=== PATIENT | male | born 1960 | race Two or more races ===

== ENCOUNTER 2017-08-27 21:36 | Emergency (ER) | payer OTHER, MEDICAID ==
[~2017-08-27] VITALS: Ht 177.8 cm; Wt 68.0 kg
[~2017-08-27 21:36] MED LIST: ASPIR-LOW81 MG PO; BACTRIM-DS1 EA PO; CATAPRES0.2 MG PO; CEFTRIAXONE2 G2 IV; CELLCEPT250 MG ORAL; CELLCEPT250 MG PO; CIPROFLOXACIN500 M2 ORAL; COLACE100 MG ORAL; COLACE100 MG PO; DAILY VITAMIN1 EAC4 PO; DITROPAN10 MG PO; FLOMAX0.4 MG PO; KAYEXALATE SUSP15 GM PO; KEPPRA500 MG PO; LABETALOL HCL300 MG PO; LANTUS SOL100 UNIT/1 SUBQ; LEVEMIR FL100 UNIT/1 SUBQ; LIPITOR20 MG ORAL; MAGNESIUM400 M1 PO; NORCO 5-325 TA1 EACH ORAL; NORMODYNE200 MG ORAL; NORVASC10 MG PO; NOVOLOG100 UNIT/3 SUBQ; NOVOLOG100 UNITS1 SUBQ; NYSTATIN100000 UN1 PO; PHENERGAN25 M1 ORAL; PREDNISONE2.5 MG PO; PREDNISONE5 M3 PO; PREVACID30 MG PO; PROGRAF1 MG PO; TERAZOSIN HCL1 MG PO; VALCYTE450 MG PO; VITAMIN D350000 UNIT PO
[2017-08-27 21:43] VITALS: BP 109/62
[2017-08-27] MEDS ORDERED: OXYBUTYNIN CHLOR5 M1 ORAL (21:50)
[2017-08-27] MEDS ORDERED: TRAMADOL HCL100 M2 ORAL (21:50)
[2017-08-27] MEDS ORDERED: TERAZOSIN HCL1 MG ORAL (21:50)
--- NOTE | 2017-08-27 22:08 | Emergency Room Report ---
History of Present Illness General Chief Complaint: Multiple Trauma/Fall Source: Patient Present Illness HPI Patient 56-year-old male who presented after a fall on top of a fan . 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 He had prior history of renal disease. He is currently on transplant medications. The patient having increased right-sided pain. Pain was described as lower rib area the pain is worse with movement as well as deep breath. Allergies: Coded Allergies: NO KNOWN ALLERGIES (Unverified Allergy, Unknown, 10/24/15) Patient History Past Medical History: see triage record Reviewed Nursing Documentation: PMH: Agreed, PSxH: Agreed Nursing Documentation-PMH Hx Hypertension: Yes Hx Pacemaker: No Hx Asthma: No Hx COPD: No Hx Diabetes: Yes Hx Cancer: No Hx Gastrointestinal Problems: No Hx Neurological Problems: Yes - Neuro surgery (veins clipped) Hx Cerebrovascular Accident: No Hx Seizures: Yes Hx Peripheral Neuropathy: Yes Hx Neurologic Surgery: Yes - brain surgery 10 years ago Review of Systems All Other Systems: negative except mentioned in HPI Physical Exam Vital Signs Date Time Temp Pulse Resp B/P (MAP) Pulse Ox O2 Delivery O2 Flow Rate FiO2 08/27/17 21:43 97.5 71 14 109/62 100 Room Air Sp02 EP Interpretation: reviewed, normal General Appearance: normal inspection, well appearing, no apparent distress, alert, GCS 15 Head: atraumatic ENT: normal ENT inspection, hearing grossly normal, normal voice Neck: normal inspection, full range of motion, supple, no bony tend Respiratory: normal inspection, lungs clear, normal breath sounds, no respiratory distress, no retraction, no wheezing Cardiovascular #1: regular rate, rhythm, no edema, other - chest wall tenderness Gastrointestinal: normal inspection, normal bowel sounds, non tender, soft, no guarding, no hernia Genitourinary: no CVA tenderness Musculoskeletal: normal inspection, back normal, normal range of motion Neurologic: normal inspection, alert, responsive, speech normal Psychiatric: normal inspection, judgement/insight normal, mood/affect normal Skin: normal inspection, normal color, no rash Medical Decision Making Diagnostic Impression: Primary Impression: Rib fracture ER Course Patient presented for fall. Differential diagnosis included was not limited to neck fracture, CVA, close head injury, syncopal episode, basilar ischemia, rib fracture among others. Because of complexity of patient's case laboratory testing and imaging studies were ordered.The x-ray imaging of the chest 4 views interpreted by me showed a right-sided rib fracture. The patient was given IM morphine for pain. He is advised to continue taking his tramadol for pain. He is advised followup with his primary care physician for reevaluation. He is advised to return if he began having worsening shortness of breath dizziness or other concerns Chest X-Ray Diagnostic Results Chest X-Ray Diagnostic Results : Chest X-Ray Ordered: Yes # of Views/Limited/Complete: Complete - 4 Indication: Chest Pain EP Interpretation: Yes Interpretation: no consolidation, no acute cardiopulmonary disease, other - rib fracture, small effusion Impression: Other - rib fracture Electronically Signed by: Electronically signed by Dr. Don Giordano M.D. Last Vital Signs Date Time Temp Pulse Resp B/P (MAP) Pulse Ox O2 Delivery O2 Flow Rate FiO2 08/27/17 21:43 97.5 71 14 109/62 100 Room Air Status: improved Disposition: HOME, SELF-CARE Condition: Stable Don Giordano Aug 27, 2017 22:08
[2017-08-27 23:13] VITALS: BP 160/80
[2017-08-27] MEDS ORDERED: Morphine Sulfate 2mg/ml Inj IM ONE (23:15)
--- NOTE | 2017-08-28 11:15 | Diagnostic Imaging Report ---
Indication: PAIN, status post fall Technique: One view of the chest, multiple views of the right ribs Comparison: 09/24/15, 10/24/2015 Findings: Chest radiograph demonstrates blunting of the right costophrenic sulcus. No pneumothorax . There is questionably a 1.5 cm nodule in the left midlung seen on chest radiograph. The remainder of the lungs and pleural space are clear. There is a fracture of the anterolateral right seventh rib. This is displaced by at least one bone width. Normal heart size Impression: Positive for right seventh rib fracture. Small right pleural effusion, likely related to the above No pneumothorax Questionable 1.5 cm nodule in the left midlung. Consider chest CT for further evaluation. This was discussed by phone with Dr. Jaimes at the time of interpretation
== END 2017-08-27 23:24 | disposition home or self-care (01) ==
LOC: EMR 22:02
DX: S22.31XA Fracture of one rib, right side, initial encounter for closed fracture (principal); W01.0XXA Fall on same level from slipping, tripping and stumbling without subsequent striking against object, initial encounter; Y92.009 Unspecified place in unspecified non-institutional (private) residence as the place of occurrence of the external cause; I10 Essential (primary) hypertension; E11.9 Type 2 diabetes mellitus without complications; R91.1 Solitary pulmonary nodule
CPT/HCPCS: 71101; 96372; 99284; J2270

== ENCOUNTER 2017-10-02 13:01 | Emergency (ER) | payer OTHER, MEDICAID ==
[~2017-10-02] VITALS: Ht 177.8 cm; Wt 65.8 kg
[~2017-10-02 13:01] MED LIST changes: +OXYBUTYNIN CHLOR5 M1 ORAL; +TERAZOSIN HCL1 MG ORAL; +TRAMADOL HCL100 M2 ORAL
[2017-10-02 13:38] VITALS: BP 180/98
[2017-10-02] MEDS ORDERED: Norco 5mg/325mg tab ORAL ONE (13:45)
--- NOTE | 2017-10-02 15:36 | Diagnostic Imaging Report ---
Clinical Indication: Right rib pain since yesterday Technique: Spiral acquisitions obtained through the chest. No IV contrast utilized, reason not stated. Multiplanar reconstructions generated. Total dose length product 673 mGycm. CTDIvol(s) 15 mGy. Dose reduction achieved using automated exposure control Comparison: Radiographs dated 08/27/2017 Findings:There is a lucency surrounded by sclerosis of the right anterolateral fifth rib. There is a minimally displaced fracture of the anterolateral right sixth rib with some surrounding callus formation. There is a fracture of the anterolateral right seventh rib, which is displaced by one bone width. There is a nondisplaced fracture with some callus formation of the lateral right eighth rib. There is are mostly healed fractures of the posterior left eighth and ninth ribs, with considerable callus, minimal residual fracture line. There is a completely healed fracture deformity of the left posterior 10th rib and of the posteromedial 12th ribs. There is an old healed fracture deformity of the left L1 transverse process There is a moderate-sized right pleural effusion. This demonstrates fluid attenuation, so it is not grossly bloody. No pneumothorax is evident. There are compressive atelectatic changes of the right lower lobe. Lung windows demonstrate a 3 mm calcified nodule in the posterior lateral left upper lobe, image 18 series 5. Subpleural 3 mm nodule is seen in the anterior left upper lobe, image 26 series 5. No infiltrates. No left-sided pleural fluid demonstrated. The heart size is normal. There are dense mitral annular calcifications. There are considerable coronary arterial calcifications. There is a small anterior wall pericardial effusion. No mediastinal or hilar mass or adenopathy. The included portions of the thyroid are unremarkable. The trachea is unremarkable. The esophagus is somewhat gas-filled. There is suggestion of mild esophageal wall thickening distally. There is diffuse mild edema of the subcutaneous fat. No axillary or chest wall mass or adenopathy. The included upper abdominal anatomy demonstrates calcifications within the liver which are punctate. There are considerable atherosclerotic vascular calcifications. The kidneys appear atrophic. Impression: Fractures of the right fifth through eighth ribs, as described. The seventh rib fracture is displaced, was reported on recent 08/26/2017 radiographs. The remaining fractures are nondisplaced, and occult on recent radiographs in retrospect Multiple old, mostly healed, left rib fractures. Note that radiographs of 08/15/2015 described acute 10th and 11th rib fractures. The 11th rib fracture is currently occult on CT, apparently completely healed No pneumothorax Moderate size right-sided pleural effusion. Fluid attenuation of this indicates this is probably not a hemothorax loops Dependent and compressive atelectatic changes at the right lung base 2 noncalcified left upper lobe nodules. If there is significant risk for lung cancer, then followup imaging in 6-12 months is recommended. If no risk factors, no further followup is necessary Old healed left L1 transverse process fracture Small anterior wall pericardial effusion Distal esophageal mild wall thickening, could indicate esophagitis . Correlate with clinical findings Evidence of mild anasarca, with diffuse mild edema of the subcutaneous fat Atrophic kidneys, also described on prior renal ultrasound of [address] scanner at [facility] is accredited by the [employer] and the scans are performed using protocols designed to limit radiation exposure to as low as reasonably achievable to attain images of sufficient resolution adequate for diagnostic evaluation.
[2017-10-02] MEDS ORDERED: NORCO 5-325 TA1 EAC1 ORAL (16:18)
[2017-10-02 16:48] VITALS: BP 170/86
--- NOTE | 2017-10-02 21:56 | Emergency Room Report ---
History of Present Illness General Chief Complaint: General Complaint Source: Patient Present Illness HPI The patient is a 56-year-old male presenting for continued rib pain. He was seen in this emergency department approximately 1 month prior after he fell and fractured his right ribs. X-ray was done at that time and showed 1 fracture on the right side. He has been using tramadol which has not been helping. Pain continues and is an 8/10 dull ache. Worse with deep breathing and touch.He denies other symptoms including nausea, vomiting, fever, chills, shortness of breath, hemoptysis Allergies: Coded Allergies: NO KNOWN ALLERGIES (Unverified Allergy, Unknown, 10/24/15) Patient History Past Medical History: see triage record Pertinent Family History: none Social History: Reports: smoking Reviewed Nursing Documentation: PMH: Agreed, PSxH: Agreed Nursing Documentation-PMH Hx Hypertension: Yes Hx Pacemaker: No Hx Asthma: No Hx COPD: No Hx Diabetes: Yes Hx Cancer: No Hx Gastrointestinal Problems: No Hx Neurological Problems: Yes - Neuro surgery (veins clipped) Hx Cerebrovascular Accident: No Hx Seizures: Yes Hx Peripheral Neuropathy: Yes Hx Neurologic Surgery: Yes - brain surgery 10 years ago Review of Systems All Other Systems: negative except mentioned in HPI Physical Exam Vital Signs Date Time Temp Pulse Resp B/P (MAP) Pulse Ox O2 Delivery O2 Flow Rate FiO2 10/02/17 13:28 98.2 78 16 180/98 99 Room Air Sp02 EP Interpretation: reviewed, normal General Appearance: no apparent distress, alert, GCS 15, non-toxic Head: normocephalic, atraumatic Eyes: bilateral eye other - blind ENT: hearing grossly normal, normal pharynx, no angioedema, normal voice Respiratory: lungs clear, normal breath sounds, no respiratory distress, no retraction, no accessory muscle use, speaking full sentences, other - no flail chest. TTP over the R lateral distal ribs Medical Decision Making PA Attestation Dr. Case is my supervising physician. Patient management was discussed with my supervising physician Diagnostic Impression: Primary Impression: Lung nodule, multiple Additional Impressions: Multiple rib fractures Qualified Codes: S22.41XA - Multiple fractures of ribs, right side, initial encounter for closed fracture Pleural effusion on right ER Course The patient is a 56-year-old male presenting for continued rib pain. Ddx considered include but not limited to Pneumothorax, sprain/strain, fracture , contusion Physical exam: Vitals within normal limits. No apparent distress Lungs are clear to auscultation bilaterally. No flail chest. There is tenderness to palpation over right distal lateral ribs. CT scan of the chest shows multiple findings including multiple right rib fractures and, left lung nodules, and right-sided pleural effusion. The patient was informed of all of these results as well as his son and told that he will need to have further care and evaluation. They declined admission at this time. I informed the patient that this is an urgent matter. He is given discs with the images and will follow up with his primary doctor and waste hand as soon as possible. He is given pain medication. ER precautions given CT/MRI/US Diagnostic Results CT/MRI/US Diagnostic Results : Imaging Test Ordered: CT chest Impression Fractures of the right fifth through eighth ribs, as described. The seventh rib fracture is displaced, was reported on recent 08/26/2017 radiographs. The remaining fractures are nondisplaced, and occult on recent radiographs in retrospect No pneumothorax Moderate size right-sided pleural effusion. Fluid attenuation of this indicates this is probably not a hemothorax loops Dependent and compressive atelectatic changes at the right lung base 2 noncalcified left upper lobe nodules. If there is significant risk for lung cancer, then followup imaging in 6-12 months is recommended. If no risk factors , no further followup is necessary Last Vital Signs Date Time Temp Pulse Resp B/P (MAP) Pulse Ox O2 Delivery O2 Flow Rate FiO2 10/02/17 16:48 77 14 170/86 99 Room Air 10/02/17 15:20 98.2 Status: improved Disposition: HOME, SELF-CARE Condition: Improved Scripts Hydrocodone Bit/Acetaminophen 5-325* (NORCO 5-325 TABLET*) 1 Each Tablet 1 TAB ORAL Q6HR Y for For Pain, #12 TAB Prov: DOROTHEA PORTER 10/02/17 Patient Instructions: Pulmonary Nodule, Rib Fracture Additional Instructions: I discussed my findings with the patient. All questions and concerns have been answered. Treatment and medication compliance have been addressed. The patient was told he needs to followup with his primary doctor soon as possible and needs to see a waste hand. He agrees with this plan. He was also informed of the lung nodules which has to be further evaluated DOROTHEA PORTER Oct 02, 2017 21:56
== END 2017-10-02 16:48 | disposition home or self-care (01) ==
LOC: EMR 14:19
DX: S22.41XA Multiple fractures of ribs, right side, initial encounter for closed fracture (principal); W19.XXXA Unspecified fall, initial encounter; Y92.89 Other specified places as the place of occurrence of the external cause; I10 Essential (primary) hypertension; E11.9 Type 2 diabetes mellitus without complications; R91.8 Other nonspecific abnormal finding of lung field; G62.9 Polyneuropathy, unspecified; J90 Pleural effusion, not elsewhere classified
CPT/HCPCS: 71250; 99283

== ENCOUNTER 2017-10-31 19:43 | Emergency (ER) | payer OTHER, MEDICAID ==
[~2017-10-31] VITALS: Ht 177.8 cm; Wt 66.2 kg
[~2017-10-31 19:43] MED LIST changes: +NORCO 5-325 TA1 EAC1 ORAL
[2017-10-31] MEDS ORDERED: Acetaminophen 500mg (ES) tab ORAL ONE (20:30)
[2017-10-31 21:35] VITALS: BP 135/62
--- NOTE | 2017-10-31 21:45 | Emergency Room Report ---
History of Present Illness General Chief Complaint: Multiple Trauma/Fall Source: Patient Present Illness HPI 56-year-old male, history of legal blindness, presents with fall and left hip pain. The son states that patient tripped, fell onto left side. Got up on his own. Patient has had intermittent left hip pain for the last 2 days. Has still been able to ambulate with his walker. No head trauma no LOC. Allergies: Coded Allergies: NO KNOWN ALLERGIES (Unverified Allergy, Unknown, 10/24/15) Patient History Past Medical History: see triage record Past Surgical History: none Pertinent Family History: none Reviewed Nursing Documentation: PMH: Agreed, PSxH: Agreed Nursing Documentation-PMH Hx Hypertension: Yes Hx Pacemaker: No Hx Asthma: No Hx COPD: No Hx Diabetes: Yes Hx Cancer: No Hx Gastrointestinal Problems: No Hx Neurological Problems: Yes - Neuro surgery (veins clipped) Hx Cerebrovascular Accident: No Hx Seizures: Yes Hx Peripheral Neuropathy: Yes Hx Neurologic Surgery: Yes - brain surgery 10 years ago Review of Systems All Other Systems: negative except mentioned in HPI Physical Exam Vital Signs Date Time Temp Pulse Resp B/P (MAP) Pulse Ox O2 Delivery O2 Flow Rate FiO2 10/31/17 20:03 97.7 70 18 98/59 98 Sp02 EP Interpretation: reviewed, normal General Appearance: alert, GCS 15, mild distress Head: normocephalic, atraumatic Eyes: bilateral eye other - blind b/l eyes ENT: normal ENT inspection, normal pharynx, normal voice, moist mucus membranes Neck: normal inspection, full range of motion, supple Respiratory: normal inspection, lungs clear, normal breath sounds, no respiratory distress, no retraction, no wheezing, speaking full sentences, chest symmetrical Cardiovascular #1: normal inspection, regular rate, rhythm, no edema, normal capillary refill Cardiovascular #2: 2+ radial (R), 2+ radial (L) Gastrointestinal: normal inspection, non tender, soft, non-distended, no guarding Genitourinary: no CVA tenderness Musculoskeletal: other - L buttocks TTP no ecchymosis, no leg shortening or rotation Neurologic: normal inspection, alert, oriented x3, responsive, motor strength/ tone normal, sensory intact, normal gait, speech normal Psychiatric: normal inspection, judgement/insight normal, memory normal Skin: normal inspection, normal color, no rash, warm/dry, well hydrated, normal turgor Medical Decision Making Diagnostic Impression: Primary Impression: Hip pain, left Additional Impression: Fall ER Course 56-year-old male, fall, left hip pain DDX: Contusion vs. fracture Plan: Pain control with Tylenol and XR ER course: Patient reports improvement of pain X-ray does not reveal a fracture Disposition: Patient is to be discharged home Strict precautions discussed with patient on when to return to the emergency room including increased pain, increased pain/swelling of extremity, fever or chills, which could indicate severe illness. Patient is to follow up with their primary care doctor within 5 days. Please note that this Emergency Department Report was dictated using [employer] and language tutor technology software, occasionally this can lead to erroneous entry secondary to interpretation by the dictation equipment. Xray ordered: Pelvis 1 view Indication: Pain EP Interpretation: Yes Interpretation: No dislocation, no soft tissue swelling, no fractures Impression: No acute disease Electronically signed by Jayleen Galarza MD Xray: Left hip 3 view Indication: Pain EP Interpretation: Yes Interpretation: No dislocation, no soft tissue swelling, no fractures Impression: No acute disease Electronically signed by Jayleen Galarza MD Last Vital Signs Date Time Temp Pulse Resp B/P (MAP) Pulse Ox O2 Delivery O2 Flow Rate FiO2 10/31/17 20:03 97.7 70 18 98/59 98 Disposition: HOME, SELF-CARE Condition: Stable Patient Instructions: Hip Pain Jayleen Galarza M.D. Oct 31, 2017 21:45
--- NOTE | 2017-11-01 09:18 | Diagnostic Imaging Report ---
Indication: Pain Technique: One view of the pelvis, 2 views of the left hip Comparison: none Findings: The bones are osteoporotic. No definite acute fractures. No dislocations. Joint spaces are preserved. There are extensive vascular calcifications. Surgical clips are seen in the left side of the pelvis. Impression: No acute bony trauma. Findings as noted
== END 2017-10-31 21:35 | disposition home or self-care (01) ==
LOC: EMR 20:20
DX: M25.552 Pain in left hip (principal); W19.XXXA Unspecified fall, initial encounter; Y92.9 Unspecified place or not applicable; E11.9 Type 2 diabetes mellitus without complications; I10 Essential (primary) hypertension; G62.9 Polyneuropathy, unspecified
CPT/HCPCS: 72170; 73502; 99284

== ENCOUNTER 2017-11-04 13:19 | Inpatient (IN) | payer OTHER, MEDICAID ==
[~2017-11-04] VITALS: Ht 177.8 cm; Wt 68.0 kg
[2017-11-04] MEDS ORDERED: oxyCODONE HCL/Acetaminophen 5/325mg ORAL ONE (14:00)
--- NOTE | 2017-11-04 16:44 | Emergency Room Report ---
History of Present Illness General Chief Complaint: Multiple Trauma/Fall Source: Patient, Family Member (Rocio Hahn) Present Illness HPI 56 YO Male presents to E/D c/o 08/14 in severity left hip pain s/p mechanical fall today. pt. was evaluated 1 week ago for fall then as well. reports "kidney problems and DM." Patient presents with his sister who is also concerned that he is unable to care for himself at his home he is blind for the most part her and has a disability requiring him to wear an orthotic on the right foot for a discrepancy. The sister reports that patient has history of renal transplant, and he is often at home by himself the majority of the day. The patient himself is a poor historian, he is in moderate distress due to pain, he also is tachypneic Making it difficult for him to speak full sentences. Pt. reports chills. (Rocio Hahn) Allergies: Coded Allergies: NO KNOWN ALLERGIES (Unverified Allergy, Unknown, 10/24/15) Patient History Past Medical History: see triage record, DM Past Surgical History: none Pertinent Family History: none Reviewed Nursing Documentation: PMH: Agreed, PSxH: Agreed (Rocio Hahn) Nursing Documentation-PMH Past Medical History: No History, Except For Hx Hypertension: Yes Hx Pacemaker: No Hx Asthma: No Hx COPD: No Hx Diabetes: Yes Hx Cancer: No Hx Gastrointestinal Problems: No Hx Neurological Problems: Yes - Neuro surgery (veins clipped) Hx Cerebrovascular Accident: No Hx Seizures: Yes Hx Peripheral Neuropathy: Yes Hx Neurologic Surgery: Yes - brain surgery 10 years ago (Rocio Hahn) Review of Systems All Other Systems: negative except mentioned in HPI (Rocio Hahn) Physical Exam Vital Signs Date Time Temp Pulse Resp B/P (MAP) Pulse Ox O2 Delivery O2 Flow Rate FiO2 11/04/17 13:34 99.1 80 18 139/58 99 Room Air Sp02 EP Interpretation: reviewed, normal General Appearance: alert, GCS 15, moderate distress, cachetic, lethargic, thin , Chronically Ill Head: normocephalic, atraumatic Eyes: bilateral eye normal inspection, bilateral eye PERRL ENT: hearing grossly normal, normal voice Neck: full range of motion Respiratory: chest non-tender, lungs clear, normal breath sounds, no rhonchi, no retraction, no wheezing, other - tachypneic Cardiovascular #1: regular rate, rhythm, no edema Gastrointestinal: normal bowel sounds, non tender, soft Rectal: deferred Genitourinary: normal inspection Musculoskeletal: back normal, normal range of motion, tender - lateral TTP to the left hip, swelling noted, mild hematoma, no significant increased temperature to palpation, no abrasions or open wounds. Neurologic: alert, oriented x3, responsive, sensory intact, speech normal, grossly normal Skin: no rash, warm/dry, other - contusion to lateral left hip, ST swelling , tenderness. (Rocio Hahn) Medical Decision Making PA Attestation Dr. August is my supervising Physician whom patient management has been discussed with. (Rocio Hahn) Diagnostic Impression: Primary Impression: UTI (urinary tract infection) Qualified Codes: N30.01 - Acute cystitis with hematuria Additional Impressions: Metabolic acidosis Renal failure Qualified Codes: N19 - Unspecified kidney failure Hyperglycemia Fall Qualified Codes: W19.XXXA - Unspecified fall, initial encounter Failure to thrive Qualified Codes: R62.7 - Adult failure to thrive ER Course 56 YO Male presents to E/D c/o 08/14 in severity left hip pain s/p mechanical fall today. pt. was evaluated 1 week ago for fall then as well. reports "kidney problems and DM." Patient presents with his sister who is also concerned that he is unable to care for himself at his home he is blind for the most part her and has a disability requiring him to wear an orthotic on the right foot for a discrepancy. The sister reports that patient has history of renal transplant, and he is often at home by himself the majority of the day. The patient himself is a poor historian, he is in moderate distress due to pain, he also is tachypneic Making it difficult for him to speak full sentences. Pt. reports chills. Ddx considered but are not limited to fracture, dislocation, contusion, infection, hyperglycemia, failure to thrive Vital signs: pt. is febrile 100.7, tachypneic at RR: 24 , normal HR. normal O2 sat. H&PE are most consistent with moderate tenderness to the lateral left hip in addition to tachypnea. And fever. ORDERS: -CBC: Mild leukocytosis and anemia -CMP: To light abnormality, hypoglycemia, dehydration and renal failure -ABG: PH of 7 point C. with bicarbonate of 8, elevated PO2 with a low PCO2 indicating metabolic acidosis with respiratory compensation. Calculated Bicarb deficit: 452.6 - Corrected anion gap calculated to be 23 - CXR: increased Perihilar lung markings, no acute pulmonary pathology at this time -CT Hip No-Contrast: No acute fractures or dislocation, there is left hip/ gluteal soft tissue fluid and air which may be post traumatic or infectious/ inflammatory. We thickened bladder which may be chronic versus cystitisPer official radiology report- Please see report for specific details. ED INTERVENTIONS: --Unasyn IV -Vancomycin IV - Tylenol PO - IV fluids 1000cc NS bolus x 2 -Sodium Bicarb x 2 -I feel this is a highly complex case requiring extensive working including EKG/ Rhythm strip, Xray/CT/US, Blood/urine lab work, repeat exams while in ED, and administration of strong opiates/narcotics for pain control, admission to hospital or close patient follow up. DISPOSITION: at this time pt. will be admitted to who is covering for Dr. Gaona for her glycemia, renal failure,metabolic acidosis with respiratory compensation, UTI. just to name a few. Dr. Gaston agreed to admit the pt. and to continue pt. care management. Labs Test 11/04/17 16:10 11/04/17 17:00 11/04/17 19:28 White Blood Count 11.4 K/UL (4.8-10.8) Red Blood Count 3.19 M/UL (4.70-6.10) Hemoglobin 8.2 G/DL (14.2-18.0) Hematocrit 27.2 % (42.0-52.0) Mean Corpuscular Volume 85 FL (80-99) Mean Corpuscular Hemoglobin 25.8 PG (27.0-31.0) Mean Corpuscular Hemoglobin Concent 30.3 G/DL (32.0-36.0) Red Cell Distribution Width 15.6 % (11.6-14.8) Platelet Count 189 K/UL (150-450) Mean Platelet Volume 7.6 FL (6.5-10.1) Neutrophils (%) (Auto) 96.9 % (45.0-75.0) Lymphocytes (%) (Auto) 1.1 % (20.0-45.0) Monocytes (%) (Auto) 1.8 % (1.0-10.0) Eosinophils (%) (Auto) 0.0 % (0.0-3.0) Basophils (%) (Auto) 0.2 % (0.0-2.0) Sodium Level 126 MMOL/L (136-145) Potassium Level 3.8 MMOL/L (3.5-5.1) Chloride Level 99 MMOL/L (98-107) Carbon Dioxide Level 8 MMOL/L (21-32) Anion Gap 19 mmol/L (5-15) Blood Urea Nitrogen 74 mg/dL (7-18) Creatinine 4.6 MG/DL (0.55-1.30) Estimat Glomerular Filtration Rate 13.2 mL/min (>60) Glucose Level 256 MG/DL (74-106) Lactic Acid Level 1.60 mmol/L (0.66-2.22) Calcium Level 6.8 MG/DL (8.5-10.1) Total Bilirubin 0.8 MG/DL (0.2-1.0) Aspartate Amino Transf (AST/SGOT) 12 U/L (15-37) Alanine Aminotransferase (ALT/SGPT) 7 U/L (12-78) Alkaline Phosphatase 115 U/L (46-116) Total Creatine Kinase 77 U/L (26-308) Troponin I 0.031 ng/mL (0.000-0.056) Total Protein 6.9 G/DL (6.4-8.2) Albumin 2.8 G/DL (3.4-5.0) Globulin 4.1 g/dL Albumin/Globulin Ratio 0.7 (1.0-2.7) Urine Color Pale yellow Urine Appearance Clear Urine pH 5 (4.5-8.0) Urine Specific [place] 1.010 (1.005-1.035) Urine Protein 3+ (NEGATIVE) Urine Glucose (UA) 2+ (NEGATIVE) Urine Ketones 1+ (NEGATIVE) Urine Occult Blood 4+ (NEGATIVE) Urine Nitrite Negative (NEGATIVE) Urine Bilirubin Negative (NEGATIVE) Urine Urobilinogen Normal MG/DL (0.0-1.0) Urine Leukocyte Esterase 1+ (NEGATIVE) Urine RBC 2-4 /HPF (0 - 0) Urine WBC 10-15 /HPF (0 - 0) Urine Squamous Epithelial Cells None /LPF (NONE/OCC) Urine Bacteria Many /HPF (NONE) Arterial Blood pH 7.270 (7.350-7.450) Arterial Blood Partial Pressure CO2 15.5 mmHg (35.0-45.0) Arterial Blood Partial Pressure O2 104.6 mmHg (75.0-100.0) Arterial Blood HCO3 7.0 mmol/L (22.0-26.0) Arterial Blood Oxygen Saturation 97.0 % (92.0-98.0) Arterial Blood Base Excess -18.1 Cory Test Positive Labs Test 11/04/17 16:10 11/04/17 17:00 White Blood Count 11.4 K/UL (4.8-10.8) Red Blood Count 3.19 M/UL (4.70-6.10) Hemoglobin 8.2 G/DL (14.2-18.0) Hematocrit 27.2 % (42.0-52.0) Mean Corpuscular Volume 85 FL (80-99) Mean Corpuscular Hemoglobin 25.8 PG (27.0-31.0) Mean Corpuscular Hemoglobin Concent 30.3 G/DL (32.0-36.0) Red Cell Distribution Width 15.6 % (11.6-14.8) Platelet Count 189 K/UL (150-450) Mean Platelet Volume 7.6 FL (6.5-10.1) Neutrophils (%) (Auto) 96.9 % (45.0-75.0) Lymphocytes (%) (Auto) 1.1 % (20.0-45.0) Monocytes (%) (Auto) 1.8 % (1.0-10.0) Eosinophils (%) (Auto) 0.0 % (0.0-3.0) Basophils (%) (Auto) 0.2 % (0.0-2.0) Sodium Level 126 MMOL/L (136-145) Potassium Level 3.8 MMOL/L (3.5-5.1) Chloride Level 99 MMOL/L (98-107) Carbon Dioxide Level 8 MMOL/L (21-32) Anion Gap 19 mmol/L (5-15) Blood Urea Nitrogen 74 mg/dL (7-18) Creatinine 4.6 MG/DL (0.55-1.30) Estimat Glomerular Filtration Rate 13.2 mL/min (>60) Glucose Level 256 MG/DL (74-106) Lactic Acid Level 1.60 mmol/L (0.66-2.22) Calcium Level 6.8 MG/DL (8.5-10.1) Total Bilirubin 0.8 MG/DL (0.2-1.0) Aspartate Amino Transf (AST/SGOT) 12 U/L (15-37) Alanine Aminotransferase (ALT/SGPT) 7 U/L (12-78) Alkaline Phosphatase 115 U/L (46-116) Total Creatine Kinase 77 U/L (26-308) Troponin I 0.031 ng/mL (0.000-0.056) Total Protein 6.9 G/DL (6.4-8.2) Albumin 2.8 G/DL (3.4-5.0) Globulin 4.1 g/dL Albumin/Globulin Ratio 0.7 (1.0-2.7) Urine Color Pale yellow Urine Appearance Clear Urine pH 5 (4.5-8.0) Urine Specific [place] 1.010 (1.005-1.035) Urine Protein 3+ (NEGATIVE) Urine Glucose (UA) 2+ (NEGATIVE) Urine Ketones 1+ (NEGATIVE) Urine Occult Blood 4+ (NEGATIVE) Urine Nitrite Negative (NEGATIVE) Urine Bilirubin Negative (NEGATIVE) Urine Urobilinogen Normal MG/DL (0.0-1.0) Urine Leukocyte Esterase 1+ (NEGATIVE) Urine RBC 2-4 /HPF (0 - 0) Urine WBC 10-15 /HPF (0 - 0) Urine Squamous Epithelial Cells None /LPF (NONE/OCC) Urine Bacteria Many /HPF (NONE) (Rocio Hahn P.A.) ER Course pt with gram - rods in blood culture informed Dr Gaston patient already on abx (Jayleen Galarza M.D.) EKG Diagnostic Results EP Interpretation: Dr. August Rate: normal Rhythm: NSR ST Segments: no acute changes - q waves noted could be early depolarization or old infarct, no acute ST abnormalities or ichemic indicators. Other Impression prolonged QT interval 418 ASA given to the pt in ED: No PA Scribe Text This EKG interpretation have been prescribed by YOSEF Hahn (Rocio Hahn) Chest X-Ray Diagnostic Results Chest X-Ray Diagnostic Results : Chest X-Ray Ordered: Yes # of Views/Limited/Complete: 1 View Indication: Shortness of Breath EP Interpretation: Yes YOSEF Xray: Interpretation reviewed, by supervising MD, and agrees with findings. Interpretation: no consolidation, no effusion, no pneumothorax Impression: No acute disease - some perihilar markings Electronically Signed by: Rocio Hahn PA-C (Rocio Hahn) Last Vital Signs Date Time Temp Pulse Resp B/P (MAP) Pulse Ox O2 Delivery O2 Flow Rate FiO2 11/04/17 13:34 99.1 80 18 139/58 99 Room Air (Rocio Hahn) Disposition: ADMITTED INPATIENT Condition: Serious Referrals: [facility],REFERRING (PCP) Rocio Hahn Nov 04, 2017 16:44 Jayleen Galarza M.D. Nov 05, 2017 12:12
[2017-11-04 16:50] VITALS: BP 156/80
[2017-11-04] MEDS ORDERED: Vancomycin 1 GM in NS 275 ML IV ONE (17:00)
[2017-11-04] MEDS ORDERED: Unasyn 3gm Inj ONE (17:16)
[2017-11-04] MEDS: Ampicillin/Sulbactam Sod 3 GM in NS 110 ML IV SCH (17:19)
[2017-11-04 17:33] LABS: APPEARANCE,URINE CLEAR; BILIRUBIN, URINE NEGATIVE (NEGATIVE); COLOR,URINE PALE YELLOW; GLUCOSE, URINE (UA) 2+ (NEGATIVE); KETONES,URINE 1+ (NEGATIVE); LEUKOCYTE ESTERASE ,URINE 1+ (NEGATIVE); NITRITE,URINE NEGATIVE (NEGATIVE); PH,URINE 5 (4.5-8.0); PROTEIN,URINE 3+ (NEGATIVE); UROBILINOGEN,URINE NORMAL MG/DL (0.0-1.0)
[2017-11-04] MEDS ORDERED: ALLOPURINOL100 M1 ORAL (17:39)
[2017-11-04] MEDS ORDERED: NORMODYNE300 MG ORAL (17:42)
[2017-11-04] MEDS ORDERED: TACROLIMUS1 MG PO (17:42)
[2017-11-04] MEDS ORDERED: FUROSEMIDE20 M1 ORAL (17:42)
[2017-11-04 17:44] LABS: HEMATOCRIT 27.2 % (42.0-52.0); HEMOGLOBIN 8.2 G/DL (14.2-18.0); MEAN CORPUSCULAR VOLUME 85 FL (80-99); PLATELET COUNT 189 K/UL (150-450); RED BLOOD COUNT 3.19 M/UL (4.70-6.10); RED CELL DISTRIBUTION WIDTH 15.6 % (11.6-14.8); WHITE BLOOD COUNT 11.4 K/UL (4.8-10.8)
[2017-11-04] MEDS ORDERED: ATORVASTATIN CA20 MG ORAL (17:44)
[2017-11-04] MEDS ORDERED: DOCUSATE SODIU100 MG ORAL (17:44)
[2017-11-04 17:49] LABS: BASOPHILS % (AUTO) 0.2 % (0.0-2.0); LYMPHOCYTES % (AUTO) 1.1 % (20.0-45.0); MONOCYTES % (AUTO) 1.8 % (1.0-10.0); NEUTROPHILS % (AUTO) 96.9 % (45.0-75.0)
[2017-11-04 18:11] LABS: ANION GAP 19 mmol/L (5-15); BLOOD UREA NITROGEN 74 mg/dL (7-18); CALCIUM 6.8 MG/DL (8.5-10.1); CHLORIDE 99 MMOL/L (98-107); CREATININE 4.6 MG/DL (0.55-1.30); POTASSIUM 3.8 MMOL/L (3.5-5.1); SODIUM 126 MMOL/L (136-145)
[2017-11-04] MEDS ORDERED: Vancomycin 1gm inj IVPB ONE (18:13)
[2017-11-04] MEDS ORDERED: NS 275 ML ONE (18:16)
[2017-11-04 18:17] LABS: ALANINE AMINOTRANSFERASE 7 U/L (12-78); ALBUMIN 2.8 G/DL (3.4-5.0); ALBUMIN/GLOBULIN RATIO 0.7 (1.0-2.7); ALKALINE PHOSPHATASE 115 U/L (46-116); ASPARTATE AMINO TRANSFERASE 12 U/L (15-37); BILIRUBIN,TOTAL 0.8 MG/DL (0.2-1.0); CREATINE KINASE 77 U/L (26-308)
[2017-11-04 18:19] LABS: CARBON DIOXIDE 8 MMOL/L (21-32)
[2017-11-04] MEDS ORDERED: Sodium Chloride 500ML 500 ML IV ONE (18:45)
[2017-11-04] MEDS ORDERED: Acetaminophen 650mg/20.3ml NG ONE (20:45)
[2017-11-04 21:46] VITALS: BP 162/53
[2017-11-04 22:10] LABS: ALANINE AMINOTRANSFERASE 15 U/L (12-78); ALBUMIN 2.8 G/DL (3.4-5.0); ALBUMIN/GLOBULIN RATIO 0.7 (1.0-2.7); ALKALINE PHOSPHATASE 125 U/L (46-116); ANION GAP 23 mmol/L (5-15); ASPARTATE AMINO TRANSFERASE 13 U/L (15-37); BILIRUBIN,TOTAL 0.9 MG/DL (0.2-1.0); BLOOD UREA NITROGEN 69 mg/dL (7-18); CALCIUM 6.8 MG/DL (8.5-10.1); CHLORIDE 101 MMOL/L (98-107); CREATININE 4.4 MG/DL (0.55-1.30); POTASSIUM 3.6 MMOL/L (3.5-5.1); SODIUM 130 MMOL/L (136-145)
[2017-11-04 22:13] LABS: CARBON DIOXIDE 7 MMOL/L (21-32)
[2017-11-04] MEDS ORDERED: Sodium Bicarbonate 50ml Carp IV ONE (22:15)
[2017-11-04 23:30] VITALS: BP 154/56
[2017-11-05] VITALS (11 sets, daily range): BP systolic 140–167; BP diastolic 56–68
[2017-11-05] MEDS: Ampicillin/Sulbactam Sod 3 GM in NS 110 ML IV SCH (01:00)
[2017-11-05 05:33] LABS: ANION GAP 19 mmol/L (5-15); BLOOD UREA NITROGEN 65 mg/dL (7-18); CALCIUM 6.3 MG/DL (8.5-10.1); CARBON DIOXIDE 10 MMOL/L (21-32); CHLORIDE 106 MMOL/L (98-107); CREATININE 4.3 MG/DL (0.55-1.30); POTASSIUM 3.4 MMOL/L (3.5-5.1); SODIUM 135 MMOL/L (136-145)
[2017-11-05 05:37] LABS: ALANINE AMINOTRANSFERASE 13 U/L (12-78); ALBUMIN 2.3 G/DL (3.4-5.0); ALBUMIN/GLOBULIN RATIO 0.6 (1.0-2.7); ALKALINE PHOSPHATASE 92 U/L (46-116); ASPARTATE AMINO TRANSFERASE 16 U/L (15-37); BILIRUBIN,TOTAL 0.8 MG/DL (0.2-1.0)
[2017-11-05] MEDS ORDERED: Unasyn 3gm in NS 110ml IVPB SCH (09:00)
[2017-11-05] MEDS ORDERED: Unasyn 3gm Inj IVPB SCH (09:00)
--- NOTE | 2017-11-05 09:53 | Diagnostic Imaging Report ---
Indication: Chest pain Technique: One view of the chest Comparison: 10/24/2015 Findings: Lungs and pleural spaces are clear. Heart size is upper limits normal. No significant interim change Impression: No acute process
[2017-11-05] MEDS ORDERED: Vancomycin 1 GM in NS 275 ML IVPB ONE (10:00)
[2017-11-05] MEDS ORDERED: Unasyn 3gm Inj ONE (10:00)
[2017-11-05] MEDS: Mycophenolate 250mg cap ORAL SCH ×2 (10:08→21:23)
[2017-11-05] MEDS: Docusate 100mg cap ORAL SCH ×2 (10:09→18:34)
[2017-11-05] MEDS: Allopurinol 100mg Tab ORAL SCH ×2 (10:09→18:34)
[2017-11-05] MEDS: Heparin 5000 units/ml inj SUBQ SCH ×2 (10:20→21:25)
[2017-11-05] MEDS: Oxybutynin 5mg tab ORAL SCH ×2 (11:04→21:23)
--- NOTE | 2017-11-05 11:20 | Diagnostic Imaging Report ---
Indication: Left hip pain, status post fall Technique: Spiral acquisitions obtained through the left hip and pelvis Multiplanar reconstructions were generated. Total dose length product 587.36 mGycm. CTDIvol(s) 9.82,9.6 mGy. Radiation dose was minimized using automated exposure control Comparison: Reference made to plain radiographs 10/31/2017; also abdomen and pelvis CT dated 07/08/2011 Findings: No acute fractures. No dislocations. The joint spaces are preserved. There is gas within the soft tissues deep to the gluteal musculature posteriorly on the left, and deep to the superficial fascia more laterally. There is some edema in this area as well, particularly laterally. No definite organized focal fluid collection is evident. There is some stranding of the subcutaneous fat in this area. Interim left iliac fossa renal transplant, since prior 2010 exam. There is extensive vascular calcification. There is equivocal mild thickening of the bladder wall Impression: No acute bony trauma Gas within the soft tissues of the left hip and buttock region. This may indicate penetrating trauma, but is worrisome for infection with gas-forming organism. Recommend correlation with clinical findings. Equivocal gallbladder wall thickening, if real could indicate mild cystitis changes. Correlate with clinical findings Left iliac fossa transplant kidney This agrees with the preliminary interpretation provided overnight by [facility] teleradiology service. The CT scanner at [facility] is accredited by the [employer] and the scans are performed using protocols designed to limit radiation exposure to as low as reasonably achievable to attain images of sufficient resolution adequate for diagnostic evaluation.
[2017-11-05] MEDS ORDERED: Vancomycin 1gm inj IVPB ONE (11:39)
[2017-11-05] MEDS ORDERED: Vancomycin 1 GM in D5W 275 ML IVPB ONE (11:45)
--- NOTE | 2017-11-05 14:53 | History & Physical ---
History and Physical History & Physicial Dictated for Int Med-Dr Gaona no. [id number] BISI CONDE Nov 05, 2017 14:53
[2017-11-05] MEDS ORDERED: cefTRIAXone 1gm/D5W 55ml IVPB SCH ×2 (16:00)
--- NOTE | 2017-11-05 16:30 | History and Physical Report ---
DATE OF ADMISSION: 11/04/2017 CHIEF COMPLAINT: The patient is a 56-year-old male, who presents with a chief complaint of left hip pain. HISTORY OF PRESENT ILLNESS: The patient states he fell three days previously. The patient states he fell to his knees, however, his left hip became to hurt. The patient was initially evaluated at [facility] emergency room, however, he was discharged home. The patient returned to [facility] emergency room on 11/04/2017. The patient was found to have urinary tract infection. The patient is admitted for left hip pain to rule out fracture and urinary tract infection. PAST MEDICAL HISTORY: Significant for: 1. Type 2 diabetes. 2. End-stage renal disease, status post renal transplant. 3. Hypertension. 4. Hypercholesterolemia. 5. Seizure disorder. 6. Diabetic peripheral vascular disease. PAST SURGICAL HISTORY: Significant for: 1. Renal transplantation in 2011. 2. 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 3. Amputation of the left great toe. CURRENT MEDICATIONS: 1. Allopurinol 100 mg p.o. daily. 2. Amlodipine 10 mg p.o. daily. 3. Aspirin 81 mg one tablet p.o. daily. 4. Atorvastatin 20 mg p.o. at bedtime. 5. Colace 100 mg p.o. twice daily. 6. Lasix 20 mg p.o. daily. 7. NovoLog sliding scale. 8. Lantus 10 units subcutaneously daily before breakfast. 9. Labetalol 30 mg one tablet p.o. twice daily. 10. Prevacid 30 mg p.o. daily. 11. Multivitamin p.o. daily. 12. CellCept 500 mg p.o. twice daily. 13. Oxybutynin 5 mg p.o. twice daily. 14. Tacrolimus 1 mg p.o. twice daily. 15. Tramadol 100 mg p.o. q.6 hours p.r.n. ALLERGIES: No known drug allergies. SOCIAL HISTORY: The patient is . The patient lives with his adult grown daughter and son. The patient denies tobacco or alcohol use. REVIEW OF SYSTEMS: CONSTITUTIONAL: The patient denies weight loss or weight gain. The patient denies fevers or chills. HEENT: The patient denies ear or throat pain. The patient denies headache. CARDIOVASCULAR: The patient denies palpitations or chest pain. CHEST: The patient denies wheeze or shortness of breath. ABDOMEN: The patient denies nausea, vomiting, diarrhea, or constipation. GENITOURINARY: The patient denies dysuria or increased frequency of urination. NEUROMUSCULAR: The patient complains of left hip pain as above. The patient denies seizures or generalized weakness. PHYSICAL EXAMINATION: VITAL SIGNS: Temperature 97.2, respirations 24, pulse 79, and blood pressure 167/67. GENERAL: The patient is a well-developed and well-nourished thin-appearing male, in no apparent distress. HEENT: Eyes, pupils equal and responsive to light and accommodation. Extraocular movements are intact. NECK: Supple without lymphadenopathy. CHEST: Lungs are clear to auscultation bilaterally without wheezes or rales. CARDIOVASCULAR: Regular rhythm and rate. S1 and S2 normal without murmurs, rubs, or gallops. ABDOMEN: Soft, nontender, and nondistended. Positive bowel sounds. No evidence of hepatosplenomegaly. Currently, no rebound or guarding noted. EXTREMITIES: Negative for clubbing, cyanosis, or edema. RECTAL/GENITAL: Refused. NEUROLOGIC: Cranial nerves II through XII are grossly intact without focal deficits. Motor strength is 5/5 bilaterally. Deep tendon reflexes are 2+ plantar. LABORATORY STUDIES: WBC 11.4, hemoglobin 8.2, hematocrit 27.2, and platelets 189,000. Sodium 126, potassium 3.8, chloride 99, CO2 8, BUN 74, creatinine 4.6, and glucose 256. Urinalysis showed 4+ occult blood and 1+ leukocyte esterase with 10 to [address] scan of the left hip revealed gas in the soft tissue of the left hip and buttock consistent with trauma versus gas-forming bacteria. ASSESSMENT: This is a 56-year-old male. 1. Left hip pain. 2. Cellulitis of the left hip. 3. Urinary tract infection. 4. Diabetes type 2. 5. End-stage renal disease. 6. Renal transplant. 7. Hypertension. 8. Hypercholesterolemia. 9. Seizure disorder. 10. Peripheral vascular disease. TREATMENT: 1. Left hip pain. This may be secondary to cellulitis versus trauma. The patient has been started empirically on intravenous Rocephin and Levaquin. We will follow recommendations of Infectious Disease. 2. Urinary tract infection. A urine culture is pending. The patient has been started empirically on Rocephin and Levaquin. 3. Diabetes type 2. Continue Lantus and regular insulin sliding scale as above. 4. End-stage renal disease, status post renal transplant. 5. Hypertension. 6. Hypercholesteremia. The patient will be continued on Norvasc as above. 7. Hypercholesteremia. Continue atorvastatin as above. 8. Seizure disorder. Continue Keppra as above. Willie Gaston M.D. DR: RUBI JOB#: [id number] CC:
[2017-11-05] MEDS: NovoLOG Insulin Flexpen SUBQ SCH ×2 (17:04→21:26)
[2017-11-05] MEDS: Piperacillin/Tazobactam 2.25 GM in NS 110 ML IV SCH (21:23)
[2017-11-05] MEDS: Atorvastatin 20mg tab ORAL SCH (21:23)
[2017-11-06 04:01] VITALS: BP 153/70
[2017-11-06 04:53] LABS: HEMATOCRIT 25.9 % (42.0-52.0); HEMOGLOBIN 8.1 G/DL (14.2-18.0); MEAN CORPUSCULAR VOLUME 84 FL (80-99); PLATELET COUNT 177 K/UL (150-450); RED BLOOD COUNT 3.09 M/UL (4.70-6.10); RED CELL DISTRIBUTION WIDTH 15.7 % (11.6-14.8); WHITE BLOOD COUNT 11.5 K/UL (4.8-10.8)
[2017-11-06 05:37] LABS: ANION GAP 20 mmol/L (5-15); BLOOD UREA NITROGEN 69 mg/dL (7-18); CALCIUM 6.6 MG/DL (8.5-10.1); CHLORIDE 102 MMOL/L (98-107); POTASSIUM 3.1 MMOL/L (3.5-5.1); SODIUM 131 MMOL/L (136-145)
[2017-11-06 05:44] LABS: CARBON DIOXIDE 10 MMOL/L (21-32)
[2017-11-06] MEDS: Piperacillin/Tazobactam 2.25 GM in NS 110 ML IV SCH ×3 (05:56→23:30)
[2017-11-06] MEDS: NovoLOG Insulin Flexpen SUBQ SCH ×4 (06:25→20:41)
[2017-11-06 08:00] VITALS: BP 140/67
[2017-11-06] MEDS ORDERED: Sodium Bicarbonate 50ml Carp IV ONE (08:00)
--- NOTE | 2017-11-06 08:02 | General Progress Note ---
Progress Note Progress Note [id number] full note dictated ASTER NEFF Nov 06, 2017 08:02
[2017-11-06] MEDS: Mycophenolate 250mg cap ORAL SCH ×2 (08:27→20:39)
[2017-11-06] MEDS: Allopurinol 100mg Tab ORAL SCH ×2 (09:00→19:04)
[2017-11-06] MEDS: Docusate 100mg cap ORAL SCH ×2 (10:12→19:03)
[2017-11-06] MEDS: Oxybutynin 5mg tab ORAL SCH ×2 (10:13→20:39)
[2017-11-06] MEDS: Heparin 5000 units/ml inj SUBQ SCH ×2 (10:17→20:40)
--- NOTE | 2017-11-06 11:53 | Consultation ---
History of Present Illness General Date patient seen: Nov 06, 2017 Time patient seen: 11:52 Chief Complaint: Multiple Trauma/Fall Present Illness HPI 56 y/o M with hx of DM2, HTN, seizure disorder, brain surgery (~10 yrs ago), HLD , PVD s/p amputation L great toe, ESRD s/p Renal transplant 2011, L eye prosthesis presents to ED on 11/04 with 10/10 L hip pain s/p mechanical fall on day of admission. ~1 week [employer] patient also evaluated for fall. Patient this time fell on his knee but hurt his L hip. Fall was 3 days ago, seen in [place] [facility] but sent home, comes back c/o of severe pain. Allergies: Coded Allergies: NO KNOWN ALLERGIES (Unverified Allergy, Unknown, 10/24/15) Medication History Scheduled Allopurinol* (Allopurinol*), 100 MG ORAL DAILY, (Reported) Amlodipine Besylate (Norvasc), 10 MG PO DAILY, (Reported) Aspirin* (Aspir-Low*), 81 MG PO DAILY, (Reported) Atorvastatin Calcium* (Atorvastatin Calcium*), 20 MG ORAL BEDTIME, (Reported) Docusate Sodium* (Docusate Sodium*), 100 MG ORAL TWICE A DAY, (Reported) Furosemide* (Lasix*), 20 MG ORAL DAILY, (Reported) Insulin Aspart* (Novolog*), 5 UNITS SUBQ AC, (Reported) Insulin Glargine (Lantus), 10 UNITS SUBQ ACBREAKFAST, (Reported) Labetalol HCl (Labetalol HCl), 300 MG ORAL BID, (Reported) Labetalol Hcl* (Normodyne*), 600 MG PO TID, (Reported) Lansoprazole* (Prevacid*), 30 MG PO DAILY, (Reported) Multivitamin (Daily Vitamin), 1 EACH PO DAILY, (Reported) Mycophenolate Mofetil (Cellcept), 500 MG PO BID, (Reported) Oxybutynin Chloride (Oxybutynin Chloride), 5 MG ORAL Q12HR, (Reported) Tacrolimus (Tacrolimus), 1 MG PO TWICE A DAY, (Reported) Tramadol Hcl (Tramadol Hcl), 50 MG ORAL DAILY, (Reported) Discontinued Medications Cholecalciferol (Vitamin D3) (Vitamin D3), 50,000 UNIT PO QWEEK, (Reported) Discontinued Reason: Pt stopped taking med Clonidine Hcl* (Catapres*), 0.2 MG PO TID, (Reported) Discontinued Reason: Pt stopped taking med Hydrocodone Bit/Acetaminophen 5-325* ([place] 5-325 Tablet*), 1 TAB ORAL Q6HR PRN for For Pain Discontinued Reason: Pt stopped taking med Levetiracetam (Keppra), 250 MG PO Q12H, (Reported) Discontinued Reason: Pt stopped taking med Magnesium Oxide (Magnesium), 400 MG PO BID, (Reported) Discontinued Reason: Pt stopped taking med Mycophenolate Mofetil (Cellcept), 1,000 MG ORAL EVERY 12 HOURS, (Reported) Discontinued Reason: Medication dose changed Oxybutynin Chloride (Oxybutynin Chloride), 5 MG PO BID, (Reported) Discontinued Reason: Medication dose changed Prednisone (Prednisone), 10 MG PO, (Reported) Discontinued Reason: Pt stopped taking med Tacrolimus (Prograf), 5 MG PO Q12H, (Reported) Discontinued Reason: Medication dose changed Terazosin Hcl* (Hytrin*), 1 MG ORAL BEDTIME, (Reported) Discontinued Reason: Pt stopped taking med Patient History Healthcare decision maker Resuscitation status Full Code Advanced Directive on File Patient History Narrative PMhx: as above Shx: reviewed Fhx: non contributory Review of Systems ROS Narrative As per HPI, otherwise negative Physical Exam Physical Exam Narrative GENERAL: The patient is a well-developed and well-nourished thin-appearing male, in no apparent distress. HEENT: Eyes, pupils equal and responsive to light and accommodation. Extraocular movements are intact. NECK: Supple without lymphadenopathy. CHEST: Lungs are clear to auscultation bilaterally without wheezes or rales. CARDIOVASCULAR: Regular rhythm and rate. S1 and S2 normal without murmurs, rubs, or gallops. ABDOMEN: Soft, nontender, and nondistended. Positive bowel sounds. No evidence of hepatosplenomegaly. Currently, no rebound or guarding noted. EXTREMITIES: Negative for clubbing, cyanosis, or edema. L Hip,anterior thigh ( unable to evalaute buttocks as patietn getting HD)- severly TTP without concomitnatn inflammatory signs (erythema, warmth),skin break downs NEUROLOGIC: Cranial nerves II through XII are grossly intact without focal deficits. Motor strength is 5/5 bilaterally. Deep tendon reflexes are 2+ plantar. Last 24 Hour Vital Signs Date Time Temp Pulse Resp B/P (MAP) Pulse Ox O2 Delivery O2 Flow Rate FiO2 11/06/17 09:38 98.6 11/06/17 09:00 78 140/67 11/06/17 09:00 78 140/67 11/06/17 08:00 96.5 78 18 140/67 100 Room Air 11/06/17 04:01 98.6 85 20 153/70 99 Room Air 11/06/17 04:00 86 11/06/17 00:00 82 11/05/17 23:54 96.5 80 20 152/66 99 Room Air 11/05/17 20:00 79 11/05/17 19:48 96.5 78 20 140/67 99 Room Air 11/05/17 18:35 77 149/67 11/05/17 16:00 79 11/05/17 16:00 98.0 77 20 149/67 99 Room Air 11/05/17 15:30 97.3 78 20 154/68 100 Room Air 11/05/17 14:00 97.2 79 24 167/67 100 Room Air 11/05/17 13:40 79 24 167/67 100 Room Air 11/05/17 13:39 80 167/67 11/05/17 12:00 78 Intake and Output 11/05/17 11/06/17 19:00 07:00 Intake Total 2065 ml Output Total 1700 ml 1000 ml Balance 365 ml -1000 ml Intake Oral 680 ml IV Total 1385 ml Output Urine Total 1700 ml 1000 ml # Voids 4 # Bowel Movements 1 Laboratory Tests Test 11/06/17 04:00 11/06/17 07:51 11/06/17 09:20 White Blood Count 11.5 K/UL (4.8-10.8) H Red Blood Count 3.09 M/UL (4.70-6.10) L Hemoglobin 8.1 G/DL (14.2-18.0) L Hematocrit 25.9 % (42.0-52.0) L Mean Corpuscular Volume 84 FL (80-99) Mean Corpuscular Hemoglobin 26.1 PG (27.0-31.0) L Mean Corpuscular Hemoglobin Concent 31.1 G/DL (32.0-36.0) L Red Cell Distribution Width 15.7 % (11.6-14.8) H Platelet Count 177 K/UL (150-450) Mean Platelet Volume 7.1 FL (6.5-10.1) Neutrophils (%) (Auto) % (45.0-75.0) Lymphocytes (%) (Auto) % (20.0-45.0) Monocytes (%) (Auto) % (1.0-10.0) Eosinophils (%) (Auto) % (0.0-3.0) Basophils (%) (Auto) % (0.0-2.0) Differential Total Cells Counted 100 Neutrophils % (Manual) 93 % (45-75) H Lymphocytes % (Manual) 4 % (20-45) L Monocytes % (Manual) 2 % (1-10) Eosinophils % (Manual) 0 % (0-3) Basophils % (Manual) 0 % (0-2) Band Neutrophils 1 % (0-8) Platelet Estimate Adequate Platelet Morphology Normal Hypochromasia 1+ Anisocytosis 1+ Sodium Level 131 MMOL/L (136-145) L Potassium Level 3.1 MMOL/L (3.5-5.1) L Chloride Level 102 MMOL/L (98-107) Carbon Dioxide Level 10 MMOL/L (21-32) L Anion Gap 20 mmol/L (5-15) H Blood Urea Nitrogen 69 mg/dL (7-18) H Creatinine 4.0 MG/DL (0.55-1.30) H Estimat Glomerular Filtration Rate 15.6 mL/min (>60) Glucose Level 287 MG/DL (74-106) H Calcium Level 6.6 MG/DL (8.5-10.1) L Phosphorus Level 3.6 MG/DL (2.5-4.9) Random Vancomycin Level 17.3 ug/mL Arterial Blood pH 7.302 (7.350-7.450) Arterial Blood Partial Pressure CO2 20.1 mmHg (35.0-45.0) *L Arterial Blood Partial Pressure O2 80.9 mmHg (75.0-100.0) Arterial Blood HCO3 9.7 mmol/L (22.0-26.0) L Arterial Blood Oxygen Saturation 95.2 % (92.0-98.0) Arterial Blood Base Excess -15.0 Cory Test Positive Calcium (Send out) Pending Parathyroid Hormone (Intact) Pending Hepatitis A IgM Antibody Pending Hepatitis B Surface Antigen Pending Hepatitis B Core IgM Antibody Pending Hepatitis C Antibody Pending HIV (1&2) Antibody Rapid Negative (NEGATIVE) Height (Feet): 5 Height (Inches): 10.00 Weight (Pounds): 150 Medications Current Medications Medications (Trade) Dose Ordered Sig/Vincent Route PRN Reason Start Time Stop Time Status Last Admin Dose Admin Allopurinol (Zyloprim) 100 mg BID ORAL 11/05/17 09:00 12/05/17 08:59 11/05/17 18:34 Amlodipine Besylate (Norvasc) 10 mg DAILY ORAL 11/05/17 09:00 12/05/17 08:59 11/05/17 10:10 Atorvastatin Calcium (Lipitor) 20 mg BEDTIME ORAL 11/05/17 21:00 12/05/17 20:59 11/05/17 21:23 Dextrose (Dextrose 50%) STAT PRN IV Hypoglycemia 11/05/17 15:00 12/05/17 14:59 Docusate Sodium (Colace) 100 mg BID ORAL 11/05/17 09:00 12/05/17 08:59 11/06/17 10:12 Furosemide (Lasix) 20 mg DAILY ORAL 11/05/17 09:00 12/05/17 08:59 11/05/17 10:10 Heparin Sodium (Porcine) (Heparin 5000 units/ml) 5,000 units Q12HR SUBQ 11/05/17 09:00 12/05/17 08:59 11/06/17 10:17 Hydromorphone HCl (Dilaudid) 1 mg Q4HR PRN IVP Severe Pain (Pain Scale 7-10) 11/05/17 15:15 11/12/17 15:14 11/06/17 09:08 Insulin Aspart (NovoLOG) BEFORE MEALS AND HS SUBQ 11/05/17 16:30 12/05/17 16:29 11/06/17 11:45 Labetalol HCl (Normodyne) 100 mg THREE TIMES A DAY ORAL 11/05/17 09:00 12/05/17 08:59 11/05/17 18:35 Lansoprazole (Prevacid) 30 mg DAILY ORAL 11/05/17 09:00 12/05/17 08:59 11/06/17 10:14 Mycophenolate Mofetil (Cellcept) 500 mg Q12HR ORAL 11/05/17 09:00 12/05/17 08:59 11/05/17 21:23 Oxybutynin Chloride (Ditropan) 5 mg Q12HR ORAL 11/05/17 09:00 12/05/17 08:59 11/06/17 10:13 Piperacillin Sod/ Tazobactam Sod 2.25 gm/Sodium Chloride 110 ml @ 220 mls/hr Q8HR IV 11/05/17 20:00 11/12/17 19:59 11/06/17 05:56 Tacrolimus (Prograf) 1 mg BID ORAL 11/05/17 09:00 12/05/17 08:59 11/06/17 10:15 Vancomycin HCl (Vanco rx to dose) 1 ea DAILY PRN MISC Per rx protocol 11/05/17 08:15 12/05/17 08:14 Assessment/Plan Assessment/Plan Abx: IV Unasyn 11/04-11/05 IV Vanco Ceftriaxone 11/05 Zosyn 11/05- Assessment: High grade gram neg bacteremia- ?2ry to UTI vs buttocks skin soft tissue infection base on CT findings Severe L hip/thigh/ pain - pain out of proportion with physical findings and with gas on CT are very suspicious for myonecrosis (clostridial gangrene) - DDx necrotizing fascitis. No fractures. -CT L hip: No acute fractures. No dislocations. The joint spaces are preserved. Gas within the soft tissues of the left hip and buttock region. This may indicate penetrating trauma, but is worrisome for infection with gas- forming organism. There is equivocal mild thickening of the bladder wall K.pna UTI -u/a wbc 10-15, nit neg, leuk +1; UCx >100k K Pna ( R amp anb Nitro, otherwise sensitive Low grade fever/mild leukocytosis- 2ry to above DM2, HTN, seizure disorder, brain surgery (~10 yrs ago), HLD, PVD s/p amputation L great toe, ESRD s/p Renal transplant 2011, L eye prosthesis Plan: -STAT surgical consult for possible necrotizing/gas forming infection -Continue Zosyn #2 and add IV vanco and Clindamycin -f/u cx -Monitor CBC/BMP, temperatures Thank you for this consultation. Will continue to follow along with you. Discussed with DALTON. Rupinder Perez M.D. Nov 06, 2017 11:53
[2017-11-06 12:00] VITALS: BP 141/71
[2017-11-06 13:13] LABS: CREATINE KINASE 45 U/L (26-308)
[2017-11-06] MEDS ORDERED: NS IVPB PRN ×2 (14:45→15:00)
[2017-11-06] MEDS ORDERED: CHLORPROMAZINE IVPB PRN ×2 (14:45→15:00)
--- NOTE | 2017-11-06 14:57 | Consultation ---
History of Present Illness General Date patient seen: Nov 06, 2017 Chief Complaint: Multiple Trauma/Fall Referring physician: Dr. Gaona Reason for Consultation: sepsis, inpatient management Present Illness HPI 56 year old male with extensive PMHx including ESRF on HD, [place] [facility] [place] s/p mechanical fall today. Pt is unable to care for himself at his home he is blind for the most part . The sister reports that patient has history of renal transplant, and he is often at home by himself the majority of the day. Pt. reports chills. He is being evaluated for ID. His CT of hip showed probable gas formation. His labs showed metabolic acidosis. He is admitted for potential sepsis. Currently pt is c/o hiccups for the last few hours. Allergies: Coded Allergies: NO KNOWN ALLERGIES (Unverified Allergy, Unknown, 10/24/15) Medication History Scheduled Allopurinol* (Allopurinol*), 100 MG ORAL DAILY, (Reported) Amlodipine Besylate (Norvasc), 10 MG PO DAILY, (Reported) Aspirin* (Aspir-Low*), 81 MG PO DAILY, (Reported) Atorvastatin Calcium* (Atorvastatin Calcium*), 20 MG ORAL BEDTIME, (Reported) Docusate Sodium* (Docusate Sodium*), 100 MG ORAL TWICE A DAY, (Reported) Furosemide* (Lasix*), 20 MG ORAL DAILY, (Reported) Insulin Aspart* (Novolog*), 5 UNITS SUBQ AC, (Reported) Insulin Glargine (Lantus), 10 UNITS SUBQ ACBREAKFAST, (Reported) Labetalol HCl (Labetalol HCl), 300 MG ORAL BID, (Reported) Labetalol Hcl* (Normodyne*), 600 MG PO TID, (Reported) Lansoprazole* (Prevacid*), 30 MG PO DAILY, (Reported) Multivitamin (Daily Vitamin), 1 EACH PO DAILY, (Reported) Mycophenolate Mofetil (Cellcept), 500 MG PO BID, (Reported) Oxybutynin Chloride (Oxybutynin Chloride), 5 MG ORAL Q12HR, (Reported) Tacrolimus (Tacrolimus), 1 MG PO TWICE A DAY, (Reported) Tramadol Hcl (Tramadol Hcl), 50 MG ORAL DAILY, (Reported) Discontinued Medications Cholecalciferol (Vitamin D3) (Vitamin D3), 50,000 UNIT PO QWEEK, (Reported) Discontinued Reason: Pt stopped taking med Clonidine Hcl* (Catapres*), 0.2 MG PO TID, (Reported) Discontinued Reason: Pt stopped taking med Hydrocodone Bit/Acetaminophen 5-325* ([place] 5-325 Tablet*), 1 TAB ORAL Q6HR PRN for For Pain Discontinued Reason: Pt stopped taking med Levetiracetam (Keppra), 250 MG PO Q12H, (Reported) Discontinued Reason: Pt stopped taking med Magnesium Oxide (Magnesium), 400 MG PO BID, (Reported) Discontinued Reason: Pt stopped taking med Mycophenolate Mofetil (Cellcept), 1,000 MG ORAL EVERY 12 HOURS, (Reported) Discontinued Reason: Medication dose changed Oxybutynin Chloride (Oxybutynin Chloride), 5 MG PO BID, (Reported) Discontinued Reason: Medication dose changed Prednisone (Prednisone), 10 MG PO, (Reported) Discontinued Reason: Pt stopped taking med Tacrolimus (Prograf), 5 MG PO Q12H, (Reported) Discontinued Reason: Medication dose changed Terazosin Hcl* (Hytrin*), 1 MG ORAL BEDTIME, (Reported) Discontinued Reason: Pt stopped taking med Patient History Healthcare decision maker Resuscitation status Full Code Advanced Directive on File Past Medical/Surgical History Past Medical/Surgical History: (1) Renal failure (2) Blindness (3) Diabetic nephropathy (4) DM (diabetes mellitus screen) Review of Systems Constitutional: Reports: malaise Eye: Reports: no symptoms ENT: Reports: no symptoms Respiratory: Reports: no symptoms Physical Exam General Appearance: cachetic Lines, tubes and drains: peripheral HEENT: normocephalic, atraumatic, PERRL Neck: non-tender, normal alignment Respiratory/Chest: chest wall non-tender, lungs clear Abdomen: normal bowel sounds, non tender Genitourinary/Rectal: normal genital exam Extremities: normal range of motion Skin Exam: normal pigmentation Last 24 Hour Vital Signs Date Time Temp Pulse Resp B/P (MAP) Pulse Ox O2 Delivery O2 Flow Rate FiO2 11/06/17 13:00 87 141/71 11/06/17 12:00 97.7 87 20 141/71 98 Room Air 11/06/17 09:38 98.6 11/06/17 09:00 78 140/67 11/06/17 09:00 78 140/67 11/06/17 08:00 96.5 78 18 140/67 100 Room Air 11/06/17 04:01 98.6 85 20 153/70 99 Room Air 11/06/17 04:00 86 11/06/17 00:00 82 11/05/17 23:54 96.5 80 20 152/66 99 Room Air 11/05/17 20:00 79 11/05/17 19:48 96.5 78 20 140/67 99 Room Air 11/05/17 18:35 77 149/67 11/05/17 16:00 79 11/05/17 16:00 98.0 77 20 149/67 99 Room Air 11/05/17 15:30 97.3 78 20 154/68 100 Room Air Intake and Output 11/05/17 11/06/17 19:00 07:00 Intake Total 2065 ml Output Total 1700 ml 1000 ml Balance 365 ml -1000 ml Intake Oral 680 ml IV Total 1385 ml Output Urine Total 1700 ml 1000 ml # Voids 4 # Bowel Movements 1 Laboratory Tests Test 11/06/17 04:00 11/06/17 07:51 11/06/17 09:20 White Blood Count 11.5 K/UL (4.8-10.8) H Red Blood Count 3.09 M/UL (4.70-6.10) L Hemoglobin 8.1 G/DL (14.2-18.0) L Hematocrit 25.9 % (42.0-52.0) L Mean Corpuscular Volume 84 FL (80-99) Mean Corpuscular Hemoglobin 26.1 PG (27.0-31.0) L Mean Corpuscular Hemoglobin Concent 31.1 G/DL (32.0-36.0) L Red Cell Distribution Width 15.7 % (11.6-14.8) H Platelet Count 177 K/UL (150-450) Mean Platelet Volume 7.1 FL (6.5-10.1) Neutrophils (%) (Auto) % (45.0-75.0) Lymphocytes (%) (Auto) % (20.0-45.0) Monocytes (%) (Auto) % (1.0-10.0) Eosinophils (%) (Auto) % (0.0-3.0) Basophils (%) (Auto) % (0.0-2.0) Differential Total Cells Counted 100 Neutrophils % (Manual) 93 % (45-75) H Lymphocytes % (Manual) 4 % (20-45) L Monocytes % (Manual) 2 % (1-10) Eosinophils % (Manual) 0 % (0-3) Basophils % (Manual) 0 % (0-2) Band Neutrophils 1 % (0-8) Platelet Estimate Adequate Platelet Morphology Normal Hypochromasia 1+ Anisocytosis 1+ Erythrocyte Sedimentation Rate 52 MM/HR (0-20) H Sodium Level 131 MMOL/L (136-145) L Potassium Level 3.1 MMOL/L (3.5-5.1) L Chloride Level 102 MMOL/L (98-107) Carbon Dioxide Level 10 MMOL/L (21-32) L Anion Gap 20 mmol/L (5-15) H Blood Urea Nitrogen 69 mg/dL (7-18) H Creatinine 4.0 MG/DL (0.55-1.30) H Estimat Glomerular Filtration Rate 15.6 mL/min (>60) Glucose Level 287 MG/DL (74-106) H Calcium Level 6.6 MG/DL (8.5-10.1) L Phosphorus Level 3.6 MG/DL (2.5-4.9) Total Creatine Kinase 45 U/L (26-308) C-Reactive Protein, Quantitative 40.4 mg/dL (0.00-0.90) H Random Vancomycin Level 17.3 ug/mL Arterial Blood pH 7.302 (7.350-7.450) Arterial Blood Partial Pressure CO2 20.1 mmHg (35.0-45.0) *L Arterial Blood Partial Pressure O2 80.9 mmHg (75.0-100.0) Arterial Blood HCO3 9.7 mmol/L (22.0-26.0) L Arterial Blood Oxygen Saturation 95.2 % (92.0-98.0) Arterial Blood Base Excess -15.0 Cory Test Positive Calcium (Send out) Pending Parathyroid Hormone (Intact) Pending Hepatitis A IgM Antibody Pending Hepatitis B Surface Antigen Pending Hepatitis B Core IgM Antibody Pending Hepatitis C Antibody Pending HIV (1&2) Antibody Rapid Negative (NEGATIVE) Height (Feet): 5 Height (Inches): 10.00 Weight (Pounds): 150 Medications Current Medications Medications (Trade) Dose Ordered Sig/Vincent Route PRN Reason Start Time Stop Time Status Last Admin Dose Admin Allopurinol (Zyloprim) 100 mg BID ORAL 11/05/17 09:00 12/05/17 08:59 11/05/17 18:34 Amlodipine Besylate (Norvasc) 10 mg DAILY ORAL 11/05/17 09:00 12/05/17 08:59 11/05/17 10:10 Atorvastatin Calcium (Lipitor) 20 mg BEDTIME ORAL 11/05/17 21:00 12/05/17 20:59 11/05/17 21:23 Clindamycin HCl/ Dextrose 50 ml @ 100 mls/hr Q8HR IV 11/06/17 14:00 11/13/17 23:59 Dextrose (Dextrose 50%) STAT PRN IV Hypoglycemia 11/05/17 15:00 12/05/17 14:59 Docusate Sodium (Colace) 100 mg BID ORAL 11/05/17 09:00 12/05/17 08:59 11/06/17 10:12 Furosemide (Lasix) 20 mg DAILY ORAL 11/05/17 09:00 12/05/17 08:59 11/05/17 10:10 Heparin Sodium (Porcine) (Heparin 5000 units/ml) 5,000 units Q12HR SUBQ 11/05/17 09:00 12/05/17 08:59 11/06/17 10:17 Hydromorphone HCl (Dilaudid) 1 mg Q4HR PRN IVP Severe Pain (Pain Scale 7-10) 11/05/17 15:15 11/12/17 15:14 11/06/17 09:08 Insulin Aspart (NovoLOG) BEFORE MEALS AND HS SUBQ 11/05/17 16:30 12/05/17 16:29 11/06/17 11:45 Labetalol HCl (Normodyne) 100 mg THREE TIMES A DAY ORAL 11/05/17 09:00 12/05/17 08:59 11/05/17 18:35 Lansoprazole (Prevacid) 30 mg DAILY ORAL 11/05/17 09:00 12/05/17 08:59 11/06/17 10:14 Mycophenolate Mofetil (Cellcept) 500 mg Q12HR ORAL 11/05/17 09:00 12/05/17 08:59 11/05/17 21:23 Oxybutynin Chloride (Ditropan) 5 mg Q12HR ORAL 11/05/17 09:00 12/05/17 08:59 11/06/17 10:13 Piperacillin Sod/ Tazobactam Sod 2.25 gm/Sodium Chloride 110 ml @ 220 mls/hr Q8HR IV 11/05/17 20:00 11/12/17 19:59 11/06/17 05:56 Tacrolimus (Prograf) 1 mg BID ORAL 11/05/17 09:00 12/05/17 08:59 11/06/17 10:15 Vancomycin HCl (Vanco rx to dose) 1 ea DAILY PRN MISC Per rx protocol 11/06/17 12:30 12/06/17 12:29 Vancomycin HCl 1 gm/Dextrose 275 ml @ 183.708 mls/hr ONCE ONCE IVPB 11/06/17 18:00 11/06/17 19:29 Assessment/Plan Problem List: (1) Sepsis ICD Codes: A41.9 - Sepsis, unspecified organism SNOMED: 62030062 (2) Metabolic acidosis ICD Codes: E87.2 - Metabolic acidosis SNOMED: 11924421 (3) Hiccups ICD Codes: R06.6 - Hiccough SNOMED: 37539457 (4) Diabetes mellitus ICD Codes: E11.9 - Diabetes mellitus SNOMED: 82096821 (5) Hip pain, left ICD Codes: M25.552 - Pain in left hip SNOMED: 82600789 (6) Failure to thrive SNOMED: 46869427 Qualifiers: Qualified Codes: R62.7 - Adult failure to thrive (7) ESRF (end stage renal failure) ICD Codes: N18.6 - End stage renal disease SNOMED: 64990288 Assessment/Plan surgery consult beasley culture thorazine abx by ID HD by renal symptomatic treatment sliding scale will need placement JOCELYN LAMA Nov 06, 2017 14:57
[2017-11-06] MEDS: Clindamycin 900mg 50 ML IV SCH ×2 (14:59→22:22)
[2017-11-06 16:00] VITALS: BP 140/64
--- NOTE | 2017-11-06 16:06 | Consultation ---
History of Present Illness General Date patient seen: Nov 06, 2017 Chief Complaint: Multiple Trauma/Fall Referring physician: Dr. Gaona Reason for Consultation: sepsis, inpatient management Present Illness HPI 56 y/o M with hx of DM2, HTN, seizure disorder, brain surgery (~10 yrs ago), HLD , PVD s/p amputation L great toe, ESRD s/p Renal transplant 2011, L eye prosthesis presents to ED on 11/04 with 10/10 L hip pain s/p mechanical fall on day of admission. ~1 week [employer] patient also evaluated for fall. Patient this time fell on his knee but hurt his L hip. Fall was 3 days ago, seen in [facility] but sent home, comes back c/o of severe pain. CT scan performed and identified gas in deep tissues of left hip region. no trauma noted, no fx. no abscess. when evaluated at bedside patient states that he has 9/10 pain in left hip for past 3 days. no n/v/f/c. currently receiving dialysis. Allergies: Coded Allergies: NO KNOWN ALLERGIES (Unverified Allergy, Unknown, 10/24/15) Medication History Scheduled Allopurinol* (Allopurinol*), 100 MG ORAL DAILY, (Reported) Amlodipine Besylate (Norvasc), 10 MG PO DAILY, (Reported) Aspirin* (Aspir-Low*), 81 MG PO DAILY, (Reported) Atorvastatin Calcium* (Atorvastatin Calcium*), 20 MG ORAL BEDTIME, (Reported) Docusate Sodium* (Docusate Sodium*), 100 MG ORAL TWICE A DAY, (Reported) Furosemide* (Lasix*), 20 MG ORAL DAILY, (Reported) Insulin Aspart* (Novolog*), 5 UNITS SUBQ AC, (Reported) Insulin Glargine (Lantus), 10 UNITS SUBQ ACBREAKFAST, (Reported) Labetalol HCl (Labetalol HCl), 300 MG ORAL BID, (Reported) Labetalol Hcl* (Normodyne*), 600 MG PO TID, (Reported) Lansoprazole* (Prevacid*), 30 MG PO DAILY, (Reported) Multivitamin (Daily Vitamin), 1 EACH PO DAILY, (Reported) Mycophenolate Mofetil (Cellcept), 500 MG PO BID, (Reported) Oxybutynin Chloride (Oxybutynin Chloride), 5 MG ORAL Q12HR, (Reported) Tacrolimus (Tacrolimus), 1 MG PO TWICE A DAY, (Reported) Tramadol Hcl (Tramadol Hcl), 50 MG ORAL DAILY, (Reported) Discontinued Medications Cholecalciferol (Vitamin D3) (Vitamin D3), 50,000 UNIT PO QWEEK, (Reported) Discontinued Reason: Pt stopped taking med Clonidine Hcl* (Catapres*), 0.2 MG PO TID, (Reported) Discontinued Reason: Pt stopped taking med Hydrocodone Bit/Acetaminophen 5-325* (Ellabell 5-325 Tablet*), 1 TAB ORAL Q6HR PRN for For Pain Discontinued Reason: Pt stopped taking med Levetiracetam (Keppra), 250 MG PO Q12H, (Reported) Discontinued Reason: Pt stopped taking med Magnesium Oxide (Magnesium), 400 MG PO BID, (Reported) Discontinued Reason: Pt stopped taking med Mycophenolate Mofetil (Cellcept), 1,000 MG ORAL EVERY 12 HOURS, (Reported) Discontinued Reason: Medication dose changed Oxybutynin Chloride (Oxybutynin Chloride), 5 MG PO BID, (Reported) Discontinued Reason: Medication dose changed Prednisone (Prednisone), 10 MG PO, (Reported) Discontinued Reason: Pt stopped taking med Tacrolimus (Prograf), 5 MG PO Q12H, (Reported) Discontinued Reason: Medication dose changed Terazosin Hcl* (Hytrin*), 1 MG ORAL BEDTIME, (Reported) Discontinued Reason: Pt stopped taking med Patient History History Provided By: Patient, Medical Record Healthcare decision maker Resuscitation status Full Code Advanced Directive on File Past Medical/Surgical History Past Medical/Surgical History: (1) Hypoglycemia associated with type 2 diabetes mellitus (2) DKA (diabetic ketoacidoses) (3) SOB (shortness of breath) (4) Respiratory distress (5) Hypokalemia (6) Hypertension (7) BPH (benign prostatic hyperplasia) (8) Diarrhea (9) Head trauma (10) Gastroenteritis (11) Anemia (12) Proteinuria (13) Chronic renal failure (14) Hypoglycemia associated with type 2 diabetes mellitus (15) Altered level of consciousness (16) Renal insufficiency (17) Hypoglycemic insulin reaction in type 1 diabetes mellitus (18) Multiple injuries due to trauma (19) Rib fracture (20) Pleural effusion on right (21) Multiple rib fractures (22) Lung nodule, multiple (23) Failure to thrive (24) Hyperglycemia (25) UTI (urinary tract infection) (26) Metabolic acidosis (27) Fall (28) Blindness (29) Renal failure (30) Diabetic nephropathy (31) DM (diabetes mellitus screen) (32) Diabetes mellitus (33) Hiccups (34) ESRF (end stage renal failure) (35) Hip pain, left (36) Sepsis Review of Systems All Other Systems: negative except mentioned in HPI Physical Exam General Appearance: alert, mild distress Lines, tubes and drains: dialysis access, other HEENT: normocephalic, atraumatic, PERRL Neck: supple, normal inspection Respiratory/Chest: normal breath sounds, no respiratory distress, no accessory muscle use Cardiovascular/Chest: normal rate, regularly irregular Abdomen: normal bowel sounds, non tender, soft, no organomegaly, no mass Extremities: other - tender on left lateral thigh/hip. no erythema, no edema. warm. no trauma Skin Exam: warm/dry Neurologic: alert, oriented x 3, responsive Last 24 Hour Vital Signs Date Time Temp Pulse Resp B/P (MAP) Pulse Ox O2 Delivery O2 Flow Rate FiO2 11/06/17 15:11 Room Air 11/06/17 13:00 87 141/71 11/06/17 12:00 97.7 87 20 141/71 98 Room Air 11/06/17 11:00 Room Air 11/06/17 09:38 98.6 11/06/17 09:00 78 140/67 11/06/17 09:00 78 140/67 11/06/17 08:00 96.5 78 18 140/67 100 Room Air 11/06/17 04:01 98.6 85 20 153/70 99 Room Air 11/06/17 04:00 86 11/06/17 00:00 82 11/05/17 23:54 96.5 80 20 152/66 99 Room Air 11/05/17 20:00 79 11/05/17 19:48 96.5 78 20 140/67 99 Room Air 11/05/17 18:35 77 149/67 11/05/17 16:00 79 11/05/17 16:00 98.0 77 20 149/67 99 Room Air Intake and Output 11/05/17 11/06/17 19:00 07:00 Intake Total 2065 ml Output Total 1700 ml 1000 ml Balance 365 ml -1000 ml Intake Oral 680 ml IV Total 1385 ml Output Urine Total 1700 ml 1000 ml # Voids 4 # Bowel Movements 1 Laboratory Tests Test 11/06/17 04:00 11/06/17 07:51 11/06/17 09:20 White Blood Count 11.5 K/UL (4.8-10.8) H Red Blood Count 3.09 M/UL (4.70-6.10) L Hemoglobin 8.1 G/DL (14.2-18.0) L Hematocrit 25.9 % (42.0-52.0) L Mean Corpuscular Volume 84 FL (80-99) Mean Corpuscular Hemoglobin 26.1 PG (27.0-31.0) L Mean Corpuscular Hemoglobin Concent 31.1 G/DL (32.0-36.0) L Red Cell Distribution Width 15.7 % (11.6-14.8) H Platelet Count 177 K/UL (150-450) Mean Platelet Volume 7.1 FL (6.5-10.1) Neutrophils (%) (Auto) % (45.0-75.0) Lymphocytes (%) (Auto) % (20.0-45.0) Monocytes (%) (Auto) % (1.0-10.0) Eosinophils (%) (Auto) % (0.0-3.0) Basophils (%) (Auto) % (0.0-2.0) Differential Total Cells Counted 100 Neutrophils % (Manual) 93 % (45-75) H Lymphocytes % (Manual) 4 % (20-45) L Monocytes % (Manual) 2 % (1-10) Eosinophils % (Manual) 0 % (0-3) Basophils % (Manual) 0 % (0-2) Band Neutrophils 1 % (0-8) Platelet Estimate Adequate Platelet Morphology Normal Hypochromasia 1+ Anisocytosis 1+ Erythrocyte Sedimentation Rate 52 MM/HR (0-20) H Sodium Level 131 MMOL/L (136-145) L Potassium Level 3.1 MMOL/L (3.5-5.1) L Chloride Level 102 MMOL/L (98-107) Carbon Dioxide Level 10 MMOL/L (21-32) L Anion Gap 20 mmol/L (5-15) H Blood Urea Nitrogen 69 mg/dL (7-18) H Creatinine 4.0 MG/DL (0.55-1.30) H Estimat Glomerular Filtration Rate 15.6 mL/min (>60) Glucose Level 287 MG/DL (74-106) H Calcium Level 6.6 MG/DL (8.5-10.1) L Phosphorus Level 3.6 MG/DL (2.5-4.9) Total Creatine Kinase 45 U/L (26-308) C-Reactive Protein, Quantitative 40.4 mg/dL (0.00-0.90) H Random Vancomycin Level 17.3 ug/mL Arterial Blood pH 7.302 (7.350-7.450) Arterial Blood Partial Pressure CO2 20.1 mmHg (35.0-45.0) *L Arterial Blood Partial Pressure O2 80.9 mmHg (75.0-100.0) Arterial Blood HCO3 9.7 mmol/L (22.0-26.0) L Arterial Blood Oxygen Saturation 95.2 % (92.0-98.0) Arterial Blood Base Excess -15.0 Cory Test Positive Calcium (Send out) Pending Parathyroid Hormone (Intact) Pending Hepatitis A IgM Antibody Pending Hepatitis B Surface Antigen Pending Hepatitis B Core IgM Antibody Pending Hepatitis C Antibody Pending HIV (1&2) Antibody Rapid Negative (NEGATIVE) Height (Feet): 5 Height (Inches): 10.00 Weight (Pounds): 150 Medications Current Medications Medications (Trade) Dose Ordered Sig/Vincent Route PRN Reason Start Time Stop Time Status Last Admin Dose Admin Allopurinol (Zyloprim) 100 mg BID ORAL 11/05/17 09:00 12/05/17 08:59 11/05/17 18:34 Amlodipine Besylate (Norvasc) 10 mg DAILY ORAL 11/05/17 09:00 12/05/17 08:59 11/05/17 10:10 Atorvastatin Calcium (Lipitor) 20 mg BEDTIME ORAL 11/05/17 21:00 12/05/17 20:59 11/05/17 21:23 Chlorpromazine 25 mg/Sodium Chloride 111 ml @ 222 mls/hr Q8H PRN IVPB HICCUPS 11/06/17 15:00 12/06/17 14:44 Clindamycin HCl/ Dextrose 50 ml @ 100 mls/hr Q8HR IV 11/06/17 14:00 11/13/17 23:59 11/06/17 14:59 Dextrose (Dextrose 50%) STAT PRN IV Hypoglycemia 11/05/17 15:00 12/05/17 14:59 Docusate Sodium (Colace) 100 mg BID ORAL 11/05/17 09:00 12/05/17 08:59 11/06/17 10:12 Furosemide (Lasix) 20 mg DAILY ORAL 11/05/17 09:00 12/05/17 08:59 11/05/17 10:10 Heparin Sodium (Porcine) (Heparin 5000 units/ml) 5,000 units Q12HR SUBQ 11/05/17 09:00 12/05/17 08:59 11/06/17 10:17 Hydromorphone HCl (Dilaudid) 1 mg Q4HR PRN IVP Severe Pain (Pain Scale 7-10) 11/05/17 15:15 11/12/17 15:14 11/06/17 09:08 Insulin Aspart (NovoLOG) BEFORE MEALS AND HS SUBQ 11/05/17 16:30 12/05/17 16:29 11/06/17 11:45 Labetalol HCl (Normodyne) 100 mg THREE TIMES A DAY ORAL 11/05/17 09:00 12/05/17 08:59 11/05/17 18:35 Lansoprazole (Prevacid) 30 mg DAILY ORAL 11/05/17 09:00 12/05/17 08:59 11/06/17 10:14 Lidocaine/ Epinephrine (Xylocaine 1%/ Epi MPF 30ml) 30 ml ONCE ONCE INJ 11/06/17 16:00 11/06/17 16:01 UNV Mycophenolate Mofetil (Cellcept) 500 mg Q12HR ORAL 11/05/17 09:00 12/05/17 08:59 11/05/17 21:23 Oxybutynin Chloride (Ditropan) 5 mg Q12HR ORAL 11/05/17 09:00 12/05/17 08:59 11/06/17 10:13 Piperacillin Sod/ Tazobactam Sod 2.25 gm/Sodium Chloride 110 ml @ 220 mls/hr Q8HR IV 11/05/17 20:00 11/12/17 19:59 11/06/17 15:00 Tacrolimus (Prograf) 1 mg BID ORAL 11/05/17 09:00 12/05/17 08:59 11/06/17 10:15 Vancomycin HCl (Vanco rx to dose) 1 ea DAILY PRN MISC Per rx protocol 11/06/17 12:30 12/06/17 12:29 Vancomycin HCl 1 gm/Dextrose 275 ml @ 183.708 mls/hr ONCE ONCE IVPB 11/06/17 18:00 11/06/17 19:29 Assessment/Plan Problem List: (1) Sepsis Assessment & Plan: 56M who presents with left hip pain and found to be septic. afebrile, HD stable, leukocytosis, CRP/ESR elevated, CT with gas in left hip. no trauma noted in area. concerning for gas forming bacterial infection. pain out of proportion to exam in left hip. on exam very tender. -recommend bedside incision with evaluation of underlying tissues/fascia. if infection noted will need to go to OR for further exploration. if not infectious will need to continue work up for other etiology? -consent obtained see procedure note. thank you for this consultation. will follow with recs. ICD Codes: A41.9 - Sepsis, unspecified organism SNOMED: [id number] Status: stable Willie Davies Nov 06, 2017 16:06
[2017-11-06] MEDS ORDERED: Lidocaine 1% 10mg/ml/Epi 0.005mg/ml 30ml vial INJ ONE (16:30)
--- NOTE | 2017-11-06 16:33 | Internal Med Progress Note ---
Subjective Date of Service: Nov 06, 2017 Physician Name Bisi Conde Attending Physician Kristian Gaona MD Current Medications Medications (Trade) Dose Ordered Sig/Vincent Route PRN Reason Start Time Stop Time Status Last Admin Dose Admin Allopurinol (Zyloprim) 100 mg BID ORAL 11/05/17 09:00 12/05/17 08:59 11/05/17 18:34 Amlodipine Besylate (Norvasc) 10 mg DAILY ORAL 11/05/17 09:00 12/05/17 08:59 11/05/17 10:10 Atorvastatin Calcium (Lipitor) 20 mg BEDTIME ORAL 11/05/17 21:00 12/05/17 20:59 11/05/17 21:23 Chlorpromazine 25 mg/Sodium Chloride 111 ml @ 222 mls/hr Q8H PRN IVPB HICCUPS 11/06/17 15:00 12/06/17 14:44 Clindamycin HCl/ Dextrose 50 ml @ 100 mls/hr Q8HR IV 11/06/17 14:00 11/13/17 23:59 11/06/17 14:59 Dextrose (Dextrose 50%) STAT PRN IV Hypoglycemia 11/05/17 15:00 12/05/17 14:59 Docusate Sodium (Colace) 100 mg BID ORAL 11/05/17 09:00 12/05/17 08:59 11/06/17 10:12 Furosemide (Lasix) 20 mg DAILY ORAL 11/05/17 09:00 12/05/17 08:59 11/05/17 10:10 Heparin Sodium (Porcine) (Heparin 5000 units/ml) 5,000 units Q12HR SUBQ 11/05/17 09:00 12/05/17 08:59 11/06/17 10:17 Hydromorphone HCl (Dilaudid) 1 mg Q4HR PRN IVP Severe Pain (Pain Scale 7-10) 11/05/17 15:15 11/12/17 15:14 11/06/17 09:08 Insulin Aspart (NovoLOG) BEFORE MEALS AND HS SUBQ 11/05/17 16:30 12/05/17 16:29 11/06/17 11:45 Labetalol HCl (Normodyne) 100 mg THREE TIMES A DAY ORAL 11/05/17 09:00 12/05/17 08:59 11/05/17 18:35 Lansoprazole (Prevacid) 30 mg DAILY ORAL 11/05/17 09:00 12/05/17 08:59 11/06/17 10:14 Lidocaine/ Epinephrine (Xylocaine 1%/ Epi MPF 30ml) 30 ml ONCE ONCE INJ 11/06/17 16:30 11/06/17 16:31 Mycophenolate Mofetil (Cellcept) 500 mg Q12HR ORAL 11/05/17 09:00 12/05/17 08:59 11/05/17 21:23 Oxybutynin Chloride (Ditropan) 5 mg Q12HR ORAL 11/05/17 09:00 12/05/17 08:59 11/06/17 10:13 Piperacillin Sod/ Tazobactam Sod 2.25 gm/Sodium Chloride 110 ml @ 220 mls/hr Q8HR IV 11/05/17 20:00 11/12/17 19:59 11/06/17 15:00 Tacrolimus (Prograf) 1 mg BID ORAL 11/05/17 09:00 12/05/17 08:59 11/06/17 10:15 Vancomycin HCl (Vanco rx to dose) 1 ea DAILY PRN MISC Per rx protocol 11/06/17 12:30 12/06/17 12:29 Vancomycin HCl 1 gm/Dextrose 275 ml @ 183.708 mls/hr ONCE ONCE IVPB 11/06/17 18:00 11/06/17 19:29 Allergies: Coded Allergies: NO KNOWN ALLERGIES (Unverified Allergy, Unknown, 10/24/15) ROS Limited/Unobtainable: No Constitutional: Reports: no symptoms HEENT: Reports: no symptoms Cardiovascular: Reports: no symptoms Respiratory: Reports: no symptoms Gastrointestinal/Abdominal: Reports: no symptoms Genitourinary: Reports: no symptoms Neurologic/Psychiatric: Reports: other - left hip pain Subjective 56 YO M admitted with left hip pain. Now cellulitis left hip and sepsis. Also UTI. Cover for Int Med-Dr Gaona. S/P bedside Incision and drainage today Objective Last Vital Signs Date Time Temp Pulse Resp B/P (MAP) Pulse Ox O2 Delivery O2 Flow Rate FiO2 11/06/17 15:11 Room Air 11/06/17 13:00 87 141/71 11/06/17 12:00 97.7 20 98 General Appearance: alert, mild distress, thin EENT: PERRL/EOMI, normal ENT inspection, TMs normal Neck: non-tender, normal alignment, supple, normal inspection Cardiovascular: normal peripheral pulses, normal rate, regular rhythm, no gallop/murmur, no JVD Respiratory/Chest: chest wall non-tender, lungs clear, normal breath sounds, no respiratory distress, no accessory muscle use Abdomen: normal bowel sounds, non tender, soft, no organomegaly, no mass Extremities: normal range of motion 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, no motor/sensory deficits Skin: normal pigmentation, warm/dry Laboratory Tests Test 11/06/17 04:00 11/06/17 07:51 11/06/17 09:20 White Blood Count 11.5 K/UL (4.8-10.8) H Red Blood Count 3.09 M/UL (4.70-6.10) L Hemoglobin 8.1 G/DL (14.2-18.0) L Hematocrit 25.9 % (42.0-52.0) L Mean Corpuscular Volume 84 FL (80-99) Mean Corpuscular Hemoglobin 26.1 PG (27.0-31.0) L Mean Corpuscular Hemoglobin Concent 31.1 G/DL (32.0-36.0) L Red Cell Distribution Width 15.7 % (11.6-14.8) H Platelet Count 177 K/UL (150-450) Mean Platelet Volume 7.1 FL (6.5-10.1) Neutrophils (%) (Auto) % (45.0-75.0) Lymphocytes (%) (Auto) % (20.0-45.0) Monocytes (%) (Auto) % (1.0-10.0) Eosinophils (%) (Auto) % (0.0-3.0) Basophils (%) (Auto) % (0.0-2.0) Differential Total Cells Counted 100 Neutrophils % (Manual) 93 % (45-75) H Lymphocytes % (Manual) 4 % (20-45) L Monocytes % (Manual) 2 % (1-10) Eosinophils % (Manual) 0 % (0-3) Basophils % (Manual) 0 % (0-2) Band Neutrophils 1 % (0-8) Platelet Estimate Adequate Platelet Morphology Normal Hypochromasia 1+ Anisocytosis 1+ Erythrocyte Sedimentation Rate 52 MM/HR (0-20) H Sodium Level 131 MMOL/L (136-145) L Potassium Level 3.1 MMOL/L (3.5-5.1) L Chloride Level 102 MMOL/L (98-107) Carbon Dioxide Level 10 MMOL/L (21-32) L Anion Gap 20 mmol/L (5-15) H Blood Urea Nitrogen 69 mg/dL (7-18) H Creatinine 4.0 MG/DL (0.55-1.30) H Estimat Glomerular Filtration Rate 15.6 mL/min (>60) Glucose Level 287 MG/DL (74-106) H Calcium Level 6.6 MG/DL (8.5-10.1) L Phosphorus Level 3.6 MG/DL (2.5-4.9) Total Creatine Kinase 45 U/L (26-308) C-Reactive Protein, Quantitative 40.4 mg/dL (0.00-0.90) H Random Vancomycin Level 17.3 ug/mL Arterial Blood pH 7.302 (7.350-7.450) Arterial Blood Partial Pressure CO2 20.1 mmHg (35.0-45.0) *L Arterial Blood Partial Pressure O2 80.9 mmHg (75.0-100.0) Arterial Blood HCO3 9.7 mmol/L (22.0-26.0) L Arterial Blood Oxygen Saturation 95.2 % (92.0-98.0) Arterial Blood Base Excess -15.0 Cory Test Positive Calcium (Send out) Pending Parathyroid Hormone (Intact) Pending Hepatitis A IgM Antibody Pending Hepatitis B Surface Antigen Pending Hepatitis B Core IgM Antibody Pending Hepatitis C Antibody Pending HIV (1&2) Antibody Rapid Negative (NEGATIVE) Microbiology Date/Time Source Procedure Growth Status 11/04/17 16:25 Blood Blood Culture - Preliminary Gram Negative Bacillus 1 Resulted 11/04/17 16:10 Blood Blood Culture - Preliminary Gram Negative Bacillus 1 Resulted 11/04/17 17:00 Urine,Clean Catch Urine Culture - Preliminary Klebsiella Pneumoniae Resulted Intake and Output 11/05/17 11/06/17 19:00 07:00 Intake Total 2065 ml Output Total 1700 ml 1000 ml Balance 365 ml -1000 ml Intake Oral 680 ml IV Total 1385 ml Output Urine Total 1700 ml 1000 ml # Voids 4 # Bowel Movements 1 Assessment/Plan Problem List: (1) Diabetes mellitus, type II (2) ESRD (end stage renal disease) on dialysis Assessment & Plan: S/P hemodialysis today 11/06/17. See nephrology note. (3) Renal transplant, status post (4) HTN (hypertension) Assessment & Plan: Continue labetolol and norvasc. (5) Hypercholesteremia (6) Seizure disorder (7) Peripheral vascular disease (8) Cellulitis of hip, left Assessment & Plan: S/P II&D. see surgery note. Cont zosyn, vanco and clinda per ID (9) Hip pain, left Assessment & Plan: Ortho consult pending (10) UTI (urinary tract infection) Assessment & Plan: Klebsiella pneumo. Cont zosyn (11) Sepsis Assessment & Plan: Await blood culture results. Status: not improved BISI CONDE Nov 06, 2017 16:33
--- NOTE | 2017-11-06 17:28 | Operative Note - PDOC ---
Operative Note Operative Note Date of Operation/Procedure: Nov 06, 2017 Pre-op Diagnosis: subcutaneous gas in left hip left hip pain Procedure: local exploration of left hip Operative Findings: consistent w/pre-op dx studies Surgeon: luma Anesthesia: local Specimen: none Complications: none Condition: stable Estimated Blood Loss: minimal Drains: none Implant(s) used?: No Indications for Procedure 56M with multiple medical comorbidities s/p fall 1 week ago here with complaints of left hip pain. Septic with multiple probable etiology. CT scan demonstrated gas in the subcutaneous tissue of left hip. on exam significant tenderness in area but no signs of trauma or injury. concerns for underlying gas forming bacterial infection. leukocytosis, elevated esr/crp. local exploration indicated and recommended to ensure no infectious process. consent obtained. Description of Procedure patient made comfortable at the bedside. CT reviewed and anatomical landmarks identified. area of maximal tenderness correlated. no edema, erythema or induration noted. no trauma noted in area. area cleaned, prepped and draped in standard surgical fashion. 1%lidocaine with epi infiltrated in proposed skin incision site. fresh #11 scalpel used to make 3-4cm skin incision. incision carried down past dermis, subcutaneous fat, and fascia. fascia observed and noted to be normal. fascia incised and underlying muscle and tissues normal in appearance. no drainage. no signs of infectious process. wound cleaned and packing and dressings applied for delayed closure given depth of wound. will continue with packing and dressings until well healed. Willie Davies Nov 06, 2017 17:28
[2017-11-06] MEDS ORDERED: Vancomycin 1 GM in D5W 275 ML IVPB ONE (18:00)
--- NOTE | 2017-11-06 18:58 | Diagnostic Imaging Report ---
Indication: Elbow pain Technique: CT of the abdomen and pelvis utilizing automated exposure control without intravenous contrast. Oral contrast was administered. CT dose: Total DLP 545.65 mGycm; CTDI vol 10.82 mGy Comparison: CT osseous pelvis 11/05/2017; CT chest 12/01/2016 Findings: Reason at that evaluation of the abdominal and pelvic viscera is limited without the use of intravenous contrast. Within these limitations the following observations are made: Images through the lower chest reveal small bilateral pleural effusions with adjacent atelectasis/consolidation in the bilateral lower lobes. Heart is mildly enlarged. There is a small amount of pericardial fluid. Coronary arterial calcifications are noted. Punctate calcifications noted within the liver possibly sequela of prior granulomatous exposure. The liver is mildly enlarged, measuring approximately 21 cm in craniocaudal length. Gallbladder is unremarkable. Noncontrast evaluation of the spleen, adrenal glands and pancreas is grossly unremarkable. Atrophy of the bilateral three affiliated kidneys is again noted. Well-circumscribed low-attenuation lesions in the midpole of the three affiliated right kidney are stable in appearance compared to 10/02/2017. Patient again noted to be status post left lower quadrant renal transplant. There is underdistention versus thickening of the bladder wall. Correlation with urinalysis is recommended to exclude cystitis. Air within the bladder may be related to recent catheterization. A small left inguinal hernia contains nonobstructed loops of small bowel. There is no free intraperitoneal fluid or air. Appendix is not definitively visualized. A mild amount of stool is noted throughout the colon. The abdominal aorta is normal in caliber. There is severe atherosclerotic calcifications. Multilevel degenerative changes are seen in the thoracolumbar spine. There is persistent but decreased gas within the subcutaneous soft tissues of the left gluteal musculature. There is asymmetry and slight expansion of the gluteal muscles on the left (series 3 image 116) No well-defined/drainable fluid collection is identified. There is anasarca. Impression: * Small left inguinal hernia containing nonobstructive loops of small bowel. * Persistent gas within the soft tissues of the left hip and buttock region although the amount of gas decreased compared to exam of 11/04/2017. There is slight asymmetry and engorgement of the musculature in this region possibly related to edema and/or phlegmonous change. No definite well-defined/drainable fluid collection is identified however evaluation is limited without intravenous contrast. Again, these findings may be secondary to penetrating trauma versus infection with gas-forming organism. Correlation with clinical history and physical exam findings recommended. Consider ultrasound to assess for defined/drainable fluid collection. * Bladder wall thickening may be related to underdistention. Correlate with urinalysis to exclude cystitis. Air within the bladder may be related to prior catheterization. * Bilateral renal atrophy with left lower quadrant renal transplant. * Bilateral pleural effusions with adjacent bibasilar atelectasis/consolidation in the lower lobes. * Coronary artery disease. * Small pericardial effusion. * Extensive atherosclerotic disease. The CT scanner at [facility] is accredited by the [employer] and the scans are performed using protocols designed to limit radiation exposure to as low as reasonably achievable to attain images of sufficient resolution adequate for diagnostic evaluation.
[2017-11-06 19:49] LABS: ALANINE AMINOTRANSFERASE 16 U/L (12-78); ALBUMIN 2.2 G/DL (3.4-5.0); ALBUMIN/GLOBULIN RATIO 0.7 (1.0-2.7); ALKALINE PHOSPHATASE 87 U/L (46-116); ANION GAP 16 mmol/L (5-15); ASPARTATE AMINO TRANSFERASE 21 U/L (15-37); BILIRUBIN,TOTAL 1.5 MG/DL (0.2-1.0); BLOOD UREA NITROGEN 34 mg/dL (7-18); CALCIUM 6.5 MG/DL (8.5-10.1); CARBON DIOXIDE 23 MMOL/L (21-32); CHLORIDE 98 MMOL/L (98-107); CREATININE 2.4 MG/DL (0.55-1.30); SODIUM 137 MMOL/L (136-145)
[2017-11-06 20:00] VITALS: BP 132/62
[2017-11-06 20:34] LABS: POTASSIUM 2.4 MMOL/L (3.5-5.1)
[2017-11-06 20:35] LABS: BILIRUBIN,DIRECT 0.6 MG/DL (0.0-0.3)
[2017-11-06] MEDS: Atorvastatin 20mg tab ORAL SCH (20:39)
[2017-11-06] MEDS ORDERED: Tubing IV Secondary IV ONE (22:24)
[2017-11-06] MEDS ORDERED: NS 500ML ONE (22:24)
--- NOTE | 2017-11-06 23:45 | Consultation ---
DATE OF CONSULTATION: 11/06/2017 NEPHROLOGY CONSULTATION CONSULTING PHYSICIAN: Marcella Ramon M.D. REFERRING PHYSICIAN: Willie Gaston M.D. REASON FOR CONSULTATION: Severe acidosis, hypokalemia, and hyponatremia. HISTORY OF PRESENT ILLNESS: The patient is an unfortunate 56-year-old male with past medical history significant for history of end-stage renal disease. The patient received renal transplant in 2010 at the [facility] and since then he has been following up with [facility]. His last GFR based on the information he provided for me was . The patient had a history of left hip pain which for that the patient was sent to emergency room and was sent home. The patient came back to emergency room complaining of severe back pain and possible urinary tract infection. Upon arrival in the ER, the patient found to have bicarbonate of 7. His creatinine was 4. The patient consequently was admitted in the hospital. I was called for management of renal disease and electrolyte imbalance. PAST MEDICAL HISTORY: Are includin. History of end-stage renal disease. 2. History of cadaveric renal transplant in 2010. 3. History of anemia of chronic kidney disease. 4. . 5. Hypertension. 6. Dyslipidemia. 7. History of seizure disorder. 8. History of peripheral vascular disease. PAST SURGICAL HISTORY: 1. History of left eye surgery. 2. History of cadaveric renal transplant in 2010. 3. History of toe amputation. HOME MEDICATIONS: Are includin. Allopurinol 100 mg p.o. daily. 2. Amlodipine 10 mg p.o. daily. 3. Aspirin 80 mg daily. 4. Atorvastatin 20 mg p.o. daily. 5. Lasix 20 mg p.o. daily. 6. Prevacid 30 mg p.o. daily. 7. CellCept 500 mg p.o. daily. 8. Oxybutynin 5 mg p.o. daily. 9. Flomax mg p.o. daily. 10. Tramadol 100 mg p.o. daily. 11. Insulin NovoLog. 12. Insulin Lantus. ALLERGIES: No known drug allergies. SOCIAL HISTORY: He is and lives with son. The patient denies any history of tobacco, alcohol or drug use. FAMILY HISTORY: Noncontributory. REVIEW OF SYSTEMS: GENERAL: He denies any fever, chills, or night sweats. HEAD AND NECK: Denies any dysphagia, odynophagia, blurry vision, headache, or neck stiffness. PULMONARY: No shortness of breath. No cough or sputum. CARDIOVASCULAR: Denies any chest pain or palpitation. GASTROINTESTINAL: Complained of being hungry. No diarrhea. No hematemesis or hematochezia. GENITOURINARY: Complained of dysuria and frequency. No hematuria. PHYSICAL EXAMINATION: VITAL SIGNS: The patient has temperature of 98, blood pressure of 140/67, pulse rate of 78, and respiratory rate of 18. HEAD AND NECK: No JVP. No LAD. No thyromegaly. Extraocular movement intact. Pupils are reactive to light and accommodation. LUNGS: Decreased breathing sound on the both sides. CARDIAC: Regular rate and rhythm. S1 and S2. No murmur. No rub. ABDOMEN: Soft, nontender, and nondistended. EXTREMITIES: Trace edema. No clubbing. No cyanosis. LABORATORY AND DIAGNOSTIC DATA: The patient has a lactic acid of 6.8. Chemistry reveals sodium 131, potassium 3.1, chloride 102 , bicarbonate 10, BUN of 69, creatinine of 4, glucose of 258, calcium of 6.6. AST of 16, ALT of 13, alkaline phosphatase 92. Total protein of 5.9 and albumin of 2.3. CBC with WBC count of 11,000 hemoglobin of 8.1, hematocrit of 25, and platelet count of 170. UA revealed specific gravity of 1.010, protein 3+, glucose 2+, blood 4+, leukocyte esterase 1+, RBCs 2 to 4, and WBCs 10 to 5. Chest x-ray revealed no acute process, which was done on 11/04/2017. CT of the hip, no acute bony trauma, gas within the soft tissues of the left hip and buttock area, this may indicate penetrating trauma, worrisome for infection and gas-forming organism. ASSESSMENT: 1. Anion gap, acidosis. 2. Hypovolemic hyponatremia. 3. Hypokalemia. 4. Acute on chronic renal failure. PLAN: Plan for the patient to arrange for stat dialysis. I would recommend to obtain stat Infectious Disease consultation and stat surgical consultation. Repeat the CT scan. Give two ampules bicarb. I would replace the potassium via the dialysis. I would recommend the patient to be transferred to ICU. At the end, I would like to thank, Dr. Gasotn for allowing me to participate care of this patient. Marcella Ramon M.D. DR: CANDIDO JOB#: [id number] CC:
[2017-11-07] VITALS: BP 156/76
[2017-11-07 04:00] VITALS: BP 155/68
[2017-11-07] MEDS: Piperacillin/Tazobactam 2.25 GM in NS 110 ML IV SCH ×3 (05:00→23:11)
[2017-11-07] MEDS: Clindamycin 900mg 50 ML IV SCH ×3 (05:33→23:10)
[2017-11-07] MEDS: NovoLOG Insulin Flexpen SUBQ SCH ×4 (05:44→22:44)
[2017-11-07 06:18] LABS: HEMATOCRIT 24.1 % (42.0-52.0); HEMOGLOBIN 7.6 G/DL (14.2-18.0); MEAN CORPUSCULAR VOLUME 82 FL (80-99); PLATELET COUNT 165 K/UL (150-450); RED BLOOD COUNT 2.94 M/UL (4.70-6.10); RED CELL DISTRIBUTION WIDTH 15.1 % (11.6-14.8); WHITE BLOOD COUNT 10.4 K/UL (4.8-10.8)
[2017-11-07 06:38] LABS: ALANINE AMINOTRANSFERASE 11 U/L (12-78); ALBUMIN/GLOBULIN RATIO 0.6 (1.0-2.7); ALKALINE PHOSPHATASE 83 U/L (46-116); ANION GAP 13 mmol/L (5-15); ASPARTATE AMINO TRANSFERASE 17 U/L (15-37); BILIRUBIN,TOTAL 1.3 MG/DL (0.2-1.0); BLOOD UREA NITROGEN 39 mg/dL (7-18); CALCIUM 6.4 MG/DL (8.5-10.1); CARBON DIOXIDE 23 MMOL/L (21-32); CHLORIDE 95 MMOL/L (98-107); CREATININE 2.9 MG/DL (0.55-1.30); SODIUM 131 MMOL/L (136-145)
--- NOTE | 2017-11-07 07:39 | Nephrology Progress Note ---
Assessment/Plan Assessment 1. Anion gap, and none gap acidosis. 2. Hypovolemic hyponatremia. 3. Hypokalemia. 4. Acute on chronic renal failure. 5.ckd stage 5 6.anemia of ckd 7.hypocalcemia 9.JUSTEN Plan check chem 7 replace electrolyte start epogen transfuse 2 unit check iron panel check vit d Subjective Constitutional: Reports: no symptoms HEENT: Reports: no symptoms Neurologic/Psychiatric: Reports: no symptoms Subjective had dialysis yesterday feeling much better had incision on his left gluteal area Objective Objective Last 24 Hour Vital Signs Date Time Temp Pulse Resp B/P (MAP) Pulse Ox O2 Delivery O2 Flow Rate FiO2 11/07/17 04:00 98.6 85 19 155/68 97 Room Air 11/07/17 04:00 86 11/07/17 00:00 98.4 86 20 156/76 100 Room Air 11/07/17 00:00 84 11/06/17 20:00 101 11/06/17 20:00 98.4 81 21 132/62 99 Nasal Cannula 11/06/17 19:03 93 140/64 11/06/17 18:08 97.7 11/06/17 16:00 98.1 93 20 140/64 100 Room Air 11/06/17 16:00 89 11/06/17 15:11 Room Air 11/06/17 13:00 87 141/71 11/06/17 12:00 75 11/06/17 12:00 97.7 87 20 141/71 98 Room Air 11/06/17 11:00 Room Air 11/06/17 09:00 78 140/67 11/06/17 09:00 78 140/67 11/06/17 08:00 82 11/06/17 08:00 96.5 78 18 140/67 100 Room Air Intake and Output 11/06/17 11/07/17 19:00 07:00 Intake Total 820 ml 687.416 ml Output Total 1600 ml Balance -780 ml 687.416 ml Intake Oral 820 ml IV Total 687.416 ml Output Urine Total 500 ml Hemodialysis UF 1100 ml # Voids 4 # Bowel Movements 1 1 Laboratory Tests 11/06/17 07:51: Arterial Blood pH 7.302L, Arterial Blood Partial Pressure CO2 20.1*L, Arterial Blood Partial Pressure O2 80.9, Arterial Blood HCO3 9.7L, Arterial Blood Oxygen Saturation 95.2, Arterial Blood Base Excess -15.0, Cory Test Positive 11/06/17 09:20: Calcium (Send out) [Pending], Parathyroid Hormone (Intact) [Pending], Hepatitis A IgM Antibody [Pending], Hepatitis B Surface Antigen [Pending], Hepatitis B Core IgM Antibody [Pending], Hepatitis C Antibody [Pending], HIV (1&2) Antibody Rapid Negative 11/06/17 18:55: Sodium Level 137, Potassium Level 2.4*L, Chloride Level 98, Carbon Dioxide Level 23, Anion Gap 16H, Blood Urea Nitrogen 34H, Creatinine 2.4H, Estimat Glomerular Filtration Rate 28.0, Glucose Level 200H, Calcium Level 6.5L, Total Bilirubin 1.5H, Direct Bilirubin 0.6H, Aspartate Amino Transf (AST/SGOT) 21, Alanine Aminotransferase (ALT/SGPT) 16, Alkaline Phosphatase 87, Total Protein 5.4L, Albumin 2.2L, Globulin 3.2, Albumin/Globulin Ratio 0.7L 11/07/17 04:40: Sodium Level [Pending], Potassium Level [Pending], Chloride Level [Pending], Carbon Dioxide Level [Pending], Blood Urea Nitrogen [Pending], Creatinine [ Pending], Estimat Glomerular Filtration Rate [Pending], Glucose Level [Pending] , Calcium Level [Pending], Total Bilirubin [Pending], Aspartate Amino Transf ( AST/SGOT) [Pending], Alanine Aminotransferase (ALT/SGPT) [Pending], Alkaline Phosphatase [Pending], Total Protein [Pending], Albumin [Pending], Globulin [ Pending], White Blood Count 10.4, Red Blood Count 2.94L, Hemoglobin 7.6L, Hematocrit 24.1L, Mean Corpuscular Volume 82, Mean Corpuscular Hemoglobin 25.8L , Mean Corpuscular Hemoglobin Concent 31.4L, Red Cell Distribution Width 15.1H, Platelet Count 165, Mean Platelet Volume 7.7, Neutrophils (%) (Auto) , Lymphocytes (%) (Auto) , Monocytes (%) (Auto) , Eosinophils (%) (Auto) , Basophils (%) (Auto) Height (Feet): 5 Height (Inches): 10.00 Weight (Pounds): 150 Objective HEAD AND NECK: No JVP. No LAD. No thyromegaly. Extraocular movement intact. Pupils are reactive to light and accommodation. LUNGS: Decreased breathing sound on the both sides. CARDIAC: Regular rate and rhythm. S1 and S2. No murmur. No rub. ABDOMEN: Soft, nontender, and nondistended. EXTREMITIES: Trace edema. No clubbing. No cyanosis. ASTER NEFF Nov 07, 2017 07:39
[2017-11-07 08:00] VITALS: BP 162/69
[2017-11-07 08:05] LABS: POTASSIUM 2.7 MMOL/L (3.5-5.1)
[2017-11-07 08:07] LABS: BILIRUBIN,DIRECT 0.4 MG/DL (0.0-0.3)
[2017-11-07 08:17] LABS: % IRON SATURATION 28 % (15-50); IRON 30 ug/dL (50-175); TOTAL IRON BINDING CAPACITY 107 ug/dL (250-450)
[2017-11-07] MEDS: Heparin 5000 units/ml inj SUBQ SCH ×2 (09:00→23:15)
[2017-11-07] MEDS ORDERED: Megace 400mg/10ml Susp ORAL SCH (09:00)
[2017-11-07] MEDS: Oxybutynin 5mg tab ORAL SCH ×2 (09:20→23:12)
[2017-11-07] MEDS: Allopurinol 100mg Tab ORAL SCH ×2 (09:21→17:34)
[2017-11-07] MEDS: Docusate 100mg cap ORAL SCH ×2 (09:21→17:33)
[2017-11-07] MEDS: Mycophenolate 250mg cap ORAL SCH ×2 (09:23→23:11)
--- NOTE | 2017-11-07 10:18 | Infectious Diseases Prog Note ---
Assessment/Plan Assessment/Plan Abx: IV Unasyn 11/04-11/05 IV Vanco 11/04-11/05; 11/06- Ceftriaxone 11/05 Zosyn 11/05- Clinda 11/06- Assessment: High grade E.coli bacteremia- ?2ry to UTI vs buttocks skin soft tissue infection base on CT findings -ucx grwoing a 2nd GNB-? e,coli Severe L hip/thigh/ pain - pain out of proportion with physical findings and with gas on CT are very suspicious for myonecrosis (clostridial gangrene) - DDx necrotizing fascitis. No fractures. --unclear- as bedside surgical exploration showed normal healthy tissues and no gas; will closely monitor for worsening -CT L hip: No acute fractures. No dislocations. The joint spaces are preserved. Gas within the soft tissues of the left hip and buttock region. This may indicate penetrating trauma, but is worrisome for infection with gas- forming organism. There is equivocal mild thickening of the bladder wall -11/06 ESR 50, CRP 40 -CT abd/p wo 11/06: Small left inguinal hernia containing nonobstructive loops of small bowel. Persistent gas within the soft tissues of the left hip and buttock region although the amount of gas decreased compared to exam of 11/04/2017. There is slight asymmetry and engorgement of the musculature in this region possibly related to edema and/or phlegmonous change. No definite well-defined/drainable fluid collection is identified however evaluation is limited without intravenous contrast. Again, these findings may be secondary to penetrating trauma versus infection with gas- forming organism. Correlation with clinical history and physical exam findings recommended. Consider ultrasound to assess for defined/drainable fluid collection. Bladder wall thickening may be related to underdistention. Correlate with urinalysis to exclude cystitis. Air within the bladder may be related to prior catheterization. K.pna and 2nd GNR UTI -u/a wbc 10-15, nit neg, leuk +1; UCx >100k K Pna ( R amp anb Nitro, otherwise sensitive); >100K GNB #2 (ID and sensi pending) Low grade fever/mild leukocytosis- 2ry to above- improving DM2, HTN, seizure disorder, brain surgery (~10 yrs ago), HLD, PVD s/p amputation L great toe, ESRD s/p Renal transplant 2011- not on HD, but now requiring HD L eye prosthesis Plan: -Continue Zosyn #3 and IV vanco and Clindamycin #2 for possible gas-forming infection on L buttocks -Close monitoring for decompensation; if so may need OR exploration -Will need repeat CT hip in the next days -f/u cx -Monitor CBC/BMP, temperatures Thank you for this consultation. Will continue to follow along with you. Discussed with RN and Dr Davies, Subjective Allergies: Coded Allergies: NO KNOWN ALLERGIES (Unverified Allergy, Unknown, 10/24/15) Subjective afebrile in >48hrs leukocytosis resolved BCx ID e.coli, Ucx growing a 2nd GNR repeast Bcx NTD bedside exploration of L thigh by surgery showed healthy tissues, no gas. Objective Vital Signs Last 24 Hour Vital Signs Date Time Temp Pulse Resp B/P (MAP) Pulse Ox O2 Delivery O2 Flow Rate FiO2 11/07/17 09:20 86 155/68 11/07/17 09:19 86 155/68 11/07/17 04:00 98.6 85 19 155/68 97 Room Air 11/07/17 04:00 86 11/07/17 00:00 98.4 86 20 156/76 100 Room Air 11/07/17 00:00 84 11/06/17 20:00 101 11/06/17 20:00 98.4 81 21 132/62 99 Nasal Cannula 11/06/17 19:03 93 140/64 11/06/17 18:08 97.7 11/06/17 16:00 98.1 93 20 140/64 100 Room Air 11/06/17 16:00 89 11/06/17 15:11 Room Air 11/06/17 13:00 87 141/71 11/06/17 12:00 75 11/06/17 12:00 97.7 87 20 141/71 98 Room Air 11/06/17 11:00 Room Air Height (Feet): 5 Height (Inches): 10.00 Weight (Pounds): 150 Objective GENERAL: The patient is a well-developed and well-nourished thin-appearing male, in no apparent distress. HEENT: Eyes, pupils equal and responsive to light and accommodation. Extraocular movements are intact. NECK: Supple without lymphadenopathy. CHEST: Lungs are clear to auscultation bilaterally without wheezes or rales. CARDIOVASCULAR: Regular rhythm and rate. S1 and S2 normal without murmurs, rubs, or gallops. ABDOMEN: Soft, nontender, and nondistended. Positive bowel sounds. No evidence of hepatosplenomegaly. Currently, no rebound or guarding noted. EXTREMITIES: Negative for clubbing, cyanosis, or edema. L Hip,anterior thigh ( unable to evalaute buttocks as patietn getting HD)- severly TTP without concomitnatn inflammatory signs (erythema, warmth),skin break downs Microbiology Date/Time Source Procedure Growth Status 11/05/17 19:50 Blood Blood Culture - Preliminary NO GROWTH AFTER 24 HOURS Resulted 11/05/17 19:45 Blood Blood Culture - Preliminary NO GROWTH AFTER 24 HOURS Resulted 11/04/17 16:25 Blood Blood Culture - Final Escherichia Coli Complete 11/04/17 16:10 Blood Blood Culture - Final Escherichia Coli Complete 11/04/17 17:00 Urine,Clean Catch Urine Culture - Preliminary Klebsiella Pneumoniae Gram Negative Bacillus 2 Resulted Laboratory Tests Test 11/06/17 18:55 11/07/17 04:40 Sodium Level 137 MMOL/L (136-145) 131 MMOL/L (136-145) L Potassium Level 2.4 MMOL/L (3.5-5.1) *L 2.7 MMOL/L (3.5-5.1) *L Chloride Level 98 MMOL/L (98-107) 95 MMOL/L (98-107) L Carbon Dioxide Level 23 MMOL/L (21-32) 23 MMOL/L (21-32) Anion Gap 16 mmol/L (5-15) H 13 mmol/L (5-15) Blood Urea Nitrogen 34 mg/dL (7-18) H 39 mg/dL (7-18) H Creatinine 2.4 MG/DL (0.55-1.30) H 2.9 MG/DL (0.55-1.30) H Estimat Glomerular Filtration Rate 28.0 mL/min (>60) 22.5 mL/min (>60) Glucose Level 200 MG/DL (74-106) H 327 MG/DL (74-106) #H Calcium Level 6.5 MG/DL (8.5-10.1) L 6.4 MG/DL (8.5-10.1) L Total Bilirubin 1.5 MG/DL (0.2-1.0) H 1.3 MG/DL (0.2-1.0) H Direct Bilirubin 0.6 MG/DL (0.0-0.3) H 0.4 MG/DL (0.0-0.3) H Aspartate Amino Transf (AST/SGOT) 21 U/L (15-37) 17 U/L (15-37) Alanine Aminotransferase (ALT/SGPT) 16 U/L (12-78) 11 U/L (12-78) L Alkaline Phosphatase 87 U/L (46-116) 83 U/L (46-116) Total Protein 5.4 G/DL (6.4-8.2) L 5.6 G/DL (6.4-8.2) L Albumin 2.2 G/DL (3.4-5.0) L 2.0 G/DL (3.4-5.0) L Globulin 3.2 g/dL 3.6 g/dL Albumin/Globulin Ratio 0.7 (1.0-2.7) L 0.6 (1.0-2.7) L White Blood Count 10.4 K/UL (4.8-10.8) Red Blood Count 2.94 M/UL (4.70-6.10) L Hemoglobin 7.6 G/DL (14.2-18.0) L Hematocrit 24.1 % (42.0-52.0) L Mean Corpuscular Volume 82 FL (80-99) Mean Corpuscular Hemoglobin 25.8 PG (27.0-31.0) L Mean Corpuscular Hemoglobin Concent 31.4 G/DL (32.0-36.0) L Red Cell Distribution Width 15.1 % (11.6-14.8) H Platelet Count 165 K/UL (150-450) Mean Platelet Volume 7.7 FL (6.5-10.1) Neutrophils (%) (Auto) % (45.0-75.0) Lymphocytes (%) (Auto) % (20.0-45.0) Monocytes (%) (Auto) % (1.0-10.0) Eosinophils (%) (Auto) % (0.0-3.0) Basophils (%) (Auto) % (0.0-2.0) Iron Level 30 ug/dL (50-175) L Total Iron Binding Capacity 107 ug/dL (250-450) L Percent Iron Saturation 28 % (15-50) Unsaturated Iron Binding 77 ug/dL (112-346) L Vitamin D 25-Hydroxy Pending 25-Hydroxy Vitamin D2 Pending 25-Hydroxy Vitamin D3 Pending Current Medications Medications (Trade) Dose Ordered Sig/Vincent Route PRN Reason Start Time Stop Time Status Last Admin Dose Admin Allopurinol (Zyloprim) 100 mg BID ORAL 11/05/17 09:00 12/05/17 08:59 11/07/17 09:21 Amlodipine Besylate (Norvasc) 10 mg DAILY ORAL 11/05/17 09:00 12/05/17 08:59 11/07/17 09:20 Atorvastatin Calcium (Lipitor) 20 mg BEDTIME ORAL 11/05/17 21:00 12/05/17 20:59 11/06/17 20:39 Chlorpromazine 25 mg/Sodium Chloride 111 ml @ 222 mls/hr Q8H PRN IVPB HICCUPS 11/06/17 15:00 12/06/17 14:44 Clindamycin HCl/ Dextrose 50 ml @ 100 mls/hr Q8HR IV 11/06/17 14:00 11/13/17 23:59 11/07/17 05:33 Dextrose (Dextrose 50%) STAT PRN IV Hypoglycemia 11/05/17 15:00 12/05/17 14:59 Docusate Sodium (Colace) 100 mg BID ORAL 11/05/17 09:00 12/05/17 08:59 11/07/17 09:21 Epoetin Binu (Procrit (for ESRD on dialysis)) 10,000 units MON-WED-FRI SUBQ 11/07/17 21:00 12/07/17 20:59 Furosemide (Lasix) 20 mg DAILY ORAL 11/05/17 09:00 12/05/17 08:59 11/07/17 09:22 Heparin Sodium (Porcine) (Heparin 5000 units/ml) 5,000 units Q12HR SUBQ 11/05/17 09:00 12/05/17 08:59 11/06/17 20:40 Hydromorphone HCl (Dilaudid) 1 mg Q4HR PRN IVP Severe Pain (Pain Scale 7-10) 11/05/17 15:15 11/12/17 15:14 11/06/17 17:38 Insulin Aspart (NovoLOG) BEFORE MEALS AND HS SUBQ 11/05/17 16:30 12/05/17 16:29 11/07/17 05:44 Labetalol HCl (Normodyne) 100 mg THREE TIMES A DAY ORAL 11/05/17 09:00 12/05/17 08:59 11/07/17 09:19 Lansoprazole (Prevacid) 30 mg DAILY ORAL 11/05/17 09:00 12/05/17 08:59 11/07/17 09:19 Megestrol Acetate (Megace) 800 mg DAILY ORAL 11/07/17 09:00 12/07/17 08:59 11/07/17 09:18 Mycophenolate Mofetil (Cellcept) 500 mg Q12HR ORAL 11/05/17 09:00 12/05/17 08:59 11/07/17 09:23 Oxybutynin Chloride (Ditropan) 5 mg Q12HR ORAL 11/05/17 09:00 12/05/17 08:59 11/07/17 09:20 Piperacillin Sod/ Tazobactam Sod 2.25 gm/Sodium Chloride 110 ml @ 220 mls/hr Q8HR IV 11/05/17 20:00 11/12/17 19:59 11/07/17 05:00 Potassium Chloride 100 ml @ 100 mls/hr Q1H IVPB 11/07/17 09:00 11/07/17 10:59 11/07/17 09:15 Potassium Chloride (K-Dur) 40 meq Q4HR ORAL 11/07/17 09:00 11/07/17 13:01 11/07/17 09:21 Tacrolimus (Prograf) 1 mg BID ORAL 11/05/17 09:00 12/05/17 08:59 11/07/17 09:19 Vancomycin HCl (Vanco rx to dose) 1 ea DAILY PRN MISC Per rx protocol 11/06/17 12:30 12/06/17 12:29 Rupinder Perez M.D. Nov 07, 2017 10:18
[2017-11-07 10:26] LABS: PHOSPHORUS 2.7 MG/DL (2.5-4.9)
--- NOTE | 2017-11-07 11:09 | Internal Med Progress Note ---
Subjective Date of Service: Nov 07, 2017 Physician Name Bisi Conde Attending Physician Kristian Gaona MD Current Medications Medications (Trade) Dose Ordered Sig/Vincent Route PRN Reason Start Time Stop Time Status Last Admin Dose Admin Allopurinol (Zyloprim) 100 mg BID ORAL 11/05/17 09:00 12/05/17 08:59 11/07/17 09:21 Amlodipine Besylate (Norvasc) 10 mg DAILY ORAL 11/05/17 09:00 12/05/17 08:59 11/07/17 09:20 Atorvastatin Calcium (Lipitor) 20 mg BEDTIME ORAL 11/05/17 21:00 12/05/17 20:59 11/06/17 20:39 Chlorpromazine 25 mg/Sodium Chloride 111 ml @ 222 mls/hr Q8H PRN IVPB HICCUPS 11/06/17 15:00 12/06/17 14:44 Clindamycin HCl/ Dextrose 50 ml @ 100 mls/hr Q8HR IV 11/06/17 14:00 11/13/17 23:59 11/07/17 05:33 Dextrose (Dextrose 50%) STAT PRN IV Hypoglycemia 11/05/17 15:00 12/05/17 14:59 Docusate Sodium (Colace) 100 mg BID ORAL 11/05/17 09:00 12/05/17 08:59 11/07/17 09:21 Epoetin Binu (Procrit (for ESRD on dialysis)) 10,000 units MON-WED-FRI SUBQ 11/07/17 21:00 12/07/17 20:59 Furosemide (Lasix) 20 mg DAILY ORAL 11/05/17 09:00 12/05/17 08:59 11/07/17 09:22 Heparin Sodium (Porcine) (Heparin 5000 units/ml) 5,000 units Q12HR SUBQ 11/05/17 09:00 12/05/17 08:59 11/06/17 20:40 Hydromorphone HCl (Dilaudid) 1 mg Q4HR PRN IVP Severe Pain (Pain Scale 7-10) 11/05/17 15:15 11/12/17 15:14 11/06/17 17:38 Insulin Aspart (NovoLOG) BEFORE MEALS AND HS SUBQ 11/05/17 16:30 12/05/17 16:29 11/07/17 05:44 Labetalol HCl (Normodyne) 100 mg THREE TIMES A DAY ORAL 11/05/17 09:00 12/05/17 08:59 11/07/17 09:19 Lansoprazole (Prevacid) 30 mg DAILY ORAL 11/05/17 09:00 12/05/17 08:59 11/07/17 09:19 Megestrol Acetate (Megace) 800 mg DAILY ORAL 11/07/17 09:00 12/07/17 08:59 11/07/17 09:18 Mycophenolate Mofetil (Cellcept) 500 mg Q12HR ORAL 11/05/17 09:00 12/05/17 08:59 11/07/17 09:23 Oxybutynin Chloride (Ditropan) 5 mg Q12HR ORAL 11/05/17 09:00 12/05/17 08:59 11/07/17 09:20 Piperacillin Sod/ Tazobactam Sod 2.25 gm/Sodium Chloride 110 ml @ 220 mls/hr Q8HR IV 11/05/17 20:00 11/12/17 19:59 11/07/17 05:00 Potassium Chloride (K-Dur) 40 meq Q4HR ORAL 11/07/17 09:00 11/07/17 13:01 11/07/17 09:21 Tacrolimus (Prograf) 1 mg BID ORAL 11/05/17 09:00 12/05/17 08:59 11/07/17 09:19 Vancomycin HCl (Vanco rx to dose) 1 ea DAILY PRN MISC Per rx protocol 11/06/17 12:30 12/06/17 12:29 Allergies: Coded Allergies: NO KNOWN ALLERGIES (Unverified Allergy, Unknown, 10/24/15) ROS Limited/Unobtainable: No Constitutional: Reports: no symptoms HEENT: Reports: no symptoms Cardiovascular: Reports: no symptoms Respiratory: Reports: no symptoms Gastrointestinal/Abdominal: Reports: no symptoms Genitourinary: Reports: no symptoms Neurologic/Psychiatric: Reports: no symptoms Subjective 56 YO M admitted with left hip pain. Now cellulitis left hip and sepsis. Also UTI. Cover for Int Rishabh-Dr Gaona. S/P bedside Incision and drainage 11/06/17 Objective Last Vital Signs Date Time Temp Pulse Resp B/P (MAP) Pulse Ox O2 Delivery O2 Flow Rate FiO2 11/07/17 09:20 86 155/68 11/07/17 04:00 98.6 19 97 Room Air Laboratory Tests Test 11/06/17 18:55 11/07/17 04:40 11/07/17 10:04 Sodium Level 137 MMOL/L (136-145) 131 MMOL/L (136-145) L Potassium Level 2.4 MMOL/L (3.5-5.1) *L 2.7 MMOL/L (3.5-5.1) *L Chloride Level 98 MMOL/L (98-107) 95 MMOL/L (98-107) L Carbon Dioxide Level 23 MMOL/L (21-32) 23 MMOL/L (21-32) Anion Gap 16 mmol/L (5-15) H 13 mmol/L (5-15) Blood Urea Nitrogen 34 mg/dL (7-18) H 39 mg/dL (7-18) H Creatinine 2.4 MG/DL (0.55-1.30) H 2.9 MG/DL (0.55-1.30) H Estimat Glomerular Filtration Rate 28.0 mL/min (>60) 22.5 mL/min (>60) Glucose Level 200 MG/DL (74-106) H 327 MG/DL (74-106) #H Calcium Level 6.5 MG/DL (8.5-10.1) L 6.4 MG/DL (8.5-10.1) L Total Bilirubin 1.5 MG/DL (0.2-1.0) H 1.3 MG/DL (0.2-1.0) H Direct Bilirubin 0.6 MG/DL (0.0-0.3) H 0.4 MG/DL (0.0-0.3) H Aspartate Amino Transf (AST/SGOT) 21 U/L (15-37) 17 U/L (15-37) Alanine Aminotransferase (ALT/SGPT) 16 U/L (12-78) 11 U/L (12-78) L Alkaline Phosphatase 87 U/L (46-116) 83 U/L (46-116) Total Protein 5.4 G/DL (6.4-8.2) L 5.6 G/DL (6.4-8.2) L Albumin 2.2 G/DL (3.4-5.0) L 2.0 G/DL (3.4-5.0) L Globulin 3.2 g/dL 3.6 g/dL Albumin/Globulin Ratio 0.7 (1.0-2.7) L 0.6 (1.0-2.7) L White Blood Count 10.4 K/UL (4.8-10.8) Red Blood Count 2.94 M/UL (4.70-6.10) L Hemoglobin 7.6 G/DL (14.2-18.0) L Hematocrit 24.1 % (42.0-52.0) L Mean Corpuscular Volume 82 FL (80-99) Mean Corpuscular Hemoglobin 25.8 PG (27.0-31.0) L Mean Corpuscular Hemoglobin Concent 31.4 G/DL (32.0-36.0) L Red Cell Distribution Width 15.1 % (11.6-14.8) H Platelet Count 165 K/UL (150-450) Mean Platelet Volume 7.7 FL (6.5-10.1) Neutrophils (%) (Auto) % (45.0-75.0) Lymphocytes (%) (Auto) % (20.0-45.0) Monocytes (%) (Auto) % (1.0-10.0) Eosinophils (%) (Auto) % (0.0-3.0) Basophils (%) (Auto) % (0.0-2.0) Iron Level 30 ug/dL (50-175) L Total Iron Binding Capacity 107 ug/dL (250-450) L Percent Iron Saturation 28 % (15-50) Unsaturated Iron Binding 77 ug/dL (112-346) L Vitamin D 25-Hydroxy Pending 25-Hydroxy Vitamin D2 Pending 25-Hydroxy Vitamin D3 Pending Phosphorus Level 2.7 MG/DL (2.5-4.9) Magnesium Level 1.3 MG/DL (1.8-2.4) L Microbiology Date/Time Source Procedure Growth Status 11/05/17 19:50 Blood Blood Culture - Preliminary NO GROWTH AFTER 24 HOURS Resulted 11/05/17 19:45 Blood Blood Culture - Preliminary NO GROWTH AFTER 24 HOURS Resulted 11/04/17 16:25 Blood Blood Culture - Final Escherichia Coli Complete 11/04/17 16:10 Blood Blood Culture - Final Escherichia Coli Complete 11/04/17 17:00 Urine,Clean Catch Urine Culture - Preliminary Klebsiella Pneumoniae Gram Negative Bacillus 2 Resulted Intake and Output 11/06/17 11/07/17 19:00 07:00 Intake Total 820 ml 687.416 ml Output Total 1600 ml Balance -780 ml 687.416 ml Intake Oral 820 ml IV Total 687.416 ml Output Urine Total 500 ml Hemodialysis UF 1100 ml # Voids 4 # Bowel Movements 1 1 Objective General Appearance: alert, mild distress, thin EENT: PERRL/EOMI, normal ENT inspection, TMs normal Neck: non-tender, normal alignment, supple, normal inspection Cardiovascular: normal peripheral pulses, normal rate, regular rhythm, no gallop/murmur, no JVD Respiratory/Chest: chest wall non-tender, lungs clear, normal breath sounds, no respiratory distress, no accessory muscle use Abdomen: normal bowel sounds, non tender, soft, no organomegaly, no mass Extremities: normal range of motion Neurologic: explosive man II-XII grossly normal, no motor/sensory deficits Skin: normal pigmentation, warm/dry Assessment/Plan Problem List: (1) Diabetes mellitus, type II (2) ESRD (end stage renal disease) on dialysis Assessment & Plan: S/P hemodialysis 11/06/17. See nephrology note. (3) Renal transplant, status post (4) HTN (hypertension) Assessment & Plan: Continue labetolol and norvasc. (5) Hypercholesteremia (6) Seizure disorder (7) Peripheral vascular disease (8) Cellulitis of hip, left Assessment & Plan: S/P Incision and Drainage 11/06/17. see surgery note. Cont zosyn, vanco and clinda per ID (9) Hip pain, left Assessment & Plan: Ortho consult pending (10) UTI (urinary tract infection) Assessment & Plan: Klebsiella pneumo. Cont zosyn (11) Sepsis Assessment & Plan: E.Coli. Continue zosyn per ID. Await sensitivities. Status: not improved BSII CONDE Nov 07, 2017 11:09
[2017-11-07 12:00] VITALS: BP 124/58
--- NOTE | 2017-11-07 15:47 | General Surgery Progress Note ---
General Surgery-Progress Note Subjective Procedure Performed local exploration of left hip Symptoms: improved Additional Comments doing much better. states left hip pain almost resolved. no longer tender on palpation. can lay on left side without discomfort. no n/v/f/c. Objective Last 24 Hour Vital Signs Date Time Temp Pulse Resp B/P (MAP) Pulse Ox O2 Delivery O2 Flow Rate FiO2 11/07/17 15:00 97.8 11/07/17 13:44 79 124/58 11/07/17 12:00 84 11/07/17 12:00 97.8 79 19 124/58 92 Room Air 11/07/17 09:20 86 155/68 11/07/17 09:19 86 155/68 11/07/17 08:00 86 11/07/17 08:00 97.5 86 20 162/69 98 Room Air 11/07/17 04:00 98.6 85 19 155/68 97 Room Air 11/07/17 04:00 86 11/07/17 00:00 98.4 86 20 156/76 100 Room Air 11/07/17 00:00 84 11/06/17 20:00 101 11/06/17 20:00 98.4 81 21 132/62 99 Nasal Cannula 11/06/17 19:03 93 140/64 11/06/17 16:00 98.1 93 20 140/64 100 Room Air 11/06/17 16:00 89 I&O Intake and Output 11/06/17 11/07/17 19:00 07:00 Intake Total 820 ml 687.416 ml Output Total 1600 ml Balance -780 ml 687.416 ml Intake Oral 820 ml IV Total 687.416 ml Output Urine Total 500 ml Hemodialysis UF 1100 ml # Voids 4 # Bowel Movements 1 1 Dressing: saturated Wound: clean Drains: none Cardiovascular: RSR Respiratory: clear Abdomen: non-tender Extremities: no tenderness Laboratory Tests Test 11/06/17 18:55 11/07/17 04:40 11/07/17 10:04 Sodium Level 137 MMOL/L (136-145) 131 MMOL/L (136-145) L Potassium Level 2.4 MMOL/L (3.5-5.1) *L 2.7 MMOL/L (3.5-5.1) *L Chloride Level 98 MMOL/L (98-107) 95 MMOL/L (98-107) L Carbon Dioxide Level 23 MMOL/L (21-32) 23 MMOL/L (21-32) Anion Gap 16 mmol/L (5-15) H 13 mmol/L (5-15) Blood Urea Nitrogen 34 mg/dL (7-18) H 39 mg/dL (7-18) H Creatinine 2.4 MG/DL (0.55-1.30) H 2.9 MG/DL (0.55-1.30) H Estimat Glomerular Filtration Rate 28.0 mL/min (>60) 22.5 mL/min (>60) Glucose Level 200 MG/DL (74-106) H 327 MG/DL (74-106) #H Calcium Level 6.5 MG/DL (8.5-10.1) L 6.4 MG/DL (8.5-10.1) L Total Bilirubin 1.5 MG/DL (0.2-1.0) H 1.3 MG/DL (0.2-1.0) H Direct Bilirubin 0.6 MG/DL (0.0-0.3) H 0.4 MG/DL (0.0-0.3) H Aspartate Amino Transf (AST/SGOT) 21 U/L (15-37) 17 U/L (15-37) Alanine Aminotransferase (ALT/SGPT) 16 U/L (12-78) 11 U/L (12-78) L Alkaline Phosphatase 87 U/L (46-116) 83 U/L (46-116) Total Protein 5.4 G/DL (6.4-8.2) L 5.6 G/DL (6.4-8.2) L Albumin 2.2 G/DL (3.4-5.0) L 2.0 G/DL (3.4-5.0) L Globulin 3.2 g/dL 3.6 g/dL Albumin/Globulin Ratio 0.7 (1.0-2.7) L 0.6 (1.0-2.7) L White Blood Count 10.4 K/UL (4.8-10.8) Red Blood Count 2.94 M/UL (4.70-6.10) L Hemoglobin 7.6 G/DL (14.2-18.0) L Hematocrit 24.1 % (42.0-52.0) L Mean Corpuscular Volume 82 FL (80-99) Mean Corpuscular Hemoglobin 25.8 PG (27.0-31.0) L Mean Corpuscular Hemoglobin Concent 31.4 G/DL (32.0-36.0) L Red Cell Distribution Width 15.1 % (11.6-14.8) H Platelet Count 165 K/UL (150-450) Mean Platelet Volume 7.7 FL (6.5-10.1) Neutrophils (%) (Auto) % (45.0-75.0) Lymphocytes (%) (Auto) % (20.0-45.0) Monocytes (%) (Auto) % (1.0-10.0) Eosinophils (%) (Auto) % (0.0-3.0) Basophils (%) (Auto) % (0.0-2.0) Iron Level 30 ug/dL (50-175) L Total Iron Binding Capacity 107 ug/dL (250-450) L Percent Iron Saturation 28 % (15-50) Unsaturated Iron Binding 77 ug/dL (112-346) L Vitamin D 25-Hydroxy Pending 25-Hydroxy Vitamin D2 Pending 25-Hydroxy Vitamin D3 Pending Phosphorus Level 2.7 MG/DL (2.5-4.9) Magnesium Level 1.3 MG/DL (1.8-2.4) L Plan Problems: (1) Sepsis Assessment & Plan: 56M who presents with left hip pain and found to be septic. afebrile, HD stable, presented with leukocytosis, CRP/ESR elevated, CT with gas in left hip. no trauma noted in area. concerning for gas forming bacterial infection. pain out of proportion to exam in left hip. on exam very tender initially. POD #1 s/p bedside exploration of left hip. subq tissues, fascia, and muscle all intact and viable. no infectious process noted. today pain almost resolved. states he feels much better. leukocytosis resolved. -continue with local wound care. -continue Abx as per ID -if decompensates would consider further exploration of left hip in OR but for now stable. thank you for this consultation. will follow with recs. Willie Davies Nov 07, 2017 15:47
[2017-11-07 16:00] VITALS: BP 125/75
--- NOTE | 2017-11-07 16:16 | Pulmonology Progress Note ---
Assessment/Plan Problems: (1) Sepsis (2) Metabolic acidosis (3) Hiccups (4) Diabetes mellitus (5) Hip pain, left (6) Failure to thrive (7) ESRF (end stage renal failure) Assessment/Plan improving was seen by surgeon who explored the hip area seen on Ct with gas bubble. receiving PRBC check h/h check electrolytes hiccup is controlled. Subjective ROS Limited/Unobtainable: No Constitutional: Reports: no symptoms HEENT: Repors: no symptoms Respiratory: Reports: no symptoms Allergies: Coded Allergies: NO KNOWN ALLERGIES (Unverified Allergy, Unknown, 10/24/15) Objective Last 24 Hour Vital Signs Date Time Temp Pulse Resp B/P (MAP) Pulse Ox O2 Delivery O2 Flow Rate FiO2 11/07/17 16:00 97.9 78 17 125/75 97 Room Air 11/07/17 15:00 97.8 11/07/17 13:44 79 124/58 11/07/17 12:00 84 11/07/17 12:00 97.8 79 19 124/58 92 Room Air 11/07/17 09:20 86 155/68 11/07/17 09:19 86 155/68 11/07/17 08:00 86 11/07/17 08:00 97.5 86 20 162/69 98 Room Air 11/07/17 04:00 98.6 85 19 155/68 97 Room Air 11/07/17 04:00 86 11/07/17 00:00 98.4 86 20 156/76 100 Room Air 11/07/17 00:00 84 11/06/17 20:00 101 11/06/17 20:00 98.4 81 21 132/62 99 Nasal Cannula 11/06/17 19:03 93 140/64 Intake and Output 11/06/17 11/07/17 19:00 07:00 Intake Total 820 ml 687.416 ml Output Total 1600 ml Balance -780 ml 687.416 ml Intake Oral 820 ml IV Total 687.416 ml Output Urine Total 500 ml Hemodialysis UF 1100 ml # Voids 4 # Bowel Movements 1 1 General Appearance: WD/WN HEENT: normocephalic, atraumatic Respiratory/Chest: chest wall non-tender, lungs clear Cardiovascular: normal peripheral pulses, normal rate Genitourinary: normal external genitalia Extremities: no cyanosis Skin: no rash, no ulcers 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, no motor/sensory deficits Microbiology Date/Time Source Procedure Growth Status 11/05/17 19:50 Blood Blood Culture - Preliminary NO GROWTH AFTER 24 HOURS Resulted 11/05/17 19:45 Blood Blood Culture - Preliminary NO GROWTH AFTER 24 HOURS Resulted 11/04/17 16:25 Blood Blood Culture - Final Escherichia Coli Complete 11/04/17 17:00 Urine,Clean Catch Urine Culture - Preliminary Klebsiella Pneumoniae Gram Negative Bacillus 2 Resulted Laboratory Tests 11/06/17 18:55: Sodium Level 137, Potassium Level 2.4*L, Chloride Level 98, Carbon Dioxide Level 23, Anion Gap 16H, Blood Urea Nitrogen 34H, Creatinine 2.4H, Estimat Glomerular Filtration Rate 28.0, Glucose Level 200H, Calcium Level 6.5L, Total Bilirubin 1.5H, Direct Bilirubin 0.6H, Aspartate Amino Transf (AST/SGOT) 21, Alanine Aminotransferase (ALT/SGPT) 16, Alkaline Phosphatase 87, Total Protein 5.4L, Albumin 2.2L, Globulin 3.2, Albumin/Globulin Ratio 0.7L 11/07/17 04:40: Sodium Level 131L, Potassium Level 2.7*L, Chloride Level 95L, Carbon Dioxide Level 23, Anion Gap 13, Blood Urea Nitrogen 39H, Creatinine 2.9H, Estimat Glomerular Filtration Rate 22.5, Glucose Level 327#H, Calcium Level 6.4L, Total Bilirubin 1.3H, Direct Bilirubin 0.4H, Aspartate Amino Transf (AST/SGOT) 17, Alanine Aminotransferase (ALT/SGPT) 11L, Alkaline Phosphatase 83, Total Protein 5.6L, Albumin 2.0L, Globulin 3.6, Albumin/Globulin Ratio 0.6L, White Blood Count 10.4, Red Blood Count 2.94L, Hemoglobin 7.6L, Hematocrit 24.1L, Mean Corpuscular Volume 82, Mean Corpuscular Hemoglobin 25.8L, Mean Corpuscular Hemoglobin Concent 31.4L, Red Cell Distribution Width 15.1H, Platelet Count 165 , Mean Platelet Volume 7.7, Neutrophils (%) (Auto) , Lymphocytes (%) (Auto) , Monocytes (%) (Auto) , Eosinophils (%) (Auto) , Basophils (%) (Auto) , Iron Level 30L, Total Iron Binding Capacity 107L, Percent Iron Saturation 28, Unsaturated Iron Binding 77L, Vitamin D 25-Hydroxy [Pending], 25-Hydroxy Vitamin D2 [Pending], 25-Hydroxy Vitamin D3 [Pending] 11/07/17 10:04: Phosphorus Level 2.7, Magnesium Level 1.3L Current Medications Medications (Trade) Dose Ordered Sig/Vincent Route PRN Reason Start Time Stop Time Status Last Admin Dose Admin Allopurinol (Zyloprim) 100 mg BID ORAL 11/05/17 09:00 12/05/17 08:59 11/07/17 09:21 Amlodipine Besylate (Norvasc) 10 mg DAILY ORAL 11/05/17 09:00 12/05/17 08:59 11/07/17 09:20 Atorvastatin Calcium (Lipitor) 20 mg BEDTIME ORAL 11/05/17 21:00 12/05/17 20:59 11/06/17 20:39 Chlorpromazine 25 mg/Sodium Chloride 111 ml @ 222 mls/hr Q8H PRN IVPB HICCUPS 11/06/17 15:00 12/06/17 14:44 Clindamycin HCl/ Dextrose 50 ml @ 100 mls/hr Q8HR IV 11/06/17 14:00 11/13/17 23:59 11/07/17 13:44 Dextrose (Dextrose 50%) STAT PRN IV Hypoglycemia 11/05/17 15:00 12/05/17 14:59 Docusate Sodium (Colace) 100 mg BID ORAL 11/05/17 09:00 12/05/17 08:59 11/07/17 09:21 Epoetin Binu (Procrit (for ESRD on dialysis)) 10,000 units SUN-SUN-SUN SUBQ 11/07/17 21:00 12/07/17 20:59 Furosemide (Lasix) 20 mg DAILY ORAL 11/05/17 09:00 12/05/17 08:59 11/07/17 09:22 Heparin Sodium (Porcine) (Heparin 5000 units/ml) 5,000 units Q12HR SUBQ 11/05/17 09:00 12/05/17 08:59 11/06/17 20:40 Hydromorphone HCl (Dilaudid) 1 mg Q4HR PRN IVP Severe Pain (Pain Scale 7-10) 11/05/17 15:15 11/12/17 15:14 11/07/17 14:30 Insulin Aspart (NovoLOG) BEFORE MEALS AND HS SUBQ 11/05/17 16:30 12/05/17 16:29 11/07/17 11:47 Labetalol HCl (Normodyne) 100 mg THREE TIMES A DAY ORAL 11/05/17 09:00 12/05/17 08:59 11/07/17 13:44 Lansoprazole (Prevacid) 30 mg DAILY ORAL 11/05/17 09:00 12/05/17 08:59 11/07/17 09:19 Megestrol Acetate (Megace) 800 mg DAILY ORAL 11/07/17 09:00 12/07/17 08:59 11/07/17 09:18 Mycophenolate Mofetil (Cellcept) 500 mg Q12HR ORAL 11/05/17 09:00 12/05/17 08:59 11/07/17 09:23 Oxybutynin Chloride (Ditropan) 5 mg Q12HR ORAL 11/05/17 09:00 12/05/17 08:59 11/07/17 09:20 Piperacillin Sod/ Tazobactam Sod 2.25 gm/Sodium Chloride 110 ml @ 220 mls/hr Q8HR IV 11/05/17 20:00 11/12/17 19:59 11/07/17 13:44 Tacrolimus (Prograf) 1 mg BID ORAL 11/05/17 09:00 12/05/17 08:59 11/07/17 09:19 Vancomycin HCl (Vanco rx to dose) 1 ea DAILY PRN MISC Per rx protocol 11/06/17 12:30 12/06/17 12:29 JOCELYN LAMA Nov 07, 2017 16:16
--- NOTE | 2017-11-07 19:22 | Cardiology Report ---
APPROVED REPORT EKG Measurement Heart [id number] Normal sinus rhythm with sinus arrhythmia Left axis deviation Incomplete right bundle branch block Voltage criteria for left ventricular hypertrophy Cannot rule out Septal infarct, age undetermined Prolonged QT Abnormal ECG
[2017-11-07 20:00] VITALS: BP 144/72
[2017-11-07] MEDS ORDERED: Epogen (for ESRD on dialysis) SUBQ SCH (21:00)
[2017-11-07] MEDS ORDERED: NS IVPB PRN (22:00)
[2017-11-07] MEDS ORDERED: CHLORPROMAZINE IVPB PRN (22:00)
[2017-11-07] MEDS: Atorvastatin 20mg tab ORAL SCH (23:12)
[2017-11-08] VITALS (7 sets, daily range): BP systolic 134–158; BP diastolic 72–80
[2017-11-08] MEDS: NovoLOG Insulin Flexpen SUBQ SCH ×4 (06:47→21:20)
[2017-11-08] MEDS: Piperacillin/Tazobactam 2.25 GM in NS 110 ML IV SCH ×3 (06:54→23:11)
[2017-11-08] MEDS: Clindamycin 900mg 50 ML IV SCH ×3 (08:03→21:23)
[2017-11-08] MEDS: Docusate 100mg cap ORAL SCH ×2 (09:00→18:00)
[2017-11-08] MEDS ORDERED: Heparin 5000 units/ml inj SUBQ SCH (09:00)
[2017-11-08] MEDS: Allopurinol 100mg Tab ORAL SCH ×2 (09:28→18:04)
[2017-11-08] MEDS: Oxybutynin 5mg tab ORAL SCH ×2 (09:29→21:21)
[2017-11-08] MEDS: Heparin 5000 units/ml inj SUBQ SCH ×2 (09:33→21:00)
[2017-11-08 09:38] LABS: HEMATOCRIT 30.1 % (42.0-52.0); HEMOGLOBIN 9.3 G/DL (14.2-18.0); MEAN CORPUSCULAR VOLUME 86 FL (80-99); PLATELET COUNT 141 K/UL (150-450); RED CELL DISTRIBUTION WIDTH 14.2 % (11.6-14.8); WHITE BLOOD COUNT 11.5 K/UL (4.8-10.8)
[2017-11-08] MEDS: Mycophenolate 250mg cap ORAL SCH ×2 (09:49→21:22)
[2017-11-08 09:51] LABS: ALANINE AMINOTRANSFERASE 11 U/L (12-78); ALBUMIN 2.1 G/DL (3.4-5.0); ALBUMIN/GLOBULIN RATIO 0.6 (1.0-2.7); ALKALINE PHOSPHATASE 82 U/L (46-116); ANION GAP 13 mmol/L (5-15); ASPARTATE AMINO TRANSFERASE 15 U/L (15-37); BILIRUBIN,TOTAL 1.3 MG/DL (0.2-1.0); BLOOD UREA NITROGEN 43 mg/dL (7-18); CALCIUM 6.2 MG/DL (8.5-10.1); CARBON DIOXIDE 19 MMOL/L (21-32); CHLORIDE 94 MMOL/L (98-107); CREATININE 3.4 MG/DL (0.55-1.30); POTASSIUM 3.3 MMOL/L (3.5-5.1); SODIUM 126 MMOL/L (136-145)
[2017-11-08 09:52] LABS: BILIRUBIN,DIRECT 0.4 MG/DL (0.0-0.3)
[2017-11-08 11:19] LABS: CREATINE KINASE 42 U/L (26-140)
--- NOTE | 2017-11-08 11:31 | Nephrology Progress Note ---
Assessment/Plan Assessment 1. Anion gap, and none gap acidosis. 2. Hypovolemic hyponatremia. 3. Hypokalemia. 4. Acute on chronic renal failure. 5.ckd stage 5 6.anemia of ckd 7.hypocalcemia 9.JUSTEN Plan mix all ivpb with ns.9 replace electrolyte start epogen check mg check vit d Subjective Constitutional: Reports: no symptoms HEENT: Reports: no symptoms Genitourinary: Reports: no symptoms Neurologic/Psychiatric: Reports: no symptoms Subjective c/o left hip pain feeling much better had incision on his left gluteal area Objective Objective Last 24 Hour Vital Signs Date Time Temp Pulse Resp B/P (MAP) Pulse Ox O2 Delivery O2 Flow Rate FiO2 11/08/17 09:29 85 158/80 11/08/17 09:27 85 158/80 11/08/17 08:42 99.0 85 18 158/80 96 Room Air 11/08/17 03:45 97.9 83 18 155/79 99 Room Air 11/08/17 03:34 100.3 85 18 150/76 99 Room Air 11/08/17 00:40 97.9 82 18 149/75 100 11/07/17 20:00 98.6 81 20 144/72 100 11/07/17 17:33 79 125/75 11/07/17 16:00 97.9 78 17 125/75 97 Room Air 11/07/17 16:00 79 11/07/17 15:00 97.8 11/07/17 13:44 79 124/58 11/07/17 12:00 84 11/07/17 12:00 97.8 79 19 124/58 92 Room Air Intake and Output 11/07/17 11/08/17 19:00 07:00 Intake Total 944 ml 200 ml Output Total 200 ml 220 ml Balance 744 ml -20 ml Intake Oral 944 ml 200 ml Output Urine Total 200 ml 220 ml # Voids 4 2 Laboratory Tests 11/08/17 08:55: White Blood Count 11.5H, Red Blood Count 3.50L, Hemoglobin 9.3L, Hematocrit 30.1L, Mean Corpuscular Volume 86, Mean Corpuscular Hemoglobin 26.7L, Mean Corpuscular Hemoglobin Concent 31.0L, Red Cell Distribution Width 14.2, Platelet Count 141L, Mean Platelet Volume 6.7, Neutrophils (%) (Auto) , Lymphocytes (%) (Auto) , Monocytes (%) (Auto) , Eosinophils (%) (Auto) , Basophils (%) (Auto) , Differential Total Cells Counted 100, Neutrophils % ( Manual) 89H, Lymphocytes % (Manual) 6L, Monocytes % (Manual) 5, Eosinophils % ( Manual) 0, Basophils % (Manual) 0, Band Neutrophils 0, Platelet Estimate Adequate, Platelet Morphology Normal, Hypochromasia 1+, Anisocytosis 1+, Sodium Level 126L, Potassium Level 3.3L, Chloride Level 94L, Carbon Dioxide Level 19L, Anion Gap 13, Blood Urea Nitrogen 43H, Creatinine 3.4H, Estimat Glomerular Filtration Rate 18.8, Glucose Level 324H, Calcium Level 6.2L, Total Bilirubin 1.3H, Direct Bilirubin 0.4H, Aspartate Amino Transf (AST/SGOT) 15, Alanine Aminotransferase (ALT/SGPT) 11L, Alkaline Phosphatase 82, Total Creatine Kinase 42, C-Reactive Protein, Quantitative 55.6H, Total Protein 5.9L, Albumin 2.1L, Globulin 3.8, Albumin/Globulin Ratio 0.6L, Random Vancomycin Level 15.8 Height (Feet): 5 Height (Inches): 10.00 Weight (Pounds): 150 Objective HEAD AND NECK: No JVP. No LAD. No thyromegaly. Extraocular movement intact. Pupils are reactive to light and accommodation. LUNGS: Decreased breathing sound on the both sides. CARDIAC: Regular rate and rhythm. S1 and S2. No murmur. No rub. ABDOMEN: Soft, nontender, and nondistended. EXTREMITIES: Trace edema. No clubbing. No cyanosis. ASTER NEFF Nov 08, 2017 11:31
[2017-11-08] MEDS: Megace 400mg/10ml Susp ORAL SCH (12:21)
--- NOTE | 2017-11-08 13:46 | General Surgery Progress Note ---
General Surgery-Progress Note Subjective Procedure Performed local exploration of left hip Symptoms: improved Additional Comments pain improved. no complaints. no n/v. low grade fever. states left him much improved. Objective Last 24 Hour Vital Signs Date Time Temp Pulse Resp B/P (MAP) Pulse Ox O2 Delivery O2 Flow Rate FiO2 11/08/17 12:00 98.0 91 18 149/73 100 Room Air 11/08/17 09:29 85 158/80 11/08/17 09:27 85 158/80 11/08/17 08:42 99.0 85 18 158/80 96 Room Air 11/08/17 03:45 97.9 83 18 155/79 99 Room Air 11/08/17 03:34 100.3 85 18 150/76 99 Room Air 11/08/17 00:40 97.9 82 18 149/75 100 11/07/17 20:00 98.6 81 20 144/72 100 11/07/17 17:33 79 125/75 11/07/17 16:00 97.9 78 17 125/75 97 Room Air 11/07/17 16:00 79 11/07/17 15:00 97.8 I&O Intake and Output 11/07/17 11/08/17 19:00 07:00 Intake Total 944 ml 200 ml Output Total 200 ml 220 ml Balance 744 ml -20 ml Intake Oral 944 ml 200 ml Output Urine Total 200 ml 220 ml # Voids 4 2 Dressing: saturated Wound: clean Drains: none Cardiovascular: RSR Respiratory: clear Abdomen: soft, flat, non-tender, present bowel sounds Extremities: no tenderness Laboratory Tests Test 11/08/17 08:55 White Blood Count 11.5 K/UL (4.8-10.8) H Red Blood Count 3.50 M/UL (4.70-6.10) L Hemoglobin 9.3 G/DL (14.2-18.0) L Hematocrit 30.1 % (42.0-52.0) L Mean Corpuscular Volume 86 FL (80-99) Mean Corpuscular Hemoglobin 26.7 PG (27.0-31.0) L Mean Corpuscular Hemoglobin Concent 31.0 G/DL (32.0-36.0) L Red Cell Distribution Width 14.2 % (11.6-14.8) Platelet Count 141 K/UL (150-450) L Mean Platelet Volume 6.7 FL (6.5-10.1) Neutrophils (%) (Auto) % (45.0-75.0) Lymphocytes (%) (Auto) % (20.0-45.0) Monocytes (%) (Auto) % (1.0-10.0) Eosinophils (%) (Auto) % (0.0-3.0) Basophils (%) (Auto) % (0.0-2.0) Differential Total Cells Counted 100 Neutrophils % (Manual) 89 % (45-75) H Lymphocytes % (Manual) 6 % (20-45) L Monocytes % (Manual) 5 % (1-10) Eosinophils % (Manual) 0 % (0-3) Basophils % (Manual) 0 % (0-2) Band Neutrophils 0 % (0-8) Platelet Estimate Adequate Platelet Morphology Normal Hypochromasia 1+ Anisocytosis 1+ Sodium Level 126 MMOL/L (136-145) L Potassium Level 3.3 MMOL/L (3.5-5.1) L Chloride Level 94 MMOL/L (98-107) L Carbon Dioxide Level 19 MMOL/L (21-32) L Anion Gap 13 mmol/L (5-15) Blood Urea Nitrogen 43 mg/dL (7-18) H Creatinine 3.4 MG/DL (0.55-1.30) H Estimat Glomerular Filtration Rate 18.8 mL/min (>60) Glucose Level 324 MG/DL (74-106) H Calcium Level 6.2 MG/DL (8.5-10.1) L Magnesium Level 1.2 MG/DL (1.8-2.4) L Total Bilirubin 1.3 MG/DL (0.2-1.0) H Direct Bilirubin 0.4 MG/DL (0.0-0.3) H Aspartate Amino Transf (AST/SGOT) 15 U/L (15-37) Alanine Aminotransferase (ALT/SGPT) 11 U/L (12-78) L Alkaline Phosphatase 82 U/L (46-116) Total Creatine Kinase 42 U/L (26-140) C-Reactive Protein, Quantitative 55.6 mg/dL (0.00-0.90) H Total Protein 5.9 G/DL (6.4-8.2) L Albumin 2.1 G/DL (3.4-5.0) L Globulin 3.8 g/dL Albumin/Globulin Ratio 0.6 (1.0-2.7) L Random Vancomycin Level 15.8 ug/mL Plan Problems: (1) Sepsis Assessment & Plan: 56M who presents with left hip pain and found to be septic. HD stable, presented with leukocytosis, CRP/ESR elevated, CT with gas in left hip. no trauma noted in area. concerning for gas forming bacterial infection. pain out of proportion to exam in left hip. on exam very tender initially. POD #1 s/p bedside exploration of left hip. subq tissues, fascia, and muscle all intact and viable. no infectious process noted. POD #2 - wound clean. no signs of infection. minimal tenderness on palpation. serous drainage. today low grade fever and leukocytosis 11k but stable. -continue with local wound care. -continue Abx as per ID -if decompensates would consider further exploration of left hip in OR but for now stable. may consider repeat CT scan of left hip first if needed. thank you for this consultation. will follow with recs. Willie Davies Nov 08, 2017 13:46
[2017-11-08] MEDS ORDERED: Vancomycin 1 GM in NS 275 ML IVPB ONE (16:00)
--- NOTE | 2017-11-08 18:11 | Internal Med Progress Note ---
Subjective Date of Service: Nov 08, 2017 Physician Name Bisi Conde Attending Physician Kristian Gaona MD Current Medications Medications (Trade) Dose Ordered Sig/Vincent Route PRN Reason Start Time Stop Time Status Last Admin Dose Admin Allopurinol (Zyloprim) 100 mg BID ORAL 11/08/17 09:00 12/05/17 08:59 11/08/17 18:04 Amlodipine Besylate (Norvasc) 10 mg DAILY ORAL 11/08/17 09:00 12/05/17 08:59 11/08/17 09:27 Atorvastatin Calcium (Lipitor) 20 mg BEDTIME ORAL 11/07/17 22:00 12/07/17 21:59 11/07/17 23:12 Chlorpromazine 25 mg/Sodium Chloride 111 ml @ 222 mls/hr Q8H PRN IVPB HICCUPS 11/07/17 22:00 12/06/17 21:59 Clindamycin HCl/ Dextrose 50 ml @ 100 mls/hr Q8HR IV 11/07/17 22:00 11/13/17 23:59 11/08/17 13:49 Dextrose (Dextrose 50%) STAT PRN IV Hypoglycemia 11/07/17 22:00 12/07/17 21:59 Docusate Sodium (Colace) 100 mg BID ORAL 11/08/17 09:00 12/05/17 08:59 Epoetin Binu (Procrit (for ESRD on dialysis)) 10,000 units MON-WED-FRI SUBQ 11/09/17 21:00 12/07/17 20:59 Furosemide (Lasix) 20 mg DAILY ORAL 11/08/17 09:00 12/05/17 08:59 11/08/17 09:26 Heparin Sodium (Porcine) (Heparin 5000 units/ml) 5,000 units Q12HR SUBQ 11/07/17 22:00 12/07/17 21:59 11/08/17 09:33 Hydromorphone HCl (Dilaudid) 1 mg Q4H PRN IVP Severe Pain (Pain Scale 7-10) 11/07/17 22:00 11/14/17 21:59 Insulin Aspart (NovoLOG) BEFORE MEALS AND HS SUBQ 11/07/17 22:00 12/07/17 21:59 11/08/17 17:38 Labetalol HCl (Normodyne) 100 mg THREE TIMES A DAY ORAL 11/08/17 09:00 12/05/17 08:59 11/08/17 18:04 Megestrol Acetate (Megace) 800 mg DAILY ORAL 11/08/17 09:00 12/07/17 08:59 11/08/17 12:21 Mycophenolate Mofetil (Cellcept) 500 mg Q12HR ORAL 11/07/17 22:00 12/07/17 21:59 11/08/17 09:49 Oxybutynin Chloride (Ditropan) 5 mg Q12HR ORAL 11/07/17 22:00 12/07/17 21:59 11/08/17 09:29 Pantoprazole (Protonix) 40 mg DAILY ORAL 11/08/17 09:00 12/08/17 08:59 11/08/17 09:26 Piperacillin Sod/ Tazobactam Sod 2.25 gm/Sodium Chloride 110 ml @ 220 mls/hr Q8HR IV 11/07/17 22:00 11/14/17 21:59 11/08/17 13:50 Tacrolimus (Prograf) 1 mg BID ORAL 11/08/17 09:00 12/05/17 08:59 11/08/17 18:03 Vancomycin HCl (Vanco rx to dose) 1 ea DAILY PRN MISC Per rx protocol 11/08/17 09:00 12/06/17 12:29 Allergies: Coded Allergies: NO KNOWN ALLERGIES (Unverified Allergy, Unknown, 10/24/15) ROS Limited/Unobtainable: No Constitutional: Reports: no symptoms HEENT: Reports: no symptoms Cardiovascular: Reports: no symptoms Respiratory: Reports: no symptoms Gastrointestinal/Abdominal: Reports: diarrhea Genitourinary: Reports: no symptoms Neurologic/Psychiatric: Reports: no symptoms Subjective 56 YO M admitted with left hip pain. Now cellulitis left hip and sepsis. Also UTI. Cover for Int Med-Dr Gaona. S/P bedside Incision and drainage 11/06/17 Objective Last Vital Signs Date Time Temp Pulse Resp B/P (MAP) Pulse Ox O2 Delivery O2 Flow Rate FiO2 11/08/17 18:04 84 134/72 11/08/17 16:00 99.6 19 100 Room Air Laboratory Tests Test 11/08/17 08:55 White Blood Count 11.5 K/UL (4.8-10.8) H Red Blood Count 3.50 M/UL (4.70-6.10) L Hemoglobin 9.3 G/DL (14.2-18.0) L Hematocrit 30.1 % (42.0-52.0) L Mean Corpuscular Volume 86 FL (80-99) Mean Corpuscular Hemoglobin 26.7 PG (27.0-31.0) L Mean Corpuscular Hemoglobin Concent 31.0 G/DL (32.0-36.0) L Red Cell Distribution Width 14.2 % (11.6-14.8) Platelet Count 141 K/UL (150-450) L Mean Platelet Volume 6.7 FL (6.5-10.1) Neutrophils (%) (Auto) % (45.0-75.0) Lymphocytes (%) (Auto) % (20.0-45.0) Monocytes (%) (Auto) % (1.0-10.0) Eosinophils (%) (Auto) % (0.0-3.0) Basophils (%) (Auto) % (0.0-2.0) Differential Total Cells Counted 100 Neutrophils % (Manual) 89 % (45-75) H Lymphocytes % (Manual) 6 % (20-45) L Monocytes % (Manual) 5 % (1-10) Eosinophils % (Manual) 0 % (0-3) Basophils % (Manual) 0 % (0-2) Band Neutrophils 0 % (0-8) Platelet Estimate Adequate Platelet Morphology Normal Hypochromasia 1+ Anisocytosis 1+ Sodium Level 126 MMOL/L (136-145) L Potassium Level 3.3 MMOL/L (3.5-5.1) L Chloride Level 94 MMOL/L (98-107) L Carbon Dioxide Level 19 MMOL/L (21-32) L Anion Gap 13 mmol/L (5-15) Blood Urea Nitrogen 43 mg/dL (7-18) H Creatinine 3.4 MG/DL (0.55-1.30) H Estimat Glomerular Filtration Rate 18.8 mL/min (>60) Glucose Level 324 MG/DL (74-106) H Calcium Level 6.2 MG/DL (8.5-10.1) L Magnesium Level 1.2 MG/DL (1.8-2.4) L Total Bilirubin 1.3 MG/DL (0.2-1.0) H Direct Bilirubin 0.4 MG/DL (0.0-0.3) H Aspartate Amino Transf (AST/SGOT) 15 U/L (15-37) Alanine Aminotransferase (ALT/SGPT) 11 U/L (12-78) L Alkaline Phosphatase 82 U/L (46-116) Total Creatine Kinase 42 U/L (26-140) C-Reactive Protein, Quantitative 55.6 mg/dL (0.00-0.90) H Total Protein 5.9 G/DL (6.4-8.2) L Albumin 2.1 G/DL (3.4-5.0) L Globulin 3.8 g/dL Albumin/Globulin Ratio 0.6 (1.0-2.7) L Random Vancomycin Level 15.8 ug/mL Microbiology Date/Time Source Procedure Growth Status 11/05/17 19:50 Blood Blood Culture - Preliminary NO GROWTH AFTER 48 HOURS Resulted 11/05/17 19:45 Blood Blood Culture - Preliminary NO GROWTH AFTER 48 HOURS Resulted 11/08/17 11:00 Stool Clostridium difficile Toxin Assay - Final Complete Intake and Output 11/07/17 11/08/17 19:00 07:00 Intake Total 944 ml 200 ml Output Total 200 ml 220 ml Balance 744 ml -20 ml Intake Oral 944 ml 200 ml Output Urine Total 200 ml 220 ml # Voids 4 2 Objective General Appearance: alert, mild distress, thin EENT: PERRL/EOMI, normal ENT inspection, TMs normal Neck: non-tender, normal alignment, supple, normal inspection Cardiovascular: normal peripheral pulses, normal rate, regular rhythm, no gallop/murmur, no JVD Respiratory/Chest: chest wall non-tender, lungs clear, normal breath sounds, no respiratory distress, no accessory muscle use Abdomen: normal bowel sounds, non tender, soft, no organomegaly, no mass Extremities: normal range of motion Neurologic: head of strategy II-XII grossly normal, no motor/sensory deficits Skin: normal pigmentation, warm/dry Assessment/Plan Problem List: (1) Diabetes mellitus, type II (2) ESRD (end stage renal disease) on dialysis Assessment & Plan: S/P hemodialysis 11/06/17. See nephrology note. (3) Renal transplant, status post (4) HTN (hypertension) Assessment & Plan: Continue labetolol and norvasc. (5) Hypercholesteremia (6) Seizure disorder (7) Peripheral vascular disease (8) Cellulitis of hip, left Assessment & Plan: S/P Incision and Drainage 11/06/17. see surgery note. Cont zosyn, vanco and clinda per ID (9) Hip pain, left Assessment & Plan: Ortho consult pending (10) UTI (urinary tract infection) Assessment & Plan: Klebsiella pneumo. Cont zosyn (11) Sepsis Assessment & Plan: E.Coli. Continue zosyn per ID. Await sensitivities. (12) Diarrhea Assessment & Plan: Await c.diff and culture results. Imodium prn Status: not improved BISI CONDE Nov 08, 2017 18:11
--- NOTE | 2017-11-08 18:15 | Infectious Diseases Prog Note ---
Assessment/Plan Assessment/Plan Abx: IV Unasyn 11/04-11/05 IV Vanco 11/04-11/05; 11/06- Ceftriaxone 11/05 Zosyn 11/05- Clinda 11/06- Assessment: High grade E.coli bacteremia- Likely 2ry UTI vs buttocks skin soft tissue infection base on CT findings -repeat Bcx 11/05 NTD x4 Severe L hip/thigh/ pain - pain out of proportion with physical findings and with gas on CT are very suspicious for myonecrosis (clostridial gangrene) - DDx necrotizing fascitis. No fractures. ; clinically improving (decrease pain and TTP)- but low grade fever, mild leukocytosis and rising CRp 11/08- will continue to monitor closely --unclear- as bedside surgical exploration showed normal healthy tissues and no gas; will closely monitor for worsening -CT L hip: No acute fractures. No dislocations. The joint spaces are preserved. Gas within the soft tissues of the left hip and buttock region. This may indicate penetrating trauma, but is worrisome for infection with gas- forming organism. There is equivocal mild thickening of the bladder wall -11/06 ESR 50, CRP 40> 11/08 CRP 55.6; normal CK -CT abd/p wo 11/06: Small left inguinal hernia containing nonobstructive loops of small bowel. Persistent gas within the soft tissues of the left hip and buttock region although the amount of gas decreased compared to exam of 11/04/2017. There is slight asymmetry and engorgement of the musculature in this region possibly related to edema and/or phlegmonous change. No definite well-defined/drainable fluid collection is identified however evaluation is limited without intravenous contrast. Again, these findings may be secondary to penetrating trauma versus infection with gas- forming organism. Correlation with clinical history and physical exam findings recommended. Consider ultrasound to assess for defined/drainable fluid collection. Bladder wall thickening may be related to underdistention. Correlate with urinalysis to exclude cystitis. Air within the bladder may be related to prior catheterization. K.pna and E.coli UTI -u/a wbc 10-15, nit neg, leuk +1; UCx >100k K Pna ( R amp anb Nitro, otherwise sensitive); >100K E.coli #2 (beasley S) Low grade fever/mild leukocytosis- 2ry to above- recurrent DM2, HTN, seizure disorder, brain surgery (~10 yrs ago), HLD, PVD s/p amputation L great toe, ESRD s/p Renal transplant 2011- not on HD, but now requiring HD L eye prosthesis Plan: -Continue Zosyn #4, and IV vanco and Clindamycin #3 for possible gas-forming infection on L buttocks -Close monitoring for decompensation; if so may need OR exploration -Will need repeat CT hip in the next days -f/u cx -Monitor CBC/BMP, temperatures Thank you for this consultation. Will continue to follow along with you. Discussed with RN Subjective Allergies: Coded Allergies: NO KNOWN ALLERGIES (Unverified Allergy, Unknown, 10/24/15) Subjective low grade fever Tm 100.3 mild increase in leukocytosis to 11.5 CRP rising however patietn clinically improving, decrease pain and TTP Objective Vital Signs Last 24 Hour Vital Signs Date Time Temp Pulse Resp B/P (MAP) Pulse Ox O2 Delivery O2 Flow Rate FiO2 11/08/17 18:04 84 134/72 11/08/17 16:00 99.6 84 19 134/72 100 Room Air 11/08/17 13:47 91 149/73 11/08/17 12:00 98.0 91 18 149/73 100 Room Air 11/08/17 09:29 85 158/80 11/08/17 09:27 85 158/80 11/08/17 08:42 99.0 85 18 158/80 96 Room Air 11/08/17 03:45 97.9 83 18 155/79 99 Room Air 11/08/17 03:34 100.3 85 18 150/76 99 Room Air 11/08/17 00:40 97.9 82 18 149/75 100 11/07/17 20:00 98.6 81 20 144/72 100 Height (Feet): 5 Height (Inches): 10.00 Weight (Pounds): 150 Objective GENERAL: The patient is a well-developed and well-nourished thin-appearing male, in no apparent distress. HEENT: Eyes, pupils equal and responsive to light and accommodation. Extraocular movements are intact. NECK: Supple without lymphadenopathy. CHEST: Lungs are clear to auscultation bilaterally without wheezes or rales. CARDIOVASCULAR: Regular rhythm and rate. S1 and S2 normal without murmurs, rubs, or gallops. ABDOMEN: Soft, nontender, and nondistended. Positive bowel sounds. No evidence of hepatosplenomegaly. Currently, no rebound or guarding noted. EXTREMITIES: Negative for clubbing, cyanosis, or edema. L Hip,anterior thigh ( unable to evalaute buttocks as patietn getting HD)- severly TTP without concomitnatn inflammatory signs (erythema, warmth),skin break downs Microbiology Date/Time Source Procedure Growth Status 11/05/17 19:50 Blood Blood Culture - Preliminary NO GROWTH AFTER 48 HOURS Resulted 11/05/17 19:45 Blood Blood Culture - Preliminary NO GROWTH AFTER 48 HOURS Resulted 11/08/17 11:00 Stool Clostridium difficile Toxin Assay - Final Complete Laboratory Tests Test 11/08/17 08:55 White Blood Count 11.5 K/UL (4.8-10.8) H Red Blood Count 3.50 M/UL (4.70-6.10) L Hemoglobin 9.3 G/DL (14.2-18.0) L Hematocrit 30.1 % (42.0-52.0) L Mean Corpuscular Volume 86 FL (80-99) Mean Corpuscular Hemoglobin 26.7 PG (27.0-31.0) L Mean Corpuscular Hemoglobin Concent 31.0 G/DL (32.0-36.0) L Red Cell Distribution Width 14.2 % (11.6-14.8) Platelet Count 141 K/UL (150-450) L Mean Platelet Volume 6.7 FL (6.5-10.1) Neutrophils (%) (Auto) % (45.0-75.0) Lymphocytes (%) (Auto) % (20.0-45.0) Monocytes (%) (Auto) % (1.0-10.0) Eosinophils (%) (Auto) % (0.0-3.0) Basophils (%) (Auto) % (0.0-2.0) Differential Total Cells Counted 100 Neutrophils % (Manual) 89 % (45-75) H Lymphocytes % (Manual) 6 % (20-45) L Monocytes % (Manual) 5 % (1-10) Eosinophils % (Manual) 0 % (0-3) Basophils % (Manual) 0 % (0-2) Band Neutrophils 0 % (0-8) Platelet Estimate Adequate Platelet Morphology Normal Hypochromasia 1+ Anisocytosis 1+ Sodium Level 126 MMOL/L (136-145) L Potassium Level 3.3 MMOL/L (3.5-5.1) L Chloride Level 94 MMOL/L (98-107) L Carbon Dioxide Level 19 MMOL/L (21-32) L Anion Gap 13 mmol/L (5-15) Blood Urea Nitrogen 43 mg/dL (7-18) H Creatinine 3.4 MG/DL (0.55-1.30) H Estimat Glomerular Filtration Rate 18.8 mL/min (>60) Glucose Level 324 MG/DL (74-106) H Calcium Level 6.2 MG/DL (8.5-10.1) L Magnesium Level 1.2 MG/DL (1.8-2.4) L Total Bilirubin 1.3 MG/DL (0.2-1.0) H Direct Bilirubin 0.4 MG/DL (0.0-0.3) H Aspartate Amino Transf (AST/SGOT) 15 U/L (15-37) Alanine Aminotransferase (ALT/SGPT) 11 U/L (12-78) L Alkaline Phosphatase 82 U/L (46-116) Total Creatine Kinase 42 U/L (26-140) C-Reactive Protein, Quantitative 55.6 mg/dL (0.00-0.90) H Total Protein 5.9 G/DL (6.4-8.2) L Albumin 2.1 G/DL (3.4-5.0) L Globulin 3.8 g/dL Albumin/Globulin Ratio 0.6 (1.0-2.7) L Random Vancomycin Level 15.8 ug/mL Current Medications Medications (Trade) Dose Ordered Sig/Vincent Route PRN Reason Start Time Stop Time Status Last Admin Dose Admin Allopurinol (Zyloprim) 100 mg BID ORAL 11/08/17 09:00 12/05/17 08:59 11/08/17 18:04 Amlodipine Besylate (Norvasc) 10 mg DAILY ORAL 11/08/17 09:00 12/05/17 08:59 11/08/17 09:27 Atorvastatin Calcium (Lipitor) 20 mg BEDTIME ORAL 11/07/17 22:00 12/07/17 21:59 11/07/17 23:12 Chlorpromazine 25 mg/Sodium Chloride 111 ml @ 222 mls/hr Q8H PRN IVPB HICCUPS 11/07/17 22:00 12/06/17 21:59 Clindamycin HCl/ Dextrose 50 ml @ 100 mls/hr Q8HR IV 11/07/17 22:00 11/13/17 23:59 11/08/17 13:49 Dextrose (Dextrose 50%) STAT PRN IV Hypoglycemia 11/07/17 22:00 12/07/17 21:59 Docusate Sodium (Colace) 100 mg BID ORAL 11/08/17 09:00 12/05/17 08:59 Epoetin Binu (Procrit (for ESRD on dialysis)) 10,000 units SUN-SUN-SUN SUBQ 11/09/17 21:00 12/07/17 20:59 Furosemide (Lasix) 20 mg DAILY ORAL 11/08/17 09:00 12/05/17 08:59 11/08/17 09:26 Heparin Sodium (Porcine) (Heparin 5000 units/ml) 5,000 units Q12HR SUBQ 11/07/17 22:00 12/07/17 21:59 11/08/17 09:33 Hydromorphone HCl (Dilaudid) 1 mg Q4H PRN IVP Severe Pain (Pain Scale 7-10) 11/07/17 22:00 11/14/17 21:59 Insulin Aspart (NovoLOG) BEFORE MEALS AND HS SUBQ 11/07/17 22:00 12/07/17 21:59 11/08/17 17:38 Labetalol HCl (Normodyne) 100 mg THREE TIMES A DAY ORAL 11/08/17 09:00 12/05/17 08:59 11/08/17 18:04 Loperamide HCl (Imodium) 2 mg Q4H PRN ORAL Diarrhea 11/08/17 18:15 12/08/17 18:14 UNV Megestrol Acetate (Megace) 800 mg DAILY ORAL 11/08/17 09:00 12/07/17 08:59 11/08/17 12:21 Mycophenolate Mofetil (Cellcept) 500 mg Q12HR ORAL 11/07/17 22:00 12/07/17 21:59 11/08/17 09:49 Oxybutynin Chloride (Ditropan) 5 mg Q12HR ORAL 11/07/17 22:00 12/07/17 21:59 11/08/17 09:29 Pantoprazole (Protonix) 40 mg DAILY ORAL 11/08/17 09:00 12/08/17 08:59 11/08/17 09:26 Piperacillin Sod/ Tazobactam Sod 2.25 gm/Sodium Chloride 110 ml @ 220 mls/hr Q8HR IV 11/07/17 22:00 11/14/17 21:59 11/08/17 13:50 Tacrolimus (Prograf) 1 mg BID ORAL 11/08/17 09:00 12/05/17 08:59 11/08/17 18:03 Vancomycin HCl (Vanco rx to dose) 1 ea DAILY PRN MISC Per rx protocol 11/08/17 09:00 12/06/17 12:29 Rupinder Perez M.D. Nov 08, 2017 18:14
--- NOTE | 2017-11-08 18:50 | Pulmonology Progress Note ---
Assessment/Plan Problems: (1) Sepsis (2) Metabolic acidosis (3) Hiccups (4) Diabetes mellitus (5) Hip pain, left (6) Failure to thrive (7) ESRF (end stage renal failure) Assessment/Plan improving was seen by surgeon who explored the hip area seen on Ct with gas bubble. check h/h check electrolytes hiccup is controlled. on HD check electrolytes check wbc Subjective ROS Limited/Unobtainable: No Constitutional: Reports: no symptoms HEENT: Repors: no symptoms Allergies: Coded Allergies: NO KNOWN ALLERGIES (Unverified Allergy, Unknown, 10/24/15) Objective Last 24 Hour Vital Signs Date Time Temp Pulse Resp B/P (MAP) Pulse Ox O2 Delivery O2 Flow Rate FiO2 11/08/17 18:04 84 134/72 11/08/17 16:00 99.6 84 19 134/72 100 Room Air 11/08/17 13:47 91 149/73 11/08/17 12:00 98.0 91 18 149/73 100 Room Air 11/08/17 09:29 85 158/80 11/08/17 09:27 85 158/80 11/08/17 08:42 99.0 85 18 158/80 96 Room Air 11/08/17 03:45 97.9 83 18 155/79 99 Room Air 11/08/17 03:34 100.3 85 18 150/76 99 Room Air 11/08/17 00:40 97.9 82 18 149/75 100 11/07/17 20:00 98.6 81 20 144/72 100 Intake and Output 11/07/17 11/08/17 19:00 07:00 Intake Total 944 ml 200 ml Output Total 200 ml 220 ml Balance 744 ml -20 ml Intake Oral 944 ml 200 ml Output Urine Total 200 ml 220 ml # Voids 4 2 General Appearance: WD/WN HEENT: normocephalic, atraumatic Respiratory/Chest: chest wall non-tender, lungs clear Cardiovascular: normal peripheral pulses, normal rate Abdomen: no scars Extremities: no clubbing Neurologic/Psychiatric: abnormal gait Microbiology Date/Time Source Procedure Growth Status 11/05/17 19:50 Blood Blood Culture - Preliminary NO GROWTH AFTER 48 HOURS Resulted 11/05/17 19:45 Blood Blood Culture - Preliminary NO GROWTH AFTER 48 HOURS Resulted 11/08/17 11:00 Stool Clostridium difficile Toxin Assay - Final Complete Laboratory Tests 11/08/17 08:55: White Blood Count 11.5H, Red Blood Count 3.50L, Hemoglobin 9.3L, Hematocrit 30.1L, Mean Corpuscular Volume 86, Mean Corpuscular Hemoglobin 26.7L, Mean Corpuscular Hemoglobin Concent 31.0L, Red Cell Distribution Width 14.2, Platelet Count 141L, Mean Platelet Volume 6.7, Neutrophils (%) (Auto) , Lymphocytes (%) (Auto) , Monocytes (%) (Auto) , Eosinophils (%) (Auto) , Basophils (%) (Auto) , Differential Total Cells Counted 100, Neutrophils % ( Manual) 89H, Lymphocytes % (Manual) 6L, Monocytes % (Manual) 5, Eosinophils % ( Manual) 0, Basophils % (Manual) 0, Band Neutrophils 0, Platelet Estimate Adequate, Platelet Morphology Normal, Hypochromasia 1+, Anisocytosis 1+, Sodium Level 126L, Potassium Level 3.3L, Chloride Level 94L, Carbon Dioxide Level 19L, Anion Gap 13, Blood Urea Nitrogen 43H, Creatinine 3.4H, Estimat Glomerular Filtration Rate 18.8, Glucose Level 324H, Calcium Level 6.2L, Magnesium Level 1.2L, Total Bilirubin 1.3H, Direct Bilirubin 0.4H, Aspartate Amino Transf (AST/ SGOT) 15, Alanine Aminotransferase (ALT/SGPT) 11L, Alkaline Phosphatase 82, Total Creatine Kinase 42, C-Reactive Protein, Quantitative 55.6H, Total Protein 5.9L, Albumin 2.1L, Globulin 3.8, Albumin/Globulin Ratio 0.6L, Random Vancomycin Level 15.8 Current Medications Medications (Trade) Dose Ordered Sig/Vincent Route PRN Reason Start Time Stop Time Status Last Admin Dose Admin Allopurinol (Zyloprim) 100 mg BID ORAL 11/08/17 09:00 12/05/17 08:59 11/08/17 18:04 Amlodipine Besylate (Norvasc) 10 mg DAILY ORAL 11/08/17 09:00 12/05/17 08:59 11/08/17 09:27 Atorvastatin Calcium (Lipitor) 20 mg BEDTIME ORAL 11/07/17 22:00 12/07/17 21:59 11/07/17 23:12 Chlorpromazine 25 mg/Sodium Chloride 111 ml @ 222 mls/hr Q8H PRN IVPB HICCUPS 11/07/17 22:00 12/06/17 21:59 Clindamycin HCl/ Dextrose 50 ml @ 100 mls/hr Q8HR IV 11/07/17 22:00 11/13/17 23:59 11/08/17 13:49 Dextrose (Dextrose 50%) STAT PRN IV Hypoglycemia 11/07/17 22:00 12/07/17 21:59 Docusate Sodium (Colace) 100 mg BID ORAL 11/08/17 09:00 12/05/17 08:59 Epoetin Binu (Procrit (for ESRD on dialysis)) 10,000 units SUN-SUN-SUN SUBQ 11/09/17 21:00 12/07/17 20:59 Furosemide (Lasix) 20 mg DAILY ORAL 11/08/17 09:00 12/05/17 08:59 11/08/17 09:26 Heparin Sodium (Porcine) (Heparin 5000 units/ml) 5,000 units Q12HR SUBQ 11/07/17 22:00 12/07/17 21:59 11/08/17 09:33 Hydromorphone HCl (Dilaudid) 1 mg Q4H PRN IVP Severe Pain (Pain Scale 7-10) 11/07/17 22:00 11/14/17 21:59 Insulin Aspart (NovoLOG) BEFORE MEALS AND HS SUBQ 11/07/17 22:00 12/07/17 21:59 11/08/17 17:38 Labetalol HCl (Normodyne) 100 mg THREE TIMES A DAY ORAL 11/08/17 09:00 12/05/17 08:59 11/08/17 18:04 Loperamide HCl (Imodium) 2 mg Q4H PRN ORAL Diarrhea 11/08/17 18:30 12/08/17 18:29 Megestrol Acetate (Megace) 800 mg DAILY ORAL 11/08/17 09:00 12/07/17 08:59 11/08/17 12:21 Mycophenolate Mofetil (Cellcept) 500 mg Q12HR ORAL 11/07/17 22:00 12/07/17 21:59 11/08/17 09:49 Oxybutynin Chloride (Ditropan) 5 mg Q12HR ORAL 11/07/17 22:00 12/07/17 21:59 11/08/17 09:29 Pantoprazole (Protonix) 40 mg DAILY ORAL 11/08/17 09:00 12/08/17 08:59 11/08/17 09:26 Piperacillin Sod/ Tazobactam Sod 2.25 gm/Sodium Chloride 110 ml @ 220 mls/hr Q8HR IV 11/07/17 22:00 11/14/17 21:59 11/08/17 13:50 Tacrolimus (Prograf) 1 mg BID ORAL 11/08/17 09:00 12/05/17 08:59 11/08/17 18:03 Vancomycin HCl (Vanco rx to dose) 1 ea DAILY PRN MISC Per rx protocol 11/08/17 09:00 12/06/17 12:29 JOCELYN LAMA Nov 08, 2017 18:50
[2017-11-08] MEDS: Atorvastatin 20mg tab ORAL SCH (21:17)
[2017-11-09 04:00] VITALS: BP 181/75
[2017-11-09] MEDS: Clindamycin 900mg 50 ML IV SCH ×3 (06:19→23:33)
[2017-11-09] MEDS: Piperacillin/Tazobactam 2.25 GM in NS 110 ML IV SCH ×2 (06:29→14:48)
[2017-11-09] MEDS: NovoLOG Insulin Flexpen SUBQ SCH ×4 (06:33→21:43)
[2017-11-09 07:24] LABS: HEMOGLOBIN 9.5 G/DL (14.2-18.0); MEAN CORPUSCULAR VOLUME 85 FL (80-99); PLATELET COUNT 172 K/UL (150-450); RED BLOOD COUNT 3.43 M/UL (4.70-6.10); RED CELL DISTRIBUTION WIDTH 14.4 % (11.6-14.8); WHITE BLOOD COUNT 10.3 K/UL (4.8-10.8)
[2017-11-09 08:00] VITALS: BP 142/76
--- NOTE | 2017-11-09 08:03 | Pulmonology Progress Note ---
Assessment/Plan Assessment/Plan ASSESSMENT Sepsis with high grade E coli bacteremia UTI with E coli and Klebsiella Cellulitis L hip SQ gas L hip intractable L hip pain s/p I&D left hip ARF on CKD st 5 s/p renal transplant Metabolic acidosis Hypo Na ( hypovolemic) HTN DM seizure disorder anemia of chronic kidney disease bilateral atelectases blindness PLAN OF CARE MS floor abx ID follows, repeated blood cx negative, initial blood cx + E coli, urine cx +E coli, Klebsiella, stool C dif negative CT L hip with + gas in soft tissues, pain out if proportion to cellulitis s/p local exploration with I&D surgery closely follows dramatically improved after surgery Pain management probably will need to repeat CT hip to ensure resolution of gas wound care Nephro follows, monitor lytes, replace as needed, avoid nephrotoxic e/lytes management as per nephro monitor renal parameters, continue diuresis on CellCept and Prograf , ? levels check per nephro discretion anemia workup c/w anemia of chronic disease EPO added, monitor counts,transfuse to keep Hgb above 7.5 BS management with SS of insulin, HgA1c -6.8 at goal BP management with BB and CCB, optimize as needed DVT GI prophylaxis seizure precautions bowel regimen pain management IS at the bedside, encourage to use PT eval and Rx case discussed and evaluated by supervising physician Subjective Allergies: Coded Allergies: NO KNOWN ALLERGIES (Unverified Allergy, Unknown, 10/24/15) Subjective leukocytosis resolved, afebrile HH at baseline Na -126 no signs of respiratory distress on RA, pulse ox stable Objective Last 24 Hour Vital Signs Date Time Temp Pulse Resp B/P (MAP) Pulse Ox O2 Delivery O2 Flow Rate FiO2 11/09/17 04:00 99.1 84 18 181/75 100 Room Air 11/08/17 20:00 98.8 84 18 158/76 100 Room Air 11/08/17 18:04 84 134/72 11/08/17 16:00 99.6 84 19 134/72 100 Room Air 11/08/17 13:47 91 149/73 11/08/17 12:00 98.0 91 18 149/73 100 Room Air 11/08/17 09:29 85 158/80 11/08/17 09:27 85 158/80 11/08/17 08:42 99.0 85 18 158/80 96 Room Air Intake and Output 11/08/17 11/09/17 19:00 07:00 Intake Total 480 ml 690 ml Output Total 900 ml Balance -420 ml 690 ml Intake Oral 480 ml 480 ml IV Total 210 ml Output Urine Total 900 ml # Voids 4 # Bowel Movements 4 2 General Appearance: no acute distress, cachetic HEENT: normocephalic, atraumatic, mucous membranes moist, supple, no JVD, other - blind, L eye prosthesis Respiratory/Chest: lungs clear, no respiratory distress, no accessory muscle use Cardiovascular: normal peripheral pulses, normal rate, no JVD Abdomen: soft, non tender Extremities: no edema Skin: other - left hip dressing C/D/I Neurologic/Psychiatric: abnormal gait, alert, oriented x 3, responsive Musculoskeletal: atrophy - BLE Microbiology Date/Time Source Procedure Growth Status 11/08/17 11:00 Stool Clostridium difficile Toxin Assay - Final Complete Laboratory Tests 11/08/17 08:55: White Blood Count 11.5H, Red Blood Count 3.50L, Hemoglobin 9.3L, Hematocrit 30.1L, Mean Corpuscular Volume 86, Mean Corpuscular Hemoglobin 26.7L, Mean Corpuscular Hemoglobin Concent 31.0L, Red Cell Distribution Width 14.2, Platelet Count 141L, Mean Platelet Volume 6.7, Neutrophils (%) (Auto) , Lymphocytes (%) (Auto) , Monocytes (%) (Auto) , Eosinophils (%) (Auto) , Basophils (%) (Auto) , Differential Total Cells Counted 100, Neutrophils % ( Manual) 89H, Lymphocytes % (Manual) 6L, Monocytes % (Manual) 5, Eosinophils % ( Manual) 0, Basophils % (Manual) 0, Band Neutrophils 0, Platelet Estimate Adequate, Platelet Morphology Normal, Hypochromasia 1+, Anisocytosis 1+, Sodium Level 126L, Potassium Level 3.3L, Chloride Level 94L, Carbon Dioxide Level 19L, Anion Gap 13, Blood Urea Nitrogen 43H, Creatinine 3.4H, Estimat Glomerular Filtration Rate 18.8, Glucose Level 324H, Calcium Level 6.2L, Magnesium Level 1.2L, Total Bilirubin 1.3H, Direct Bilirubin 0.4H, Aspartate Amino Transf (AST/ SGOT) 15, Alanine Aminotransferase (ALT/SGPT) 11L, Alkaline Phosphatase 82, Total Creatine Kinase 42, C-Reactive Protein, Quantitative 55.6H, Total Protein 5.9L, Albumin 2.1L, Globulin 3.8, Albumin/Globulin Ratio 0.6L, Random Vancomycin Level 15.8 11/09/17 00:45: Urine Random Sodium 46 11/09/17 05:25: White Blood Count 10.3, Red Blood Count 3.43L, Hemoglobin 9.5L, Hematocrit 29.0L , Mean Corpuscular Volume 85, Mean Corpuscular Hemoglobin 27.7, Mean Corpuscular Hemoglobin Concent 32.7, Red Cell Distribution Width 14.4, Platelet Count 172, Mean Platelet Volume 8.5, Neutrophils (%) (Auto) , Lymphocytes (%) ( Auto) , Monocytes (%) (Auto) , Eosinophils (%) (Auto) , Basophils (%) (Auto) , Neutrophils % (Manual) [Pending], Lymphocytes % (Manual) [Pending], Platelet Estimate [Pending], Platelet Morphology [Pending], Sodium Level [Pending], Potassium Level [Pending], Chloride Level [Pending], Carbon Dioxide Level [ Pending], Blood Urea Nitrogen [Pending], Creatinine [Pending], Estimat Glomerular Filtration Rate [Pending], Glucose Level [Pending], Calcium Level [ Pending], Magnesium Level [Pending], Total Bilirubin [Pending], Aspartate Amino Transf (AST/SGOT) [Pending], Alanine Aminotransferase (ALT/SGPT) [Pending], Alkaline Phosphatase [Pending], Total Protein [Pending], Albumin [Pending], Globulin [Pending] Current Medications Medications (Trade) Dose Ordered Sig/Vincent Route PRN Reason Start Time Stop Time Status Last Admin Dose Admin Allopurinol (Zyloprim) 100 mg BID ORAL 11/08/17 09:00 12/05/17 08:59 11/08/17 18:04 Amlodipine Besylate (Norvasc) 10 mg DAILY ORAL 11/08/17 09:00 12/05/17 08:59 11/08/17 09:27 Atorvastatin Calcium (Lipitor) 20 mg BEDTIME ORAL 11/07/17 22:00 12/07/17 21:59 11/08/17 21:17 Chlorpromazine 25 mg/Sodium Chloride 111 ml @ 222 mls/hr Q8H PRN IVPB HICCUPS 11/07/17 22:00 12/06/17 21:59 Clindamycin HCl/ Dextrose 50 ml @ 100 mls/hr Q8HR IV 11/07/17 22:00 11/13/17 23:59 11/09/17 06:19 Clonidine HCl (Catapres) 0.1 mg EVERY 6 HOURS PRN ORAL SBP > 160 mm Hg 11/09/17 07:45 12/09/17 07:44 Dextrose (Dextrose 50%) STAT PRN IV Hypoglycemia 11/07/17 22:00 12/07/17 21:59 Docusate Sodium (Colace) 100 mg BID ORAL 11/08/17 09:00 12/05/17 08:59 Epoetin Binu (Procrit (for ESRD on dialysis)) 10,000 units SUN-SUN-SUN SUBQ 11/09/17 21:00 12/07/17 20:59 Furosemide (Lasix) 20 mg DAILY ORAL 11/08/17 09:00 12/05/17 08:59 11/08/17 09:26 Heparin Sodium (Porcine) (Heparin 5000 units/ml) 5,000 units Q12HR SUBQ 11/07/17 22:00 12/07/17 21:59 11/08/17 09:33 Hydromorphone HCl (Dilaudid) 1 mg Q4H PRN IVP Severe Pain (Pain Scale 7-10) 11/07/17 22:00 11/14/17 21:59 Insulin Aspart (NovoLOG) BEFORE MEALS AND HS SUBQ 11/07/17 22:00 12/07/17 21:59 11/09/17 06:33 Labetalol HCl (Normodyne) 100 mg THREE TIMES A DAY ORAL 11/08/17 09:00 12/05/17 08:59 11/08/17 18:04 Loperamide HCl (Imodium) 2 mg Q4H PRN ORAL Diarrhea 11/08/17 18:30 12/08/17 18:29 Megestrol Acetate (Megace) 800 mg DAILY ORAL 11/08/17 09:00 12/07/17 08:59 11/08/17 12:21 Mycophenolate Mofetil (Cellcept) 500 mg Q12HR ORAL 11/07/17 22:00 12/07/17 21:59 11/08/17 21:22 Oxybutynin Chloride (Ditropan) 5 mg Q12HR ORAL 11/07/17 22:00 12/07/17 21:59 11/08/17 21:21 Pantoprazole (Protonix) 40 mg DAILY ORAL 11/08/17 09:00 12/08/17 08:59 11/08/17 09:26 Piperacillin Sod/ Tazobactam Sod 2.25 gm/Sodium Chloride 110 ml @ 220 mls/hr Q8HR IV 11/07/17 22:00 11/14/17 21:59 11/09/17 06:29 Tacrolimus (Prograf) 1 mg BID ORAL 11/08/17 09:00 12/05/17 08:59 11/08/17 18:03 Vancomycin HCl (Vanco rx to dose) 1 ea DAILY PRN MISC Per rx protocol 11/08/17 09:00 12/06/17 12:29 Destin (Niharika)Elisabet NP Nov 09, 2017 08:03
[2017-11-09 08:07] LABS: ALANINE AMINOTRANSFERASE 17 U/L (12-78); ALBUMIN/GLOBULIN RATIO 0.5 (1.0-2.7); ALKALINE PHOSPHATASE 81 U/L (46-116); ANION GAP 14 mmol/L (5-15); ASPARTATE AMINO TRANSFERASE 21 U/L (15-37); BLOOD UREA NITROGEN 44 mg/dL (7-18); CALCIUM 6.3 MG/DL (8.5-10.1); CARBON DIOXIDE 18 MMOL/L (21-32); CHLORIDE 95 MMOL/L (98-107); CREATININE 3.5 MG/DL (0.55-1.30); POTASSIUM 4.3 MMOL/L (3.5-5.1); SODIUM 126 MMOL/L (136-145)
[2017-11-09] MEDS: Docusate 100mg cap ORAL SCH ×2 (09:00→18:00)
[2017-11-09] MEDS: Oxybutynin 5mg tab ORAL SCH ×2 (09:45→21:21)
[2017-11-09] MEDS: Mycophenolate 250mg cap ORAL SCH ×2 (09:46→21:38)
[2017-11-09] MEDS: Heparin 5000 units/ml inj SUBQ SCH ×2 (09:49→21:43)
[2017-11-09] MEDS: Loperamide 2mg cap ORAL PRN (09:50)
[2017-11-09] MEDS: Allopurinol 100mg Tab ORAL SCH ×2 (09:56→21:09)
[2017-11-09] MEDS: Megace 400mg/10ml Susp ORAL SCH (10:35)
--- NOTE | 2017-11-09 11:53 | Infectious Diseases Prog Note ---
Assessment/Plan Assessment/Plan Abx: IV Unasyn 11/04-11/05 IV Vanco 11/04-11/05; 11/06- Ceftriaxone 11/05 Zosyn 11/05- Clinda 11/06- Assessment: High grade E.coli bacteremia- Likely 2ry UTI vs buttocks skin soft tissue infection base on CT findings -repeat Bcx 11/05 NTD x4 Severe L hip/thigh/ pain - pain out of proportion with physical findings and with gas on CT are very suspicious for myonecrosis (clostridial gangrene) - DDx necrotizing fascitis. No fractures. ; clinically improving (decrease pain and TTP)- but low grade fever, mild leukocytosis and rising CRp 11/08- will continue to monitor closely --unclear- as bedside surgical exploration showed normal healthy tissues and no gas; will closely monitor for worsening -CT L hip: No acute fractures. No dislocations. The joint spaces are preserved. Gas within the soft tissues of the left hip and buttock region. This may indicate penetrating trauma, but is worrisome for infection with gas- forming organism. There is equivocal mild thickening of the bladder wall -11/06 ESR 50, CRP 40> 11/08 CRP 55.6; normal CK -CT abd/p wo 11/06: Small left inguinal hernia containing nonobstructive loops of small bowel. Persistent gas within the soft tissues of the left hip and buttock region although the amount of gas decreased compared to exam of 11/04/2017. There is slight asymmetry and engorgement of the musculature in this region possibly related to edema and/or phlegmonous change. No definite well-defined/drainable fluid collection is identified however evaluation is limited without intravenous contrast. Again, these findings may be secondary to penetrating trauma versus infection with gas- forming organism. Correlation with clinical history and physical exam findings recommended. Consider ultrasound to assess for defined/drainable fluid collection. Bladder wall thickening may be related to underdistention. Correlate with urinalysis to exclude cystitis. Air within the bladder may be related to prior catheterization. K.pna and E.coli UTI -u/a wbc 10-15, nit neg, leuk +1; UCx >100k K Pna ( R amp anb Nitro, otherwise sensitive); >100K E.coli #2 (beasley S) Low grade fever/mild leukocytosis- 2ry to above- recurrent- improving DM2, HTN, seizure disorder, brain surgery (~10 yrs ago), HLD, PVD s/p amputation L great toe, ESRD s/p Renal transplant 2011- not on HD, but now requiring HD- worsening Cr L eye prosthesis Plan: -Switch IV Vanco #4 to Daptomycin 4mg/kg q48hrs given renal insufficiency and renal transplant -baseline CPK -Continue Zosyn #5, and Clindamycin #4 for possible gas-forming infection on L buttocks; will treat for a minimum of 14 days; final abx regimen and duration pending on clinical improvement and Repeat CT. -Close monitoring for decompensation; if so may need OR exploration -Will need repeat CT hip in the next days; ordered for 11/12 -f/u cx -Monitor CBC/BMP, temperatures; Trend CRP [id number] Thank you for this consultation. Will continue to follow along with you. Discussed with RN Subjective Allergies: Coded Allergies: NO KNOWN ALLERGIES (Unverified Allergy, Unknown, 10/24/15) Subjective afebrile in 24hrs leukocytosis resolved pain improving Cr worsening vanco through at goal Objective Vital Signs Last 24 Hour Vital Signs Date Time Temp Pulse Resp B/P (MAP) Pulse Ox O2 Delivery O2 Flow Rate FiO2 11/09/17 09:47 85 142/76 11/09/17 09:46 85 142/76 11/09/17 08:00 98.8 85 18 142/76 96 Room Air 11/09/17 04:00 99.1 84 18 181/75 100 Room Air 11/08/17 20:00 98.8 84 18 158/76 100 Room Air 11/08/17 18:04 84 134/72 11/08/17 16:00 99.6 84 19 134/72 100 Room Air 11/08/17 13:47 91 149/73 11/08/17 12:00 98.0 91 18 149/73 100 Room Air Height (Feet): 5 Height (Inches): 10.00 Weight (Pounds): 150 Objective GENERAL: The patient is a well-developed and well-nourished thin-appearing male, in no apparent distress. HEENT: Eyes, pupils equal and responsive to light and accommodation. Extraocular movements are intact. NECK: Supple without lymphadenopathy. CHEST: Lungs are clear to auscultation bilaterally without wheezes or rales. CARDIOVASCULAR: Regular rhythm and rate. S1 and S2 normal without murmurs, rubs, or gallops. ABDOMEN: Soft, nontender, and nondistended. Positive bowel sounds. No evidence of hepatosplenomegaly. Currently, no rebound or guarding noted. EXTREMITIES: Negative for clubbing, cyanosis, or edema. L Hip,anterior thigh ( unable to evalaute buttocks as patietn getting HD)- severly TTP without concomitnatn inflammatory signs (erythema, warmth),skin break downs Microbiology Date/Time Source Procedure Growth Status 11/08/17 11:00 Stool Clostridium difficile Toxin Assay - Final Complete Laboratory Tests Test 11/09/17 00:45 11/09/17 05:25 Urine Random Sodium 46 MEQ/L (20-110) White Blood Count 10.3 K/UL (4.8-10.8) Red Blood Count 3.43 M/UL (4.70-6.10) L Hemoglobin 9.5 G/DL (14.2-18.0) L Hematocrit 29.0 % (42.0-52.0) L Mean Corpuscular Volume 85 FL (80-99) Mean Corpuscular Hemoglobin 27.7 PG (27.0-31.0) Mean Corpuscular Hemoglobin Concent 32.7 G/DL (32.0-36.0) Red Cell Distribution Width 14.4 % (11.6-14.8) Platelet Count 172 K/UL (150-450) Mean Platelet Volume 8.5 FL (6.5-10.1) Neutrophils (%) (Auto) % (45.0-75.0) Lymphocytes (%) (Auto) % (20.0-45.0) Monocytes (%) (Auto) % (1.0-10.0) Eosinophils (%) (Auto) % (0.0-3.0) Basophils (%) (Auto) % (0.0-2.0) Differential Total Cells Counted 100 Neutrophils % (Manual) 78 % (45-75) H Lymphocytes % (Manual) 12 % (20-45) L Monocytes % (Manual) 10 % (1-10) Eosinophils % (Manual) 0 % (0-3) Basophils % (Manual) 0 % (0-2) Band Neutrophils 0 % (0-8) Platelet Estimate Adequate Platelet Morphology Normal Hypochromasia 1+ Sodium Level 126 MMOL/L (136-145) L Potassium Level 4.3 MMOL/L (3.5-5.1) Chloride Level 95 MMOL/L (98-107) L Carbon Dioxide Level 18 MMOL/L (21-32) L Anion Gap 14 mmol/L (5-15) Blood Urea Nitrogen 44 mg/dL (7-18) H Creatinine 3.5 MG/DL (0.55-1.30) H Estimat Glomerular Filtration Rate 18.1 mL/min (>60) Glucose Level 333 MG/DL (74-106) H Calcium Level 6.3 MG/DL (8.5-10.1) L Magnesium Level 1.1 MG/DL (1.8-2.4) L Total Bilirubin 1.0 MG/DL (0.2-1.0) Aspartate Amino Transf (AST/SGOT) 21 U/L (15-37) Alanine Aminotransferase (ALT/SGPT) 17 U/L (12-78) Alkaline Phosphatase 81 U/L (46-116) Total Protein 5.9 G/DL (6.4-8.2) L Albumin 2.0 G/DL (3.4-5.0) L Globulin 3.9 g/dL Albumin/Globulin Ratio 0.5 (1.0-2.7) L Current Medications Medications (Trade) Dose Ordered Sig/Vincent Route PRN Reason Start Time Stop Time Status Last Admin Dose Admin Allopurinol (Zyloprim) 100 mg BID ORAL 11/08/17 09:00 12/05/17 08:59 11/09/17 09:56 Amlodipine Besylate (Norvasc) 10 mg DAILY ORAL 11/08/17 09:00 12/05/17 08:59 11/09/17 09:46 Atorvastatin Calcium (Lipitor) 20 mg BEDTIME ORAL 11/07/17 22:00 12/07/17 21:59 11/08/17 21:17 Chlorpromazine 25 mg/Sodium Chloride 111 ml @ 222 mls/hr Q8H PRN IVPB HICCUPS 11/07/17 22:00 12/06/17 21:59 Clindamycin HCl/ Dextrose 50 ml @ 100 mls/hr Q8HR IV 11/07/17 22:00 11/13/17 23:59 11/09/17 06:19 Clonidine HCl (Catapres) 0.1 mg EVERY 6 HOURS PRN ORAL SBP > 160 mm Hg 11/09/17 07:45 12/09/17 07:44 Dextrose (Dextrose 50%) STAT PRN IV Hypoglycemia 11/07/17 22:00 12/07/17 21:59 Docusate Sodium (Colace) 100 mg BID ORAL 11/08/17 09:00 12/05/17 08:59 Epoetin Binu (Procrit (for ESRD on dialysis)) 10,000 units SUN-SUN-SUN SUBQ 11/09/17 21:00 12/07/17 20:59 Furosemide (Lasix) 20 mg DAILY ORAL 11/08/17 09:00 12/05/17 08:59 11/09/17 09:45 Heparin Sodium (Porcine) (Heparin 5000 units/ml) 5,000 units Q12HR SUBQ 11/07/17 22:00 12/07/17 21:59 11/09/17 09:49 Hydromorphone HCl (Dilaudid) 1 mg Q4H PRN IVP Severe Pain (Pain Scale 7-10) 11/07/17 22:00 11/14/17 21:59 Insulin Aspart (NovoLOG) BEFORE MEALS AND HS SUBQ 11/07/17 22:00 12/07/17 21:59 11/09/17 06:33 Labetalol HCl (Normodyne) 100 mg THREE TIMES A DAY ORAL 11/08/17 09:00 12/05/17 08:59 11/09/17 09:47 Loperamide HCl (Imodium) 2 mg Q4H PRN ORAL Diarrhea 11/08/17 18:30 12/08/17 18:29 11/09/17 09:50 Megestrol Acetate (Megace) 800 mg DAILY ORAL 11/08/17 09:00 12/07/17 08:59 11/09/17 10:35 Mycophenolate Mofetil (Cellcept) 500 mg Q12HR ORAL 11/07/17 22:00 12/07/17 21:59 11/09/17 09:46 Oxybutynin Chloride (Ditropan) 5 mg Q12HR ORAL 11/07/17 22:00 12/07/17 21:59 11/09/17 09:45 Pantoprazole (Protonix) 40 mg DAILY ORAL 11/08/17 09:00 12/08/17 08:59 11/09/17 09:45 Piperacillin Sod/ Tazobactam Sod 2.25 gm/Sodium Chloride 110 ml @ 220 mls/hr Q8HR IV 11/07/17 22:00 11/14/17 21:59 11/09/17 06:29 Tacrolimus (Prograf) 1 mg BID ORAL 11/08/17 09:00 12/05/17 08:59 11/09/17 09:45 Vancomycin HCl (Vanco rx to dose) 1 ea DAILY PRN MISC Per rx protocol 11/08/17 09:00 12/06/17 12:29 Rupinder Perez M.D. Nov 09, 2017 11:53
[2017-11-09 12:00] VITALS: BP 125/68
--- NOTE | 2017-11-09 13:16 | Nephrology Progress Note ---
Assessment/Plan Assessment 1. Anion gap, and none gap acidosis. 2. Hypovolemic hyponatremia. 3. Hypokalemia. 4. Acute on chronic renal failure. 5.ckd stage 5 6.anemia of ckd 7.hypocalcemia 9.JUSTEN Plan mix all ivpb with ns.9 replace electrolyte (mg) start bicitra d/c lasix check vit d Subjective Constitutional: Reports: no symptoms HEENT: Reports: no symptoms Genitourinary: Reports: no symptoms Neurologic/Psychiatric: Reports: no symptoms Subjective c/o left hip pain feeling much better had incision on his left gluteal area Objective Objective Last 24 Hour Vital Signs Date Time Temp Pulse Resp B/P (MAP) Pulse Ox O2 Delivery O2 Flow Rate FiO2 11/09/17 09:47 85 142/76 11/09/17 09:46 85 142/76 11/09/17 08:00 98.8 85 18 142/76 96 Room Air 11/09/17 04:00 99.1 84 18 181/75 100 Room Air 11/08/17 20:00 98.8 84 18 158/76 100 Room Air 11/08/17 18:04 84 134/72 11/08/17 16:00 99.6 84 19 134/72 100 Room Air 11/08/17 13:47 91 149/73 Intake and Output 11/08/17 11/09/17 19:00 07:00 Intake Total 480 ml 690 ml Output Total 900 ml Balance -420 ml 690 ml Intake Oral 480 ml 480 ml IV Total 210 ml Output Urine Total 900 ml # Voids 4 # Bowel Movements 4 2 Laboratory Tests 11/09/17 00:45: Urine Random Sodium 46 11/09/17 05:25: White Blood Count 10.3, Red Blood Count 3.43L, Hemoglobin 9.5L, Hematocrit 29.0L , Mean Corpuscular Volume 85, Mean Corpuscular Hemoglobin 27.7, Mean Corpuscular Hemoglobin Concent 32.7, Red Cell Distribution Width 14.4, Platelet Count 172, Mean Platelet Volume 8.5, Neutrophils (%) (Auto) , Lymphocytes (%) ( Auto) , Monocytes (%) (Auto) , Eosinophils (%) (Auto) , Basophils (%) (Auto) , Differential Total Cells Counted 100, Neutrophils % (Manual) 78H, Lymphocytes % (Manual) 12L, Monocytes % (Manual) 10, Eosinophils % (Manual) 0, Basophils % ( Manual) 0, Band Neutrophils 0, Platelet Estimate Adequate, Platelet Morphology Normal, Hypochromasia 1+, Sodium Level 126L, Potassium Level 4.3, Chloride Level 95L, Carbon Dioxide Level 18L, Anion Gap 14, Blood Urea Nitrogen 44H, Creatinine 3.5H, Estimat Glomerular Filtration Rate 18.1, Glucose Level 333H, Calcium Level 6.3L, Magnesium Level 1.1L, Total Bilirubin 1.0, Aspartate Amino Transf (AST/SGOT) 21, Alanine Aminotransferase (ALT/SGPT) 17, Alkaline Phosphatase 81, Total Protein 5.9L, Albumin 2.0L, Globulin 3.9, Albumin/ Globulin Ratio 0.5L Height (Feet): 5 Height (Inches): 10.00 Weight (Pounds): 150 Objective HEAD AND NECK: No JVP. No LAD. No thyromegaly. Extraocular movement intact. Pupils are reactive to light and accommodation. LUNGS: Decreased breathing sound on the both sides. CARDIAC: Regular rate and rhythm. S1 and S2. No murmur. No rub. ABDOMEN: Soft, nontender, and nondistended. EXTREMITIES: Trace edema. No clubbing. No cyanosis. ASTER NEFF Nov 09, 2017 13:16
--- NOTE | 2017-11-09 14:10 | General Surgery Progress Note ---
General Surgery-Progress Note Subjective Procedure Performed local exploration of left hip Symptoms: improved Additional Comments doing well. pain improved. no n/v/f/c. low grade fever still. hiccups. pain much improved. Objective Last 24 Hour Vital Signs Date Time Temp Pulse Resp B/P (MAP) Pulse Ox O2 Delivery O2 Flow Rate FiO2 11/09/17 09:47 85 142/76 11/09/17 09:46 85 142/76 11/09/17 08:00 98.8 85 18 142/76 96 Room Air 11/09/17 04:00 99.1 84 18 181/75 100 Room Air 11/08/17 20:00 98.8 84 18 158/76 100 Room Air 11/08/17 18:04 84 134/72 11/08/17 16:00 99.6 84 19 134/72 100 Room Air I&O Intake and Output 11/08/17 11/09/17 19:00 07:00 Intake Total 480 ml 690 ml Output Total 900 ml Balance -420 ml 690 ml Intake Oral 480 ml 480 ml IV Total 210 ml Output Urine Total 900 ml # Voids 4 # Bowel Movements 4 2 Dressing: saturated Wound: clean Drains: none Cardiovascular: RSR Respiratory: clear Abdomen: soft, non-tender, present bowel sounds Extremities: no tenderness Laboratory Tests Test 11/09/17 00:45 11/09/17 05:25 Urine Random Sodium 46 MEQ/L (20-110) White Blood Count 10.3 K/UL (4.8-10.8) Red Blood Count 3.43 M/UL (4.70-6.10) L Hemoglobin 9.5 G/DL (14.2-18.0) L Hematocrit 29.0 % (42.0-52.0) L Mean Corpuscular Volume 85 FL (80-99) Mean Corpuscular Hemoglobin 27.7 PG (27.0-31.0) Mean Corpuscular Hemoglobin Concent 32.7 G/DL (32.0-36.0) Red Cell Distribution Width 14.4 % (11.6-14.8) Platelet Count 172 K/UL (150-450) Mean Platelet Volume 8.5 FL (6.5-10.1) Neutrophils (%) (Auto) % (45.0-75.0) Lymphocytes (%) (Auto) % (20.0-45.0) Monocytes (%) (Auto) % (1.0-10.0) Eosinophils (%) (Auto) % (0.0-3.0) Basophils (%) (Auto) % (0.0-2.0) Differential Total Cells Counted 100 Neutrophils % (Manual) 78 % (45-75) H Lymphocytes % (Manual) 12 % (20-45) L Monocytes % (Manual) 10 % (1-10) Eosinophils % (Manual) 0 % (0-3) Basophils % (Manual) 0 % (0-2) Band Neutrophils 0 % (0-8) Platelet Estimate Adequate Platelet Morphology Normal Hypochromasia 1+ Sodium Level 126 MMOL/L (136-145) L Potassium Level 4.3 MMOL/L (3.5-5.1) Chloride Level 95 MMOL/L (98-107) L Carbon Dioxide Level 18 MMOL/L (21-32) L Anion Gap 14 mmol/L (5-15) Blood Urea Nitrogen 44 mg/dL (7-18) H Creatinine 3.5 MG/DL (0.55-1.30) H Estimat Glomerular Filtration Rate 18.1 mL/min (>60) Glucose Level 333 MG/DL (74-106) H Calcium Level 6.3 MG/DL (8.5-10.1) L Magnesium Level 1.1 MG/DL (1.8-2.4) L Total Bilirubin 1.0 MG/DL (0.2-1.0) Aspartate Amino Transf (AST/SGOT) 21 U/L (15-37) Alanine Aminotransferase (ALT/SGPT) 17 U/L (12-78) Alkaline Phosphatase 81 U/L (46-116) Total Protein 5.9 G/DL (6.4-8.2) L Albumin 2.0 G/DL (3.4-5.0) L Globulin 3.9 g/dL Albumin/Globulin Ratio 0.5 (1.0-2.7) L Plan Problems: (1) Sepsis Assessment & Plan: 56M who presents with left hip pain and found to be septic. HD stable, presented with leukocytosis, CRP/ESR elevated, CT with gas in left hip. no trauma noted in area. concerning for gas forming bacterial infection. pain out of proportion to exam in left hip. on exam very tender initially. POD #1 s/p bedside exploration of left hip. subq tissues, fascia, and muscle all intact and viable. no infectious process noted. POD #2 - wound clean. no signs of infection. minimal tenderness on palpation. serous drainage. POD #3 - wound clean without signs of infection. no tenderness. serous drainage. CRP/ESR elevated. leukocytosis resolved. low grade fevers. -continue with local wound care. -continue Abx as per ID -may consider repeat CT scan of left hip first if needed. -if decompensates would consider further exploration of left hip in OR but for now stable. thank you for this consultation. will follow with recs. Willie Davies Nov 09, 2017 14:10
[2017-11-09 16:00] VITALS: BP 136/79
--- NOTE | 2017-11-09 17:31 | Internal Med Progress Note ---
Subjective Date of Service: Nov 09, 2017 Physician Name Bisi Conde Attending Physician Kristian Gaona MD Current Medications Medications (Trade) Dose Ordered Sig/Vincent Route PRN Reason Start Time Stop Time Status Last Admin Dose Admin Allopurinol (Zyloprim) 100 mg BID ORAL 11/08/17 09:00 12/05/17 08:59 11/09/17 09:56 Amlodipine Besylate (Norvasc) 10 mg DAILY ORAL 11/08/17 09:00 12/05/17 08:59 11/09/17 09:46 Chlorpromazine 25 mg/Sodium Chloride 111 ml @ 222 mls/hr Q8H PRN IVPB HICCUPS 11/07/17 22:00 12/06/17 21:59 Clindamycin HCl/ Dextrose 50 ml @ 100 mls/hr Q8HR IV 11/07/17 22:00 11/13/17 23:59 11/09/17 14:48 Clonidine HCl (Catapres) 0.1 mg EVERY 6 HOURS PRN ORAL SBP > 160 mm Hg 11/09/17 07:45 12/09/17 07:44 Daptomycin 250 mg/ Sodium Chloride 55 ml @ 100 mls/hr EVERY OTHER DAY@1730 IV 11/09/17 17:30 11/16/17 17:29 Dextrose (Dextrose 50%) STAT PRN IV Hypoglycemia 11/07/17 22:00 12/07/17 21:59 Docusate Sodium (Colace) 100 mg BID ORAL 11/08/17 09:00 12/05/17 08:59 Epoetin Binu (Procrit (for ESRD on dialysis)) 10,000 units SUN-SUN-SUN SUBQ 11/09/17 21:00 12/07/17 20:59 Heparin Sodium (Porcine) (Heparin 5000 units/ml) 5,000 units Q12HR SUBQ 11/07/17 22:00 12/07/17 21:59 11/09/17 09:49 Hydromorphone HCl (Dilaudid) 1 mg Q4H PRN IVP Severe Pain (Pain Scale 7-10) 11/07/17 22:00 11/14/17 21:59 Insulin Aspart (NovoLOG) BEFORE MEALS AND HS SUBQ 11/07/17 22:00 12/07/17 21:59 11/09/17 12:03 Labetalol HCl (Normodyne) 100 mg THREE TIMES A DAY ORAL 11/08/17 09:00 12/05/17 08:59 11/09/17 14:15 Loperamide HCl (Imodium) 2 mg Q4H PRN ORAL Diarrhea 11/08/17 18:30 12/08/17 18:29 11/09/17 09:50 Megestrol Acetate (Megace) 800 mg DAILY ORAL 11/08/17 09:00 12/07/17 08:59 11/09/17 10:35 Mycophenolate Mofetil (Cellcept) 500 mg Q12HR ORAL 11/07/17 22:00 12/07/17 21:59 11/09/17 09:46 Oxybutynin Chloride (Ditropan) 5 mg Q12HR ORAL 11/07/17 22:00 12/07/17 21:59 11/09/17 09:45 Pantoprazole (Protonix) 40 mg DAILY ORAL 11/08/17 09:00 12/08/17 08:59 11/09/17 09:45 Piperacillin Sod/ Tazobactam Sod 2.25 gm/Sodium Chloride 55 ml @ 110 mls/hr Q8HR IV 11/09/17 22:00 11/14/17 21:59 Sodium Citrate (Bicitra) 30 ml BID ORAL 11/09/17 18:00 12/09/17 17:59 Tacrolimus (Prograf) 1 mg BID ORAL 11/08/17 09:00 12/05/17 08:59 11/09/17 09:45 Allergies: Coded Allergies: NO KNOWN ALLERGIES (Unverified Allergy, Unknown, 10/24/15) ROS Limited/Unobtainable: No Constitutional: Reports: no symptoms HEENT: Reports: no symptoms Cardiovascular: Reports: no symptoms Respiratory: Reports: no symptoms Gastrointestinal/Abdominal: Reports: no symptoms Genitourinary: Reports: no symptoms Neurologic/Psychiatric: Reports: no symptoms Subjective 56 YO M admitted with left hip pain. Now cellulitis left hip and sepsis. Also UTI. Cover for Int Rishabh-Dr Gaona. S/P bedside Incision and drainage 11/06/17. Finger stick glucose elevated. Objective Last Vital Signs Date Time Temp Pulse Resp B/P (MAP) Pulse Ox O2 Delivery O2 Flow Rate FiO2 1/5/18 14:15 85 125/68 11/09/17 12:00 98.4 20 100 Room Air Laboratory Tests Test 11/09/17 00:45 11/09/17 05:25 Urine Random Sodium 46 MEQ/L (20-110) White Blood Count 10.3 K/UL (4.8-10.8) Red Blood Count 3.43 M/UL (4.70-6.10) L Hemoglobin 9.5 G/DL (14.2-18.0) L Hematocrit 29.0 % (42.0-52.0) L Mean Corpuscular Volume 85 FL (80-99) Mean Corpuscular Hemoglobin 27.7 PG (27.0-31.0) Mean Corpuscular Hemoglobin Concent 32.7 G/DL (32.0-36.0) Red Cell Distribution Width 14.4 % (11.6-14.8) Platelet Count 172 K/UL (150-450) Mean Platelet Volume 8.5 FL (6.5-10.1) Neutrophils (%) (Auto) % (45.0-75.0) Lymphocytes (%) (Auto) % (20.0-45.0) Monocytes (%) (Auto) % (1.0-10.0) Eosinophils (%) (Auto) % (0.0-3.0) Basophils (%) (Auto) % (0.0-2.0) Differential Total Cells Counted 100 Neutrophils % (Manual) 78 % (45-75) H Lymphocytes % (Manual) 12 % (20-45) L Monocytes % (Manual) 10 % (1-10) Eosinophils % (Manual) 0 % (0-3) Basophils % (Manual) 0 % (0-2) Band Neutrophils 0 % (0-8) Platelet Estimate Adequate Platelet Morphology Normal Hypochromasia 1+ Sodium Level 126 MMOL/L (136-145) L Potassium Level 4.3 MMOL/L (3.5-5.1) Chloride Level 95 MMOL/L (98-107) L Carbon Dioxide Level 18 MMOL/L (21-32) L Anion Gap 14 mmol/L (5-15) Blood Urea Nitrogen 44 mg/dL (7-18) H Creatinine 3.5 MG/DL (0.55-1.30) H Estimat Glomerular Filtration Rate 18.1 mL/min (>60) Glucose Level 333 MG/DL (74-106) H Calcium Level 6.3 MG/DL (8.5-10.1) L Magnesium Level 1.1 MG/DL (1.8-2.4) L Total Bilirubin 1.0 MG/DL (0.2-1.0) Aspartate Amino Transf (AST/SGOT) 21 U/L (15-37) Alanine Aminotransferase (ALT/SGPT) 17 U/L (12-78) Alkaline Phosphatase 81 U/L (46-116) Total Protein 5.9 G/DL (6.4-8.2) L Albumin 2.0 G/DL (3.4-5.0) L Globulin 3.9 g/dL Albumin/Globulin Ratio 0.5 (1.0-2.7) L Microbiology Date/Time Source Procedure Growth Status 11/08/17 11:00 Stool Clostridium difficile Toxin Assay - Final Complete Intake and Output 11/08/17 11/09/17 19:00 07:00 Intake Total 480 ml 690 ml Output Total 900 ml Balance -420 ml 690 ml Intake Oral 480 ml 480 ml IV Total 210 ml Output Urine Total 900 ml # Voids 4 # Bowel Movements 4 2 Objective General Appearance: alert, mild distress, thin EENT: PERRL/EOMI, normal ENT inspection, TMs normal Neck: non-tender, normal alignment, supple, normal inspection Cardiovascular: normal peripheral pulses, normal rate, regular rhythm, no gallop/murmur, no JVD Respiratory/Chest: chest wall non-tender, lungs clear, normal breath sounds, no respiratory distress, no accessory muscle use Abdomen: normal bowel sounds, non tender, soft, no organomegaly, no mass Extremities: normal range of motion 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 Add levemir (2) ESRD (end stage renal disease) on dialysis Assessment & Plan: S/P hemodialysis 11/06/17. See nephrology note. (3) Renal transplant, status post (4) HTN (hypertension) Assessment & Plan: Continue labetolol and norvasc. (5) Hypercholesteremia (6) Seizure disorder (7) Peripheral vascular disease (8) Cellulitis of hip, left Assessment & Plan: S/P Incision and Drainage 11/06/17. see surgery note. Cont zosyn per ID (9) Hip pain, left Assessment & Plan: Ortho consult pending (10) UTI (urinary tract infection) Assessment & Plan: Klebsiella pneumo and E.coli. Cont zosyn per ID (11) Sepsis Assessment & Plan: E.Coli. Continue zosyn per ID. (12) Diarrhea Assessment & Plan: Await c.diff and culture results. Imodium prn Status: not improved BISI CONDE Nov 09, 2017 17:31
[2017-11-09 21:00] VITALS: BP 158/76
[2017-11-09] MEDS ORDERED: Levemir Flexpen SUBQ SCH (21:00)
[2017-11-09] MEDS: Sodium Citrate 30ml ORAL SCH (21:03)
[2017-11-09] MEDS: DAPTOmycin 250 MG in NS 55 ML IV SCH (21:21)
[2017-11-09] MEDS: Epogen (for ESRD on dialysis) SUBQ SCH (21:53)
[2017-11-09] MEDS: Piperacillin/Tazobactam 2.25 GM in NS 55 ML IV SCH (23:33)
[2017-11-10] VITALS (8 sets, daily range): BP systolic 120–176; BP diastolic 68–85
[2017-11-10] MEDS: Clindamycin 900mg 50 ML IV SCH ×3 (05:22→22:24)
[2017-11-10] MEDS: Piperacillin/Tazobactam 2.25 GM in NS 55 ML IV SCH ×3 (05:22→23:36)
[2017-11-10] MEDS: NovoLOG Insulin Flexpen SUBQ SCH ×4 (06:17→20:44)
[2017-11-10 07:38] LABS: BASOPHILS % (AUTO) 0.4 % (0.0-2.0); EOSINOPHILS % (AUTO) 0.4 % (0.0-3.0); HEMATOCRIT 29.5 % (42.0-52.0); HEMOGLOBIN 9.4 G/DL (14.2-18.0); LYMPHOCYTES % (AUTO) 5.3 % (20.0-45.0); MEAN CORPUSCULAR VOLUME 85 FL (80-99); MONOCYTES % (AUTO) 12.5 % (1.0-10.0); NEUTROPHILS % (AUTO) 81.5 % (45.0-75.0); PLATELET COUNT 188 K/UL (150-450); RED BLOOD COUNT 3.46 M/UL (4.70-6.10); RED CELL DISTRIBUTION WIDTH 14.1 % (11.6-14.8); WHITE BLOOD COUNT 8.1 K/UL (4.8-10.8)
[2017-11-10 07:55] LABS: ANION GAP 13 mmol/L (5-15); BLOOD UREA NITROGEN 33 mg/dL (7-18); CALCIUM 6.7 MG/DL (8.5-10.1); CARBON DIOXIDE 23 MMOL/L (21-32); CHLORIDE 92 MMOL/L (98-107); CREATININE 2.9 MG/DL (0.55-1.30); POTASSIUM 4.1 MMOL/L (3.5-5.1); SODIUM 127 MMOL/L (136-145)
[2017-11-10 08:10] LABS: CREATINE KINASE 19 U/L (26-308)
[2017-11-10] MEDS: Megace 400mg/10ml Susp ORAL SCH (08:58)
[2017-11-10] MEDS: Sodium Citrate 30ml ORAL SCH ×3 (08:58→23:41)
[2017-11-10] MEDS: Mycophenolate 250mg cap ORAL SCH ×2 (08:59→20:40)
[2017-11-10] MEDS: Docusate 100mg cap ORAL SCH ×3 (08:59→18:00)
[2017-11-10] MEDS: Oxybutynin 5mg tab ORAL SCH ×2 (08:59→20:40)
[2017-11-10] MEDS: Allopurinol 100mg Tab ORAL SCH ×2 (09:00→18:04)
[2017-11-10] MEDS: Heparin 5000 units/ml inj SUBQ SCH ×2 (09:02→20:45)
--- NOTE | 2017-11-10 12:19 | Pulmonology Progress Note ---
Assessment/Plan Assessment/Plan ASSESSMENT Sepsis with high grade E coli bacteremia UTI with E coli and Klebsiella Cellulitis L hip SQ gas L hip intractable L hip pain s/p I&D left hip ARF on CKD st 5 s/p renal transplant Metabolic acidosis Hypo Na ( hypovolemic) HTN DM seizure disorder anemia of chronic kidney disease bilateral atelectases blindness severe protein calorie malnutrition PLAN OF CARE MS floor abx ID follows, repeated blood cx prel. negative, initial blood cx + E coli, urine cx +E coli, Klebsiella, stool C dif negative CT L hip with + gas in soft tissues, pain out if proportion to cellulitis s/p local exploration with I&D surgery closely follows dramatically improved after surgery Pain management probably will need to repeat CT hip to ensure resolution of gas wound care Nephro follows, monitor lytes, replace as needed, avoid nephrotoxic e/lytes management as per nephro monitor renal parameters, continue diuresis on CellCept and Prograf , ? levels check per nephro discretion anemia workup c/w anemia of chronic disease EPO added, monitor counts,transfuse to keep Hgb above 7.5 BS management with SS of insulin, HgA1c -6.8 at goal BP management with BB and CCB, optimize as needed DVT GI prophylaxis seizure precautions bowel regimen pain management IS at the bedside, encourage to use PT eval and Rx dietary eval implemented to improve nutritional status case discussed and evaluated by supervising physician Subjective Allergies: Coded Allergies: NO KNOWN ALLERGIES (Unverified Allergy, Unknown, 10/24/15) Subjective leukocytosis resolved, afebrile HH at baseline no signs of respiratory distress on RA, pulse ox stable Objective Last 24 Hour Vital Signs Date Time Temp Pulse Resp B/P (MAP) Pulse Ox O2 Delivery O2 Flow Rate FiO2 11/10/17 09:00 90 172/80 11/10/17 08:59 90 172/80 11/10/17 08:00 99.6 90 17 171/82 98 Room Air 11/10/17 06:23 97.6 92 154/84 11/10/17 04:58 170/84 11/10/17 04:00 99.8 90 16 170/68 98 Room Air 11/10/17 02:30 98.3 92 150/85 11/10/17 00:00 99.3 92 18 176/83 100 Room Air 11/09/17 21:09 83 158/76 11/09/17 21:00 98.2 83 19 158/76 100 Room Air 11/09/17 20:48 Room Air 11/09/17 18:35 Room Air 11/09/17 16:00 98.2 91 19 136/79 100 Room Air 11/09/17 14:15 85 125/68 Intake and Output 11/09/17 11/10/17 19:00 07:00 Intake Total 500 ml 240 ml Output Total 650 ml Balance 500 ml -410 ml Intake Oral 500 ml 240 ml Output Urine Total 650 ml Hemodialysis UF 0 ml # Voids 6 2 # Bowel Movements 4 2 Objective General Appearance: no acute distress, cachetic HEENT: normocephalic, atraumatic, mucous membranes moist, supple, no JVD, - blind, L eye prosthesis Respiratory/Chest: lungs clear, no respiratory distress, no accessory muscle use Cardiovascular: normal peripheral pulses, normal rate, no JVD Abdomen: soft, non tender Extremities: no edema Skin: other - left hip dressing C/D/I Neurologic/Psychiatric: abnormal gait, alert, oriented, responsive Musculoskeletal: atrophy - BLE Microbiology Date/Time Source Procedure Growth Status 11/08/17 11:00 Stool Clostridium difficile Toxin Assay - Final Complete Laboratory Tests 11/10/17 05:05: White Blood Count 8.1, Red Blood Count 3.46L, Hemoglobin 9.4L, Hematocrit 29.5L , Mean Corpuscular Volume 85, Mean Corpuscular Hemoglobin 27.1, Mean Corpuscular Hemoglobin Concent 31.8L, Red Cell Distribution Width 14.1, Platelet Count 188, Mean Platelet Volume 8.2, Neutrophils (%) (Auto) 81.5H, Lymphocytes (%) (Auto) 5.3L, Monocytes (%) (Auto) 12.5H, Eosinophils (%) (Auto) 0.4, Basophils (%) (Auto) 0.4, Erythrocyte Sedimentation Rate 78H, Sodium Level 127L, Potassium Level 4.1, Chloride Level 92L, Carbon Dioxide Level 23, Anion Gap 13, Blood Urea Nitrogen 33H, Creatinine 2.9H, Estimat Glomerular Filtration Rate 22.5, Glucose Level 390H, Calcium Level 6.7L, Total Creatine Kinase 19L, C- Reactive Protein, Quantitative 21.3H Current Medications Medications (Trade) Dose Ordered Sig/Vincent Route PRN Reason Start Time Stop Time Status Last Admin Dose Admin Allopurinol (Zyloprim) 100 mg BID ORAL 11/08/17 09:00 12/05/17 08:59 11/10/17 09:00 Amlodipine Besylate (Norvasc) 10 mg DAILY ORAL 11/08/17 09:00 12/05/17 08:59 11/10/17 08:59 Baclofen (Lioresal) 20 mg Q8H PRN ORAL Muscle Spasm 11/09/17 18:00 12/09/17 17:59 Chlorpromazine 25 mg/Sodium Chloride 111 ml @ 222 mls/hr Q8H PRN IVPB HICCUPS 11/07/17 22:00 12/06/17 21:59 Clindamycin HCl/ Dextrose 50 ml @ 100 mls/hr Q8HR IV 11/07/17 22:00 11/13/17 23:59 11/10/17 05:22 Clonidine HCl (Catapres) 0.1 mg EVERY 6 HOURS PRN ORAL SBP > 160 mm Hg 11/09/17 07:45 12/09/17 07:44 11/10/17 04:58 Daptomycin 250 mg/ Sodium Chloride 55 ml @ 100 mls/hr EVERY OTHER DAY@1730 IV 11/09/17 17:30 11/16/17 17:29 11/09/17 21:21 Dextrose (Dextrose 50%) STAT PRN IV Hypoglycemia 11/07/17 22:00 12/07/17 21:59 Docusate Sodium (Colace) 100 mg BID ORAL 11/08/17 09:00 12/05/17 08:59 11/10/17 08:59 Epoetin Binu (Procrit (for ESRD on dialysis)) 10,000 units MON-WED-SUN SUBQ 11/09/17 21:00 12/07/17 20:59 11/09/17 21:53 Heparin Sodium (Porcine) (Heparin 5000 units/ml) 5,000 units Q12HR SUBQ 11/07/17 22:00 12/07/17 21:59 11/10/17 09:02 Hydromorphone HCl (Dilaudid) 1 mg Q4H PRN IVP Severe Pain (Pain Scale 7-10) 11/07/17 22:00 11/14/17 21:59 Insulin Aspart (NovoLOG) BEFORE MEALS AND HS SUBQ 11/07/17 22:00 12/07/17 21:59 11/10/17 11:38 Insulin Detemir (Levemir) 10 units BID SUBQ 11/10/17 18:00 12/10/17 17:59 UNV Labetalol HCl (Normodyne) 100 mg THREE TIMES A DAY ORAL 11/08/17 09:00 12/05/17 08:59 11/10/17 09:00 Loperamide HCl (Imodium) 2 mg Q4H PRN ORAL Diarrhea 11/08/17 18:30 12/08/17 18:29 11/09/17 09:50 Megestrol Acetate (Megace) 800 mg DAILY ORAL 11/08/17 09:00 12/07/17 08:59 11/10/17 08:58 Mycophenolate Mofetil (Cellcept) 500 mg Q12HR ORAL 11/07/17 22:00 12/07/17 21:59 11/10/17 08:59 Oxybutynin Chloride (Ditropan) 5 mg Q12HR ORAL 11/07/17 22:00 12/07/17 21:59 11/10/17 08:59 Pantoprazole (Protonix) 40 mg DAILY ORAL 11/08/17 09:00 12/08/17 08:59 11/10/17 09:00 Piperacillin Sod/ Tazobactam Sod 2.25 gm/Sodium Chloride 55 ml @ 110 mls/hr Q8HR IV 11/09/17 22:00 11/14/17 21:59 11/10/17 05:22 Sodium Citrate (Bicitra) 30 ml BID ORAL 11/09/17 18:00 12/09/17 17:59 11/10/17 08:58 Tacrolimus (Prograf) 1 mg BID ORAL 11/08/17 09:00 12/05/17 08:59 11/10/17 08:58 Elisabet Weir NP ([facility]) Nov 10, 2017 12:19
--- NOTE | 2017-11-10 12:29 | General Surgery Progress Note ---
General Surgery-Progress Note Subjective Procedure Performed local exploration of left hip Additional Comments persistent low grade fevers. pain improved. no n/v. comfortable. Objective Last 24 Hour Vital Signs Date Time Temp Pulse Resp B/P (MAP) Pulse Ox O2 Delivery O2 Flow Rate FiO2 11/10/17 09:00 90 172/80 11/10/17 08:59 90 172/80 11/10/17 08:00 99.6 90 17 171/82 98 Room Air 11/10/17 06:23 97.6 92 154/84 11/10/17 04:58 170/84 11/10/17 04:00 99.8 90 16 170/68 98 Room Air 11/10/17 02:30 98.3 92 150/85 11/10/17 00:00 99.3 92 18 176/83 100 Room Air 11/09/17 21:09 83 158/76 11/09/17 21:00 98.2 83 19 158/76 100 Room Air 11/09/17 20:48 Room Air 11/09/17 18:35 Room Air 11/09/17 16:00 98.2 91 19 136/79 100 Room Air 11/09/17 14:15 85 125/68 I&O Intake and Output 11/09/17 11/10/17 19:00 07:00 Intake Total 500 ml 240 ml Output Total 650 ml Balance 500 ml -410 ml Intake Oral 500 ml 240 ml Output Urine Total 650 ml Hemodialysis UF 0 ml # Voids 6 2 # Bowel Movements 4 2 Cardiovascular: RSR Respiratory: decreased breath sounds Abdomen: soft, flat, non-tender, present bowel sounds Extremities: no tenderness Laboratory Tests Test 11/10/17 05:05 White Blood Count 8.1 K/UL (4.8-10.8) Red Blood Count 3.46 M/UL (4.70-6.10) L Hemoglobin 9.4 G/DL (14.2-18.0) L Hematocrit 29.5 % (42.0-52.0) L Mean Corpuscular Volume 85 FL (80-99) Mean Corpuscular Hemoglobin 27.1 PG (27.0-31.0) Mean Corpuscular Hemoglobin Concent 31.8 G/DL (32.0-36.0) L Red Cell Distribution Width 14.1 % (11.6-14.8) Platelet Count 188 K/UL (150-450) Mean Platelet Volume 8.2 FL (6.5-10.1) Neutrophils (%) (Auto) 81.5 % (45.0-75.0) H Lymphocytes (%) (Auto) 5.3 % (20.0-45.0) L Monocytes (%) (Auto) 12.5 % (1.0-10.0) H Eosinophils (%) (Auto) 0.4 % (0.0-3.0) Basophils (%) (Auto) 0.4 % (0.0-2.0) Erythrocyte Sedimentation Rate 78 MM/HR (0-20) H Sodium Level 127 MMOL/L (136-145) L Potassium Level 4.1 MMOL/L (3.5-5.1) Chloride Level 92 MMOL/L (98-107) L Carbon Dioxide Level 23 MMOL/L (21-32) Anion Gap 13 mmol/L (5-15) Blood Urea Nitrogen 33 mg/dL (7-18) H Creatinine 2.9 MG/DL (0.55-1.30) H Estimat Glomerular Filtration Rate 22.5 mL/min (>60) Glucose Level 390 MG/DL (74-106) H Calcium Level 6.7 MG/DL (8.5-10.1) L Total Creatine Kinase 19 U/L (26-308) L C-Reactive Protein, Quantitative 21.3 mg/dL (0.00-0.90) H Plan Problems: (1) Sepsis Assessment & Plan: 56M who presents with left hip pain and found to be septic. HD stable, presented with leukocytosis, CRP/ESR elevated, CT with gas in left hip. no trauma noted in area. concerning for gas forming bacterial infection. pain out of proportion to exam in left hip. on exam very tender initially. POD #1 s/p bedside exploration of left hip. subq tissues, fascia, and muscle all intact and viable. no infectious process noted. POD #2 - wound clean. no signs of infection. minimal tenderness on palpation. serous drainage. POD #3 - wound clean without signs of infection. no tenderness. serous drainage. CRP/ESR elevated. leukocytosis resolved. low grade fevers. POD #4 - wound clean, no signs of infection. non tender, minimal serous drainage. CRP down, ESR up. no leukocytosis. -continue with local wound care. -continue Abx as per ID -Repeat CT scan of left hip to ensure resolved. -CXR, UA, Blood Cx -if decompensates would consider further exploration of left hip in OR but for now stable. thank you for this consultation. will follow with xiao. Willie Davies Nov 10, 2017 12:29
--- NOTE | 2017-11-10 13:16 | Infectious Diseases Prog Note ---
Assessment/Plan Assessment/Plan Assessment: High grade E.coli bacteremia- Likely 2ry UTI vs buttocks skin soft tissue infection base on CT findings -repeat Bcx 11/05 NTD x4 Severe L hip/thigh/ pain - pain out of proportion with physical findings and with gas on CT are very suspicious for myonecrosis (clostridial gangrene) - DDx necrotizing fascitis. No fractures. ; clinically improving (decrease pain and TTP)- but low grade fever, mild leukocytosis and rising CRp 11/08- will continue to monitor closely --unclear- as bedside surgical exploration showed normal healthy tissues and no gas; will closely monitor for worsening -CT L hip: No acute fractures. No dislocations. The joint spaces are preserved. Gas within the soft tissues of the left hip and buttock region. This may indicate penetrating trauma, but is worrisome for infection with gas- forming organism. There is equivocal mild thickening of the bladder wall -1/2 ESR 50, CRP 40> 11/08 CRP 55.6; normal CK -CT abd/p wo 11/06: Small left inguinal hernia containing nonobstructive loops of small bowel. Persistent gas within the soft tissues of the left hip and buttock region although the amount of gas decreased compared to exam of 11/04/2017. There is slight asymmetry and engorgement of the musculature in this region possibly related to edema and/or phlegmonous change. No definite well-defined/drainable fluid collection is identified however evaluation is limited without intravenous contrast. Again, these findings may be secondary to penetrating trauma versus infection with gas- forming organism. Correlation with clinical history and physical exam findings recommended. Consider ultrasound to assess for defined/drainable fluid collection. Bladder wall thickening may be related to underdistention. Correlate with urinalysis to exclude cystitis. Air within the bladder may be related to prior catheterization. K.pna and E.coli UTI -u/a wbc 10-15, nit neg, leuk +1; UCx >100k K Pna ( R amp anb Nitro, otherwise sensitive); >100K E.coli #2 (beasley S) Low grade fever/m- improving mild leukocytosis- SP DM2, HTN, seizure disorder, brain surgery (~10 yrs ago), HLD, PVD s/p amputation L great toe, ESRD s/p Renal transplant 2011- not on HD, but now requiring HD- improving Cr L eye prosthesis Plan: - cont Daptomycin d# 1 4mg/kg q48hrs given renal insufficiency and renal transplant -Continue Zosyn # 6, and Clindamycin # 5 for possible gas-forming infection on L buttocks; will treat for a minimum of 14 days; final abx regimen and duration pending on clinical improvement and Repeat CT. 11/09 SP IV Vanco #4 -Close monitoring for decompensation; if so may need OR exploration -Will need repeat CT hip in the next days; ordered for 11/12 -f/u cx -Monitor CBC/BMP, temperatures; Trend CRP [id number] -baseline CPK Subjective Constitutional: Denies: no symptoms, fever, chills, fatigue, anorexia, drenching sweats, other Allergies: Coded Allergies: NO KNOWN ALLERGIES (Unverified Allergy, Unknown, 10/24/15) Objective Vital Signs Last 24 Hour Vital Signs Date Time Temp Pulse Resp B/P (MAP) Pulse Ox O2 Delivery O2 Flow Rate FiO2 11/10/17 12:56 86 127/71 11/10/17 12:00 98.0 86 18 127/71 99 Room Air 11/10/17 09:00 90 172/80 11/10/17 08:59 90 172/80 11/10/17 08:00 99.6 90 17 171/82 98 Room Air 11/10/17 06:23 97.6 92 154/84 11/10/17 04:58 170/84 11/10/17 04:00 99.8 90 16 170/68 98 Room Air 11/10/17 02:30 98.3 92 150/85 11/10/17 00:00 99.3 92 18 176/83 100 Room Air 11/09/17 21:09 83 158/76 11/09/17 21:00 98.2 83 19 158/76 100 Room Air 11/09/17 20:48 Room Air 11/09/17 18:35 Room Air 11/09/17 16:00 98.2 91 19 136/79 100 Room Air 11/09/17 14:15 85 125/68 Height (Feet): 5 Height (Inches): 10.00 Weight (Pounds): 150 HEENT: mucous membranes moist Respiratory/Chest: no respiratory distress Cardiovascular: no gallop/murmur Abdomen: no organomegaly Microbiology Date/Time Source Procedure Growth Status 11/08/17 11:00 Stool Clostridium difficile Toxin Assay - Final Complete Laboratory Tests Test 11/10/17 05:05 White Blood Count 8.1 K/UL (4.8-10.8) Red Blood Count 3.46 M/UL (4.70-6.10) L Hemoglobin 9.4 G/DL (14.2-18.0) L Hematocrit 29.5 % (42.0-52.0) L Mean Corpuscular Volume 85 FL (80-99) Mean Corpuscular Hemoglobin 27.1 PG (27.0-31.0) Mean Corpuscular Hemoglobin Concent 31.8 G/DL (32.0-36.0) L Red Cell Distribution Width 14.1 % (11.6-14.8) Platelet Count 188 K/UL (150-450) Mean Platelet Volume 8.2 FL (6.5-10.1) Neutrophils (%) (Auto) 81.5 % (45.0-75.0) H Lymphocytes (%) (Auto) 5.3 % (20.0-45.0) L Monocytes (%) (Auto) 12.5 % (1.0-10.0) H Eosinophils (%) (Auto) 0.4 % (0.0-3.0) Basophils (%) (Auto) 0.4 % (0.0-2.0) Erythrocyte Sedimentation Rate 78 MM/HR (0-20) H Sodium Level 127 MMOL/L (136-145) L Potassium Level 4.1 MMOL/L (3.5-5.1) Chloride Level 92 MMOL/L (98-107) L Carbon Dioxide Level 23 MMOL/L (21-32) Anion Gap 13 mmol/L (5-15) Blood Urea Nitrogen 33 mg/dL (7-18) H Creatinine 2.9 MG/DL (0.55-1.30) H Estimat Glomerular Filtration Rate 22.5 mL/min (>60) Glucose Level 390 MG/DL (74-106) H Calcium Level 6.7 MG/DL (8.5-10.1) L Total Creatine Kinase 19 U/L (26-308) L C-Reactive Protein, Quantitative 21.3 mg/dL (0.00-0.90) H Current Medications Medications (Trade) Dose Ordered Sig/Vincent Route PRN Reason Start Time Stop Time Status Last Admin Dose Admin Allopurinol (Zyloprim) 100 mg BID ORAL 11/08/17 09:00 12/05/17 08:59 11/10/17 09:00 Amlodipine Besylate (Norvasc) 10 mg DAILY ORAL 11/08/17 09:00 12/05/17 08:59 11/10/17 08:59 Baclofen (Lioresal) 20 mg Q8H PRN ORAL Muscle Spasm 11/09/17 18:00 12/09/17 17:59 Chlorpromazine 25 mg/Sodium Chloride 111 ml @ 222 mls/hr Q8H PRN IVPB HICCUPS 11/07/17 22:00 12/06/17 21:59 Clindamycin HCl/ Dextrose 50 ml @ 100 mls/hr Q8HR IV 11/07/17 22:00 11/13/17 23:59 11/10/17 12:57 Clonidine HCl (Catapres) 0.1 mg EVERY 6 HOURS PRN ORAL SBP > 160 mm Hg 11/09/17 07:45 12/09/17 07:44 11/10/17 04:58 Daptomycin 250 mg/ Sodium Chloride 55 ml @ 100 mls/hr EVERY OTHER DAY@1730 IV 11/09/17 17:30 11/16/17 17:29 11/09/17 21:21 Dextrose (Dextrose 50%) STAT PRN IV Hypoglycemia 11/07/17 22:00 12/07/17 21:59 Docusate Sodium (Colace) 100 mg BID ORAL 11/08/17 09:00 12/05/17 08:59 11/10/17 08:59 Epoetin Binu (Procrit (for ESRD on dialysis)) 10,000 units MON-WED-FRI SUBQ 11/09/17 21:00 12/07/17 20:59 11/09/17 21:53 Heparin Sodium (Porcine) (Heparin 5000 units/ml) 5,000 units Q12HR SUBQ 11/07/17 22:00 12/07/17 21:59 11/10/17 09:02 Hydromorphone HCl (Dilaudid) 1 mg Q4H PRN IVP Severe Pain (Pain Scale 7-10) 11/07/17 22:00 11/14/17 21:59 Insulin Aspart (NovoLOG) BEFORE MEALS AND HS SUBQ 11/07/17 22:00 12/07/17 21:59 11/10/17 11:38 Insulin Detemir (Levemir) 10 units BID SUBQ 11/10/17 18:00 12/10/17 17:59 Labetalol HCl (Normodyne) 100 mg THREE TIMES A DAY ORAL 11/08/17 09:00 12/05/17 08:59 11/10/17 12:56 Loperamide HCl (Imodium) 2 mg Q4H PRN ORAL Diarrhea 11/08/17 18:30 12/08/17 18:29 11/09/17 09:50 Megestrol Acetate (Megace) 800 mg DAILY ORAL 11/08/17 09:00 12/07/17 08:59 11/10/17 08:58 Mycophenolate Mofetil (Cellcept) 500 mg Q12HR ORAL 11/07/17 22:00 12/07/17 21:59 11/10/17 08:59 Oxybutynin Chloride (Ditropan) 5 mg Q12HR ORAL 11/07/17 22:00 12/07/17 21:59 11/10/17 08:59 Pantoprazole (Protonix) 40 mg DAILY ORAL 11/08/17 09:00 12/08/17 08:59 11/10/17 09:00 Piperacillin Sod/ Tazobactam Sod 2.25 gm/Sodium Chloride 55 ml @ 110 mls/hr Q8HR IV 11/09/17 22:00 11/14/17 21:59 11/10/17 05:22 Sodium Citrate (Bicitra) 30 ml BID ORAL 11/09/17 18:00 12/09/17 17:59 11/10/17 08:58 Tacrolimus (Prograf) 1 mg BID ORAL 11/08/17 09:00 12/05/17 08:59 11/10/17 08:58 NAVIN MARC M.D. Nov 10, 2017 13:16
--- NOTE | 2017-11-10 14:09 | Internal Med Progress Note ---
Subjective Date of Service: Nov 10, 2017 Physician Name Bisi Conde Attending Physician Kristian Gaona MD Current Medications Medications (Trade) Dose Ordered Sig/Vincent Route PRN Reason Start Time Stop Time Status Last Admin Dose Admin Allopurinol (Zyloprim) 100 mg BID ORAL 11/08/17 09:00 12/05/17 08:59 11/10/17 09:00 Amlodipine Besylate (Norvasc) 10 mg DAILY ORAL 11/08/17 09:00 12/05/17 08:59 11/10/17 08:59 Baclofen (Lioresal) 20 mg Q8H PRN ORAL Muscle Spasm 11/09/17 18:00 12/09/17 17:59 Chlorpromazine 25 mg/Sodium Chloride 111 ml @ 222 mls/hr Q8H PRN IVPB HICCUPS 11/07/17 22:00 12/06/17 21:59 Clindamycin HCl/ Dextrose 50 ml @ 100 mls/hr Q8HR IV 11/07/17 22:00 11/13/17 23:59 11/10/17 12:57 Clonidine HCl (Catapres) 0.1 mg EVERY 6 HOURS PRN ORAL SBP > 160 mm Hg 11/09/17 07:45 12/09/17 07:44 11/10/17 04:58 Daptomycin 250 mg/ Sodium Chloride 55 ml @ 100 mls/hr EVERY OTHER DAY@1730 IV 11/09/17 17:30 11/16/17 17:29 11/09/17 21:21 Dextrose (Dextrose 50%) STAT PRN IV Hypoglycemia 11/07/17 22:00 12/07/17 21:59 Docusate Sodium (Colace) 100 mg BID ORAL 11/08/17 09:00 12/05/17 08:59 11/10/17 08:59 Epoetin Binu (Procrit (for ESRD on dialysis)) 10,000 units MON-WED-SUN SUBQ 11/09/17 21:00 12/07/17 20:59 11/09/17 21:53 Heparin Sodium (Porcine) (Heparin 5000 units/ml) 5,000 units Q12HR SUBQ 11/07/17 22:00 12/07/17 21:59 11/10/17 09:02 Hydromorphone HCl (Dilaudid) 1 mg Q4H PRN IVP Severe Pain (Pain Scale 7-10) 11/07/17 22:00 11/14/17 21:59 Insulin Aspart (NovoLOG) BEFORE MEALS AND HS SUBQ 11/07/17 22:00 12/07/17 21:59 11/10/17 11:38 Insulin Detemir (Levemir) 10 units BID SUBQ 11/10/17 18:00 12/10/17 17:59 Labetalol HCl (Normodyne) 100 mg THREE TIMES A DAY ORAL 11/08/17 09:00 12/05/17 08:59 11/10/17 12:56 Loperamide HCl (Imodium) 2 mg Q4H PRN ORAL Diarrhea 11/08/17 18:30 12/08/17 18:29 11/09/17 09:50 Megestrol Acetate (Megace) 800 mg DAILY ORAL 11/08/17 09:00 12/07/17 08:59 11/10/17 08:58 Mycophenolate Mofetil (Cellcept) 500 mg Q12HR ORAL 11/07/17 22:00 12/07/17 21:59 11/10/17 08:59 Oxybutynin Chloride (Ditropan) 5 mg Q12HR ORAL 11/07/17 22:00 12/07/17 21:59 11/10/17 08:59 Pantoprazole (Protonix) 40 mg DAILY ORAL 11/08/17 09:00 12/08/17 08:59 11/10/17 09:00 Piperacillin Sod/ Tazobactam Sod 2.25 gm/Sodium Chloride 55 ml @ 110 mls/hr Q8HR IV 11/09/17 22:00 11/14/17 21:59 11/10/17 05:22 Sodium Citrate (Bicitra) 30 ml BID ORAL 11/09/17 18:00 12/09/17 17:59 11/10/17 08:58 Tacrolimus (Prograf) 1 mg BID ORAL 11/08/17 09:00 12/05/17 08:59 11/10/17 08:58 Allergies: Coded Allergies: NO KNOWN ALLERGIES (Unverified Allergy, Unknown, 10/24/15) ROS Limited/Unobtainable: No Constitutional: Reports: no symptoms HEENT: Reports: no symptoms Cardiovascular: Reports: no symptoms Respiratory: Reports: no symptoms Gastrointestinal/Abdominal: Reports: no symptoms Genitourinary: Reports: no symptoms Subjective 56 YO M admitted with left hip pain. Now cellulitis left hip and sepsis. Also UTI. Cover for Int Rishabh-Dr Gaona. S/P bedside Incision and drainage 11/06/17. Finger stick glucose continues to be elevated. Await repeat CT left hip Objective Last Vital Signs Date Time Temp Pulse Resp B/P (MAP) Pulse Ox O2 Delivery O2 Flow Rate FiO2 11/10/17 12:56 86 127/71 11/10/17 12:00 98.0 18 99 Room Air Laboratory Tests Test 11/10/17 05:05 11/10/17 12:31 White Blood Count 8.1 K/UL (4.8-10.8) Red Blood Count 3.46 M/UL (4.70-6.10) L Hemoglobin 9.4 G/DL (14.2-18.0) L Hematocrit 29.5 % (42.0-52.0) L Mean Corpuscular Volume 85 FL (80-99) Mean Corpuscular Hemoglobin 27.1 PG (27.0-31.0) Mean Corpuscular Hemoglobin Concent 31.8 G/DL (32.0-36.0) L Red Cell Distribution Width 14.1 % (11.6-14.8) Platelet Count 188 K/UL (150-450) Mean Platelet Volume 8.2 FL (6.5-10.1) Neutrophils (%) (Auto) 81.5 % (45.0-75.0) H Lymphocytes (%) (Auto) 5.3 % (20.0-45.0) L Monocytes (%) (Auto) 12.5 % (1.0-10.0) H Eosinophils (%) (Auto) 0.4 % (0.0-3.0) Basophils (%) (Auto) 0.4 % (0.0-2.0) Erythrocyte Sedimentation Rate 78 MM/HR (0-20) H Sodium Level 127 MMOL/L (136-145) L Potassium Level 4.1 MMOL/L (3.5-5.1) Chloride Level 92 MMOL/L (98-107) L Carbon Dioxide Level 23 MMOL/L (21-32) Anion Gap 13 mmol/L (5-15) Blood Urea Nitrogen 33 mg/dL (7-18) H Creatinine 2.9 MG/DL (0.55-1.30) H Estimat Glomerular Filtration Rate 22.5 mL/min (>60) Glucose Level 390 MG/DL (74-106) H Calcium Level 6.7 MG/DL (8.5-10.1) L Total Creatine Kinase 19 U/L (26-308) L C-Reactive Protein, Quantitative 21.3 mg/dL (0.00-0.90) H Lactic Acid Level Pending Microbiology Date/Time Source Procedure Growth Status 11/08/17 11:00 Stool Clostridium difficile Toxin Assay - Final Complete Intake and Output 11/09/17 11/10/17 19:00 07:00 Intake Total 500 ml 240 ml Output Total 650 ml Balance 500 ml -410 ml Intake Oral 500 ml 240 ml Output Urine Total 650 ml Hemodialysis UF 0 ml # Voids 6 2 # Bowel Movements 4 2 Objective General Appearance: alert, mild distress, thin EENT: PERRL/EOMI, normal ENT inspection, TMs normal Neck: non-tender, normal alignment, supple, normal inspection Cardiovascular: normal peripheral pulses, normal rate, regular rhythm, no gallop/murmur, no JVD Respiratory/Chest: chest wall non-tender, lungs clear, normal breath sounds, no respiratory distress, no accessory muscle use Abdomen: normal bowel sounds, non tender, soft, no organomegaly, no mass Extremities: normal range of motion Neurologic: surg rn II-XII grossly normal, no motor/sensory deficits Skin: normal pigmentation, warm/dry Assessment/Plan Problem List: (1) Diabetes mellitus, type II Assessment & Plan: Uncontrolled. Increase levemir to BID (2) ESRD (end stage renal disease) on dialysis Assessment & Plan: S/P hemodialysis 11/06/17. See nephrology note. (3) Renal transplant, status post (4) HTN (hypertension) Assessment & Plan: Continue labetolol and norvasc. (5) Hypercholesteremia (6) Seizure disorder (7) Peripheral vascular disease (8) Cellulitis of hip, left Assessment & Plan: S/P Incision and Drainage 11/06/17. see surgery note. Cont zosyn per ID (9) Hip pain, left Assessment & Plan: S/P I & D. Await repeat CT Hip. See surgery note. (10) UTI (urinary tract infection) Assessment & Plan: Klebsiella pneumo and E.coli. Cont zosyn per ID (11) Sepsis Assessment & Plan: E.Coli. Continue zosyn per ID. (12) Diarrhea Assessment & Plan: Await c.diff and culture results. Imodium prn Status: progressing IBSI CONDE Nov 10, 2017 14:09
--- NOTE | 2017-11-10 14:19 | Nephrology Progress Note ---
Assessment/Plan Assessment 1. Anion gap, and none gap acidosis. 2. Hypovolemic hyponatremia. 3. Hypokalemia. 4. Acute on chronic renal failure. 5.ckd stage 5 6.anemia of ckd 7.hypocalcemia 9.JUSTEN Plan mix all ivpb with ns.9 replace electrolyte (mg) start bicitra d/c lasix check vit d Subjective Constitutional: Reports: no symptoms HEENT: Reports: no symptoms Genitourinary: Reports: no symptoms Neurologic/Psychiatric: Reports: no symptoms Subjective c/o left hip pain feeling much better had dialysis last night Objective Objective Last 24 Hour Vital Signs Date Time Temp Pulse Resp B/P (MAP) Pulse Ox O2 Delivery O2 Flow Rate FiO2 11/10/17 12:56 86 127/71 11/10/17 12:00 98.0 86 18 127/71 99 Room Air 11/10/17 09:00 90 172/80 11/10/17 08:59 90 172/80 11/10/17 08:00 99.6 90 17 171/82 98 Room Air 11/10/17 06:23 97.6 92 154/84 11/10/17 04:58 170/84 11/10/17 04:00 99.8 90 16 170/68 98 Room Air 11/10/17 02:30 98.3 92 150/85 11/10/17 00:00 99.3 92 18 176/83 100 Room Air 11/09/17 21:09 83 158/76 11/09/17 21:00 98.2 83 19 158/76 100 Room Air 11/09/17 20:48 Room Air 11/09/17 18:35 Room Air 11/09/17 16:00 98.2 91 19 136/79 100 Room Air Intake and Output 11/09/17 11/10/17 19:00 07:00 Intake Total 500 ml 240 ml Output Total 650 ml Balance 500 ml -410 ml Intake Oral 500 ml 240 ml Output Urine Total 650 ml Hemodialysis UF 0 ml # Voids 6 2 # Bowel Movements 4 2 Laboratory Tests 11/10/17 05:05: White Blood Count 8.1, Red Blood Count 3.46L, Hemoglobin 9.4L, Hematocrit 29.5L , Mean Corpuscular Volume 85, Mean Corpuscular Hemoglobin 27.1, Mean Corpuscular Hemoglobin Concent 31.8L, Red Cell Distribution Width 14.1, Platelet Count 188, Mean Platelet Volume 8.2, Neutrophils (%) (Auto) 81.5H, Lymphocytes (%) (Auto) 5.3L, Monocytes (%) (Auto) 12.5H, Eosinophils (%) (Auto) 0.4, Basophils (%) (Auto) 0.4, Erythrocyte Sedimentation Rate 78H, Sodium Level 127L, Potassium Level 4.1, Chloride Level 92L, Carbon Dioxide Level 23, Anion Gap 13, Blood Urea Nitrogen 33H, Creatinine 2.9H, Estimat Glomerular Filtration Rate 22.5, Glucose Level 390H, Calcium Level 6.7L, Total Creatine Kinase 19L, C- Reactive Protein, Quantitative 21.3H 11/10/17 12:31: Lactic Acid Level [Pending] Height (Feet): 5 Height (Inches): 10.00 Weight (Pounds): 150 Objective HEAD AND NECK: No JVP. No LAD. No thyromegaly. Extraocular movement intact. Pupils are reactive to light and accommodation. LUNGS: Decreased breathing sound on the both sides. CARDIAC: Regular rate and rhythm. S1 and S2. No murmur. No rub. ABDOMEN: Soft, nontender, and nondistended. EXTREMITIES: Trace edema. No clubbing. No cyanosis. ASTER NEFF Nov 10, 2017 14:19
[2017-11-10] MEDS: Loperamide 2mg cap ORAL PRN (18:04)
[2017-11-10] MEDS: Levemir Flexpen SUBQ SCH (18:07)
[2017-11-10] MEDS ORDERED: Tubing IV Secondary IV ONE ×2 (22:31→22:48)
[2017-11-10] MEDS ORDERED: Tubing IV Blood Pump IV ONE (22:48)
[2017-11-10] MEDS ORDERED: NS 275ml ONE (22:48)
[2017-11-11] VITALS: BP 125/68
[2017-11-11 04:52] VITALS: BP 130/71
[2017-11-11] MEDS: Clindamycin 900mg 50 ML IV SCH ×3 (05:19→21:36)
[2017-11-11] MEDS: Sodium Citrate 30ml ORAL SCH ×4 (06:23→23:48)
[2017-11-11] MEDS: Piperacillin/Tazobactam 2.25 GM in NS 55 ML IV SCH ×3 (06:23→23:48)
[2017-11-11] MEDS: NovoLOG Insulin Flexpen SUBQ SCH ×4 (06:24→21:47)
[2017-11-11 07:20] LABS: BASOPHILS % (AUTO) 0.7 % (0.0-2.0); HEMATOCRIT 28.7 % (42.0-52.0); HEMOGLOBIN 9.1 G/DL (14.2-18.0); LYMPHOCYTES % (AUTO) 9.6 % (20.0-45.0); MEAN CORPUSCULAR VOLUME 84 FL (80-99); MONOCYTES % (AUTO) 15.8 % (1.0-10.0); NEUTROPHILS % (AUTO) 72.8 % (45.0-75.0); PLATELET COUNT 222 K/UL (150-450); RED BLOOD COUNT 3.41 M/UL (4.70-6.10); RED CELL DISTRIBUTION WIDTH 14.2 % (11.6-14.8); WHITE BLOOD COUNT 5.7 K/UL (4.8-10.8)
[2017-11-11] MEDS: Docusate 100mg cap ORAL SCH ×2 (07:26→17:10)
[2017-11-11 07:34] LABS: ALANINE AMINOTRANSFERASE 7 U/L (12-78); ALBUMIN 1.8 G/DL (3.4-5.0); ALBUMIN/GLOBULIN RATIO 0.5 (1.0-2.7); ALKALINE PHOSPHATASE 66 U/L (46-116); ANION GAP 11 mmol/L (5-15); ASPARTATE AMINO TRANSFERASE 15 U/L (15-37); BILIRUBIN,TOTAL 0.7 MG/DL (0.2-1.0); BLOOD UREA NITROGEN 34 mg/dL (7-18); CALCIUM 6.8 MG/DL (8.5-10.1); CARBON DIOXIDE 23 MMOL/L (21-32); CHLORIDE 97 MMOL/L (98-107); CREATININE 3.2 MG/DL (0.55-1.30); POTASSIUM 3.5 MMOL/L (3.5-5.1); SODIUM 130 MMOL/L (136-145)
[2017-11-11] MEDS: Mycophenolate 250mg cap ORAL SCH ×2 (07:55→21:37)
[2017-11-11] MEDS: Megace 400mg/10ml Susp ORAL SCH (07:55)
[2017-11-11] MEDS: Allopurinol 100mg Tab ORAL SCH ×2 (07:55→17:10)
[2017-11-11] MEDS: Oxybutynin 5mg tab ORAL SCH ×2 (07:55→21:37)
[2017-11-11] MEDS: Heparin 5000 units/ml inj SUBQ SCH ×2 (07:56→21:48)
[2017-11-11] MEDS: Levemir Flexpen SUBQ SCH ×2 (07:57→17:11)
[2017-11-11 08:00] VITALS: BP 128/69
[2017-11-11 08:28] LABS: APPEARANCE,URINE CLEAR; BILIRUBIN, URINE NEGATIVE (NEGATIVE); COLOR,URINE PALE YELLOW; GLUCOSE, URINE (UA) 2+ (NEGATIVE); KETONES,URINE NEGATIVE (NEGATIVE); LEUKOCYTE ESTERASE ,URINE NEGATIVE (NEGATIVE); NITRITE,URINE NEGATIVE (NEGATIVE); PH,URINE 7 (4.5-8.0); PROTEIN,URINE 2+ (NEGATIVE); UROBILINOGEN,URINE NORMAL MG/DL (0.0-1.0)
[2017-11-11] MEDS: Loperamide 2mg cap ORAL PRN (09:07)
[2017-11-11 12:00] VITALS: BP 148/76
--- NOTE | 2017-11-11 12:57 | General Surgery Progress Note ---
General Surgery-Progress Note Subjective Procedure Performed local exploration of left hip Symptoms: improved Additional Comments doing well. pain improved. no n/v/f/c. tolerating diet. comfortable. Objective Last 24 Hour Vital Signs Date Time Temp Pulse Resp B/P (MAP) Pulse Ox O2 Delivery O2 Flow Rate FiO2 11/11/17 12:31 99.2 11/11/17 12:01 86 148/76 11/11/17 12:00 98.2 86 17 148/76 100 Room Air 11/11/17 08:00 99.2 84 17 128/69 98 Room Air 11/11/17 07:55 84 128/69 11/11/17 07:54 84 128/69 11/11/17 04:52 98.6 72 20 130/71 100 11/11/17 00:00 98.4 81 19 125/68 100 Room Air 11/10/17 20:50 98.8 83 20 139/70 100 11/10/17 20:40 Room Air 11/10/17 18:05 72 120/70 11/10/17 16:00 99.0 72 19 120/70 99 Room Air 11/10/17 12:56 86 127/71 I&O Intake and Output 11/10/17 11/11/17 19:00 07:00 Intake Total 1065 ml 606 ml Output Total 1580 ml 1750 ml Balance -515 ml -1144 ml Intake Oral 960 ml 340 ml IV Total 105 ml 266 ml Output Urine Total 1580 ml 1750 ml # Bowel Movements 2 2 Dressing: saturated Wound: clean Cardiovascular: RSR Respiratory: clear Abdomen: soft, non-tender, present bowel sounds Extremities: no tenderness Laboratory Tests Test 11/10/17 18:50 11/11/17 01:30 11/11/17 05:10 Lactic Acid Level 2.70 mmol/L (0.66-2.22) H Urine Color Pale yellow Urine Appearance Clear Urine pH 7 (4.5-8.0) Urine Specific [place] 1.005 (1.005-1.035) Urine Protein 2+ (NEGATIVE) H Urine Glucose (UA) 2+ (NEGATIVE) H Urine Ketones Negative (NEGATIVE) Urine Occult Blood 1+ (NEGATIVE) H Urine Nitrite Negative (NEGATIVE) Urine Bilirubin Negative (NEGATIVE) Urine Urobilinogen Normal MG/DL (0.0-1.0) Urine Leukocyte Esterase Negative (NEGATIVE) Urine RBC 2-4 /HPF (0 - 0) H Urine WBC 0 /HPF (0 - 0) Urine Squamous Epithelial Cells Occasional /LPF Urine Bacteria Occasional /HPF (NONE) Urine Creatinine 10.2 MG/DL (30.0-125.0) L White Blood Count 5.7 K/UL (4.8-10.8) Red Blood Count 3.41 M/UL (4.70-6.10) L Hemoglobin 9.1 G/DL (14.2-18.0) L Hematocrit 28.7 % (42.0-52.0) L Mean Corpuscular Volume 84 FL (80-99) Mean Corpuscular Hemoglobin 26.6 PG (27.0-31.0) L Mean Corpuscular Hemoglobin Concent 31.6 G/DL (32.0-36.0) L Red Cell Distribution Width 14.2 % (11.6-14.8) Platelet Count 222 K/UL (150-450) Mean Platelet Volume 7.8 FL (6.5-10.1) Neutrophils (%) (Auto) 72.8 % (45.0-75.0) Lymphocytes (%) (Auto) 9.6 % (20.0-45.0) L Monocytes (%) (Auto) 15.8 % (1.0-10.0) H Eosinophils (%) (Auto) 1.0 % (0.0-3.0) Basophils (%) (Auto) 0.7 % (0.0-2.0) Sodium Level 130 MMOL/L (136-145) L Potassium Level 3.5 MMOL/L (3.5-5.1) Chloride Level 97 MMOL/L (98-107) L Carbon Dioxide Level 23 MMOL/L (21-32) Anion Gap 11 mmol/L (5-15) Blood Urea Nitrogen 34 mg/dL (7-18) H Creatinine 3.2 MG/DL (0.55-1.30) H Estimat Glomerular Filtration Rate 20.1 mL/min (>60) Glucose Level 133 MG/DL (74-106) #H Calcium Level 6.8 MG/DL (8.5-10.1) L Total Bilirubin 0.7 MG/DL (0.2-1.0) Aspartate Amino Transf (AST/SGOT) 15 U/L (15-37) Alanine Aminotransferase (ALT/SGPT) 7 U/L (12-78) L Alkaline Phosphatase 66 U/L (46-116) Total Protein 5.4 G/DL (6.4-8.2) L Albumin 1.8 G/DL (3.4-5.0) L Globulin 3.6 g/dL Albumin/Globulin Ratio 0.5 (1.0-2.7) L Plan Problems: (1) Sepsis Assessment & Plan: 56M who presents with left hip pain and found to be septic. HD stable, presented with leukocytosis, CRP/ESR elevated, CT with gas in left hip. no trauma noted in area. concerning for gas forming bacterial infection. pain out of proportion to exam in left hip. on exam very tender initially. POD #1 s/p bedside exploration of left hip. subq tissues, fascia, and muscle all intact and viable. no infectious process noted. POD #2 - wound clean. no signs of infection. minimal tenderness on palpation. serous drainage. POD #3 - wound clean without signs of infection. no tenderness. serous drainage. CRP/ESR elevated. leukocytosis resolved. low grade fevers. POD #4 - wound clean, no signs of infection. non tender, minimal serous drainage. CRP down, ESR up. no leukocytosis. POD #5 - wound clean and stable. Afebrile, labs improved. CT reviewed and improved. CXR okay, pending cultures -continue with local wound care. -continue Abx as per ID -if decompensates would consider further exploration of left hip in OR but for now stable. thank you for this consultation. will follow with recs. Willie Davies Nov 11, 2017 12:57
--- NOTE | 2017-11-11 13:54 | Internal Med Progress Note ---
Subjective Date of Service: Nov 11, 2017 Physician Name Bisi Conde Attending Physician Kristian Gaona MD Current Medications Medications (Trade) Dose Ordered Sig/Vincent Route PRN Reason Start Time Stop Time Status Last Admin Dose Admin Allopurinol (Zyloprim) 100 mg BID ORAL 11/08/17 09:00 12/05/17 08:59 11/11/17 07:55 Amlodipine Besylate (Norvasc) 10 mg DAILY ORAL 11/08/17 09:00 12/05/17 08:59 11/11/17 07:54 Baclofen (Lioresal) 20 mg Q8H PRN ORAL Muscle Spasm 11/09/17 18:00 12/09/17 17:59 Calcium Carbonate (Os-Jeancarlos) 1,250 mg THREE TIMES A DAY ORAL 11/10/17 18:00 12/10/17 17:59 11/11/17 12:00 Chlorpromazine 25 mg/Sodium Chloride 111 ml @ 222 mls/hr Q8H PRN IVPB HICCUPS 11/07/17 22:00 12/06/17 21:59 11/10/17 21:02 Clindamycin HCl/ Dextrose 50 ml @ 100 mls/hr Q8HR IV 11/07/17 22:00 11/13/17 23:59 11/11/17 05:19 Clonidine HCl (Catapres) 0.1 mg EVERY 6 HOURS PRN ORAL SBP > 160 mm Hg 11/09/17 07:45 12/09/17 07:44 11/10/17 04:58 Daptomycin 250 mg/ Sodium Chloride 55 ml @ 100 mls/hr EVERY OTHER DAY@1730 IV 11/09/17 17:30 11/16/17 17:29 11/09/17 21:21 Dextrose (Dextrose 50%) STAT PRN IV Hypoglycemia 11/07/17 22:00 12/07/17 21:59 Docusate Sodium (Colace) 100 mg BID ORAL 11/08/17 09:00 12/05/17 08:59 Epoetin Binu (Procrit (for ESRD on dialysis)) 10,000 units MON-WED-FRI SUBQ 11/09/17 21:00 12/07/17 20:59 11/09/17 21:53 Heparin Sodium (Porcine) (Heparin 5000 units/ml) 5,000 units Q12HR SUBQ 11/07/17 22:00 12/07/17 21:59 11/11/17 07:56 Hydromorphone HCl (Dilaudid) 1 mg Q4H PRN IVP Severe Pain (Pain Scale 7-10) 11/07/17 22:00 11/14/17 21:59 11/11/17 12:01 Insulin Aspart (NovoLOG) BEFORE MEALS AND HS SUBQ 11/07/17 22:00 12/07/17 21:59 11/11/17 12:03 Insulin Detemir (Levemir) 10 units BID SUBQ 11/10/17 18:00 12/10/17 17:59 11/11/17 07:57 Labetalol HCl (Normodyne) 100 mg THREE TIMES A DAY ORAL 11/08/17 09:00 12/05/17 08:59 11/11/17 12:01 Loperamide HCl (Imodium) 2 mg Q4H PRN ORAL Diarrhea 11/08/17 18:30 12/08/17 18:29 11/11/17 09:07 Megestrol Acetate (Megace) 800 mg DAILY ORAL 11/08/17 09:00 12/07/17 08:59 11/11/17 07:55 Mycophenolate Mofetil (Cellcept) 500 mg Q12HR ORAL 11/07/17 22:00 12/07/17 21:59 11/11/17 07:55 Oxybutynin Chloride (Ditropan) 5 mg Q12HR ORAL 11/07/17 22:00 12/07/17 21:59 11/11/17 07:55 Pantoprazole (Protonix) 40 mg DAILY ORAL 11/08/17 09:00 12/08/17 08:59 11/11/17 07:55 Piperacillin Sod/ Tazobactam Sod 2.25 gm/Sodium Chloride 55 ml @ 110 mls/hr Q8HR IV 11/09/17 22:00 11/14/17 21:59 11/11/17 06:23 Sodium Citrate (Bicitra) 30 ml EVERY 6 HOURS ORAL 11/10/17 18:00 12/10/17 17:59 11/11/17 12:00 Tacrolimus (Prograf) 1 mg BID ORAL 11/08/17 09:00 12/05/17 08:59 11/11/17 07:54 Allergies: Coded Allergies: NO KNOWN ALLERGIES (Unverified Allergy, Unknown, 10/24/15) ROS Limited/Unobtainable: No Constitutional: Reports: no symptoms HEENT: Reports: no symptoms Cardiovascular: Reports: no symptoms Respiratory: Reports: no symptoms Gastrointestinal/Abdominal: Reports: no symptoms Genitourinary: Reports: no symptoms Neurologic/Psychiatric: Reports: no symptoms Subjective 56 YO M admitted with left hip pain. Now cellulitis left hip and sepsis. Also UTI. Cover for Int Rishabh-Dr Gaona. S/P bedside Incision and drainage 11/06/17. Finger stick glucose continues to be elevated. Await repeat CT left hip Objective Last Vital Signs Date Time Temp Pulse Resp B/P (MAP) Pulse Ox O2 Delivery O2 Flow Rate FiO2 11/11/17 12:31 99.2 11/11/17 12:01 86 148/76 11/11/17 12:00 17 100 Room Air Laboratory Tests Test 11/10/17 18:50 11/11/17 01:30 11/11/17 05:10 Lactic Acid Level 2.70 mmol/L (0.66-2.22) H Urine Color Pale yellow Urine Appearance Clear Urine pH 7 (4.5-8.0) Urine Specific [place] 1.005 (1.005-1.035) Urine Protein 2+ (NEGATIVE) H Urine Glucose (UA) 2+ (NEGATIVE) H Urine Ketones Negative (NEGATIVE) Urine Occult Blood 1+ (NEGATIVE) H Urine Nitrite Negative (NEGATIVE) Urine Bilirubin Negative (NEGATIVE) Urine Urobilinogen Normal MG/DL (0.0-1.0) Urine Leukocyte Esterase Negative (NEGATIVE) Urine RBC 2-4 /HPF (0 - 0) H Urine WBC 0 /HPF (0 - 0) Urine Squamous Epithelial Cells Occasional /LPF Urine Bacteria Occasional /HPF (NONE) Urine Creatinine 10.2 MG/DL (30.0-125.0) L White Blood Count 5.7 K/UL (4.8-10.8) Red Blood Count 3.41 M/UL (4.70-6.10) L Hemoglobin 9.1 G/DL (14.2-18.0) L Hematocrit 28.7 % (42.0-52.0) L Mean Corpuscular Volume 84 FL (80-99) Mean Corpuscular Hemoglobin 26.6 PG (27.0-31.0) L Mean Corpuscular Hemoglobin Concent 31.6 G/DL (32.0-36.0) L Red Cell Distribution Width 14.2 % (11.6-14.8) Platelet Count 222 K/UL (150-450) Mean Platelet Volume 7.8 FL (6.5-10.1) Neutrophils (%) (Auto) 72.8 % (45.0-75.0) Lymphocytes (%) (Auto) 9.6 % (20.0-45.0) L Monocytes (%) (Auto) 15.8 % (1.0-10.0) H Eosinophils (%) (Auto) 1.0 % (0.0-3.0) Basophils (%) (Auto) 0.7 % (0.0-2.0) Sodium Level 130 MMOL/L (136-145) L Potassium Level 3.5 MMOL/L (3.5-5.1) Chloride Level 97 MMOL/L (98-107) L Carbon Dioxide Level 23 MMOL/L (21-32) Anion Gap 11 mmol/L (5-15) Blood Urea Nitrogen 34 mg/dL (7-18) H Creatinine 3.2 MG/DL (0.55-1.30) H Estimat Glomerular Filtration Rate 20.1 mL/min (>60) Glucose Level 133 MG/DL (74-106) #H Calcium Level 6.8 MG/DL (8.5-10.1) L Total Bilirubin 0.7 MG/DL (0.2-1.0) Aspartate Amino Transf (AST/SGOT) 15 U/L (15-37) Alanine Aminotransferase (ALT/SGPT) 7 U/L (12-78) L Alkaline Phosphatase 66 U/L (46-116) Total Protein 5.4 G/DL (6.4-8.2) L Albumin 1.8 G/DL (3.4-5.0) L Globulin 3.6 g/dL Albumin/Globulin Ratio 0.5 (1.0-2.7) L Microbiology Date/Time Source Procedure Growth Status 11/08/17 21:15 Stool Stool Culture - Preliminary Resulted Intake and Output 11/10/17 11/11/17 19:00 07:00 Intake Total 1065 ml 606 ml Output Total 1580 ml 1750 ml Balance -515 ml -1144 ml Intake Oral 960 ml 340 ml IV Total 105 ml 266 ml Output Urine Total 1580 ml 1750 ml # Bowel Movements 2 2 Objective General Appearance: alert, mild distress, thin EENT: PERRL/EOMI, normal ENT inspection, TMs normal Neck: non-tender, normal alignment, supple, normal inspection Cardiovascular: normal peripheral pulses, normal rate, regular rhythm, no gallop/murmur, no JVD Respiratory/Chest: chest wall non-tender, lungs clear, normal breath sounds, no respiratory distress, no accessory muscle use Abdomen: normal bowel sounds, non tender, soft, no organomegaly, no mass Extremities: normal range of motion 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 Increase levemir to BID (2) ESRD (end stage renal disease) on dialysis Assessment & Plan: S/P hemodialysis 11/10/17. See nephrology note. (3) Renal transplant, status post (4) HTN (hypertension) Assessment & Plan: Continue labetolol and norvasc. (5) Hypercholesteremia (6) Seizure disorder (7) Peripheral vascular disease (8) Cellulitis of hip, left Assessment & Plan: S/P Incision and Drainage 11/06/17. see surgery note. Cont zosyn per ID (9) Hip pain, left Assessment & Plan: S/P I & D. Await repeat CT Hip. See surgery note. (10) UTI (urinary tract infection) Assessment & Plan: Klebsiella pneumo and E.coli. Cont zosyn per ID (11) Sepsis Assessment & Plan: E.Coli. Continue zosyn per ID. (12) Diarrhea Assessment & Plan: Await c.diff and culture results. Imodium prn Status: progressing Assessment/Plan Discharge planning: Patient requests transfer to [facility] BISI CONDE Nov 11, 2017 13:54
[2017-11-11] MEDS ORDERED: Norco 5mg/325mg tab ORAL PRN (14:15)
--- NOTE | 2017-11-11 15:05 | Pulmonology Progress Note ---
Assessment/Plan Assessment/Plan ASSESSMENT Sepsis with high grade E coli bacteremia UTI with E coli and Klebsiella Cellulitis L hip SQ gas L hip intractable L hip pain s/p I&D left hip ARF on CKD st 5 s/p renal transplant Metabolic acidosis Hypo Na ( hypovolemic) HTN DM seizure disorder anemia of chronic kidney disease bilateral atelectases blindness severe protein calorie malnutrition PLAN OF CARE MS floor abx ID follows, repeated blood cx prel. negative, initial blood cx + E coli, urine cx +E coli, Klebsiella, stool C dif negative, stool cx negative CT L hip with + gas in soft tissues, pain out if proportion to cellulitis s/p local exploration with I&D surgery closely follows dramatically improved after surgery Pain management probably will need to repeat CT hip to ensure resolution of gas wound care Nephro follows, monitor lytes, replace as needed, avoid nephrotoxic e/lytes management as per nephro monitor renal parameters, continue diuresis on CellCept and Prograf , ? levels check per nephro discretion anemia workup c/w anemia of chronic disease EPO added, monitor counts,transfuse to keep Hgb above 7.5 BS management with SS of insulin, HgA1c -6.8 at goal BP management with BB and CCB, optimize as needed DVT GI prophylaxis seizure precautions bowel regimen pain management IS at the bedside, encourage to use PT eval and Rx dietary eval implemented to improve nutritional status case discussed and evaluated by supervising physician Subjective Allergies: Coded Allergies: NO KNOWN ALLERGIES (Unverified Allergy, Unknown, 10/24/15) Subjective leukocytosis resolved, afebrile HH at baseline no signs of respiratory distress on RA, pulse ox stable Objective Last 24 Hour Vital Signs Date Time Temp Pulse Resp B/P (MAP) Pulse Ox O2 Delivery O2 Flow Rate FiO2 11/11/17 12:31 99.2 11/11/17 12:01 86 148/76 11/11/17 12:00 98.2 86 17 148/76 100 Room Air 11/11/17 08:00 99.2 84 17 128/69 98 Room Air 11/11/17 07:55 84 128/69 11/11/17 07:54 84 128/69 11/11/17 04:52 98.6 72 20 130/71 100 11/11/17 00:00 98.4 81 19 125/68 100 Room Air 11/10/17 20:50 98.8 83 20 139/70 100 11/10/17 20:40 Room Air 11/10/17 18:05 72 120/70 11/10/17 16:00 99.0 72 19 120/70 99 Room Air Intake and Output 11/10/17 11/11/17 19:00 07:00 Intake Total 1065 ml 606 ml Output Total 1580 ml 1750 ml Balance -515 ml -1144 ml Intake Oral 960 ml 340 ml IV Total 105 ml 266 ml Output Urine Total 1580 ml 1750 ml # Bowel Movements 2 2 Objective General Appearance: no acute distress, cachetic HEENT: normocephalic, atraumatic, mucous membranes moist, supple, no JVD, - blind, L eye prosthesis Respiratory/Chest: lungs clear, no respiratory distress, no accessory muscle use Cardiovascular: normal peripheral pulses, normal rate, no JVD Abdomen: soft, non tender Extremities: no edema Skin: other - left hip dressing C/D/I Neurologic/Psychiatric: abnormal gait, alert, oriented, responsive Musculoskeletal: atrophy - BLE Microbiology Date/Time Source Procedure Growth Status 11/08/17 21:15 Stool Stool Culture - Preliminary Resulted Laboratory Tests 11/10/17 18:50: Lactic Acid Level 2.70H 11/11/17 01:30: Urine Color Pale yellow, Urine Appearance Clear, Urine pH 7, Urine Specific [place] 1.005, Urine Protein 2+H, Urine Glucose (UA) 2+H, Urine Ketones Negative , Urine Occult Blood 1+H, Urine Nitrite Negative, Urine Bilirubin Negative, Urine Urobilinogen Normal, Urine Leukocyte Esterase Negative, Urine RBC 2-4H, Urine WBC 0, Urine Squamous Epithelial Cells Occasional, Urine Bacteria Occasional, Urine Creatinine 10.2L 11/11/17 05:10: White Blood Count 5.7, Red Blood Count 3.41L, Hemoglobin 9.1L, Hematocrit 28.7L , Mean Corpuscular Volume 84, Mean Corpuscular Hemoglobin 26.6L, Mean Corpuscular Hemoglobin Concent 31.6L, Red Cell Distribution Width 14.2, Platelet Count 222, Mean Platelet Volume 7.8, Neutrophils (%) (Auto) 72.8, Lymphocytes (%) (Auto) 9.6L, Monocytes (%) (Auto) 15.8H, Eosinophils (%) (Auto) 1.0, Basophils (%) (Auto) 0.7, Sodium Level 130L, Potassium Level 3.5, Chloride Level 97L, Carbon Dioxide Level 23, Anion Gap 11, Blood Urea Nitrogen 34H, Creatinine 3.2H, Estimat Glomerular Filtration Rate 20.1, Glucose Level 133#H, Calcium Level 6.8L, Total Bilirubin 0.7, Aspartate Amino Transf (AST/SGOT) 15, Alanine Aminotransferase (ALT/SGPT) 7L, Alkaline Phosphatase 66, Total Protein 5.4L, Albumin 1.8L, Globulin 3.6, Albumin/Globulin Ratio 0.5L Current Medications Medications (Trade) Dose Ordered Sig/Vincent Route PRN Reason Start Time Stop Time Status Last Admin Dose Admin Acetaminophen/ Hydrocodone Bitart (Arnold 10/325) 1 ea Q4H PRN ORAL Severe Pain (Pain Scale 7-10) 11/11/17 14:30 11/18/17 14:29 Acetaminophen/ Hydrocodone Bitart (Arnold 5/325) 1 tab Q6H PRN ORAL Moderate Pain (Pain Scale 4-6) 11/11/17 14:15 11/18/17 23:59 Allopurinol (Zyloprim) 100 mg BID ORAL 11/08/17 09:00 12/05/17 08:59 11/11/17 07:55 Amlodipine Besylate (Norvasc) 10 mg DAILY ORAL 11/08/17 09:00 12/05/17 08:59 11/11/17 07:54 Baclofen (Lioresal) 20 mg Q8H PRN ORAL Muscle Spasm 11/09/17 18:00 12/09/17 17:59 Calcium Carbonate (Os-Jeancarlos) 1,250 mg THREE TIMES A DAY ORAL 11/10/17 18:00 12/10/17 17:59 11/11/17 12:00 Chlorpromazine 25 mg/Sodium Chloride 111 ml @ 222 mls/hr Q8H PRN IVPB HICCUPS 11/07/17 22:00 12/06/17 21:59 11/10/17 21:02 Clindamycin HCl/ Dextrose 50 ml @ 100 mls/hr Q8HR IV 11/07/17 22:00 11/13/17 23:59 11/11/17 13:46 Clonidine HCl (Catapres) 0.1 mg EVERY 6 HOURS PRN ORAL SBP > 160 mm Hg 11/09/17 07:45 12/09/17 07:44 11/10/17 04:58 Daptomycin 250 mg/ Sodium Chloride 55 ml @ 100 mls/hr EVERY OTHER DAY@1730 IV 11/09/17 17:30 11/16/17 17:29 11/09/17 21:21 Dextrose (Dextrose 50%) STAT PRN IV Hypoglycemia 11/07/17 22:00 12/07/17 21:59 Docusate Sodium (Colace) 100 mg BID ORAL 11/08/17 09:00 12/05/17 08:59 Epoetin Binu (Procrit (for ESRD on dialysis)) 10,000 units SUN-SUN-SUN SUBQ 11/09/17 21:00 12/07/17 20:59 11/09/17 21:53 Heparin Sodium (Porcine) (Heparin 5000 units/ml) 5,000 units Q12HR SUBQ 11/07/17 22:00 12/07/17 21:59 11/11/17 07:56 Hydromorphone HCl (Dilaudid) 1 mg Q4H PRN IVP SEVERE BREAKTHROUGH PAIN 11/11/17 14:30 11/14/17 21:59 Insulin Aspart (NovoLOG) BEFORE MEALS AND HS SUBQ 11/07/17 22:00 12/07/17 21:59 11/11/17 12:03 Insulin Detemir (Levemir) 10 units BID SUBQ 11/10/17 18:00 12/10/17 17:59 11/11/17 07:57 Labetalol HCl (Normodyne) 100 mg THREE TIMES A DAY ORAL 11/08/17 09:00 12/05/17 08:59 11/11/17 12:01 Loperamide HCl (Imodium) 2 mg Q4H PRN ORAL Diarrhea 11/08/17 18:30 12/08/17 18:29 11/11/17 09:07 Megestrol Acetate (Megace) 800 mg DAILY ORAL 11/08/17 09:00 12/07/17 08:59 11/11/17 07:55 Mycophenolate Mofetil (Cellcept) 500 mg Q12HR ORAL 11/07/17 22:00 12/07/17 21:59 11/11/17 07:55 Oxybutynin Chloride (Ditropan) 5 mg Q12HR ORAL 11/07/17 22:00 12/07/17 21:59 11/11/17 07:55 Pantoprazole (Protonix) 40 mg DAILY ORAL 11/08/17 09:00 12/08/17 08:59 11/11/17 07:55 Piperacillin Sod/ Tazobactam Sod 2.25 gm/Sodium Chloride 55 ml @ 110 mls/hr Q8HR IV 11/09/17 22:00 11/14/17 21:59 11/11/17 14:00 Sodium Citrate (Bicitra) 30 ml EVERY 6 HOURS ORAL 11/10/17 18:00 12/10/17 17:59 11/11/17 12:00 Tacrolimus (Prograf) 1 mg BID ORAL 11/08/17 09:00 12/05/17 08:59 11/11/17 07:54 [place] ([facility])Elisabet NP Nov 11, 2017 15:05
[2017-11-11 16:00] VITALS: BP 131/76
[2017-11-11] MEDS: DAPTOmycin 250 MG in NS 55 ML IV SCH (17:09)
[2017-11-11 20:00] VITALS: BP 138/68
[2017-11-12] VITALS: BP 136/66
[2017-11-12 04:00] VITALS: BP 132/74
[2017-11-12] MEDS: Clindamycin 900mg 50 ML IV SCH ×3 (05:40→22:38)
[2017-11-12] MEDS: Sodium Citrate 30ml ORAL SCH ×4 (05:40→23:42)
[2017-11-12] MEDS: Piperacillin/Tazobactam 2.25 GM in NS 55 ML IV SCH ×3 (06:49→23:13)
[2017-11-12] MEDS: NovoLOG Insulin Flexpen SUBQ SCH ×4 (06:51→21:45)
[2017-11-12 07:39] LABS: BASOPHILS % (AUTO) 0.9 % (0.0-2.0); EOSINOPHILS % (AUTO) 0.7 % (0.0-3.0); HEMATOCRIT 27.9 % (42.0-52.0); HEMOGLOBIN 8.9 G/DL (14.2-18.0); LYMPHOCYTES % (AUTO) 12.7 % (20.0-45.0); MEAN CORPUSCULAR VOLUME 86 FL (80-99); MONOCYTES % (AUTO) 14.1 % (1.0-10.0); NEUTROPHILS % (AUTO) 71.6 % (45.0-75.0); PLATELET COUNT 234 K/UL (150-450); RED BLOOD COUNT 3.24 M/UL (4.70-6.10); RED CELL DISTRIBUTION WIDTH 14.3 % (11.6-14.8); WHITE BLOOD COUNT 6.3 K/UL (4.8-10.8)
[2017-11-12 07:46] LABS: ANION GAP 13 mmol/L (5-15); BLOOD UREA NITROGEN 31 mg/dL (7-18); CALCIUM 6.5 MG/DL (8.5-10.1); CARBON DIOXIDE 21 MMOL/L (21-32); CHLORIDE 97 MMOL/L (98-107); CREATININE 3.5 MG/DL (0.55-1.30); POTASSIUM 3.7 MMOL/L (3.5-5.1); SODIUM 131 MMOL/L (136-145)
[2017-11-12 08:00] VITALS: BP 163/79
--- NOTE | 2017-11-12 08:35 | Nephrology Progress Note ---
Assessment/Plan Assessment 1. Anion gap, and none gap acidosis. 2. Hypovolemic hyponatremia. 3. Hypokalemia. 4. Acute on chronic renal failure. 5.ckd stage 5 6.anemia of ckd 7.hypocalcemia 9.JUSTEN Plan mix all ivpb with ns.9 replace electrolyte (mg) start bicitra d/c lasix check vit d Subjective Constitutional: Reports: no symptoms HEENT: Reports: no symptoms Genitourinary: Reports: no symptoms Neurologic/Psychiatric: Reports: no symptoms Subjective c/o left hip pain Objective Objective Last 24 Hour Vital Signs Date Time Temp Pulse Resp B/P (MAP) Pulse Ox O2 Delivery O2 Flow Rate FiO2 11/12/17 04:00 98.0 82 19 132/74 98 Room Air 11/12/17 00:00 98.4 79 18 136/66 99 Room Air 11/11/17 20:00 97.8 90 19 138/68 97 Room Air 11/11/17 17:10 86 148/76 11/11/17 16:00 98.5 74 20 131/76 95 Room Air 11/11/17 12:31 99.2 11/11/17 12:01 86 148/76 11/11/17 12:00 98.2 86 17 148/76 100 Room Air Intake and Output 11/11/17 11/12/17 19:00 07:00 Intake Total 720 ml 1155 ml Output Total 1400 ml 1900 ml Balance -680 ml -745 ml Intake Oral 720 ml 1000 ml IV Total 155 ml Output Urine Total 1400 ml 1900 ml # Bowel Movements 8 1 Laboratory Tests 11/12/17 05:20: White Blood Count 6.3, Red Blood Count 3.24L, Hemoglobin 8.9L, Hematocrit 27.9L , Mean Corpuscular Volume 86, Mean Corpuscular Hemoglobin 27.4, Mean Corpuscular Hemoglobin Concent 31.8L, Red Cell Distribution Width 14.3, Platelet Count 234, Mean Platelet Volume 7.2, Neutrophils (%) (Auto) 71.6, Lymphocytes (%) (Auto) 12.7L, Monocytes (%) (Auto) 14.1H, Eosinophils (%) (Auto ) 0.7, Basophils (%) (Auto) 0.9, Sodium Level 131L, Potassium Level 3.7, Chloride Level 97L, Carbon Dioxide Level 21, Anion Gap 13, Blood Urea Nitrogen 31H, Creatinine 3.5H, Estimat Glomerular Filtration Rate 18.1, Glucose Level 165H, Calcium Level 6.5L Height (Feet): 5 Height (Inches): 10.00 Weight (Pounds): 150 Objective HEAD AND NECK: No JVP. No LAD. No thyromegaly. Extraocular movement intact. Pupils are reactive to light and accommodation. LUNGS: Decreased breathing sound on the both sides. CARDIAC: Regular rate and rhythm. S1 and S2. No murmur. No rub. ABDOMEN: Soft, nontender, and nondistended. EXTREMITIES: Trace edema. No clubbing. No cyanosis. ASTER NEFF Nov 12, 2017 08:34
[2017-11-12] MEDS: Levemir Flexpen SUBQ SCH ×3 (09:00→18:31)
--- NOTE | 2017-11-12 10:40 | Infectious Diseases Prog Note ---
Assessment/Plan Assessment/Plan High grade E.coli bacteremia- Likely 2ry UTI vs buttocks skin soft tissue infection base on CT findings -repeat Bcx 11/05 NTD x4, 11/10 Bcx NTD Severe L hip/thigh/ pain - pain out of proportion with physical findings and with gas on CT are very suspicious for myonecrosis (clostridial gangrene) - DDx necrotizing fascitis. No fractures. ; clinically improving (decrease pain and TTP); improving -now afebrile, Leukocytosis resolved, CRP improving --unclear- as bedside surgical exploration showed normal healthy tissues and no gas; will closely monitor for worsening -CT L Hip 11/11 p -CT L hip: No acute fractures. No dislocations. The joint spaces are preserved. Gas within the soft tissues of the left hip and buttock region. This may indicate penetrating trauma, but is worrisome for infection with gas- forming organism. There is equivocal mild thickening of the bladder wall -11/06 ESR 50, CRP 40> 11/08 CRP 55.6; normal CK -CT abd/p wo 11/06: Small left inguinal hernia containing nonobstructive loops of small bowel. Persistent gas within the soft tissues of the left hip and buttock region although the amount of gas decreased compared to exam of 11/04/2017. There is slight asymmetry and engorgement of the musculature in this region possibly related to edema and/or phlegmonous change. No definite well-defined/drainable fluid collection is identified however evaluation is limited without intravenous contrast. Again, these findings may be secondary to penetrating trauma versus infection with gas- forming organism. Correlation with clinical history and physical exam findings recommended. Consider ultrasound to assess for defined/drainable fluid collection. Bladder wall thickening may be related to underdistention. Correlate with urinalysis to exclude cystitis. Air within the bladder may be related to prior catheterization. K.pna and E.coli UTI -u/a wbc 10-15, nit neg, leuk +1; UCx >100k K Pna ( R amp anb Nitro, otherwise sensitive); >100K E.coli #2 (beasley S) Low grade fever- resolved mild leukocytosis- SP DM2, HTN, seizure disorder, brain surgery (~10 yrs ago), HLD, PVD s/p amputation L great toe, ESRD s/p Renal transplant 2011- not on HD, but now requiring HD- improving Cr L eye prosthesis Plan: - cont Daptomycin d# 4 (abx d #7 4mg/kg q48hrs) given renal insufficiency and renal transplant and Zosyn # 8, and Clindamycin # 7 for possible gas-forming infection on L buttocks; will treat for a minimum of 14 days; final abx regimen and duration pending on clinical improvement and Repeat CT. 11/09 SP IV Vanco #4 -Close monitoring for decompensation; if so may need OR exploration- so far improving -f/u repeat CT hip -f/u cx -Monitor CBC/BMP, temperatures; Trend CRP [id number] Subjective Allergies: Coded Allergies: NO KNOWN ALLERGIES (Unverified Allergy, Unknown, 10/24/15) Subjective afebrile no leukocytosis CRP improving pain improving awaitint Repeat CT report Objective Vital Signs Last 24 Hour Vital Signs Date Time Temp Pulse Resp B/P (MAP) Pulse Ox O2 Delivery O2 Flow Rate FiO2 11/12/17 08:00 98.0 93 19 163/79 95 11/12/17 04:00 98.0 82 19 132/74 98 Room Air 11/12/17 00:00 98.4 79 18 136/66 99 Room Air 11/11/17 20:00 97.8 90 19 138/68 97 Room Air 11/11/17 17:10 86 148/76 11/11/17 16:00 98.5 74 20 131/76 95 Room Air 11/11/17 12:31 99.2 11/11/17 12:01 86 148/76 11/11/17 12:00 98.2 86 17 148/76 100 Room Air Height (Feet): 5 Height (Inches): 10.00 Weight (Pounds): 150 Objective GENERAL: The patient is a well-developed and well-nourished thin-appearing male, in no apparent distress. HEENT: Eyes, pupils equal and responsive to light and accommodation. Extraocular movements are intact. NECK: Supple without lymphadenopathy. CHEST: Lungs are clear to auscultation bilaterally without wheezes or rales. CARDIOVASCULAR: Regular rhythm and rate. S1 and S2 normal without murmurs, rubs, or gallops. ABDOMEN: Soft, nontender, and nondistended. Positive bowel sounds. No evidence of hepatosplenomegaly. Currently, no rebound or guarding noted. EXTREMITIES: Negative for clubbing, cyanosis, or edema. L Hip,anterior thigh ( unable to evalaute buttocks as patietn getting HD)- severly TTP without concomitnatn inflammatory signs (erythema, warmth),skin break downs Microbiology Date/Time Source Procedure Growth Status 11/10/17 12:45 Blood Blood Culture - Preliminary NO GROWTH AFTER 24 HOURS Resulted 11/10/17 12:31 Blood Blood Culture - Preliminary NO GROWTH AFTER 24 HOURS Resulted Laboratory Tests Test 11/12/17 05:20 White Blood Count 6.3 K/UL (4.8-10.8) Red Blood Count 3.24 M/UL (4.70-6.10) L Hemoglobin 8.9 G/DL (14.2-18.0) L Hematocrit 27.9 % (42.0-52.0) L Mean Corpuscular Volume 86 FL (80-99) Mean Corpuscular Hemoglobin 27.4 PG (27.0-31.0) Mean Corpuscular Hemoglobin Concent 31.8 G/DL (32.0-36.0) L Red Cell Distribution Width 14.3 % (11.6-14.8) Platelet Count 234 K/UL (150-450) Mean Platelet Volume 7.2 FL (6.5-10.1) Neutrophils (%) (Auto) 71.6 % (45.0-75.0) Lymphocytes (%) (Auto) 12.7 % (20.0-45.0) L Monocytes (%) (Auto) 14.1 % (1.0-10.0) H Eosinophils (%) (Auto) 0.7 % (0.0-3.0) Basophils (%) (Auto) 0.9 % (0.0-2.0) Sodium Level 131 MMOL/L (136-145) L Potassium Level 3.7 MMOL/L (3.5-5.1) Chloride Level 97 MMOL/L (98-107) L Carbon Dioxide Level 21 MMOL/L (21-32) Anion Gap 13 mmol/L (5-15) Blood Urea Nitrogen 31 mg/dL (7-18) H Creatinine 3.5 MG/DL (0.55-1.30) H Estimat Glomerular Filtration Rate 18.1 mL/min (>60) Glucose Level 165 MG/DL (74-106) H Calcium Level 6.5 MG/DL (8.5-10.1) L Current Medications Medications (Trade) Dose Ordered Sig/Vincent Route PRN Reason Start Time Stop Time Status Last Admin Dose Admin Acetaminophen/ Hydrocodone Bitart ([place] 10/325) 1 ea Q4H PRN ORAL Severe Pain (Pain Scale 7-10) 11/11/17 14:30 11/18/17 14:29 Acetaminophen/ Hydrocodone Bitart ([place] 5/325) 1 tab Q6H PRN ORAL Moderate Pain (Pain Scale 4-6) 11/11/17 14:15 11/18/17 23:59 11/11/17 19:16 Allopurinol (Zyloprim) 100 mg BID ORAL 11/08/17 09:00 12/05/17 08:59 11/11/17 17:10 Amlodipine Besylate (Norvasc) 10 mg DAILY ORAL 11/08/17 09:00 12/05/17 08:59 11/11/17 07:54 Baclofen (Lioresal) 20 mg Q8H PRN ORAL Muscle Spasm 11/09/17 18:00 12/09/17 17:59 Calcium Carbonate (Os-Jeancarlos) 1,250 mg THREE TIMES A DAY ORAL 11/10/17 18:00 12/10/17 17:59 11/11/17 17:10 Chlorpromazine 25 mg/Sodium Chloride 111 ml @ 222 mls/hr Q8H PRN IVPB HICCUPS 11/07/17 22:00 12/06/17 21:59 11/10/17 21:02 Clindamycin HCl/ Dextrose 50 ml @ 100 mls/hr Q8HR IV 11/07/17 22:00 11/20/17 21:59 11/12/17 05:40 Clonidine HCl (Catapres) 0.1 mg EVERY 6 HOURS PRN ORAL SBP > 160 mm Hg 11/09/17 07:45 12/09/17 07:44 11/10/17 04:58 Daptomycin 250 mg/ Sodium Chloride 55 ml @ 100 mls/hr EVERY OTHER DAY@1730 IV 11/09/17 17:30 11/16/17 17:29 11/11/17 17:09 Dextrose (Dextrose 50%) STAT PRN IV Hypoglycemia 11/07/17 22:00 2/2/18 21:59 Docusate Sodium (Colace) 100 mg BID ORAL 11/08/17 09:00 12/05/17 08:59 Epoetin Binu (Procrit (for ESRD on dialysis)) 10,000 units SUN-SUN-SUN SUBQ 11/09/17 21:00 12/07/17 20:59 11/09/17 21:53 Heparin Sodium (Porcine) (Heparin 5000 units/ml) 5,000 units Q12HR SUBQ 11/07/17 22:00 12/07/17 21:59 11/11/17 21:48 Hydromorphone HCl (Dilaudid) 1 mg Q4H PRN IVP SEVERE BREAKTHROUGH PAIN 11/11/17 14:30 11/14/17 21:59 Insulin Aspart (NovoLOG) BEFORE MEALS AND HS SUBQ 11/07/17 22:00 12/07/17 21:59 11/12/17 06:51 Insulin Detemir (Levemir) 10 units BID SUBQ 11/10/17 18:00 12/10/17 17:59 11/11/17 17:11 Labetalol HCl (Normodyne) 100 mg THREE TIMES A DAY ORAL 11/08/17 09:00 12/05/17 08:59 11/11/17 17:10 Loperamide HCl (Imodium) 2 mg Q4H PRN ORAL Diarrhea 11/08/17 18:30 12/08/17 18:29 11/11/17 09:07 Megestrol Acetate (Megace) 800 mg DAILY ORAL 11/08/17 09:00 12/07/17 08:59 11/11/17 07:55 Mycophenolate Mofetil (Cellcept) 500 mg Q12HR ORAL 11/07/17 22:00 12/07/17 21:59 11/11/17 21:37 Oxybutynin Chloride (Ditropan) 5 mg Q12HR ORAL 11/07/17 22:00 12/07/17 21:59 11/11/17 21:37 Pantoprazole (Protonix) 40 mg DAILY ORAL 11/08/17 09:00 12/08/17 08:59 11/11/17 07:55 Piperacillin Sod/ Tazobactam Sod 2.25 gm/Sodium Chloride 55 ml @ 110 mls/hr Q8HR IV 11/09/17 22:00 11/17/17 21:59 11/12/17 06:49 Sodium Citrate (Bicitra) 30 ml EVERY 6 HOURS ORAL 11/10/17 18:00 12/10/17 17:59 11/12/17 05:40 Tacrolimus (Prograf) 1 mg BID ORAL 11/08/17 09:00 12/05/17 08:59 11/11/17 17:10 Rupinder Perez M.D. Nov 12, 2017 10:40
--- NOTE | 2017-11-12 11:36 | Internal Med Progress Note ---
Subjective Date of Service: Nov 12, 2017 Physician Name Bisi Conde Attending Physician Kristian Gaona MD Current Medications Medications (Trade) Dose Ordered Sig/Vincent Route PRN Reason Start Time Stop Time Status Last Admin Dose Admin Acetaminophen/ Hydrocodone Bitart ([place] 10/325) 1 ea Q4H PRN ORAL Severe Pain (Pain Scale 7-10) 11/11/17 14:30 11/18/17 14:29 Acetaminophen/ Hydrocodone Bitart ([place] 5/325) 1 tab Q6H PRN ORAL Moderate Pain (Pain Scale 4-6) 11/11/17 14:15 11/18/17 23:59 11/11/17 19:16 Allopurinol (Zyloprim) 100 mg BID ORAL 11/08/17 09:00 12/05/17 08:59 11/11/17 17:10 Amlodipine Besylate (Norvasc) 10 mg DAILY ORAL 11/08/17 09:00 12/05/17 08:59 11/11/17 07:54 Baclofen (Lioresal) 20 mg Q8H PRN ORAL Muscle Spasm 11/09/17 18:00 12/09/17 17:59 Calcium Carbonate (Os-Jeancarlos) 1,250 mg THREE TIMES A DAY ORAL 11/10/17 18:00 12/10/17 17:59 11/11/17 17:10 Chlorpromazine 25 mg/Sodium Chloride 111 ml @ 222 mls/hr Q8H PRN IVPB HICCUPS 11/07/17 22:00 12/06/17 21:59 11/10/17 21:02 Clindamycin HCl/ Dextrose 50 ml @ 100 mls/hr Q8HR IV 11/07/17 22:00 11/20/17 21:59 11/12/17 05:40 Clonidine HCl (Catapres) 0.1 mg EVERY 6 HOURS PRN ORAL SBP > 160 mm Hg 11/09/17 07:45 12/09/17 07:44 11/10/17 04:58 Daptomycin 250 mg/ Sodium Chloride 55 ml @ 100 mls/hr EVERY OTHER DAY@1730 IV 11/09/17 17:30 11/16/17 17:29 11/11/17 17:09 Dextrose (Dextrose 50%) STAT PRN IV Hypoglycemia 11/07/17 22:00 12/07/17 21:59 Docusate Sodium (Colace) 100 mg BID ORAL 11/08/17 09:00 12/05/17 08:59 Epoetin Binu (Procrit (for ESRD on dialysis)) 10,000 units SUN-SUN-SUN SUBQ 11/09/17 21:00 12/07/17 20:59 11/09/17 21:53 Heparin Sodium (Porcine) (Heparin 5000 units/ml) 5,000 units Q12HR SUBQ 11/07/17 22:00 12/07/17 21:59 11/11/17 21:48 Hydromorphone HCl (Dilaudid) 1 mg Q4H PRN IVP SEVERE BREAKTHROUGH PAIN 11/11/17 14:30 11/14/17 21:59 Insulin Aspart (NovoLOG) BEFORE MEALS AND HS SUBQ 11/07/17 22:00 12/07/17 21:59 11/12/17 06:51 Insulin Detemir (Levemir) 10 units BID SUBQ 11/10/17 18:00 12/10/17 17:59 11/11/17 17:11 Labetalol HCl (Normodyne) 100 mg THREE TIMES A DAY ORAL 11/08/17 09:00 12/05/17 08:59 11/11/17 17:10 Loperamide HCl (Imodium) 2 mg Q4H PRN ORAL Diarrhea 11/08/17 18:30 12/08/17 18:29 11/11/17 09:07 Megestrol Acetate (Megace) 800 mg DAILY ORAL 11/08/17 09:00 12/07/17 08:59 11/11/17 07:55 Mycophenolate Mofetil (Cellcept) 500 mg Q12HR ORAL 11/07/17 22:00 12/07/17 21:59 11/11/17 21:37 Oxybutynin Chloride (Ditropan) 5 mg Q12HR ORAL 11/07/17 22:00 12/07/17 21:59 11/11/17 21:37 Pantoprazole (Protonix) 40 mg DAILY ORAL 11/08/17 09:00 12/08/17 08:59 11/11/17 07:55 Piperacillin Sod/ Tazobactam Sod 2.25 gm/Sodium Chloride 55 ml @ 110 mls/hr Q8HR IV 11/09/17 22:00 11/17/17 21:59 11/12/17 06:49 Sodium Citrate (Bicitra) 30 ml EVERY 6 HOURS ORAL 11/10/17 18:00 12/10/17 17:59 11/12/17 05:40 Tacrolimus (Prograf) 1 mg BID ORAL 11/08/17 09:00 12/05/17 08:59 11/11/17 17:10 Allergies: Coded Allergies: NO KNOWN ALLERGIES (Unverified Allergy, Unknown, 10/24/15) ROS Limited/Unobtainable: No Constitutional: Reports: no symptoms HEENT: Reports: no symptoms Cardiovascular: Reports: no symptoms Respiratory: Reports: no symptoms Gastrointestinal/Abdominal: Reports: no symptoms Genitourinary: Reports: no symptoms Neurologic/Psychiatric: Reports: no symptoms Subjective 56 YO M admitted with left hip pain. Now cellulitis left hip and sepsis. Also UTI. Cover for Int Med-Dr Gaona. S/P bedside Incision and drainage 11/06/17. Finger stick glucose continues to be elevated. Await repeat CT left hip Objective Last Vital Signs Date Time Temp Pulse Resp B/P (MAP) Pulse Ox O2 Delivery O2 Flow Rate FiO2 11/12/17 08:00 98.0 93 19 163/79 95 11/12/17 04:00 Room Air Laboratory Tests Test 11/12/17 05:20 White Blood Count 6.3 K/UL (4.8-10.8) Red Blood Count 3.24 M/UL (4.70-6.10) L Hemoglobin 8.9 G/DL (14.2-18.0) L Hematocrit 27.9 % (42.0-52.0) L Mean Corpuscular Volume 86 FL (80-99) Mean Corpuscular Hemoglobin 27.4 PG (27.0-31.0) Mean Corpuscular Hemoglobin Concent 31.8 G/DL (32.0-36.0) L Red Cell Distribution Width 14.3 % (11.6-14.8) Platelet Count 234 K/UL (150-450) Mean Platelet Volume 7.2 FL (6.5-10.1) Neutrophils (%) (Auto) 71.6 % (45.0-75.0) Lymphocytes (%) (Auto) 12.7 % (20.0-45.0) L Monocytes (%) (Auto) 14.1 % (1.0-10.0) H Eosinophils (%) (Auto) 0.7 % (0.0-3.0) Basophils (%) (Auto) 0.9 % (0.0-2.0) Sodium Level 131 MMOL/L (136-145) L Potassium Level 3.7 MMOL/L (3.5-5.1) Chloride Level 97 MMOL/L (98-107) L Carbon Dioxide Level 21 MMOL/L (21-32) Anion Gap 13 mmol/L (5-15) Blood Urea Nitrogen 31 mg/dL (7-18) H Creatinine 3.5 MG/DL (0.55-1.30) H Estimat Glomerular Filtration Rate 18.1 mL/min (>60) Glucose Level 165 MG/DL (74-106) H Calcium Level 6.5 MG/DL (8.5-10.1) L Microbiology Date/Time Source Procedure Growth Status 11/10/17 12:45 Blood Blood Culture - Preliminary NO GROWTH AFTER 24 HOURS Resulted 11/10/17 12:31 Blood Blood Culture - Preliminary NO GROWTH AFTER 24 HOURS Resulted Intake and Output 11/11/17 11/12/17 19:00 07:00 Intake Total 720 ml 1155 ml Output Total 1400 ml 1900 ml Balance -680 ml -745 ml Intake Oral 720 ml 1000 ml IV Total 155 ml Output Urine Total 1400 ml 1900 ml # Bowel Movements 8 1 Objective General Appearance: alert, mild distress, thin EENT: PERRL/EOMI, normal ENT inspection, TMs normal Neck: non-tender, normal alignment, supple, normal inspection Cardiovascular: normal peripheral pulses, normal rate, regular rhythm, no gallop/murmur, no JVD Respiratory/Chest: chest wall non-tender, lungs clear, normal breath sounds, no respiratory distress, no accessory muscle use Abdomen: normal bowel sounds, non tender, soft, no organomegaly, no mass Extremities: normal range of motion 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 Increase levemir to BID (2) ESRD (end stage renal disease) on dialysis Assessment & Plan: S/P hemodialysis 11/10/17. See nephrology note. (3) Renal transplant, status post (4) HTN (hypertension) Assessment & Plan: Continue labetolol and norvasc. (5) Hypercholesteremia (6) Seizure disorder (7) Peripheral vascular disease (8) Cellulitis of hip, left Assessment & Plan: S/P Incision and Drainage 11/06/17. see surgery note. Cont zosyn per ID (9) Hip pain, left Assessment & Plan: S/P I & D. Await repeat CT Hip. See surgery note. (10) UTI (urinary tract infection) Assessment & Plan: Klebsiella pneumo and E.coli. Cont zosyn per ID (11) Sepsis Assessment & Plan: E.Coli. Continue zosyn per ID. (12) Diarrhea Assessment & Plan: Await c.diff and culture results. Imodium prn Assessment/Plan Discharge planning: Patient requests transfer to [facility] BISI CONDE Nov 12, 2017 11:36
[2017-11-12] MEDS: Docusate 100mg cap ORAL SCH ×2 (11:51→18:00)
[2017-11-12] MEDS: Megace 400mg/10ml Susp ORAL SCH (11:51)
[2017-11-12] MEDS: Oxybutynin 5mg tab ORAL SCH ×2 (11:51→21:33)
[2017-11-12] MEDS: Allopurinol 100mg Tab ORAL SCH ×2 (11:51→18:28)
[2017-11-12] MEDS: Mycophenolate 250mg cap ORAL SCH ×2 (11:52→21:33)
[2017-11-12] MEDS: Heparin 5000 units/ml inj SUBQ SCH ×2 (11:55→21:47)
[2017-11-12 12:00] VITALS: BP 158/78
[2017-11-12 16:00] VITALS: BP 111/69
[2017-11-12] MEDS: Loperamide 2mg cap ORAL PRN (16:09)
--- NOTE | 2017-11-12 16:15 | General Surgery Progress Note ---
General Surgery-Progress Note Subjective Procedure Performed local exploration of left hip Symptoms: improved Additional Comments pain improved. tolerating diet. no fevers. no n/v/c. comfortable. good bm's Objective Last 24 Hour Vital Signs Date Time Temp Pulse Resp B/P (MAP) Pulse Ox O2 Delivery O2 Flow Rate FiO2 11/12/17 14:40 92 158/78 11/12/17 12:00 98.2 92 19 158/78 97 11/12/17 11:52 93 163/79 11/12/17 11:51 93 163/79 11/12/17 08:00 98.0 93 19 163/79 95 11/12/17 04:00 98.0 82 19 132/74 98 Room Air 11/12/17 00:00 98.4 79 18 136/66 99 Room Air 11/11/17 20:00 97.8 90 19 138/68 97 Room Air 11/11/17 17:10 86 148/76 I&O Intake and Output 11/11/17 11/12/17 19:00 07:00 Intake Total 720 ml 1155 ml Output Total 1400 ml 1900 ml Balance -680 ml -745 ml Intake Oral 720 ml 1000 ml IV Total 155 ml Output Urine Total 1400 ml 1900 ml # Bowel Movements 8 1 Drains: none Cardiovascular: RSR Respiratory: clear Abdomen: soft, non-tender, present bowel sounds Extremities: no tenderness Laboratory Tests Test 11/12/17 05:20 White Blood Count 6.3 K/UL (4.8-10.8) Red Blood Count 3.24 M/UL (4.70-6.10) L Hemoglobin 8.9 G/DL (14.2-18.0) L Hematocrit 27.9 % (42.0-52.0) L Mean Corpuscular Volume 86 FL (80-99) Mean Corpuscular Hemoglobin 27.4 PG (27.0-31.0) Mean Corpuscular Hemoglobin Concent 31.8 G/DL (32.0-36.0) L Red Cell Distribution Width 14.3 % (11.6-14.8) Platelet Count 234 K/UL (150-450) Mean Platelet Volume 7.2 FL (6.5-10.1) Neutrophils (%) (Auto) 71.6 % (45.0-75.0) Lymphocytes (%) (Auto) 12.7 % (20.0-45.0) L Monocytes (%) (Auto) 14.1 % (1.0-10.0) H Eosinophils (%) (Auto) 0.7 % (0.0-3.0) Basophils (%) (Auto) 0.9 % (0.0-2.0) Sodium Level 131 MMOL/L (136-145) L Potassium Level 3.7 MMOL/L (3.5-5.1) Chloride Level 97 MMOL/L (98-107) L Carbon Dioxide Level 21 MMOL/L (21-32) Anion Gap 13 mmol/L (5-15) Blood Urea Nitrogen 31 mg/dL (7-18) H Creatinine 3.5 MG/DL (0.55-1.30) H Estimat Glomerular Filtration Rate 18.1 mL/min (>60) Glucose Level 165 MG/DL (74-106) H Calcium Level 6.5 MG/DL (8.5-10.1) L Plan Problems: (1) Sepsis Assessment & Plan: 56M who presents with left hip pain and found to be septic. HD stable, presented with leukocytosis, CRP/ESR elevated, CT with gas in left hip. no trauma noted in area. concerning for gas forming bacterial infection. pain out of proportion to exam in left hip. on exam very tender initially. POD #1 s/p bedside exploration of left hip. subq tissues, fascia, and muscle all intact and viable. no infectious process noted. POD #2 - wound clean. no signs of infection. minimal tenderness on palpation. serous drainage. POD #3 - wound clean without signs of infection. no tenderness. serous drainage. CRP/ESR elevated. leukocytosis resolved. low grade fevers. POD #4 - wound clean, no signs of infection. non tender, minimal serous drainage. CRP down, ESR up. no leukocytosis. POD #5 - wound clean and stable. Afebrile, labs improved. CT reviewed and improved. CXR okay, pending cultures POD #6 - wound almost healed. just small superficial wound left. afebrile, labs okay. repeat CT improved. -continue with local wound care. -continue Abx as per ID thank you for this consultation. will follow with recs. Willie Davies Nov 12, 2017 16:15
[2017-11-12] MEDS: HYDROcodone/Acetamin 10/325 tab ORAL PRN (16:16)
[2017-11-12 20:00] VITALS: BP 126/65
[2017-11-12] MEDS: Epogen (for ESRD on dialysis) SUBQ SCH (21:33)
--- NOTE | 2017-11-12 22:41 | Pulmonology Progress Note ---
Assessment/Plan Problems: (1) Sepsis (2) Metabolic acidosis (3) Hiccups (4) Diabetes mellitus (5) Hip pain, left (6) Failure to thrive (7) ESRF (end stage renal failure) Assessment/Plan improving continue abx as per ID check h/h check electrolytes hiccup is controlled. on HD check electrolytes check wbc pt wants to go to [facility] Subjective ROS Limited/Unobtainable: No Constitutional: Reports: no symptoms HEENT: Repors: no symptoms Respiratory: Reports: no symptoms Allergies: Coded Allergies: NO KNOWN ALLERGIES (Unverified Allergy, Unknown, 10/24/15) Objective Last 24 Hour Vital Signs Date Time Temp Pulse Resp B/P (MAP) Pulse Ox O2 Delivery O2 Flow Rate FiO2 11/12/17 20:00 97.8 82 18 126/65 100 11/12/17 18:27 92 158/78 11/12/17 17:15 98.2 11/12/17 16:00 96.6 90 16 111/69 98 11/12/17 14:40 92 158/78 11/12/17 12:00 98.2 92 19 158/78 97 11/12/17 11:52 93 163/79 11/12/17 11:51 93 163/79 11/12/17 08:00 98.0 93 19 163/79 95 11/12/17 04:00 98.0 82 19 132/74 98 Room Air 11/12/17 00:00 98.4 79 18 136/66 99 Room Air Intake and Output 11/11/17 11/12/17 19:00 07:00 Intake Total 720 ml 1155 ml Output Total 1400 ml 1900 ml Balance -680 ml -745 ml Intake Oral 720 ml 1000 ml IV Total 155 ml Output Urine Total 1400 ml 1900 ml # Bowel Movements 8 1 Objective Objective General Appearance: no acute distress HEENT: normocephalic, atraumatic Respiratory/Chest: lungs clear, no respiratory distress, no accessory muscle use Cardiovascular: normal rate, no JVD, CL-femoral intact Abdomen: normal bowel sounds, soft, non tender Extremities: no edema Neurologic/Psychiatric: alert, responsive Musculoskeletal: normal muscle bulk Microbiology Date/Time Source Procedure Growth Status 11/10/17 12:45 Blood Blood Culture - Preliminary NO GROWTH AFTER 24 HOURS Resulted 11/10/17 12:31 Blood Blood Culture - Preliminary NO GROWTH AFTER 24 HOURS Resulted Laboratory Tests 11/12/17 05:20: White Blood Count 6.3, Red Blood Count 3.24L, Hemoglobin 8.9L, Hematocrit 27.9L , Mean Corpuscular Volume 86, Mean Corpuscular Hemoglobin 27.4, Mean Corpuscular Hemoglobin Concent 31.8L, Red Cell Distribution Width 14.3, Platelet Count 234, Mean Platelet Volume 7.2, Neutrophils (%) (Auto) 71.6, Lymphocytes (%) (Auto) 12.7L, Monocytes (%) (Auto) 14.1H, Eosinophils (%) (Auto ) 0.7, Basophils (%) (Auto) 0.9, Sodium Level 131L, Potassium Level 3.7, Chloride Level 97L, Carbon Dioxide Level 21, Anion Gap 13, Blood Urea Nitrogen 31H, Creatinine 3.5H, Estimat Glomerular Filtration Rate 18.1, Glucose Level 165H, Calcium Level 6.5L Current Medications Medications (Trade) Dose Ordered Sig/Vincent Route PRN Reason Start Time Stop Time Status Last Admin Dose Admin Acetaminophen/ Hydrocodone Bitart ([place] 10/325) 1 ea Q4H PRN ORAL Severe Pain (Pain Scale 7-10) 11/11/17 14:30 11/18/17 14:29 11/12/17 16:16 Acetaminophen/ Hydrocodone Bitart ([place] 5/325) 1 tab Q6H PRN ORAL Moderate Pain (Pain Scale 4-6) 11/11/17 14:15 11/18/17 23:59 11/11/17 19:16 Allopurinol (Zyloprim) 100 mg BID ORAL 11/08/17 09:00 12/05/17 08:59 11/12/17 18:28 Amlodipine Besylate (Norvasc) 10 mg DAILY ORAL 11/08/17 09:00 12/05/17 08:59 11/12/17 11:52 Baclofen (Lioresal) 20 mg Q8H PRN ORAL Muscle Spasm 11/09/17 18:00 12/09/17 17:59 Calcium Carbonate (Os-Jeancarlos) 1,250 mg THREE TIMES A DAY ORAL 11/10/17 18:00 12/10/17 17:59 11/12/17 18:27 Chlorpromazine 25 mg/Sodium Chloride 111 ml @ 222 mls/hr Q8H PRN IVPB HICCUPS 11/07/17 22:00 12/06/17 21:59 11/10/17 21:02 Clindamycin HCl/ Dextrose 50 ml @ 100 mls/hr Q8HR IV 11/07/17 22:00 11/20/17 21:59 11/12/17 22:38 Clonidine HCl (Catapres) 0.1 mg EVERY 6 HOURS PRN ORAL SBP > 160 mm Hg 11/09/17 07:45 12/09/17 07:44 11/10/17 04:58 Daptomycin 250 mg/ Sodium Chloride 55 ml @ 100 mls/hr EVERY OTHER DAY@1730 IV 11/09/17 17:30 11/16/17 17:29 11/11/17 17:09 Dextrose (Dextrose 50%) STAT PRN IV Hypoglycemia 11/07/17 22:00 12/07/17 21:59 Docusate Sodium (Colace) 100 mg BID ORAL 11/08/17 09:00 12/05/17 08:59 11/12/17 11:51 Epoetin Binu (Procrit (for ESRD on dialysis)) 10,000 units MON-WED-FRI SUBQ 11/09/17 21:00 12/07/17 20:59 11/12/17 21:33 Heparin Sodium (Porcine) (Heparin 5000 units/ml) 5,000 units Q12HR SUBQ 11/07/17 22:00 12/07/17 21:59 11/12/17 21:47 Hydromorphone HCl (Dilaudid) 1 mg Q4H PRN IVP SEVERE BREAKTHROUGH PAIN 11/11/17 14:30 11/14/17 21:59 Insulin Aspart (NovoLOG) BEFORE MEALS AND HS SUBQ 11/07/17 22:00 12/07/17 21:59 11/12/17 21:45 Insulin Detemir (Levemir) 10 units BID SUBQ 11/10/17 18:00 12/10/17 17:59 11/12/17 18:31 Labetalol HCl (Normodyne) 100 mg THREE TIMES A DAY ORAL 11/08/17 09:00 12/05/17 08:59 11/12/17 18:27 Loperamide HCl (Imodium) 2 mg Q4H PRN ORAL Diarrhea 11/08/17 18:30 12/08/17 18:29 11/12/17 16:09 Megestrol Acetate (Megace) 800 mg DAILY ORAL 11/08/17 09:00 12/07/17 08:59 11/12/17 11:51 Mycophenolate Mofetil (Cellcept) 500 mg Q12HR ORAL 11/07/17 22:00 12/07/17 21:59 11/12/17 21:33 Oxybutynin Chloride (Ditropan) 5 mg Q12HR ORAL 11/07/17 22:00 12/07/17 21:59 11/12/17 21:33 Pantoprazole (Protonix) 40 mg DAILY ORAL 11/08/17 09:00 12/08/17 08:59 11/12/17 11:51 Piperacillin Sod/ Tazobactam Sod 2.25 gm/Sodium Chloride 55 ml @ 110 mls/hr Q8HR IV 11/09/17 22:00 11/17/17 21:59 11/12/17 16:09 Sodium Citrate (Bicitra) 30 ml EVERY 6 HOURS ORAL 11/10/17 18:00 12/10/17 17:59 11/12/17 18:27 Tacrolimus (Prograf) 1 mg BID ORAL 11/08/17 09:00 12/05/17 08:59 11/12/17 18:27 JOCELYN LAMA Nov 12, 2017 22:41
[2017-11-13] VITALS: BP 121/64
[2017-11-13 04:59] VITALS: BP 115/61
[2017-11-13] MEDS: Clindamycin 900mg 50 ML IV SCH (05:28)
[2017-11-13] MEDS: Sodium Citrate 30ml ORAL SCH ×4 (06:10→23:47)
[2017-11-13] MEDS: Piperacillin/Tazobactam 2.25 GM in NS 55 ML IV SCH ×3 (06:11→22:09)
[2017-11-13] MEDS: NovoLOG Insulin Flexpen SUBQ SCH ×4 (06:24→22:17)
[2017-11-13 07:20] LABS: CREATINE KINASE 48 U/L (26-308)
[2017-11-13 08:00] VITALS: BP 136/76
[2017-11-13] MEDS: Oxybutynin 5mg tab ORAL SCH ×2 (08:22→22:08)
[2017-11-13] MEDS: Docusate 100mg cap ORAL SCH ×2 (08:22→18:39)
[2017-11-13] MEDS: Mycophenolate 250mg cap ORAL SCH ×2 (08:23→22:08)
[2017-11-13] MEDS: Allopurinol 100mg Tab ORAL SCH ×2 (08:26→18:39)
[2017-11-13] MEDS: Heparin 5000 units/ml inj SUBQ SCH ×2 (08:30→22:18)
[2017-11-13] MEDS: Levemir Flexpen SUBQ SCH ×2 (08:31→18:40)
--- NOTE | 2017-11-13 08:54 | Nephrology Progress Note ---
Assessment/Plan Assessment 1. Anion gap, and none gap acidosis. 2. Hypovolemic hyponatremia. 3. Hypokalemia. 4. Acute on chronic renal failure. 5.ckd stage 5 6.anemia of ckd 7.hypocalcemia 9.JUSTEN Plan mix all ivpb with ns.9 replace electrolyte (mg) start bicitra d/c lasix check vit d Subjective Subjective c/o left hip pain Objective Objective Last 24 Hour Vital Signs Date Time Temp Pulse Resp B/P (MAP) Pulse Ox O2 Delivery O2 Flow Rate FiO2 11/13/17 08:24 87 136/76 11/13/17 08:23 87 136/76 11/13/17 08:00 99.1 87 20 136/76 100 Room Air 11/13/17 04:59 98.0 80 18 115/61 97 11/13/17 00:00 97.9 77 19 121/64 98 11/12/17 20:00 97.8 82 18 126/65 100 11/12/17 18:27 92 158/78 11/12/17 17:15 98.2 11/12/17 16:00 96.6 90 16 111/69 98 11/12/17 14:40 92 158/78 11/12/17 12:00 98.2 92 19 158/78 97 11/12/17 11:52 93 163/79 11/12/17 11:51 93 163/79 Intake and Output 11/12/17 11/13/17 19:00 07:00 Intake Total 655 ml 420 ml Balance 655 ml 420 ml Intake Oral 550 ml 420 ml IV Total 105 ml # Voids 1 5 # Bowel Movements 2 Laboratory Tests 11/13/17 04:00: Total Creatine Kinase 48, C-Reactive Protein, Quantitative 16.0H Height (Feet): 5 Height (Inches): 10.00 Weight (Pounds): 150 Objective HEAD AND NECK: No JVP. No LAD. No thyromegaly. Extraocular movement intact. Pupils are reactive to light and accommodation. LUNGS: Decreased breathing sound on the both sides. CARDIAC: Regular rate and rhythm. S1 and S2. No murmur. No rub. ABDOMEN: Soft, nontender, and nondistended. EXTREMITIES: Trace edema. No clubbing. No cyanosis. ASTER NEFF Nov 13, 2017 08:54
[2017-11-13 09:31] LABS: ALANINE AMINOTRANSFERASE 8 U/L (12-78); ALBUMIN 1.7 G/DL (3.4-5.0); ALBUMIN/GLOBULIN RATIO 0.5 (1.0-2.7); ALKALINE PHOSPHATASE 58 U/L (46-116); ANION GAP 13 mmol/L (5-15); ASPARTATE AMINO TRANSFERASE 21 U/L (15-37); BILIRUBIN,TOTAL 0.5 MG/DL (0.2-1.0); BLOOD UREA NITROGEN 33 mg/dL (7-18); CALCIUM 6.5 MG/DL (8.5-10.1); CARBON DIOXIDE 21 MMOL/L (21-32); CHLORIDE 96 MMOL/L (98-107); CREATININE 3.6 MG/DL (0.55-1.30); POTASSIUM 4.1 MMOL/L (3.5-5.1); SODIUM 130 MMOL/L (136-145)
--- NOTE | 2017-11-13 10:46 | General Surgery Progress Note ---
General Surgery-Progress Note Subjective Procedure Performed local exploration of left hip Symptoms: improved Additional Comments pain improved. wound improved. CT improved. no complaints. comfortable. no longer has hiccups. tolerating diet. Objective Last 24 Hour Vital Signs Date Time Temp Pulse Resp B/P (MAP) Pulse Ox O2 Delivery O2 Flow Rate FiO2 11/13/17 08:24 87 136/76 11/13/17 08:23 87 136/76 11/13/17 08:00 Room Air 11/13/17 08:00 99.1 87 20 136/76 100 Room Air 11/13/17 04:59 98.0 80 18 115/61 97 11/13/17 00:00 97.9 77 19 121/64 98 11/12/17 20:00 97.8 82 18 126/65 100 11/12/17 18:27 92 158/78 11/12/17 17:15 98.2 11/12/17 16:00 96.6 90 16 111/69 98 11/12/17 14:40 92 158/78 11/12/17 12:00 98.2 92 19 158/78 97 11/12/17 11:52 93 163/79 11/12/17 11:51 93 163/79 I&O Intake and Output 11/12/17 11/13/17 19:00 07:00 Intake Total 655 ml 420 ml Balance 655 ml 420 ml Intake Oral 550 ml 420 ml IV Total 105 ml # Voids 1 5 # Bowel Movements 2 Cardiovascular: RSR Respiratory: clear Abdomen: soft, flat, non-tender, present bowel sounds Extremities: no tenderness Laboratory Tests Test 11/13/17 04:00 Sodium Level 130 MMOL/L (136-145) L Potassium Level 4.1 MMOL/L (3.5-5.1) Chloride Level 96 MMOL/L (98-107) L Carbon Dioxide Level 21 MMOL/L (21-32) Anion Gap 13 mmol/L (5-15) Blood Urea Nitrogen 33 mg/dL (7-18) H Creatinine 3.6 MG/DL (0.55-1.30) H Estimat Glomerular Filtration Rate 17.6 mL/min (>60) Glucose Level 147 MG/DL (74-106) H Calcium Level 6.5 MG/DL (8.5-10.1) L Total Bilirubin 0.5 MG/DL (0.2-1.0) Aspartate Amino Transf (AST/SGOT) 21 U/L (15-37) Alanine Aminotransferase (ALT/SGPT) 8 U/L (12-78) L Alkaline Phosphatase 58 U/L (46-116) Total Creatine Kinase 48 U/L (26-308) C-Reactive Protein, Quantitative 16.0 mg/dL (0.00-0.90) H Total Protein 5.4 G/DL (6.4-8.2) L Albumin 1.7 G/DL (3.4-5.0) L Globulin 3.7 g/dL Albumin/Globulin Ratio 0.5 (1.0-2.7) L Plan Problems: (1) Sepsis Assessment & Plan: 56M who presents with left hip pain and found to be septic. HD stable, presented with leukocytosis, CRP/ESR elevated, CT with gas in left hip. no trauma noted in area. concerning for gas forming bacterial infection. pain out of proportion to exam in left hip. on exam very tender initially. POD #1 s/p bedside exploration of left hip. subq tissues, fascia, and muscle all intact and viable. no infectious process noted. POD #2 - wound clean. no signs of infection. minimal tenderness on palpation. serous drainage. POD #3 - wound clean without signs of infection. no tenderness. serous drainage. CRP/ESR elevated. leukocytosis resolved. low grade fevers. POD #4 - wound clean, no signs of infection. non tender, minimal serous drainage. CRP down, ESR up. no leukocytosis. POD #5 - wound clean and stable. Afebrile, labs improved. CT reviewed and improved. CXR okay, pending cultures POD #6 - wound almost healed. just small superficial wound left. afebrile, labs okay. repeat CT improved. POD #7 - wound healing. afebrile, HD stable, labs okay, CRP down to 16. unfortunately Cr worsening. -continue with local wound care. -continue Abx as per ID -renal as per nephrology thank you for this consultation. will follow with recs. Willie Davies Nov 13, 2017 10:46
--- NOTE | 2017-11-13 10:47 | Infectious Diseases Prog Note ---
Assessment/Plan Assessment/Plan High grade E.coli bacteremia- Likely 2ry UTI vs buttocks skin soft tissue infection base on CT findings -repeat Bcx 11/05 NTD x4, 11/10 Bcx NTD Severe L hip/thigh/ pain - pain out of proportion with physical findings and with gas on CT are very suspicious for myonecrosis (clostridial gangrene) - DDx necrotizing fascitis. No fractures. ; clinically improving (decrease pain and TTP); improving -now afebrile, Leukocytosis resolved, CRP improving --unclear- as bedside surgical exploration showed normal healthy tissues and no gas; will closely monitor for worsening -CT L Hip 11/11 :Small amount of gas noted within soft tissues adjacent to greater trochanger deep to tensor fascia elisha decreased from prior study. -CT L hip: No acute fractures. No dislocations. The joint spaces are preserved. Gas within the soft tissues of the left hip and buttock region. This may indicate penetrating trauma, but is worrisome for infection with gas- forming organism. There is equivocal mild thickening of the bladder wall -11/06 ESR 50, CRP 40> 11/08 CRP 55.6; normal CK -CT abd/p wo 11/06: Small left inguinal hernia containing nonobstructive loops of small bowel. Persistent gas within the soft tissues of the left hip and buttock region although the amount of gas decreased compared to exam of 11/04/2017. There is slight asymmetry and engorgement of the musculature in this region possibly related to edema and/or phlegmonous change. No definite well-defined/drainable fluid collection is identified however evaluation is limited without intravenous contrast. Again, these findings may be secondary to penetrating trauma versus infection with gas- forming organism. Correlation with clinical history and physical exam findings recommended. Consider ultrasound to assess for defined/drainable fluid collection. Bladder wall thickening may be related to underdistention. Correlate with urinalysis to exclude cystitis. Air within the bladder may be related to prior catheterization. K.pna and E.coli UTI -u/a wbc 10-15, nit neg, leuk +1; UCx >100k K Pna ( R amp anb Nitro, otherwise sensitive); >100K E.coli #2 (beasley S) Low grade fever- resolved mild leukocytosis- SP DM2, HTN, seizure disorder, brain surgery (~10 yrs ago), HLD, PVD s/p amputation L great toe, ESRD s/p Renal transplant 2012- not on HD, but now requiring HD- improving Cr L eye prosthesis Plan: - cont Daptomycin d# 5 (abx d #8/14 4mg/kg q48hrs) given renal insufficiency and renal transplant and Zosyn # 9/14, and Clindamycin # 8/14 for possible gas- forming infection on L buttocks; upon discharge can finish course with IV Dapto 4mg/kg q 48hrs, Oral clindamycin 900 q8hrs and Ertapenem 1g daily to complete 14 day course; via PIV 11/09 SP IV Vanco #4 -Close monitoring for decompensation; if so may need OR exploration- so far improving -f/u cx -Monitor CBC/BMP, temperatures; Trend CRP [id number] Subjective Allergies: Coded Allergies: NO KNOWN ALLERGIES (Unverified Allergy, Unknown, 10/24/15) Subjective afebrile no leukocytosis CRP continues to improve pain improving awaitint Repeat CT report Objective Vital Signs Last 24 Hour Vital Signs Date Time Temp Pulse Resp B/P (MAP) Pulse Ox O2 Delivery O2 Flow Rate FiO2 11/13/17 08:24 87 136/76 11/13/17 08:23 87 136/76 11/13/17 08:00 Room Air 11/13/17 08:00 99.1 87 20 136/76 100 Room Air 11/13/17 04:59 98.0 80 18 115/61 97 11/13/17 00:00 97.9 77 19 121/64 98 11/12/17 20:00 97.8 82 18 126/65 100 11/12/17 18:27 92 158/78 11/12/17 17:15 98.2 11/12/17 16:00 96.6 90 16 111/69 98 11/12/17 14:40 92 158/78 11/12/17 12:00 98.2 92 19 158/78 97 11/12/17 11:52 93 163/79 11/12/17 11:51 93 163/79 Height (Feet): 5 Height (Inches): 10.00 Weight (Pounds): 150 Objective GENERAL: The patient is a well-developed and well-nourished thin-appearing male, in no apparent distress. HEENT: Eyes, pupils equal and responsive to light and accommodation. Extraocular movements are intact. NECK: Supple without lymphadenopathy. CHEST: Lungs are clear to auscultation bilaterally without wheezes or rales. CARDIOVASCULAR: Regular rhythm and rate. S1 and S2 normal without murmurs, rubs, or gallops. ABDOMEN: Soft, nontender, and nondistended. Positive bowel sounds. No evidence of hepatosplenomegaly. Currently, no rebound or guarding noted. EXTREMITIES: Negative for clubbing, cyanosis, or edema. L Hip,anterior thigh ( unable to evalaute buttocks as patietn getting HD)- severly TTP without concomitnatn inflammatory signs (erythema, warmth),skin break downs Microbiology Date/Time Source Procedure Growth Status 11/10/17 12:45 Blood Blood Culture - Preliminary NO GROWTH AFTER 48 HOURS Resulted 11/10/17 12:31 Blood Blood Culture - Preliminary NO GROWTH AFTER 48 HOURS Resulted Laboratory Tests Test 11/13/17 04:00 Sodium Level 130 MMOL/L (136-145) L Potassium Level 4.1 MMOL/L (3.5-5.1) Chloride Level 96 MMOL/L (98-107) L Carbon Dioxide Level 21 MMOL/L (21-32) Anion Gap 13 mmol/L (5-15) Blood Urea Nitrogen 33 mg/dL (7-18) H Creatinine 3.6 MG/DL (0.55-1.30) H Estimat Glomerular Filtration Rate 17.6 mL/min (>60) Glucose Level 147 MG/DL (74-106) H Calcium Level 6.5 MG/DL (8.5-10.1) L Total Bilirubin 0.5 MG/DL (0.2-1.0) Aspartate Amino Transf (AST/SGOT) 21 U/L (15-37) Alanine Aminotransferase (ALT/SGPT) 8 U/L (12-78) L Alkaline Phosphatase 58 U/L (46-116) Total Creatine Kinase 48 U/L (26-308) C-Reactive Protein, Quantitative 16.0 mg/dL (0.00-0.90) H Total Protein 5.4 G/DL (6.4-8.2) L Albumin 1.7 G/DL (3.4-5.0) L Globulin 3.7 g/dL Albumin/Globulin Ratio 0.5 (1.0-2.7) L Current Medications Medications (Trade) Dose Ordered Sig/Vincent Route PRN Reason Start Time Stop Time Status Last Admin Dose Admin Acetaminophen/ Hydrocodone Bitart ([place] 10/325) 1 ea Q4H PRN ORAL Severe Pain (Pain Scale 7-10) 11/11/17 14:30 11/18/17 14:29 11/12/17 16:16 Acetaminophen/ Hydrocodone Bitart ([place] 5/325) 1 tab Q6H PRN ORAL Moderate Pain (Pain Scale 4-6) 11/11/17 14:15 11/18/17 23:59 11/11/17 19:16 Allopurinol (Zyloprim) 100 mg BID ORAL 11/08/17 09:00 12/05/17 08:59 11/13/17 08:26 Amlodipine Besylate (Norvasc) 10 mg DAILY ORAL 11/08/17 09:00 12/05/17 08:59 11/13/17 08:24 Baclofen (Lioresal) 20 mg Q8H PRN ORAL Muscle Spasm 11/09/17 18:00 12/09/17 17:59 Calcium Carbonate (Os-Jeancarlos) 1,250 mg THREE TIMES A DAY ORAL 11/10/17 18:00 12/10/17 17:59 11/13/17 08:22 Chlorpromazine 25 mg/Sodium Chloride 111 ml @ 222 mls/hr Q8H PRN IVPB HICCUPS 11/07/17 22:00 12/06/17 21:59 11/10/17 21:02 Clindamycin HCl/ Dextrose 50 ml @ 100 mls/hr Q8HR IV 11/07/17 22:00 11/20/17 21:59 11/13/17 05:28 Clonidine HCl (Catapres) 0.1 mg EVERY 6 HOURS PRN ORAL SBP > 160 mm Hg 11/09/17 07:45 12/09/17 07:44 11/10/17 04:58 Daptomycin 250 mg/ Sodium Chloride 55 ml @ 100 mls/hr EVERY OTHER DAY@1730 IV 11/09/17 17:30 11/16/17 17:29 11/11/17 17:09 Dextrose (Dextrose 50%) STAT PRN IV Hypoglycemia 11/07/17 22:00 12/07/17 21:59 Docusate Sodium (Colace) 100 mg BID ORAL 11/08/17 09:00 12/05/17 08:59 11/13/17 08:22 Epoetin Binu (Procrit (for ESRD on dialysis)) 10,000 units SUN-SUN-SUN SUBQ 11/09/17 21:00 12/07/17 20:59 11/12/17 21:33 Heparin Sodium (Porcine) (Heparin 5000 units/ml) 5,000 units Q12HR SUBQ 11/07/17 22:00 12/07/17 21:59 11/13/17 08:30 Hydromorphone HCl (Dilaudid) 1 mg Q4H PRN IVP SEVERE BREAKTHROUGH PAIN 11/11/17 14:30 11/14/17 21:59 Insulin Aspart (NovoLOG) BEFORE MEALS AND HS SUBQ 11/07/17 22:00 12/07/17 21:59 11/13/17 06:24 Insulin Detemir (Levemir) 10 units BID SUBQ 11/10/17 18:00 12/10/17 17:59 11/13/17 08:31 Labetalol HCl (Normodyne) 100 mg THREE TIMES A DAY ORAL 11/08/17 09:00 12/05/17 08:59 11/13/17 08:23 Loperamide HCl (Imodium) 2 mg Q4H PRN ORAL Diarrhea 11/08/17 18:30 12/08/17 18:29 11/12/17 16:09 Megestrol Acetate (Megace) 800 mg DAILY ORAL 11/08/17 09:00 12/07/17 08:59 11/12/17 11:51 Mycophenolate Mofetil (Cellcept) 500 mg Q12HR ORAL 11/07/17 22:00 12/07/17 21:59 11/13/17 08:23 Oxybutynin Chloride (Ditropan) 5 mg Q12HR ORAL 11/07/17 22:00 12/07/17 21:59 11/13/17 08:22 Pantoprazole (Protonix) 40 mg DAILY ORAL 11/08/17 09:00 12/08/17 08:59 11/13/17 08:24 Piperacillin Sod/ Tazobactam Sod 2.25 gm/Sodium Chloride 55 ml @ 110 mls/hr Q8HR IV 11/09/17 22:00 11/17/17 21:59 11/13/17 06:11 Sodium Citrate (Bicitra) 30 ml EVERY 6 HOURS ORAL 11/10/17 18:00 12/10/17 17:59 11/13/17 06:10 Tacrolimus (Prograf) 1 mg BID ORAL 11/08/17 09:00 12/05/17 08:59 11/13/17 08:24 Rupinder Perez M.D. Nov 13, 2017 10:47
[2017-11-13] MEDS: Megace 400mg/10ml Susp ORAL SCH (11:39)
[2017-11-13 12:00] VITALS: BP 135/71
[2017-11-13] MEDS ORDERED: Clindamycin 150mg cap ORAL SCH (14:00)
--- NOTE | 2017-11-13 14:11 | Diagnostic Imaging Report ---
Indication: Cough Technique: XRAY Chest 1v Comparison: 11/04/2017 Findings: Cardiac silhouette is prominent. There is no gross consolidation. A small left pleural effusion is suggested. Degenerative changes of the spine are present. Impression: Small left pleural effusion. Cardiomegaly.
--- NOTE | 2017-11-13 14:11 | Diagnostic Imaging Report ---
Indication: Left hip pain Technique: CT left hip was performed utilizing automated exposure control without intravenous contrast material. Axial and coronal images were generated. CT dose: Total DLP 354 mGycm; CTDI vol 11.9 mGy Comparison: 11/06/2017 Findings: Left lower quadrant transplant kidney is again noted. There is an apparent incision or wound of the left posterior hip. Small amount of gas is also noted adjacent to the left greater trochanter deep to the tensor fascia elisha. Evaluation is limited without contrast but no gross adrenal fluid collections are identified. There is diffuse subcutaneous reticulation of the visualized pelvis. Extensive vascular calcifications are present. There is no acute fracture or dislocation. No obvious osseous erosive changes are seen. Impression: Apparent incision or wound of the left posterior hip. Small amount of gas also noted within the soft tissues adjacent to the greater trochanter deep to the tensor fascia elisha decreased from the prior study. Evaluation limited without contrast but no drainable soft tissue fluid collection. Clinical correlation recommended. Follow-up/further evaluation recommended as indicated. Other findings as above. The CT scanner at [facility] is accredited by the [employer] and the scans are performed using protocols designed to limit radiation exposure to as low as reasonably achievable to attain images of sufficient resolution adequate for diagnostic evaluation.
[2017-11-13] MEDS: Clindamycin 150mg cap ORAL SCH ×2 (14:27→22:09)
[2017-11-13 16:00] VITALS: BP 139/71
--- NOTE | 2017-11-13 16:51 | Pulmonology Progress Note ---
Assessment/Plan Problems: (1) Sepsis (2) Metabolic acidosis (3) Hiccups (4) Diabetes mellitus (5) Hip pain, left (6) Failure to thrive (7) ESRF (end stage renal failure) Assessment/Plan improving continue abx as per ID check h/h check electrolytes hiccup is controlled. on HD check electrolytes check wbc dc planning to finish abx at home Subjective ROS Limited/Unobtainable: No Constitutional: Reports: no symptoms HEENT: Repors: no symptoms Allergies: Coded Allergies: NO KNOWN ALLERGIES (Unverified Allergy, Unknown, 10/24/15) Objective Last 24 Hour Vital Signs Date Time Temp Pulse Resp B/P (MAP) Pulse Ox O2 Delivery O2 Flow Rate FiO2 11/13/17 14:26 85 135/71 11/13/17 12:00 98.6 85 19 135/71 97 11/13/17 12:00 Room Air 11/13/17 08:24 87 136/76 11/13/17 08:23 87 136/76 11/13/17 08:00 Room Air 11/13/17 08:00 99.1 87 20 136/76 100 Room Air 11/13/17 04:59 98.0 80 18 115/61 97 11/13/17 00:00 97.9 77 19 121/64 98 11/12/17 20:00 97.8 82 18 126/65 100 11/12/17 18:27 92 158/78 11/12/17 17:15 98.2 Intake and Output 11/12/17 11/13/17 19:00 07:00 Intake Total 655 ml 420 ml Balance 655 ml 420 ml Intake Oral 550 ml 420 ml IV Total 105 ml # Voids 1 5 # Bowel Movements 2 Objective Objective General Appearance: no acute distress HEENT: normocephalic, atraumatic Respiratory/Chest: lungs clear, no respiratory distress, no accessory muscle use Cardiovascular: normal rate, no JVD, CL-femoral intact Abdomen: normal bowel sounds, soft, non tender Extremities: no edema Neurologic/Psychiatric: alert, responsive Musculoskeletal: normal muscle bulk Laboratory Tests 11/13/17 04:00: Sodium Level 130L, Potassium Level 4.1, Chloride Level 96L, Carbon Dioxide Level 21, Anion Gap 13, Blood Urea Nitrogen 33H, Creatinine 3.6H, Estimat Glomerular Filtration Rate 17.6, Glucose Level 147H, Calcium Level 6.5L, Total Bilirubin 0.5, Aspartate Amino Transf (AST/SGOT) 21, Alanine Aminotransferase ( ALT/SGPT) 8L, Alkaline Phosphatase 58, Total Creatine Kinase 48, C-Reactive Protein, Quantitative 16.0H, Total Protein 5.4L, Albumin 1.7L, Globulin 3.7, Albumin/Globulin Ratio 0.5L Current Medications Medications (Trade) Dose Ordered Sig/Vincent Route PRN Reason Start Time Stop Time Status Last Admin Dose Admin Acetaminophen/ Hydrocodone Bitart ([place] 10/325) 1 ea Q4H PRN ORAL Severe Pain (Pain Scale 7-10) 11/11/17 14:30 11/18/17 14:29 11/12/17 16:16 Acetaminophen/ Hydrocodone Bitart ([place] 5/325) 1 tab Q6H PRN ORAL Moderate Pain (Pain Scale 4-6) 11/11/17 14:15 11/18/17 23:59 11/11/17 19:16 Allopurinol (Zyloprim) 100 mg BID ORAL 11/08/17 09:00 12/05/17 08:59 11/13/17 08:26 Amlodipine Besylate (Norvasc) 10 mg DAILY ORAL 11/08/17 09:00 12/05/17 08:59 11/13/17 08:24 Baclofen (Lioresal) 20 mg Q8H PRN ORAL Muscle Spasm 11/09/17 18:00 12/09/17 17:59 Calcium Carbonate (Os-Jeancarlos) 1,250 mg THREE TIMES A DAY ORAL 11/10/17 18:00 12/10/17 17:59 11/13/17 14:27 Chlorpromazine 25 mg/Sodium Chloride 111 ml @ 222 mls/hr Q8H PRN IVPB HICCUPS 11/07/17 22:00 12/06/17 21:59 11/10/17 21:02 Clindamycin HCl (Cleocin) 600 mg EVERY 8 HOURS ORAL 11/13/17 14:00 11/20/17 13:59 11/13/17 14:27 Clonidine HCl (Catapres) 0.1 mg EVERY 6 HOURS PRN ORAL SBP > 160 mm Hg 11/09/17 07:45 12/09/17 07:44 11/10/17 04:58 Daptomycin 250 mg/ Sodium Chloride 55 ml @ 100 mls/hr EVERY OTHER DAY@1730 IV 11/09/17 17:30 11/16/17 17:29 11/11/17 17:09 Dextrose (Dextrose 50%) STAT PRN IV Hypoglycemia 11/07/17 22:00 12/07/17 21:59 Docusate Sodium (Colace) 100 mg BID ORAL 11/08/17 09:00 12/05/17 08:59 11/13/17 08:22 Epoetin Binu (Procrit (for ESRD on dialysis)) 10,000 units SUN-SUN-SUN SUBQ 11/09/17 21:00 12/07/17 20:59 11/12/17 21:33 Heparin Sodium (Porcine) (Heparin 5000 units/ml) 5,000 units Q12HR SUBQ 11/07/17 22:00 12/07/17 21:59 11/13/17 08:30 Hydromorphone HCl (Dilaudid) 1 mg Q4H PRN IVP SEVERE BREAKTHROUGH PAIN 11/11/17 14:30 11/14/17 21:59 Insulin Aspart (NovoLOG) BEFORE MEALS AND HS SUBQ 11/07/17 22:00 12/07/17 21:59 11/13/17 11:42 Insulin Detemir (Levemir) 10 units BID SUBQ 11/10/17 18:00 12/10/17 17:59 11/13/17 08:31 Labetalol HCl (Normodyne) 100 mg THREE TIMES A DAY ORAL 11/08/17 09:00 12/05/17 08:59 11/13/17 14:26 Loperamide HCl (Imodium) 2 mg Q4H PRN ORAL Diarrhea 11/08/17 18:30 12/08/17 18:29 11/12/17 16:09 Megestrol Acetate (Megace) 800 mg DAILY ORAL 11/08/17 09:00 12/07/17 08:59 11/13/17 11:39 Mycophenolate Mofetil (Cellcept) 500 mg Q12HR ORAL 11/07/17 22:00 12/07/17 21:59 11/13/17 08:23 Oxybutynin Chloride (Ditropan) 5 mg Q12HR ORAL 11/07/17 22:00 12/07/17 21:59 11/13/17 08:22 Pantoprazole (Protonix) 40 mg DAILY ORAL 11/08/17 09:00 12/08/17 08:59 11/13/17 08:24 Piperacillin Sod/ Tazobactam Sod 2.25 gm/Sodium Chloride 55 ml @ 110 mls/hr Q8HR IV 11/09/17 22:00 11/17/17 21:59 11/13/17 14:27 Sodium Citrate (Bicitra) 30 ml EVERY 6 HOURS ORAL 11/10/17 18:00 12/10/17 17:59 11/13/17 14:26 Tacrolimus (Prograf) 1 mg BID ORAL 11/08/17 09:00 12/05/17 08:59 11/13/17 08:24 JOCELYN LAMA Nov 13, 2017 16:50
--- NOTE | 2017-11-13 17:06 | Internal Med Progress Note ---
Subjective Date of Service: Nov 13, 2017 Physician Name Bisi Conde Attending Physician Kristian Gaona MD Current Medications Medications (Trade) Dose Ordered Sig/Vincent Route PRN Reason Start Time Stop Time Status Last Admin Dose Admin Acetaminophen/ Hydrocodone Bitart ([place] 10/325) 1 ea Q4H PRN ORAL Severe Pain (Pain Scale 7-10) 11/11/17 14:30 11/18/17 14:29 11/12/17 16:16 Acetaminophen/ Hydrocodone Bitart ([place] 5/325) 1 tab Q6H PRN ORAL Moderate Pain (Pain Scale 4-6) 11/11/17 14:15 11/18/17 23:59 11/11/17 19:16 Allopurinol (Zyloprim) 100 mg BID ORAL 11/08/17 09:00 12/05/17 08:59 11/13/17 08:26 Amlodipine Besylate (Norvasc) 10 mg DAILY ORAL 11/08/17 09:00 12/05/17 08:59 11/13/17 08:24 Baclofen (Lioresal) 20 mg Q8H PRN ORAL Muscle Spasm 11/09/17 18:00 12/09/17 17:59 Calcium Carbonate (Os-Jeancarlos) 1,250 mg THREE TIMES A DAY ORAL 11/10/17 18:00 12/10/17 17:59 11/13/17 14:27 Chlorpromazine 25 mg/Sodium Chloride 111 ml @ 222 mls/hr Q8H PRN IVPB HICCUPS 11/07/17 22:00 12/06/17 21:59 11/10/17 21:02 Clindamycin HCl (Cleocin) 600 mg EVERY 8 HOURS ORAL 11/13/17 14:00 11/20/17 13:59 11/13/17 14:27 Clonidine HCl (Catapres) 0.1 mg EVERY 6 HOURS PRN ORAL SBP > 160 mm Hg 11/09/17 07:45 12/09/17 07:44 11/10/17 04:58 Daptomycin 250 mg/ Sodium Chloride 55 ml @ 100 mls/hr EVERY OTHER DAY@1730 IV 11/09/17 17:30 11/16/17 17:29 11/11/17 17:09 Dextrose (Dextrose 50%) STAT PRN IV Hypoglycemia 11/07/17 22:00 12/07/17 21:59 Docusate Sodium (Colace) 100 mg BID ORAL 11/08/17 09:00 12/05/17 08:59 11/13/17 08:22 Epoetin Binu (Procrit (for ESRD on dialysis)) 10,000 units SUN-SUN-SUN SUBQ 11/09/17 21:00 12/07/17 20:59 11/12/17 21:33 Heparin Sodium (Porcine) (Heparin 5000 units/ml) 5,000 units Q12HR SUBQ 11/07/17 22:00 12/07/17 21:59 11/13/17 08:30 Hydromorphone HCl (Dilaudid) 1 mg Q4H PRN IVP SEVERE BREAKTHROUGH PAIN 11/11/17 14:30 11/14/17 21:59 Insulin Aspart (NovoLOG) BEFORE MEALS AND HS SUBQ 11/07/17 22:00 12/07/17 21:59 11/13/17 16:55 Insulin Detemir (Levemir) 10 units BID SUBQ 11/10/17 18:00 12/10/17 17:59 11/13/17 08:31 Labetalol HCl (Normodyne) 100 mg THREE TIMES A DAY ORAL 11/08/17 09:00 12/05/17 08:59 11/13/17 14:26 Loperamide HCl (Imodium) 2 mg Q4H PRN ORAL Diarrhea 11/08/17 18:30 12/08/17 18:29 11/12/17 16:09 Megestrol Acetate (Megace) 800 mg DAILY ORAL 11/08/17 09:00 12/07/17 08:59 11/13/17 11:39 Mycophenolate Mofetil (Cellcept) 500 mg Q12HR ORAL 11/07/17 22:00 12/07/17 21:59 11/13/17 08:23 Oxybutynin Chloride (Ditropan) 5 mg Q12HR ORAL 11/07/17 22:00 12/07/17 21:59 11/13/17 08:22 Pantoprazole (Protonix) 40 mg DAILY ORAL 11/08/17 09:00 12/08/17 08:59 11/13/17 08:24 Piperacillin Sod/ Tazobactam Sod 2.25 gm/Sodium Chloride 55 ml @ 110 mls/hr Q8HR IV 11/09/17 22:00 11/17/17 21:59 11/13/17 14:27 Sodium Citrate (Bicitra) 30 ml EVERY 6 HOURS ORAL 11/10/17 18:00 12/10/17 17:59 11/13/17 14:26 Tacrolimus (Prograf) 1 mg BID ORAL 11/08/17 09:00 12/05/17 08:59 11/13/17 08:24 Allergies: Coded Allergies: NO KNOWN ALLERGIES (Unverified Allergy, Unknown, 10/24/15) ROS Limited/Unobtainable: No Constitutional: Reports: no symptoms HEENT: Reports: no symptoms Cardiovascular: Reports: no symptoms Respiratory: Reports: no symptoms Gastrointestinal/Abdominal: Reports: no symptoms Genitourinary: Reports: no symptoms Neurologic/Psychiatric: Reports: no symptoms Subjective 56 YO M admitted with left hip pain. Now cellulitis left hip and sepsis. Also UTI. Cover for Int Med-Dr Gaona. S/P bedside Incision and drainage 11/06/17. Await transfer to [facility] [place] Objective Last Vital Signs Date Time Temp Pulse Resp B/P (MAP) Pulse Ox O2 Delivery O2 Flow Rate FiO2 11/13/17 14:26 85 135/71 11/13/17 12:00 98.6 19 97 11/13/17 12:00 Room Air Laboratory Tests Test 11/13/17 04:00 Sodium Level 130 MMOL/L (136-145) L Potassium Level 4.1 MMOL/L (3.5-5.1) Chloride Level 96 MMOL/L (98-107) L Carbon Dioxide Level 21 MMOL/L (21-32) Anion Gap 13 mmol/L (5-15) Blood Urea Nitrogen 33 mg/dL (7-18) H Creatinine 3.6 MG/DL (0.55-1.30) H Estimat Glomerular Filtration Rate 17.6 mL/min (>60) Glucose Level 147 MG/DL (74-106) H Calcium Level 6.5 MG/DL (8.5-10.1) L Total Bilirubin 0.5 MG/DL (0.2-1.0) Aspartate Amino Transf (AST/SGOT) 21 U/L (15-37) Alanine Aminotransferase (ALT/SGPT) 8 U/L (12-78) L Alkaline Phosphatase 58 U/L (46-116) Total Creatine Kinase 48 U/L (26-308) C-Reactive Protein, Quantitative 16.0 mg/dL (0.00-0.90) H Total Protein 5.4 G/DL (6.4-8.2) L Albumin 1.7 G/DL (3.4-5.0) L Globulin 3.7 g/dL Albumin/Globulin Ratio 0.5 (1.0-2.7) L Intake and Output 11/12/17 11/13/17 19:00 07:00 Intake Total 655 ml 420 ml Balance 655 ml 420 ml Intake Oral 550 ml 420 ml IV Total 105 ml # Voids 1 5 # Bowel Movements 2 Objective General Appearance: alert, mild distress, thin EENT: PERRL/EOMI, normal ENT inspection, TMs normal Neck: non-tender, normal alignment, supple, normal inspection Cardiovascular: normal peripheral pulses, normal rate, regular rhythm, no gallop/murmur, no JVD Respiratory/Chest: chest wall non-tender, lungs clear, normal breath sounds, no respiratory distress, no accessory muscle use Abdomen: normal bowel sounds, non tender, soft, no organomegaly, no mass Extremities: normal range of motion 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 Increase levemir to BID (2) ESRD (end stage renal disease) on dialysis Assessment & Plan: S/P hemodialysis 11/10/17. See nephrology note. (3) Renal transplant, status post (4) HTN (hypertension) Assessment & Plan: Continue labetolol and norvasc. (5) Hypercholesteremia (6) Seizure disorder (7) Peripheral vascular disease (8) Cellulitis of hip, left Assessment & Plan: S/P Incision and Drainage 11/06/17. see surgery note. Cont zosyn per ID (9) Hip pain, left Assessment & Plan: S/P I & D. Await repeat CT Hip. See surgery note. (10) UTI (urinary tract infection) Assessment & Plan: Klebsiella pneumo and E.coli. Cont zosyn per ID (11) Sepsis Assessment & Plan: E.Coli. Continue zosyn per ID. (12) Diarrhea Assessment & Plan: Await c.diff and culture results. Imodium prn Assessment/Plan Discharge planning: Await transfer to [facility] BSII CONDE Nov 13, 2017 17:06
[2017-11-13] MEDS: DAPTOmycin 250 MG in NS 55 ML IV SCH (18:39)
[2017-11-13 20:00] VITALS: BP 143/67
[2017-11-14] VITALS: BP 139/72
[2017-11-14 04:00] VITALS: BP 159/71
[2017-11-14] MEDS: Piperacillin/Tazobactam 2.25 GM in NS 55 ML IV SCH (05:32)
[2017-11-14] MEDS: Clindamycin 150mg cap ORAL SCH ×3 (05:33→21:34)
[2017-11-14] MEDS: Sodium Citrate 30ml ORAL SCH ×3 (05:33→17:40)
[2017-11-14] MEDS: NovoLOG Insulin Flexpen SUBQ SCH ×4 (06:14→21:00)
[2017-11-14 07:36] LABS: ANION GAP 14 mmol/L (5-15); BLOOD UREA NITROGEN 34 mg/dL (7-18); CALCIUM 7.5 MG/DL (8.5-10.1); CARBON DIOXIDE 22 MMOL/L (21-32); CHLORIDE 96 MMOL/L (98-107); POTASSIUM 4.3 MMOL/L (3.5-5.1); SODIUM 131 MMOL/L (136-145)
[2017-11-14 07:39] LABS: BASOPHILS % (AUTO) 0.9 % (0.0-2.0); EOSINOPHILS % (AUTO) 0.5 % (0.0-3.0); HEMATOCRIT 29.2 % (42.0-52.0); LYMPHOCYTES % (AUTO) 8.5 % (20.0-45.0); MEAN CORPUSCULAR VOLUME 87 FL (80-99); MONOCYTES % (AUTO) 10.4 % (1.0-10.0); NEUTROPHILS % (AUTO) 79.7 % (45.0-75.0); PLATELET COUNT 342 K/UL (150-450); RED BLOOD COUNT 3.36 M/UL (4.70-6.10); RED CELL DISTRIBUTION WIDTH 14.6 % (11.6-14.8)
[2017-11-14 08:00] VITALS: BP 153/69
[2017-11-14] MEDS: Heparin 5000 units/ml inj SUBQ SCH ×2 (08:12→21:50)
[2017-11-14] MEDS: Megace 400mg/10ml Susp ORAL SCH (08:13)
[2017-11-14] MEDS: Mycophenolate 250mg cap ORAL SCH ×2 (08:14→21:34)
[2017-11-14] MEDS: Allopurinol 100mg Tab ORAL SCH ×2 (08:15→17:40)
[2017-11-14] MEDS: Oxybutynin 5mg tab ORAL SCH ×2 (08:15→21:34)
[2017-11-14] MEDS: Docusate 100mg cap ORAL SCH ×2 (08:15→17:39)
[2017-11-14] MEDS: HYDROcodone/Acetamin 10/325 tab ORAL PRN (08:15)
[2017-11-14] MEDS: Levemir Flexpen SUBQ SCH ×2 (08:23→17:43)
--- NOTE | 2017-11-14 08:30 | Nephrology Progress Note ---
Assessment/Plan Assessment 1. Anion gap, and none gap acidosisresolved 2. Hypovolemic hyponatremia. 3. Hypokalemia. 4. Acute on chronic renal failure. 5.ckd stage 5 6.anemia of ckd 7.hypocalcemia 9.JUSTEN Plan mix all ivpb with ns.9 replace electrolyte (mg) start bicitra d/c lasix check vit d Subjective Constitutional: Reports: no symptoms HEENT: Reports: no symptoms Genitourinary: Reports: no symptoms Neurologic/Psychiatric: Reports: no symptoms Subjective c/o left hip pain Objective Objective Last 24 Hour Vital Signs Date Time Temp Pulse Resp B/P (MAP) Pulse Ox O2 Delivery O2 Flow Rate FiO2 11/14/17 08:20 96 153/69 11/14/17 08:20 96 153/69 11/14/17 04:00 99.1 91 19 159/71 98 11/14/17 00:00 98.4 86 18 139/72 95 11/13/17 20:00 98.2 86 18 143/67 99 11/13/17 18:39 86 139/71 11/13/17 16:00 98.3 86 19 139/71 98 11/13/17 16:00 Room Air 11/13/17 14:26 85 135/71 11/13/17 12:00 98.6 85 19 135/71 97 11/13/17 12:00 Room Air Intake and Output 11/13/17 11/14/17 19:00 07:00 Intake Total 535 ml 600 ml Output Total 650 ml 500 ml Balance -115 ml 100 ml Intake Oral 480 ml 600 ml IV Total 55 ml Output Urine Total 650 ml 500 ml # Voids 2 1 # Bowel Movements 4 2 Laboratory Tests 11/14/17 05:40: White Blood Count 8.0, Red Blood Count 3.36L, Hemoglobin 9.0L, Hematocrit 29.2L , Mean Corpuscular Volume 87, Mean Corpuscular Hemoglobin 26.8L, Mean Corpuscular Hemoglobin Concent 30.8L, Red Cell Distribution Width 14.6, Platelet Count 342, Mean Platelet Volume 6.4L, Neutrophils (%) (Auto) 79.7H, Lymphocytes (%) (Auto) 8.5L, Monocytes (%) (Auto) 10.4H, Eosinophils (%) (Auto) 0.5, Basophils (%) (Auto) 0.9, Sodium Level 131L, Potassium Level 4.3, Chloride Level 96L, Carbon Dioxide Level 22, Anion Gap 14, Blood Urea Nitrogen 34H, Creatinine 4.0H, Estimat Glomerular Filtration Rate 15.6, Glucose Level 220H, Calcium Level 7.5L Height (Feet): 5 Height (Inches): 10.00 Weight (Pounds): 150 Objective HEAD AND NECK: No JVP. No LAD. No thyromegaly. Extraocular movement intact. Pupils are reactive to light and accommodation. LUNGS: Decreased breathing sound on the both sides. CARDIAC: Regular rate and rhythm. S1 and S2. No murmur. No rub. ABDOMEN: Soft, nontender, and nondistended. EXTREMITIES: Trace edema. No clubbing. No cyanosis. ASTER NEFF Nov 14, 2017 08:30
--- NOTE | 2017-11-14 11:48 | Infectious Diseases Prog Note ---
Assessment/Plan Assessment/Plan High grade E.coli bacteremia- Likely 2ry UTI vs buttocks skin soft tissue infection base on CT findings -repeat Bcx 11/05 NTD x4, 11/10 Bcx NTD Severe L hip/thigh/ pain - pain out of proportion with physical findings and with gas on CT are very suspicious for myonecrosis (clostridial gangrene) - DDx necrotizing fascitis. No fractures. ; clinically improving (decrease pain and TTP); improving -now afebrile, Leukocytosis resolved, CRP improving --unclear- as bedside surgical exploration showed normal healthy tissues and no gas; will closely monitor for worsening -CT L Hip 11/11 :Small amount of gas noted within soft tissues adjacent to greater trochanter deep to tensor fascia elisha decreased from prior study. -CT L hip: No acute fractures. No dislocations. The joint spaces are preserved. Gas within the soft tissues of the left hip and buttock region. This may indicate penetrating trauma, but is worrisome for infection with gas- forming organism. There is equivocal mild thickening of the bladder wall -11/06 ESR 50, CRP 40> 11/08 CRP 55.6; normal CK -CT abd/p wo 11/06: Small left inguinal hernia containing nonobstructive loops of small bowel. Persistent gas within the soft tissues of the left hip and buttock region although the amount of gas decreased compared to exam of 11/04/2017. There is slight asymmetry and engorgement of the musculature in this region possibly related to edema and/or phlegmonous change. No definite well-defined/drainable fluid collection is identified however evaluation is limited without intravenous contrast. Again, these findings may be secondary to penetrating trauma versus infection with gas- forming organism. Correlation with clinical history and physical exam findings recommended. Consider ultrasound to assess for defined/drainable fluid collection. Bladder wall thickening may be related to underdistention. Correlate with urinalysis to exclude cystitis. Air within the bladder may be related to prior catheterization. K.pna and E.coli UTI -u/a wbc 10-15, nit neg, leuk +1; UCx >100k K Pna ( R amp anb Nitro, otherwise sensitive); >100K E.coli #2 (beasley S) Low grade fever- resolved mild leukocytosis- SP DM2, HTN, seizure disorder, brain surgery (~10 yrs ago), HLD, PVD s/p amputation L great toe, ESRD s/p Renal transplant 2012- not on HD, but now requiring HD- improving Cr L eye prosthesis Plan: - cont Daptomycin d# 6 (abx d #/ 4mg/kg q48hrs) given renal insufficiency and renal transplant; switch Zosyn # 08/18 to Ertapenem 500mg qd, and continue PO Clindamycin # 07/19 for possible gas-forming infection on L buttocks; Ok to discharge on this regimen to complete 14 day course; via PIV / SP IV Vanco #4 -Close monitoring for decompensation; if so may need OR exploration- so far improving -f/u cx -Monitor CBC/BMP, temperatures; Trend CRP [id number] Discusse with RN and pillowcase cleaner. Subjective Allergies: Coded Allergies: NO KNOWN ALLERGIES (Unverified Allergy, Unknown, 10/24/15) Subjective afebrile no leukocytosis CRP continues to improve pain improving Repeat CT improving; gas decreasing Objective Vital Signs Last 24 Hour Vital Signs Date Time Temp Pulse Resp B/P (MAP) Pulse Ox O2 Delivery O2 Flow Rate FiO2 11/14/17 08:20 96 153/69 11/14/17 08:20 96 153/69 11/14/17 08:00 98.6 94 19 153/69 99 11/14/17 04:00 99.1 91 19 159/71 98 11/14/17 00:00 98.4 86 18 139/72 95 11/13/17 20:00 98.2 86 18 143/67 99 11/13/17 18:39 86 139/71 11/13/17 16:00 98.3 86 19 139/71 98 11/13/17 16:00 Room Air 11/13/17 14:26 85 135/71 11/13/17 12:00 98.6 85 19 135/71 97 11/13/17 12:00 Room Air Height (Feet): 5 Height (Inches): 10.00 Weight (Pounds): 150 Objective GENERAL: The patient is a well-developed and well-nourished thin-appearing male, in no apparent distress. HEENT: Eyes, pupils equal and responsive to light and accommodation. Extraocular movements are intact. NECK: Supple without lymphadenopathy. CHEST: Lungs are clear to auscultation bilaterally without wheezes or rales. CARDIOVASCULAR: Regular rhythm and rate. S1 and S2 normal without murmurs, rubs, or gallops. ABDOMEN: Soft, nontender, and nondistended. Positive bowel sounds. No evidence of hepatosplenomegaly. Currently, no rebound or guarding noted. EXTREMITIES: Negative for clubbing, cyanosis, or edema. L Hip,anterior thigh w / surgical incision, clean; decreased TTP, no surroundign erythema, warmth or purulent drainage Laboratory Tests Test 11/14/17 05:40 White Blood Count 8.0 K/UL (4.8-10.8) Red Blood Count 3.36 M/UL (4.70-6.10) L Hemoglobin 9.0 G/DL (14.2-18.0) L Hematocrit 29.2 % (42.0-52.0) L Mean Corpuscular Volume 87 FL (80-99) Mean Corpuscular Hemoglobin 26.8 PG (27.0-31.0) L Mean Corpuscular Hemoglobin Concent 30.8 G/DL (32.0-36.0) L Red Cell Distribution Width 14.6 % (11.6-14.8) Platelet Count 342 K/UL (150-450) Mean Platelet Volume 6.4 FL (6.5-10.1) L Neutrophils (%) (Auto) 79.7 % (45.0-75.0) H Lymphocytes (%) (Auto) 8.5 % (20.0-45.0) L Monocytes (%) (Auto) 10.4 % (1.0-10.0) H Eosinophils (%) (Auto) 0.5 % (0.0-3.0) Basophils (%) (Auto) 0.9 % (0.0-2.0) Sodium Level 131 MMOL/L (136-145) L Potassium Level 4.3 MMOL/L (3.5-5.1) Chloride Level 96 MMOL/L (98-107) L Carbon Dioxide Level 22 MMOL/L (21-32) Anion Gap 14 mmol/L (5-15) Blood Urea Nitrogen 34 mg/dL (7-18) H Creatinine 4.0 MG/DL (0.55-1.30) H Estimat Glomerular Filtration Rate 15.6 mL/min (>60) Glucose Level 220 MG/DL (74-106) H Calcium Level 7.5 MG/DL (8.5-10.1) L Current Medications Medications (Trade) Dose Ordered Sig/Vincent Route PRN Reason Start Time Stop Time Status Last Admin Dose Admin Acetaminophen/ Hydrocodone Bitart ([place] 10/325) 1 ea Q4H PRN ORAL Severe Pain (Pain Scale 7-10) 11/11/17 14:30 11/18/17 14:29 11/14/17 08:15 Acetaminophen/ Hydrocodone Bitart ([place] 5/325) 1 tab Q6H PRN ORAL Moderate Pain (Pain Scale 4-6) 11/11/17 14:15 11/18/17 23:59 11/11/17 19:16 Allopurinol (Zyloprim) 100 mg BID ORAL 11/08/17 09:00 12/05/17 08:59 11/14/17 08:15 Amlodipine Besylate (Norvasc) 10 mg DAILY ORAL 11/08/17 09:00 12/05/17 08:59 11/14/17 08:20 Baclofen (Lioresal) 20 mg Q8H PRN ORAL Muscle Spasm 11/09/17 18:00 12/09/17 17:59 Calcium Carbonate (Os-Jeancarlos) 1,250 mg THREE TIMES A DAY ORAL 11/10/17 18:00 12/10/17 17:59 11/14/17 08:15 Chlorpromazine 25 mg/Sodium Chloride 111 ml @ 222 mls/hr Q8H PRN IVPB HICCUPS 11/07/17 22:00 12/06/17 21:59 11/10/17 21:02 Clindamycin HCl (Cleocin) 600 mg EVERY 8 HOURS ORAL 11/13/17 14:00 11/20/17 13:59 11/14/17 05:33 Clonidine HCl (Catapres) 0.1 mg EVERY 6 HOURS PRN ORAL SBP > 160 mm Hg 11/09/17 07:45 12/09/17 07:44 11/10/17 04:58 Daptomycin 250 mg/ Sodium Chloride 55 ml @ 100 mls/hr EVERY OTHER DAY@1730 IV 11/09/17 17:30 11/16/17 17:29 11/13/17 18:39 Dextrose (Dextrose 50%) STAT PRN IV Hypoglycemia 11/07/17 22:00 12/07/17 21:59 Docusate Sodium (Colace) 100 mg BID ORAL 11/08/17 09:00 12/05/17 08:59 11/14/17 08:15 Epoetin Binu (Procrit (for ESRD on dialysis)) 10,000 units SUN-SUN-SUN SUBQ 11/09/17 21:00 12/07/17 20:59 11/12/17 21:33 Heparin Sodium (Porcine) (Heparin 5000 units/ml) 5,000 units Q12HR SUBQ 11/07/17 22:00 12/07/17 21:59 11/14/17 08:12 Hydromorphone HCl (Dilaudid) 1 mg Q4H PRN IVP SEVERE BREAKTHROUGH PAIN 11/11/17 14:30 11/14/17 21:59 Insulin Aspart (NovoLOG) BEFORE MEALS AND HS SUBQ 11/07/17 22:00 12/07/17 21:59 11/14/17 06:14 Insulin Detemir (Levemir) 10 units BID SUBQ 11/10/17 18:00 12/10/17 17:59 11/14/17 08:23 Labetalol HCl (Normodyne) 100 mg THREE TIMES A DAY ORAL 11/08/17 09:00 12/05/17 08:59 11/14/17 08:20 Loperamide HCl (Imodium) 2 mg Q4H PRN ORAL Diarrhea 11/08/17 18:30 12/08/17 18:29 11/12/17 16:09 Megestrol Acetate (Megace) 800 mg DAILY ORAL 11/08/17 09:00 12/07/17 08:59 11/14/17 08:13 Mycophenolate Mofetil (Cellcept) 500 mg Q12HR ORAL 11/07/17 22:00 12/07/17 21:59 11/14/17 08:14 Oxybutynin Chloride (Ditropan) 5 mg Q12HR ORAL 11/07/17 22:00 12/07/17 21:59 11/14/17 08:15 Pantoprazole (Protonix) 40 mg DAILY ORAL 11/08/17 09:00 12/08/17 08:59 11/14/17 08:16 Piperacillin Sod/ Tazobactam Sod 2.25 gm/Sodium Chloride 55 ml @ 110 mls/hr Q8HR IV 11/09/17 22:00 11/17/17 21:59 11/14/17 05:32 Sodium Citrate (Bicitra) 30 ml EVERY 6 HOURS ORAL 11/10/17 18:00 12/10/17 17:59 11/14/17 05:33 Tacrolimus (Prograf) 1 mg BID ORAL 11/08/17 09:00 12/05/17 08:59 11/14/17 08:14 Rupinder Perez M.D. Nov 14, 2017 11:48
[2017-11-14 12:00] VITALS: BP 104/56
--- NOTE | 2017-11-14 13:20 | Internal Med Progress Note ---
Subjective Date of Service: Nov 14, 2017 Physician Name Bisi Conde Attending Physician Kristian Gaona MD Current Medications Medications (Trade) Dose Ordered Sig/Vincent Route PRN Reason Start Time Stop Time Status Last Admin Dose Admin Acetaminophen/ Hydrocodone Bitart ([place] 10/325) 1 ea Q4H PRN ORAL Severe Pain (Pain Scale 7-10) 11/11/17 14:30 11/18/17 14:29 11/14/17 08:15 Acetaminophen/ Hydrocodone Bitart ([place] 5/325) 1 tab Q6H PRN ORAL Moderate Pain (Pain Scale 4-6) 11/11/17 14:15 11/18/17 23:59 11/11/17 19:16 Allopurinol (Zyloprim) 100 mg BID ORAL 11/08/17 09:00 12/05/17 08:59 11/14/17 08:15 Amlodipine Besylate (Norvasc) 10 mg DAILY ORAL 11/08/17 09:00 12/05/17 08:59 11/14/17 08:20 Baclofen (Lioresal) 20 mg Q8H PRN ORAL Muscle Spasm 11/09/17 18:00 12/09/17 17:59 Calcium Carbonate (Os-Jeancarlos) 1,250 mg THREE TIMES A DAY ORAL 11/10/17 18:00 12/10/17 17:59 11/14/17 08:15 Chlorpromazine 25 mg/Sodium Chloride 111 ml @ 222 mls/hr Q8H PRN IVPB HICCUPS 11/07/17 22:00 12/06/17 21:59 11/10/17 21:02 Clindamycin HCl (Cleocin) 600 mg EVERY 8 HOURS ORAL 11/13/17 14:00 11/20/17 13:59 11/14/17 05:33 Clonidine HCl (Catapres) 0.1 mg EVERY 6 HOURS PRN ORAL SBP > 160 mm Hg 11/09/17 07:45 12/09/17 07:44 11/10/17 04:58 Daptomycin 250 mg/ Sodium Chloride 55 ml @ 100 mls/hr EVERY OTHER DAY@1730 IV 11/09/17 17:30 11/16/17 17:29 11/13/17 18:39 Dextrose (Dextrose 50%) STAT PRN IV Hypoglycemia 11/07/17 22:00 12/07/17 21:59 Docusate Sodium (Colace) 100 mg BID ORAL 11/08/17 09:00 12/05/17 08:59 11/14/17 08:15 Epoetin Binu (Procrit (for ESRD on dialysis)) 10,000 units SUN-SUN-SUN SUBQ 11/09/17 21:00 12/07/17 20:59 11/12/17 21:33 Ertapenem 0.5 gm/ Sodium Chloride 55 ml @ 110 mls/hr Q24H IVPB 11/14/17 13:00 11/19/17 12:59 Heparin Sodium (Porcine) (Heparin 5000 units/ml) 5,000 units Q12HR SUBQ 11/07/17 22:00 12/07/17 21:59 11/14/17 08:12 Hydromorphone HCl (Dilaudid) 1 mg Q4H PRN IVP SEVERE BREAKTHROUGH PAIN 11/11/17 14:30 11/14/17 21:59 Insulin Aspart (NovoLOG) BEFORE MEALS AND HS SUBQ 11/07/17 22:00 12/07/17 21:59 11/14/17 12:20 Insulin Detemir (Levemir) 10 units BID SUBQ 11/10/17 18:00 12/10/17 17:59 11/14/17 08:23 Labetalol HCl (Normodyne) 100 mg THREE TIMES A DAY ORAL 11/08/17 09:00 12/05/17 08:59 11/14/17 12:14 Loperamide HCl (Imodium) 2 mg Q4H PRN ORAL Diarrhea 11/08/17 18:30 12/08/17 18:29 11/12/17 16:09 Megestrol Acetate (Megace) 800 mg DAILY ORAL 11/08/17 09:00 12/07/17 08:59 11/14/17 08:13 Mycophenolate Mofetil (Cellcept) 500 mg Q12HR ORAL 11/07/17 22:00 12/07/17 21:59 11/14/17 08:14 Oxybutynin Chloride (Ditropan) 5 mg Q12HR ORAL 11/07/17 22:00 12/07/17 21:59 11/14/17 08:15 Pantoprazole (Protonix) 40 mg DAILY ORAL 11/08/17 09:00 12/08/17 08:59 11/14/17 08:16 Sodium Citrate (Bicitra) 30 ml EVERY 6 HOURS ORAL 11/10/17 18:00 12/10/17 17:59 11/14/17 12:13 Tacrolimus (Prograf) 1 mg BID ORAL 11/08/17 09:00 12/05/17 08:59 11/14/17 08:14 Allergies: Coded Allergies: NO KNOWN ALLERGIES (Unverified Allergy, Unknown, 10/24/15) ROS Limited/Unobtainable: No Constitutional: Reports: no symptoms HEENT: Reports: no symptoms Cardiovascular: Reports: no symptoms Respiratory: Reports: no symptoms Gastrointestinal/Abdominal: Reports: no symptoms Genitourinary: Reports: no symptoms Neurologic/Psychiatric: Reports: no symptoms Subjective 56 YO M admitted with left hip pain. Now cellulitis left hip and sepsis. Also UTI. Cover for Int Med-Dr Gaona. S/P bedside Incision and drainage 11/06/17. [place] [facility] [place] Last Vital Signs Date Time Temp Pulse Resp B/P (MAP) Pulse Ox O2 Delivery O2 Flow Rate FiO2 11/14/17 12:14 84 104/58 11/14/17 12:00 97.0 17 97 11/13/17 16:00 Room Air Laboratory Tests Test 11/14/17 05:40 White Blood Count 8.0 K/UL (4.8-10.8) Red Blood Count 3.36 M/UL (4.70-6.10) L Hemoglobin 9.0 G/DL (14.2-18.0) L Hematocrit 29.2 % (42.0-52.0) L Mean Corpuscular Volume 87 FL (80-99) Mean Corpuscular Hemoglobin 26.8 PG (27.0-31.0) L Mean Corpuscular Hemoglobin Concent 30.8 G/DL (32.0-36.0) L Red Cell Distribution Width 14.6 % (11.6-14.8) Platelet Count 342 K/UL (150-450) Mean Platelet Volume 6.4 FL (6.5-10.1) L Neutrophils (%) (Auto) 79.7 % (45.0-75.0) H Lymphocytes (%) (Auto) 8.5 % (20.0-45.0) L Monocytes (%) (Auto) 10.4 % (1.0-10.0) H Eosinophils (%) (Auto) 0.5 % (0.0-3.0) Basophils (%) (Auto) 0.9 % (0.0-2.0) Sodium Level 131 MMOL/L (136-145) L Potassium Level 4.3 MMOL/L (3.5-5.1) Chloride Level 96 MMOL/L (98-107) L Carbon Dioxide Level 22 MMOL/L (21-32) Anion Gap 14 mmol/L (5-15) Blood Urea Nitrogen 34 mg/dL (7-18) H Creatinine 4.0 MG/DL (0.55-1.30) H Estimat Glomerular Filtration Rate 15.6 mL/min (>60) Glucose Level 220 MG/DL (74-106) H Calcium Level 7.5 MG/DL (8.5-10.1) L Intake and Output 11/13/17 11/14/17 19:00 07:00 Intake Total 535 ml 600 ml Output Total 650 ml 500 ml Balance -115 ml 100 ml Intake Oral 480 ml 600 ml IV Total 55 ml Output Urine Total 650 ml 500 ml # Voids 2 1 # Bowel Movements 4 2 Objective General Appearance: alert, mild distress, thin EENT: PERRL/EOMI, normal ENT inspection, TMs normal Neck: non-tender, normal alignment, supple, normal inspection Cardiovascular: normal peripheral pulses, normal rate, regular rhythm, no gallop/murmur, no JVD Respiratory/Chest: chest wall non-tender, lungs clear, normal breath sounds, no respiratory distress, no accessory muscle use Abdomen: normal bowel sounds, non tender, soft, no organomegaly, no mass Extremities: normal range of motion 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 Increase levemir to BID (2) ESRD (end stage renal disease) on dialysis Assessment & Plan: S/P hemodialysis 11/10/17. See nephrology note. (3) Renal transplant, status post (4) HTN (hypertension) Assessment & Plan: Continue labetolol and norvasc. (5) Hypercholesteremia (6) Seizure disorder (7) Peripheral vascular disease (8) Cellulitis of hip, left Assessment & Plan: S/P Incision and Drainage 11/06/17. see surgery note. Cont zosyn per ID (9) Hip pain, left Assessment & Plan: S/P I & D. Await repeat CT Hip. See surgery note. (10) UTI (urinary tract infection) Assessment & Plan: Klebsiella pneumo and E.coli. Cont zosyn per ID (11) Sepsis Assessment & Plan: E.Coli. Continue zosyn per ID. (12) Diarrhea Assessment & Plan: Await c.diff and culture results. Imodium prn Status: stable Assessment/Plan Discharge planning: Await transfer to [facility] BISI CONDE Nov 14, 2017 13:20
[2017-11-14] MEDS: Ertapenem 0.5 GM in NS 55 ML IVPB SCH (14:55)
[2017-11-14 16:00] VITALS: BP 144/68
--- NOTE | 2017-11-14 16:02 | Pulmonology Progress Note ---
Assessment/Plan Problems: (1) Sepsis (2) Metabolic acidosis (3) Hiccups (4) Diabetes mellitus (5) Hip pain, left (6) Failure to thrive (7) ESRF (end stage renal failure) Assessment/Plan improving continue abx as per ID check h/h check electrolytes hiccup is controlled. on HD check electrolytes check wbc dc planning to finish abx at home or transfer to [facility] Subjective ROS Limited/Unobtainable: No Constitutional: Reports: no symptoms HEENT: Repors: no symptoms Respiratory: Reports: no symptoms Allergies: Coded Allergies: NO KNOWN ALLERGIES (Unverified Allergy, Unknown, 10/24/15) Objective Last 24 Hour Vital Signs Date Time Temp Pulse Resp B/P (MAP) Pulse Ox O2 Delivery O2 Flow Rate FiO2 11/14/17 12:14 84 104/58 11/14/17 12:00 97.0 84 17 104/56 97 11/14/17 08:20 96 153/69 11/14/17 08:20 96 153/69 11/14/17 08:00 98.6 94 19 153/69 99 11/14/17 04:00 99.1 91 19 159/71 98 11/14/17 00:00 98.4 86 18 139/72 95 11/13/17 20:00 98.2 86 18 143/67 99 11/13/17 18:39 86 139/71 Intake and Output 11/13/17 11/14/17 19:00 07:00 Intake Total 535 ml 600 ml Output Total 650 ml 500 ml Balance -115 ml 100 ml Intake Oral 480 ml 600 ml IV Total 55 ml Output Urine Total 650 ml 500 ml # Voids 2 1 # Bowel Movements 4 2 Objective Objective General Appearance: no acute distress HEENT: normocephalic, atraumatic Respiratory/Chest: lungs clear, no respiratory distress, no accessory muscle use Cardiovascular: normal rate, no JVD, CL-femoral intact Abdomen: normal bowel sounds, soft, non tender Extremities: no edema Neurologic/Psychiatric: alert, responsive Musculoskeletal: normal muscle bulk Laboratory Tests 11/14/17 05:40: White Blood Count 8.0, Red Blood Count 3.36L, Hemoglobin 9.0L, Hematocrit 29.2L , Mean Corpuscular Volume 87, Mean Corpuscular Hemoglobin 26.8L, Mean Corpuscular Hemoglobin Concent 30.8L, Red Cell Distribution Width 14.6, Platelet Count 342, Mean Platelet Volume 6.4L, Neutrophils (%) (Auto) 79.7H, Lymphocytes (%) (Auto) 8.5L, Monocytes (%) (Auto) 10.4H, Eosinophils (%) (Auto) 0.5, Basophils (%) (Auto) 0.9, Sodium Level 131L, Potassium Level 4.3, Chloride Level 96L, Carbon Dioxide Level 22, Anion Gap 14, Blood Urea Nitrogen 34H, Creatinine 4.0H, Estimat Glomerular Filtration Rate 15.6, Glucose Level 220H, Calcium Level 7.5L Current Medications Medications (Trade) Dose Ordered Sig/Vincent Route PRN Reason Start Time Stop Time Status Last Admin Dose Admin Acetaminophen/ Hydrocodone Bitart ([place] 10/325) 1 ea Q4H PRN ORAL Severe Pain (Pain Scale 7-10) 11/11/17 14:30 11/18/17 14:29 11/14/17 08:15 Acetaminophen/ Hydrocodone Bitart ([place] 5/325) 1 tab Q6H PRN ORAL Moderate Pain (Pain Scale 4-6) 11/11/17 14:15 11/18/17 23:59 11/11/17 19:16 Allopurinol (Zyloprim) 100 mg BID ORAL 11/08/17 09:00 12/05/17 08:59 11/14/17 08:15 Amlodipine Besylate (Norvasc) 10 mg DAILY ORAL 11/08/17 09:00 12/05/17 08:59 11/14/17 08:20 Baclofen (Lioresal) 20 mg Q8H PRN ORAL Muscle Spasm 11/09/17 18:00 12/09/17 17:59 Calcium Carbonate (Os-Jeancarlos) 1,250 mg THREE TIMES A DAY ORAL 11/10/17 18:00 12/10/17 17:59 11/14/17 14:55 Chlorpromazine 25 mg/Sodium Chloride 111 ml @ 222 mls/hr Q8H PRN IVPB HICCUPS 11/07/17 22:00 12/06/17 21:59 11/10/17 21:02 Clindamycin HCl (Cleocin) 600 mg EVERY 8 HOURS ORAL 11/13/17 14:00 11/20/17 13:59 11/14/17 14:55 Clonidine HCl (Catapres) 0.1 mg EVERY 6 HOURS PRN ORAL SBP > 160 mm Hg 11/09/17 07:45 12/09/17 07:44 11/10/17 04:58 Daptomycin 250 mg/ Sodium Chloride 55 ml @ 100 mls/hr EVERY OTHER DAY@1730 IV 11/09/17 17:30 11/16/17 17:29 11/13/17 18:39 Dextrose (Dextrose 50%) STAT PRN IV Hypoglycemia 11/07/17 22:00 12/07/17 21:59 Docusate Sodium (Colace) 100 mg BID ORAL 11/08/17 09:00 12/05/17 08:59 11/14/17 08:15 Epoetin Binu (Procrit (for ESRD on dialysis)) 10,000 units SUN-SUN-SUN SUBQ 11/09/17 21:00 12/07/17 20:59 11/12/17 21:33 Ertapenem 0.5 gm/ Sodium Chloride 55 ml @ 110 mls/hr Q24H IVPB 11/14/17 13:00 11/19/17 12:59 11/14/17 14:55 Heparin Sodium (Porcine) (Heparin 5000 units/ml) 5,000 units Q12HR SUBQ 11/07/17 22:00 12/07/17 21:59 11/14/17 08:12 Hydromorphone HCl (Dilaudid) 1 mg Q4H PRN IVP SEVERE BREAKTHROUGH PAIN 11/11/17 14:30 11/14/17 21:59 Insulin Aspart (NovoLOG) BEFORE MEALS AND HS SUBQ 11/07/17 22:00 12/07/17 21:59 11/14/17 12:20 Insulin Detemir (Levemir) 10 units BID SUBQ 11/10/17 18:00 12/10/17 17:59 11/14/17 08:23 Labetalol HCl (Normodyne) 100 mg THREE TIMES A DAY ORAL 11/08/17 09:00 12/05/17 08:59 11/14/17 12:14 Loperamide HCl (Imodium) 2 mg Q4H PRN ORAL Diarrhea 11/08/17 18:30 12/08/17 18:29 11/12/17 16:09 Megestrol Acetate (Megace) 800 mg DAILY ORAL 11/08/17 09:00 12/07/17 08:59 11/14/17 08:13 Mycophenolate Mofetil (Cellcept) 500 mg Q12HR ORAL 11/07/17 22:00 12/07/17 21:59 11/14/17 08:14 Oxybutynin Chloride (Ditropan) 5 mg Q12HR ORAL 11/07/17 22:00 12/07/17 21:59 11/14/17 08:15 Pantoprazole (Protonix) 40 mg DAILY ORAL 11/08/17 09:00 12/08/17 08:59 11/14/17 08:16 Sodium Citrate (Bicitra) 30 ml EVERY 6 HOURS ORAL 11/10/17 18:00 12/10/17 17:59 11/14/17 12:13 Tacrolimus (Prograf) 1 mg BID ORAL 11/08/17 09:00 12/05/17 08:59 11/14/17 08:14 JOCELYN LAMA Nov 14, 2017 16:02
[2017-11-14] MEDS ORDERED: Tubing IV Secondary IV ONE (16:21)
[2017-11-14] MEDS ORDERED: NS 500ML ONE (16:21)
--- NOTE | 2017-11-14 17:09 | General Surgery Progress Note ---
General Surgery-Progress Note Subjective Procedure Performed local exploration of left hip Symptoms: improved Additional Comments doing well. no complaints. Objective Last 24 Hour Vital Signs Date Time Temp Pulse Resp B/P (MAP) Pulse Ox O2 Delivery O2 Flow Rate FiO2 11/14/17 16:00 97.7 79 20 144/68 99 11/14/17 12:14 84 104/58 11/14/17 12:00 97.0 84 17 104/56 97 11/14/17 08:20 96 153/69 11/14/17 08:20 96 153/69 11/14/17 08:00 98.6 94 19 153/69 99 11/14/17 04:00 99.1 91 19 159/71 98 11/14/17 00:00 98.4 86 18 139/72 95 11/13/17 20:00 98.2 86 18 143/67 99 11/13/17 18:39 86 139/71 I&O Intake and Output 11/13/17 11/14/17 19:00 07:00 Intake Total 535 ml 600 ml Output Total 650 ml 500 ml Balance -115 ml 100 ml Intake Oral 480 ml 600 ml IV Total 55 ml Output Urine Total 650 ml 500 ml # Voids 2 1 # Bowel Movements 4 2 Cardiovascular: RSR Respiratory: clear Abdomen: soft, flat, non-tender, present bowel sounds Extremities: no tenderness Laboratory Tests Test 11/14/17 05:40 White Blood Count 8.0 K/UL (4.8-10.8) Red Blood Count 3.36 M/UL (4.70-6.10) L Hemoglobin 9.0 G/DL (14.2-18.0) L Hematocrit 29.2 % (42.0-52.0) L Mean Corpuscular Volume 87 FL (80-99) Mean Corpuscular Hemoglobin 26.8 PG (27.0-31.0) L Mean Corpuscular Hemoglobin Concent 30.8 G/DL (32.0-36.0) L Red Cell Distribution Width 14.6 % (11.6-14.8) Platelet Count 342 K/UL (150-450) Mean Platelet Volume 6.4 FL (6.5-10.1) L Neutrophils (%) (Auto) 79.7 % (45.0-75.0) H Lymphocytes (%) (Auto) 8.5 % (20.0-45.0) L Monocytes (%) (Auto) 10.4 % (1.0-10.0) H Eosinophils (%) (Auto) 0.5 % (0.0-3.0) Basophils (%) (Auto) 0.9 % (0.0-2.0) Sodium Level 131 MMOL/L (136-145) L Potassium Level 4.3 MMOL/L (3.5-5.1) Chloride Level 96 MMOL/L (98-107) L Carbon Dioxide Level 22 MMOL/L (21-32) Anion Gap 14 mmol/L (5-15) Blood Urea Nitrogen 34 mg/dL (7-18) H Creatinine 4.0 MG/DL (0.55-1.30) H Estimat Glomerular Filtration Rate 15.6 mL/min (>60) Glucose Level 220 MG/DL (74-106) H Calcium Level 7.5 MG/DL (8.5-10.1) L Plan Problems: (1) Sepsis Assessment & Plan: 56M who presents with left hip pain and found to be septic. HD stable, presented with leukocytosis, CRP/ESR elevated, CT with gas in left hip. no trauma noted in area. concerning for gas forming bacterial infection. pain out of proportion to exam in left hip. on exam very tender initially. POD #1 s/p bedside exploration of left hip. subq tissues, fascia, and muscle all intact and viable. no infectious process noted. POD #2 - wound clean. no signs of infection. minimal tenderness on palpation. serous drainage. POD #3 - wound clean without signs of infection. no tenderness. serous drainage. CRP/ESR elevated. leukocytosis resolved. low grade fevers. POD #4 - wound clean, no signs of infection. non tender, minimal serous drainage. CRP down, ESR up. no leukocytosis. POD #5 - wound clean and stable. Afebrile, labs improved. CT reviewed and improved. CXR okay, pending cultures POD #6 - wound almost healed. just small superficial wound left. afebrile, labs okay. repeat CT improved. POD #7 - wound healing. afebrile, HD stable, labs okay, CRP down to 16. unfortunately Cr worsening. POD #8 - wound almost healed. doing well. no signs of infection -continue with local wound care. -continue Abx as per ID -renal as per nephrology -okay for d/c from surgical standpoint thank you for this consultation. will follow with recs. Willie Davies Nov 14, 2017 17:09
[2017-11-14 20:00] VITALS: BP 134/60
[2017-11-14] MEDS: Epogen (for ESRD on dialysis) SUBQ SCH (21:33)
[2017-11-15] VITALS: BP 163/74
[2017-11-15] MEDS: Sodium Citrate 30ml ORAL SCH ×4 (00:13→18:36)
[2017-11-15 04:00] VITALS: BP 147/64
[2017-11-15] MEDS: Clindamycin 150mg cap ORAL SCH ×3 (05:38→21:13)
[2017-11-15] MEDS: NovoLOG Insulin Flexpen SUBQ SCH ×4 (06:30→21:02)
[2017-11-15 07:44] LABS: EOSINOPHILS % (AUTO) 0.6 % (0.0-3.0); HEMATOCRIT 27.7 % (42.0-52.0); HEMOGLOBIN 8.7 G/DL (14.2-18.0); LYMPHOCYTES % (AUTO) 10.2 % (20.0-45.0); MEAN CORPUSCULAR VOLUME 87 FL (80-99); MONOCYTES % (AUTO) 10.7 % (1.0-10.0); NEUTROPHILS % (AUTO) 77.5 % (45.0-75.0); PLATELET COUNT 383 K/UL (150-450); RED BLOOD COUNT 3.18 M/UL (4.70-6.10); WHITE BLOOD COUNT 9.6 K/UL (4.8-10.8)
[2017-11-15 08:00] VITALS: BP 155/72
[2017-11-15 08:20] LABS: ANION GAP 13 mmol/L (5-15); BLOOD UREA NITROGEN 33 mg/dL (7-18); CALCIUM 7.7 MG/DL (8.5-10.1); CARBON DIOXIDE 22 MMOL/L (21-32); CHLORIDE 97 MMOL/L (98-107); CREATININE 3.8 MG/DL (0.55-1.30); POTASSIUM 4.3 MMOL/L (3.5-5.1); SODIUM 132 MMOL/L (136-145)
[2017-11-15] MEDS: Megace 400mg/10ml Susp ORAL SCH (08:21)
[2017-11-15] MEDS: Mycophenolate 250mg cap ORAL SCH ×2 (08:21→20:58)
[2017-11-15] MEDS: Oxybutynin 5mg tab ORAL SCH ×2 (08:22→20:58)
[2017-11-15] MEDS: Allopurinol 100mg Tab ORAL SCH ×2 (08:22→17:50)
[2017-11-15] MEDS: Docusate 100mg cap ORAL SCH ×2 (08:23→17:49)
[2017-11-15] MEDS: HYDROcodone/Acetamin 10/325 tab ORAL PRN (08:25)
[2017-11-15] MEDS: Heparin 5000 units/ml inj SUBQ SCH ×2 (08:26→21:03)
[2017-11-15] MEDS: Levemir Flexpen SUBQ SCH ×2 (08:29→18:37)
--- NOTE | 2017-11-15 08:30 | Nephrology Progress Note ---
Assessment/Plan Assessment 1. Anion gap, and none gap acidosisresolved 2. Hypovolemic hyponatremia. 3. Hypokalemia. 4. Acute on chronic renal failure. 5.ckd stage 5 6.anemia of ckd 7.hypocalcemia 9.JUSTEN Plan restart CellCept start on Rocaltrol mix all ivpb with ns.9 replace electrolyte (mg) start bicitra d/c Lasix check vit d Subjective Constitutional: Reports: no symptoms HEENT: Reports: no symptoms Genitourinary: Reports: no symptoms Neurologic/Psychiatric: Reports: no symptoms Subjective alert and awake Objective Objective Last 24 Hour Vital Signs Date Time Temp Pulse Resp B/P (MAP) Pulse Ox O2 Delivery O2 Flow Rate FiO2 11/15/17 04:00 98.7 88 20 147/64 96 11/15/17 00:00 98.9 89 19 163/74 99 11/14/17 20:00 98.4 82 18 134/60 99 11/14/17 17:40 79 144/68 11/14/17 16:00 97.7 79 20 144/68 99 11/14/17 12:14 84 104/58 11/14/17 12:00 97.0 84 17 104/56 97 Intake and Output 11/14/17 11/15/17 19:00 07:00 Intake Total 900 ml 400 ml Output Total 925 ml Balance 900 ml -525 ml Intake Oral 900 ml 400 ml Output Urine Total 925 ml # Voids 2 # Bowel Movements 1 Laboratory Tests 11/15/17 05:05: White Blood Count 9.6, Red Blood Count 3.18L, Hemoglobin 8.7L, Hematocrit 27.7L , Mean Corpuscular Volume 87, Mean Corpuscular Hemoglobin 27.3, Mean Corpuscular Hemoglobin Concent 31.3L, Red Cell Distribution Width 15.0H, Platelet Count 383, Mean Platelet Volume 6.8, Neutrophils (%) (Auto) 77.5H, Lymphocytes (%) (Auto) 10.2L, Monocytes (%) (Auto) 10.7H, Eosinophils (%) (Auto ) 0.6, Basophils (%) (Auto) 1.0, Sodium Level 132L, Potassium Level 4.3, Chloride Level 97L, Carbon Dioxide Level 22, Anion Gap 13, Blood Urea Nitrogen 33H, Creatinine 3.8H, Estimat Glomerular Filtration Rate 16.5, Glucose Level 93# , Calcium Level 7.7L, C-Reactive Protein, Quantitative [Pending] Height (Feet): 5 Height (Inches): 10.00 Weight (Pounds): 150 Objective HEAD AND NECK: No JVP. No LAD. No thyromegaly. Extraocular movement intact. Pupils are reactive to light and accommodation. LUNGS: Decreased breathing sound on the both sides. CARDIAC: Regular rate and rhythm. S1 and S2. No murmur. No rub. ABDOMEN: Soft, nontender, and nondistended. EXTREMITIES: Trace edema. No clubbing. No cyanosis. ASTER NEFF Nov 15, 2017 08:30
[2017-11-15 12:00] VITALS: BP 104/56
[2017-11-15] MEDS: Ertapenem 0.5 GM in NS 55 ML IVPB SCH ×2 (13:00→18:29)
[2017-11-15] MEDS ORDERED: LIORESAL20 MG ORAL (15:06)
[2017-11-15] MEDS ORDERED: TUMS500 MG ORAL (15:10)
[2017-11-15] MEDS ORDERED: CALCIUM500 M3 PO (15:10)
[2017-11-15] MEDS ORDERED: CLEOCIN HCL300 MG PO (15:11)
[2017-11-15] MEDS ORDERED: DEXTROSE 50%-WA50 M1 IV (15:12)
[2017-11-15] MEDS ORDERED: DAPTOMYCIN500 MG IV (15:13)
[2017-11-15] MEDS ORDERED: EPOGEN10000 UNIT SUBQ (15:14)
[2017-11-15] MEDS ORDERED: INVANZ1 G1 IVPB (15:16)
[2017-11-15] MEDS ORDERED: NORCO 10-325 T1 EACH ORAL (15:16)
--- NOTE | 2017-11-15 15:16 | General Surgery Progress Note ---
General Surgery-Progress Note Subjective Procedure Performed local exploration of left hip Symptoms: improved Additional Comments doing well. no complaints. no n/v/f/c. tolerating diet. Objective Last 24 Hour Vital Signs Date Time Temp Pulse Resp B/P (MAP) Pulse Ox O2 Delivery O2 Flow Rate FiO2 11/15/17 12:25 81 104/56 11/15/17 12:00 98.4 81 19 104/56 99 11/15/17 08:24 76 155/72 11/15/17 08:23 76 155/72 11/15/17 08:00 98.8 76 18 155/72 99 11/15/17 04:00 98.7 88 20 147/64 96 11/15/17 00:00 98.9 89 19 163/74 99 11/14/17 20:00 98.4 82 18 134/60 99 11/14/17 17:40 79 144/68 11/14/17 16:00 97.7 79 20 144/68 99 I&O Intake and Output 11/14/17 11/15/17 19:00 07:00 Intake Total 900 ml 400 ml Output Total 925 ml Balance 900 ml -525 ml Intake Oral 900 ml 400 ml Output Urine Total 925 ml # Voids 2 # Bowel Movements 1 Cardiovascular: RSR Respiratory: clear Abdomen: soft, non-tender, present bowel sounds Extremities: no tenderness Laboratory Tests Test 11/15/17 05:05 White Blood Count 9.6 K/UL (4.8-10.8) Red Blood Count 3.18 M/UL (4.70-6.10) L Hemoglobin 8.7 G/DL (14.2-18.0) L Hematocrit 27.7 % (42.0-52.0) L Mean Corpuscular Volume 87 FL (80-99) Mean Corpuscular Hemoglobin 27.3 PG (27.0-31.0) Mean Corpuscular Hemoglobin Concent 31.3 G/DL (32.0-36.0) L Red Cell Distribution Width 15.0 % (11.6-14.8) H Platelet Count 383 K/UL (150-450) Mean Platelet Volume 6.8 FL (6.5-10.1) Neutrophils (%) (Auto) 77.5 % (45.0-75.0) H Lymphocytes (%) (Auto) 10.2 % (20.0-45.0) L Monocytes (%) (Auto) 10.7 % (1.0-10.0) H Eosinophils (%) (Auto) 0.6 % (0.0-3.0) Basophils (%) (Auto) 1.0 % (0.0-2.0) Sodium Level 132 MMOL/L (136-145) L Potassium Level 4.3 MMOL/L (3.5-5.1) Chloride Level 97 MMOL/L (98-107) L Carbon Dioxide Level 22 MMOL/L (21-32) Anion Gap 13 mmol/L (5-15) Blood Urea Nitrogen 33 mg/dL (7-18) H Creatinine 3.8 MG/DL (0.55-1.30) H Estimat Glomerular Filtration Rate 16.5 mL/min (>60) Glucose Level 93 MG/DL (74-106) # Calcium Level 7.7 MG/DL (8.5-10.1) L C-Reactive Protein, Quantitative 12.3 mg/dL (0.00-0.90) H Plan Problems: (1) Sepsis Assessment & Plan: 56M who presents with left hip pain and found to be septic. HD stable, presented with leukocytosis, CRP/ESR elevated, CT with gas in left hip. no trauma noted in area. concerning for gas forming bacterial infection. pain out of proportion to exam in left hip. on exam very tender initially. POD #1 s/p bedside exploration of left hip. subq tissues, fascia, and muscle all intact and viable. no infectious process noted. POD #2 - wound clean. no signs of infection. minimal tenderness on palpation. serous drainage. POD #3 - wound clean without signs of infection. no tenderness. serous drainage. CRP/ESR elevated. leukocytosis resolved. low grade fevers. POD #4 - wound clean, no signs of infection. non tender, minimal serous drainage. CRP down, ESR up. no leukocytosis. POD #5 - wound clean and stable. Afebrile, labs improved. CT reviewed and improved. CXR okay, pending cultures POD #6 - wound almost healed. just small superficial wound left. afebrile, labs okay. repeat CT improved. POD #7 - wound healing. afebrile, HD stable, labs okay, CRP down to 16. unfortunately Cr worsening. POD #8 - wound almost healed. doing well. no signs of infection POD #9 - no issues. improving. -continue with local wound care. -continue Abx as per ID -renal as per nephrology -okay for d/c from surgical standpoint thank you for this consultation. will follow with recs. Willie Davies Nov 15, 2017 15:16
[2017-11-15] MEDS ORDERED: NORCO 5-325 TA1 EAC1 ORAL (15:17)
[2017-11-15] MEDS ORDERED: HEPARIN SO5000 UNIT2 SUBQ (15:17)
[2017-11-15] MEDS ORDERED: NORMODYNE100 MG ORAL (15:17)
[2017-11-15] MEDS ORDERED: LEVEMIR FL100 UNIT/1 SUBQ (15:18)
[2017-11-15] MEDS ORDERED: LOPERAMIDE2 MG PO (15:18)
[2017-11-15] MEDS ORDERED: MEGESTROL800 MG/20 PO (15:19)
[2017-11-15] MEDS ORDERED: CELLCEPT500 MG ORAL (15:20)
[2017-11-15] MEDS ORDERED: OXYBUTYNIN CHLOR5 M1 ORAL (15:24)
[2017-11-15] MEDS ORDERED: PROTONIX20 MG ORAL (15:25)
[2017-11-15] MEDS ORDERED: [UNRECOGNIZED DRUG - OTHER] MC (15:28)
[2017-11-15] MEDS ORDERED: TACROLIMUS1 MG PO (15:29)
[2017-11-15] MEDS ORDERED: CLONIDINE HCL0.1 MG PO (15:31)
[2017-11-15] MEDS ORDERED: THORAZINE50 MG IVP (15:32)
[2017-11-15 16:00] VITALS: BP 127/59
--- NOTE | 2017-11-15 16:09 | Infectious Diseases Prog Note ---
Assessment/Plan Assessment/Plan High grade E.coli bacteremia- Likely 2ry UTI vs buttocks skin soft tissue infection base on CT findings -repeat Bcx 11/05 NTD x4, 11/10 Bcx NTD Severe L hip/thigh/ pain - pain out of proportion with physical findings and with gas on CT are very suspicious for myonecrosis (clostridial gangrene) - DDx necrotizing fascitis. No fractures. ; clinically improving (decrease pain and TTP); improving -now afebrile, Leukocytosis resolved, CRP improving --unclear- as bedside surgical exploration showed normal healthy tissues and no gas; will closely monitor for worsening -CT L Hip 11/11 :Small amount of gas noted within soft tissues adjacent to greater trochanter deep to tensor fascia elisha decreased from prior study. -CT L hip: No acute fractures. No dislocations. The joint spaces are preserved. Gas within the soft tissues of the left hip and buttock region. This may indicate penetrating trauma, but is worrisome for infection with gas- forming organism. There is equivocal mild thickening of the bladder wall -11/06 ESR 50, CRP 40> 11/08 CRP 55.6; normal CK -CT abd/p wo 11/06: Small left inguinal hernia containing nonobstructive loops of small bowel. Persistent gas within the soft tissues of the left hip and buttock region although the amount of gas decreased compared to exam of 11/04/2017. There is slight asymmetry and engorgement of the musculature in this region possibly related to edema and/or phlegmonous change. No definite well-defined/drainable fluid collection is identified however evaluation is limited without intravenous contrast. Again, these findings may be secondary to penetrating trauma versus infection with gas- forming organism. Correlation with clinical history and physical exam findings recommended. Consider ultrasound to assess for defined/drainable fluid collection. Bladder wall thickening may be related to underdistention. Correlate with urinalysis to exclude cystitis. Air within the bladder may be related to prior catheterization. K.pna and E.coli UTI -u/a wbc 10-15, nit neg, leuk +1; UCx >100k K Pna ( R amp anb Nitro, otherwise sensitive); >100K E.coli #2 (beasley S) Low grade fever- resolved mild leukocytosis- SP DM2, HTN, seizure disorder, brain surgery (~10 yrs ago), HLD, PVD s/p amputation L great toe, ESRD s/p Renal transplant 2011- not on HD, but now requiring HD- improving Cr L eye prosthesis Plan: - cont Daptomycin d# 7 (abx d #08/18 4mg/kg q48hrs) given renal insufficiency and renal transplant; Ertapenem 500mg qd abx d#09/18, and continue PO Clindamycin # 08/18 for possible gas-forming infection on L buttocks; Ok to discharge on this regimen to complete 14 day course; via PIV 11/14 SP Zosyn #10 1 SP IV Vanco #4 -f/u cx -Monitor CBC/BMP, temperatures Discusse with RN. Subjective Allergies: Coded Allergies: NO KNOWN ALLERGIES (Unverified Allergy, Unknown, 10/24/15) Subjective afebrile no leukocytosis CRP continues to improve pain improving for discharge today Objective Vital Signs Last 24 Hour Vital Signs Date Time Temp Pulse Resp B/P (MAP) Pulse Ox O2 Delivery O2 Flow Rate FiO2 11/15/17 12:25 81 104/56 11/15/17 12:00 98.4 81 19 104/56 99 11/15/17 08:24 76 155/72 11/15/17 08:23 76 155/72 11/15/17 08:00 98.8 76 18 155/72 99 11/15/17 04:00 98.7 88 20 147/64 96 11/15/17 00:00 98.9 89 19 163/74 99 11/14/17 20:00 98.4 82 18 134/60 99 11/14/17 17:40 79 144/68 Height (Feet): 5 Height (Inches): 10.00 Weight (Pounds): 150 Objective GENERAL: The patient is a well-developed and well-nourished thin-appearing male, in no apparent distress. HEENT: Eyes, pupils equal and responsive to light and accommodation. Extraocular movements are intact. NECK: Supple without lymphadenopathy. CHEST: Lungs are clear to auscultation bilaterally without wheezes or rales. CARDIOVASCULAR: Regular rhythm and rate. S1 and S2 normal without murmurs, rubs, or gallops. ABDOMEN: Soft, nontender, and nondistended. Positive bowel sounds. No evidence of hepatosplenomegaly. Currently, no rebound or guarding noted. EXTREMITIES: Negative for clubbing, cyanosis, or edema. L Hip,anterior thigh w / surgical incision, clean; decreased TTP, no surroundign erythema, warmth or purulent drainage Laboratory Tests Test 11/15/17 05:05 White Blood Count 9.6 K/UL (4.8-10.8) Red Blood Count 3.18 M/UL (4.70-6.10) L Hemoglobin 8.7 G/DL (14.2-18.0) L Hematocrit 27.7 % (42.0-52.0) L Mean Corpuscular Volume 87 FL (80-99) Mean Corpuscular Hemoglobin 27.3 PG (27.0-31.0) Mean Corpuscular Hemoglobin Concent 31.3 G/DL (32.0-36.0) L Red Cell Distribution Width 15.0 % (11.6-14.8) H Platelet Count 383 K/UL (150-450) Mean Platelet Volume 6.8 FL (6.5-10.1) Neutrophils (%) (Auto) 77.5 % (45.0-75.0) H Lymphocytes (%) (Auto) 10.2 % (20.0-45.0) L Monocytes (%) (Auto) 10.7 % (1.0-10.0) H Eosinophils (%) (Auto) 0.6 % (0.0-3.0) Basophils (%) (Auto) 1.0 % (0.0-2.0) Sodium Level 132 MMOL/L (136-145) L Potassium Level 4.3 MMOL/L (3.5-5.1) Chloride Level 97 MMOL/L (98-107) L Carbon Dioxide Level 22 MMOL/L (21-32) Anion Gap 13 mmol/L (5-15) Blood Urea Nitrogen 33 mg/dL (7-18) H Creatinine 3.8 MG/DL (0.55-1.30) H Estimat Glomerular Filtration Rate 16.5 mL/min (>60) Glucose Level 93 MG/DL (74-106) # Calcium Level 7.7 MG/DL (8.5-10.1) L C-Reactive Protein, Quantitative 12.3 mg/dL (0.00-0.90) H Current Medications Medications (Trade) Dose Ordered Sig/Vincent Route PRN Reason Start Time Stop Time Status Last Admin Dose Admin Acetaminophen/ Hydrocodone Bitart ([place] 10/325) 1 ea Q4H PRN ORAL Severe Pain (Pain Scale 7-10) 11/11/17 14:30 11/18/17 14:29 11/15/17 08:25 Acetaminophen/ Hydrocodone Bitart ([place] 5/325) 1 tab Q6H PRN ORAL Moderate Pain (Pain Scale 4-6) 11/11/17 14:15 11/18/17 23:59 11/11/17 19:16 Allopurinol (Zyloprim) 100 mg BID ORAL 11/08/17 09:00 12/05/17 08:59 11/15/17 08:22 Amlodipine Besylate (Norvasc) 10 mg DAILY ORAL 11/08/17 09:00 12/05/17 08:59 11/15/17 08:23 Baclofen (Lioresal) 20 mg Q8H PRN ORAL Muscle Spasm 11/09/17 18:00 12/09/17 17:59 Calcium Carbonate (Os-Jeancarlos) 1,250 mg THREE TIMES A DAY ORAL 11/10/17 18:00 12/10/17 17:59 11/15/17 12:24 Chlorpromazine 25 mg/Sodium Chloride 111 ml @ 222 mls/hr Q8H PRN IVPB HICCUPS 11/07/17 22:00 12/06/17 21:59 11/10/17 21:02 Clindamycin HCl (Cleocin) 600 mg EVERY 8 HOURS ORAL 11/13/17 14:00 11/20/17 13:59 11/15/17 12:24 Clonidine HCl (Catapres) 0.1 mg EVERY 6 HOURS PRN ORAL SBP > 160 mm Hg 11/09/17 07:45 12/09/17 07:44 11/10/17 04:58 Daptomycin 250 mg/ Sodium Chloride 55 ml @ 100 mls/hr EVERY OTHER DAY@1730 IV 11/09/17 17:30 11/16/17 17:29 11/13/17 18:39 Dextrose (Dextrose 50%) STAT PRN IV Hypoglycemia 11/07/17 22:00 12/07/17 21:59 Docusate Sodium (Colace) 100 mg BID ORAL 11/08/17 09:00 12/05/17 08:59 11/15/17 08:23 Epoetin Binu (Procrit (for ESRD on dialysis)) 10,000 units SUN-SUN-SUN SUBQ 11/09/17 21:00 12/07/17 20:59 11/14/17 21:33 Ertapenem 0.5 gm/ Sodium Chloride 55 ml @ 110 mls/hr Q24H IVPB 11/14/17 13:00 11/19/17 12:59 11/14/17 14:55 Heparin Sodium (Porcine) (Heparin 5000 units/ml) 5,000 units Q12HR SUBQ 11/07/17 22:00 12/07/17 21:59 11/15/17 08:26 Insulin Aspart (NovoLOG) BEFORE MEALS AND HS SUBQ 11/07/17 22:00 12/07/17 21:59 11/15/17 12:27 Insulin Detemir (Levemir) 10 units BID SUBQ 11/10/17 18:00 12/10/17 17:59 11/15/17 08:29 Labetalol HCl (Normodyne) 100 mg THREE TIMES A DAY ORAL 11/08/17 09:00 12/05/17 08:59 11/15/17 12:25 Loperamide HCl (Imodium) 2 mg Q4H PRN ORAL Diarrhea 11/08/17 18:30 12/08/17 18:29 11/12/17 16:09 Megestrol Acetate (Megace) 800 mg DAILY ORAL 11/08/17 09:00 12/07/17 08:59 11/15/17 08:21 Mycophenolate Mofetil (Cellcept) 500 mg Q12HR ORAL 11/07/17 22:00 12/07/17 21:59 11/15/17 08:21 Oxybutynin Chloride (Ditropan) 5 mg Q12HR ORAL 11/07/17 22:00 12/07/17 21:59 11/15/17 08:22 Pantoprazole (Protonix) 40 mg DAILY ORAL 11/08/17 09:00 12/08/17 08:59 11/15/17 08:22 Sodium Citrate (Bicitra) 30 ml EVERY 6 HOURS ORAL 11/10/17 18:00 12/10/17 17:59 11/15/17 12:24 Tacrolimus (Prograf) 1 mg BID ORAL 11/08/17 09:00 12/05/17 08:59 11/15/17 08:23 Rupinder Perez M.D. Nov 15, 2017 16:09
--- NOTE | 2017-11-15 18:34 | Pulmonology Progress Note ---
Assessment/Plan Problems: (1) Sepsis (2) Metabolic acidosis (3) Hiccups (4) Diabetes mellitus (5) Hip pain, left (6) Failure to thrive (7) ESRF (end stage renal failure) Assessment/Plan improving continue abx as per ID check h/h check electrolytes hiccup is controlled. on HD check electrolytes check wbc dc home with IV ab x, f/u at [facility] Subjective ROS Limited/Unobtainable: No Constitutional: Reports: no symptoms HEENT: Repors: no symptoms Respiratory: Reports: no symptoms Allergies: Coded Allergies: NO KNOWN ALLERGIES (Unverified Allergy, Unknown, 10/24/15) Objective Last 24 Hour Vital Signs Date Time Temp Pulse Resp B/P (MAP) Pulse Ox O2 Delivery O2 Flow Rate FiO2 11/15/17 17:54 78 127/59 11/15/17 16:00 97.8 78 20 127/59 100 11/15/17 12:25 81 104/56 11/15/17 12:00 98.4 81 19 104/56 99 11/15/17 08:24 76 155/72 11/15/17 08:23 76 155/72 11/15/17 08:00 98.8 76 18 155/72 99 11/15/17 04:00 98.7 88 20 147/64 96 11/15/17 00:00 98.9 89 19 163/74 99 11/14/17 20:00 98.4 82 18 134/60 99 Intake and Output 11/14/17 11/15/17 19:00 07:00 Intake Total 900 ml 400 ml Output Total 925 ml Balance 900 ml -525 ml Intake Oral 900 ml 400 ml Output Urine Total 925 ml # Voids 2 # Bowel Movements 1 Objective Objective General Appearance: no acute distress HEENT: normocephalic, atraumatic Respiratory/Chest: lungs clear, no respiratory distress, no accessory muscle use Cardiovascular: normal rate, no JVD, CL-femoral intact Abdomen: normal bowel sounds, soft, non tender Extremities: no edema Neurologic/Psychiatric: alert, responsive Musculoskeletal: normal muscle bulk Laboratory Tests 11/15/17 05:05: White Blood Count 9.6, Red Blood Count 3.18L, Hemoglobin 8.7L, Hematocrit 27.7L , Mean Corpuscular Volume 87, Mean Corpuscular Hemoglobin 27.3, Mean Corpuscular Hemoglobin Concent 31.3L, Red Cell Distribution Width 15.0H, Platelet Count 383, Mean Platelet Volume 6.8, Neutrophils (%) (Auto) 77.5H, Lymphocytes (%) (Auto) 10.2L, Monocytes (%) (Auto) 10.7H, Eosinophils (%) (Auto ) 0.6, Basophils (%) (Auto) 1.0, Sodium Level 132L, Potassium Level 4.3, Chloride Level 97L, Carbon Dioxide Level 22, Anion Gap 13, Blood Urea Nitrogen 33H, Creatinine 3.8H, Estimat Glomerular Filtration Rate 16.5, Glucose Level 93# , Calcium Level 7.7L, C-Reactive Protein, Quantitative 12.3H Current Medications Medications (Trade) Dose Ordered Sig/Vincent Route PRN Reason Start Time Stop Time Status Last Admin Dose Admin Acetaminophen/ Hydrocodone Bitart ([place] 10/325) 1 ea Q4H PRN ORAL Severe Pain (Pain Scale 7-10) 11/11/17 14:30 11/18/17 14:29 11/15/17 08:25 Acetaminophen/ Hydrocodone Bitart ([place] 5/325) 1 tab Q6H PRN ORAL Moderate Pain (Pain Scale 4-6) 11/11/17 14:15 11/18/17 23:59 11/11/17 19:16 Allopurinol (Zyloprim) 100 mg BID ORAL 11/08/17 09:00 12/05/17 08:59 11/15/17 17:50 Amlodipine Besylate (Norvasc) 10 mg DAILY ORAL 11/08/17 09:00 12/05/17 08:59 11/15/17 08:23 Baclofen (Lioresal) 20 mg Q8H PRN ORAL Muscle Spasm 11/09/17 18:00 12/09/17 17:59 Calcium Carbonate (Os-Jeancarlos) 1,250 mg THREE TIMES A DAY ORAL 11/10/17 18:00 12/10/17 17:59 11/15/17 17:49 Chlorpromazine 25 mg/Sodium Chloride 111 ml @ 222 mls/hr Q8H PRN IVPB HICCUPS 11/07/17 22:00 12/06/17 21:59 11/10/17 21:02 Clindamycin HCl (Cleocin) 600 mg EVERY 8 HOURS ORAL 11/13/17 14:00 11/20/17 13:59 11/15/17 12:24 Clonidine HCl (Catapres) 0.1 mg EVERY 6 HOURS PRN ORAL SBP > 160 mm Hg 11/09/17 07:45 12/09/17 07:44 11/10/17 04:58 Daptomycin 250 mg/ Sodium Chloride 55 ml @ 100 mls/hr EVERY OTHER DAY@1730 IV 11/09/17 17:30 11/16/17 17:29 11/13/17 18:39 Dextrose (Dextrose 50%) STAT PRN IV Hypoglycemia 11/07/17 22:00 12/07/17 21:59 Docusate Sodium (Colace) 100 mg BID ORAL 11/08/17 09:00 12/05/17 08:59 11/15/17 17:49 Epoetin Binu (Procrit (for ESRD on dialysis)) 10,000 units MON-WED-SUN SUBQ 11/09/17 21:00 12/07/17 20:59 11/14/17 21:33 Ertapenem 0.5 gm/ Sodium Chloride 55 ml @ 110 mls/hr Q24H IVPB 11/14/17 13:00 11/19/17 12:59 11/14/17 14:55 Heparin Sodium (Porcine) (Heparin 5000 units/ml) 5,000 units Q12HR SUBQ 11/07/17 22:00 12/07/17 21:59 11/15/17 08:26 Insulin Aspart (NovoLOG) BEFORE MEALS AND HS SUBQ 11/07/17 22:00 12/07/17 21:59 11/15/17 17:51 Insulin Detemir (Levemir) 10 units BID SUBQ 11/10/17 18:00 12/10/17 17:59 11/15/17 08:29 Labetalol HCl (Normodyne) 100 mg THREE TIMES A DAY ORAL 11/08/17 09:00 12/05/17 08:59 11/15/17 17:54 Loperamide HCl (Imodium) 2 mg Q4H PRN ORAL Diarrhea 11/08/17 18:30 12/08/17 18:29 11/12/17 16:09 Megestrol Acetate (Megace) 800 mg DAILY ORAL 11/08/17 09:00 12/07/17 08:59 11/15/17 08:21 Mycophenolate Mofetil (Cellcept) 500 mg Q12HR ORAL 11/07/17 22:00 12/07/17 21:59 11/15/17 08:21 Oxybutynin Chloride (Ditropan) 5 mg Q12HR ORAL 11/07/17 22:00 12/07/17 21:59 11/15/17 08:22 Pantoprazole (Protonix) 40 mg DAILY ORAL 11/08/17 09:00 12/08/17 08:59 11/15/17 08:22 Sodium Citrate (Bicitra) 30 ml EVERY 6 HOURS ORAL 11/10/17 18:00 12/10/17 17:59 11/15/17 12:24 Tacrolimus (Prograf) 1 mg BID ORAL 11/08/17 09:00 12/05/17 08:59 11/15/17 17:53 JOCELYN LAMA Nov 15, 2017 18:34
--- NOTE | 2017-11-15 19:50 | Internal Med Progress Note ---
Subjective Date of Service: Nov 15, 2017 Physician Name Bisi Gaston Attending Physician Kristian Gaona MD Current Medications Medications (Trade) Dose Ordered Sig/Vincent Route PRN Reason Start Time Stop Time Status Last Admin Dose Admin Acetaminophen/ Hydrocodone Bitart ([place] 10/325) 1 ea Q4H PRN ORAL Severe Pain (Pain Scale 7-10) 11/11/17 14:30 11/18/17 14:29 11/15/17 08:25 Acetaminophen/ Hydrocodone Bitart ([place] 5/325) 1 tab Q6H PRN ORAL Moderate Pain (Pain Scale 4-6) 11/11/17 14:15 11/18/17 23:59 11/11/17 19:16 Allopurinol (Zyloprim) 100 mg BID ORAL 11/08/17 09:00 12/05/17 08:59 11/15/17 17:50 Amlodipine Besylate (Norvasc) 10 mg DAILY ORAL 11/08/17 09:00 12/05/17 08:59 11/15/17 08:23 Baclofen (Lioresal) 20 mg Q8H PRN ORAL Muscle Spasm 11/09/17 18:00 12/09/17 17:59 Calcium Carbonate (Os-Jeancarlos) 1,250 mg THREE TIMES A DAY ORAL 11/10/17 18:00 12/10/17 17:59 11/15/17 17:49 Chlorpromazine 25 mg/Sodium Chloride 111 ml @ 222 mls/hr Q8H PRN IVPB HICCUPS 11/07/17 22:00 12/06/17 21:59 11/10/17 21:02 Clindamycin HCl (Cleocin) 600 mg EVERY 8 HOURS ORAL 11/13/17 14:00 11/20/17 13:59 11/15/17 12:24 Clonidine HCl (Catapres) 0.1 mg EVERY 6 HOURS PRN ORAL SBP > 160 mm Hg 11/09/17 07:45 12/09/17 07:44 11/10/17 04:58 Daptomycin 250 mg/ Sodium Chloride 55 ml @ 100 mls/hr EVERY OTHER DAY@1730 IV 11/09/17 17:30 11/16/17 17:29 11/13/17 18:39 Dextrose (Dextrose 50%) STAT PRN IV Hypoglycemia 11/07/17 22:00 12/07/17 21:59 Docusate Sodium (Colace) 100 mg BID ORAL 11/08/17 09:00 12/05/17 08:59 11/15/17 17:49 Epoetin Binu (Procrit (for ESRD on dialysis)) 10,000 units SUN-SUN-SUN SUBQ 11/09/17 21:00 12/07/17 20:59 11/14/17 21:33 Ertapenem 0.5 gm/ Sodium Chloride 55 ml @ 110 mls/hr Q24H IVPB 11/14/17 13:00 11/19/17 12:59 11/15/17 18:29 Heparin Sodium (Porcine) (Heparin 5000 units/ml) 5,000 units Q12HR SUBQ 11/07/17 22:00 12/07/17 21:59 11/15/17 08:26 Insulin Aspart (NovoLOG) BEFORE MEALS AND HS SUBQ 11/07/17 22:00 12/07/17 21:59 11/15/17 17:51 Insulin Detemir (Levemir) 10 units BID SUBQ 11/10/17 18:00 12/10/17 17:59 11/15/17 18:37 Labetalol HCl (Normodyne) 100 mg THREE TIMES A DAY ORAL 11/08/17 09:00 12/05/17 08:59 11/15/17 17:54 Loperamide HCl (Imodium) 2 mg Q4H PRN ORAL Diarrhea 11/08/17 18:30 12/08/17 18:29 11/12/17 16:09 Megestrol Acetate (Megace) 800 mg DAILY ORAL 11/08/17 09:00 12/07/17 08:59 11/15/17 08:21 Mycophenolate Mofetil (Cellcept) 500 mg Q12HR ORAL 11/07/17 22:00 12/07/17 21:59 11/15/17 08:21 Oxybutynin Chloride (Ditropan) 5 mg Q12HR ORAL 11/07/17 22:00 12/07/17 21:59 11/15/17 08:22 Pantoprazole (Protonix) 40 mg DAILY ORAL 11/08/17 09:00 12/08/17 08:59 11/15/17 08:22 Sodium Citrate (Bicitra) 30 ml EVERY 6 HOURS ORAL 11/10/17 18:00 12/10/17 17:59 11/15/17 18:36 Tacrolimus (Prograf) 1 mg BID ORAL 11/08/17 09:00 12/05/17 08:59 11/15/17 17:53 Allergies: Coded Allergies: NO KNOWN ALLERGIES (Unverified Allergy, Unknown, 10/24/15) ROS Limited/Unobtainable: No Constitutional: Reports: no symptoms HEENT: Reports: no symptoms Cardiovascular: Reports: no symptoms Respiratory: Reports: no symptoms Gastrointestinal/Abdominal: Reports: no symptoms Genitourinary: Reports: no symptoms Neurologic/Psychiatric: Reports: no symptoms Subjective 56 YO M admitted with left hip pain. Now cellulitis left hip and sepsis. Also UTI. Cover for Int Med-Dr Gaona. S/P bedside Incision and drainage 11/06/17. Transfer to [facility] denied Objective Last Vital Signs Date Time Temp Pulse Resp B/P (MAP) Pulse Ox O2 Delivery O2 Flow Rate FiO2 11/15/17 17:54 78 127/59 11/15/17 16:00 97.8 20 100 11/13/17 16:00 Room Air Laboratory Tests Test 11/15/17 05:05 White Blood Count 9.6 K/UL (4.8-10.8) Red Blood Count 3.18 M/UL (4.70-6.10) L Hemoglobin 8.7 G/DL (14.2-18.0) L Hematocrit 27.7 % (42.0-52.0) L Mean Corpuscular Volume 87 FL (80-99) Mean Corpuscular Hemoglobin 27.3 PG (27.0-31.0) Mean Corpuscular Hemoglobin Concent 31.3 G/DL (32.0-36.0) L Red Cell Distribution Width 15.0 % (11.6-14.8) H Platelet Count 383 K/UL (150-450) Mean Platelet Volume 6.8 FL (6.5-10.1) Neutrophils (%) (Auto) 77.5 % (45.0-75.0) H Lymphocytes (%) (Auto) 10.2 % (20.0-45.0) L Monocytes (%) (Auto) 10.7 % (1.0-10.0) H Eosinophils (%) (Auto) 0.6 % (0.0-3.0) Basophils (%) (Auto) 1.0 % (0.0-2.0) Sodium Level 132 MMOL/L (136-145) L Potassium Level 4.3 MMOL/L (3.5-5.1) Chloride Level 97 MMOL/L (98-107) L Carbon Dioxide Level 22 MMOL/L (21-32) Anion Gap 13 mmol/L (5-15) Blood Urea Nitrogen 33 mg/dL (7-18) H Creatinine 3.8 MG/DL (0.55-1.30) H Estimat Glomerular Filtration Rate 16.5 mL/min (>60) Glucose Level 93 MG/DL (74-106) # Calcium Level 7.7 MG/DL (8.5-10.1) L C-Reactive Protein, Quantitative 12.3 mg/dL (0.00-0.90) H Intake and Output 11/14/17 11/15/17 19:00 07:00 Intake Total 900 ml 400 ml Output Total 925 ml Balance 900 ml -525 ml Intake Oral 900 ml 400 ml Output Urine Total 925 ml # Voids 2 # Bowel Movements 1 Objective General Appearance: alert, mild distress, thin EENT: PERRL/EOMI, normal ENT inspection, TMs normal Neck: non-tender, normal alignment, supple, normal inspection Cardiovascular: normal peripheral pulses, normal rate, regular rhythm, no gallop/murmur, no JVD Respiratory/Chest: chest wall non-tender, lungs clear, normal breath sounds, no respiratory distress, no accessory muscle use Abdomen: normal bowel sounds, non tender, soft, no organomegaly, no mass Extremities: normal range of motion Neurologic: escrow representative II-XII grossly normal, no motor/sensory deficits Skin: normal pigmentation, warm/dry Assessment/Plan Problem List: (1) Diabetes mellitus, type II Assessment & Plan: Uncontrolled. Increase levemir to BID (2) ESRD (end stage renal disease) on dialysis Assessment & Plan: S/P hemodialysis 11/10/17. See nephrology note. (3) Renal transplant, status post (4) HTN (hypertension) Assessment & Plan: Continue labetolol and norvasc. (5) Hypercholesteremia (6) Seizure disorder (7) Peripheral vascular disease (8) Cellulitis of hip, left Assessment & Plan: S/P Incision and Drainage 11/06/17. see surgery note. Cont zosyn per ID (9) Hip pain, left Assessment & Plan: S/P I & D. Await repeat CT Hip. See surgery note. (10) UTI (urinary tract infection) Assessment & Plan: Klebsiella pneumo and E.coli. Cont zosyn per ID (11) Sepsis Assessment & Plan: E.Coli. Continue zosyn per ID. (12) Diarrhea Assessment & Plan: Await c.diff and culture results. Imodium prn Assessment/Plan Discharge planning: home with home health BISI Morales Nov 15, 2017 19:50
[2017-11-15 20:00] VITALS: BP 121/77
[2017-11-15] MEDS: DAPTOmycin 250 MG in NS 55 ML IV SCH (20:53)
--- NOTE | 2017-11-16 17:43 | Discharge Summary ---
Discharge Summary Hospital Course Date of Admission Nov 04, 2017 at 18:07 Date of Discharge Nov 15, 2017 at 22:40 Admitting Diagnosis cellulitis, hyperglycemia, ARF, UTI, dehydration HPI Vik Brunson is a 56 year old male who was admitted on Nov 04, 2017 at 18: 07 for Cellulitis,Hyperglycemia,Acute Renal Failure, Hospital Course [id number] Discharge Discharge Disposition Patient was discharged to Home with Home Health(06) Discharge Diagnoses: Lauren Lemons NP Nov 16, 2017 17:43
--- NOTE | 2017-11-17 01:30 | Discharge Summary 2 SIG ---
DATE OF ADMISSION: 11/04/2017 DATE OF DISCHARGE: 11/15/2017 ATTENDING PHYSICIAN: Kristian Gaona M.D. CONSULTANTS: 1. Delmis Zambrano M.D. 2. Rupinder Perez M.D. 3. Willie Davies M.D. 4. Marcella Ramon M.D. BRIEF HOSPITAL COURSE: The patient is a 56-year-old male, who fell, presented to ED complaining of left hip pain. He was initially evaluated at [facility] emergency room and was discharged home. However, he returned on 11/04/2017 with continued hip pain. On evaluation, he was found to have urinary tract infection. He has a medical history significant for diabetes mellitus type 2, hypertension, seizure disorder, hyperlipidemia, peripheral vascular disease, status post amputation of the left great toe, and end-stage renal disease, status post renal transplant in 2011. He had brain surgery approximately 10 years ago and had a left eye prosthesis. He was started on IV vancomycin, clindamycin, and Zosyn. He had high-grade gram-negative bacteremia. 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 There were no acute fractures noted. No dislocation, but with gas within the soft tissue of the left hip and buttock region. Urinalysis was with 10 to 15 WBC and +1 leukocyte esterase. Urine culture showing growth of Klebsiella pneumoniae. On 11/06/2017, he underwent local exploration of the left hip by Dr. Davies. He was given pain management. He was continued on CellCept and Prograf and was given Epogen. There was a drop in hemoglobin and received two units packed RBC blood transfusion. Repeat pelvic and hip CT showed a small amount of gas within the soft tissue decreased from prior studies. He had hypovolemic hyponatremia. He was given Bicitra. He was also given Rocaltrol. He was given inpatient hemodialysis. He was given daptomycin given renal insufficiency and renal transplant and ertapenem. He was given p.o. clindamycin. He was initially planned for transfer to [facility], however, transfer did not transpire. He underwent physical therapy and was recommended DME's. He was eventually discharged home to continue IV antibiotics. FINAL DIAGNOSES: 1. Sepsis with high-grade E. coli bacteremia. 2. Urinary tract infection with E. coli and Klebsiella. 3. Cellulitis of the left hip. 4. Acute renal failure on chronic kidney disease stage 5. 5. Metabolic acidosis. 6. Possible necrotizing fasciitis. 7. Status post bedside surgical exploration of the hip. 8. Diabetes mellitus type 2. 9. Seizure disorder. 10. Hypertension. 11. End-stage renal disease, now requiring hemodialysis. 12. Diarrhea. 13. Peripheral vascular disease. 14. Hypercholesterolemia. 15. Status post renal transplant. 16. Failure to thrive. 17. Acute anemia requiring blood transfusion. DISPOSITION: The patient was discharged home. DISCHARGE MEDICATIONS: Refer to medication list. Continue with Invanz and daptomycin for five days. DISCHARGE INSTRUCTIONS: The patient was discharged home with home health. FOLLOWUP: Follow up with [facility]. Delmis Zambrano M.D. I have been assigned to dictate discharge summary on this account and I was not involved in the patient's management. Lauren Lemons N.P. DR: KARL JOB#: [id number] CC: SUSANA
== END 2017-11-15 22:40 | disposition home health service (06) | DRG 853 ==
LOC: EMR 14:00 → 2E 18:07 → EDBEDREQSVC 18:44 → EDBEDREQ 18:44 → 3E 11-07 21:07
PROC: 5A1D70Z Performance of Urinary Filtration, Intermittent, Less than 6 Hours Per Day (ICD-10-PCS; principal; 2017-11-06)
PROC: 0J8M0ZZ Division of Left Upper Leg Subcutaneous Tissue and Fascia, Open Approach (ICD-10-PCS; principal; 2017-11-06)
DX: A41.51 Sepsis due to Escherichia coli [E. coli] (principal); N18.6 End stage renal disease; M72.6 Necrotizing fasciitis; E87.2 Acidosis; E43 Unspecified severe protein-calorie malnutrition; N17.9 Acute kidney failure, unspecified; I12.0 Hypertensive chronic kidney disease with stage 5 chronic kidney disease or end stage renal disease; L03.116 Cellulitis of left lower limb; N39.0 Urinary tract infection, site not specified; Z94.0 Kidney transplant status; E87.1 Hypo-osmolality and hyponatremia; B96.7 Clostridium perfringens [C. perfringens] as the cause of diseases classified elsewhere; E11.51 Type 2 diabetes mellitus with diabetic peripheral angiopathy without gangrene; W19.XXXA Unspecified fall, initial encounter; Z91.81 History of falling; R62.7 Adult failure to thrive; Z79.4 Long term (current) use of insulin; G40.909 Epilepsy, unspecified, not intractable, without status epilepticus; E78.00 Pure hypercholesterolemia, unspecified; R06.6 Hiccough; E87.6 Hypokalemia; R19.7 Diarrhea, unspecified; D63.1 Anemia in chronic kidney disease; E83.51 Hypocalcemia; Z68.21 Body mass index [BMI] 21.0-21.9, adult
CPT/HCPCS: 36415; 36600; 71010; 71045; 74176; 80048; 80053; 80202; 81003; 82248; 82306; 82550; 82570; 82803; 82962; 83036; 83540; 83550; 83605; 83735; 83970; 84100; 84300; 84484; 85007; 85025; 85651; 86140; 86703; 86705; 86709; 86803; 86850; 86900; 86901; 86920; 87040; 87045; 87086; 87181; 87324; 87340; 93005; 99285; J1815; J8499; S0077; S5561

== ENCOUNTER 2017-11-17 17:46 | Inpatient (IN) | payer OTHER, MEDICAID ==
[~2017-11-17] VITALS: Ht 177.8 cm; Wt 61.2 kg
[~2017-11-17 17:46] MED LIST changes: +ALLOPURINOL100 M1 ORAL; +ATORVASTATIN CA20 MG ORAL; +CALCIUM500 M3 PO; +CELLCEPT500 MG ORAL; +CLEOCIN HCL300 MG PO; +CLONIDINE HCL0.1 MG PO; +DAPTOMYCIN500 MG IV; +DEXTROSE 50%-WA50 M1 IV; +DOCUSATE SODIU100 MG ORAL; +EPOGEN10000 UNIT SUBQ; +FUROSEMIDE20 M1 ORAL; +HEPARIN SO5000 UNIT2 SUBQ; +INVANZ1 G1 IVPB; +LIORESAL20 MG ORAL; +LOPERAMIDE2 MG PO; +MEGESTROL800 MG/20 PO; +NORCO 10-325 T1 EACH ORAL; +NORMODYNE100 MG ORAL; +NORMODYNE300 MG ORAL; +PROTONIX20 MG ORAL; +TACROLIMUS1 MG PO; +THORAZINE50 MG IVP; +TUMS500 MG ORAL; +[UNRECOGNIZED DRUG - OTHER] MC
--- NOTE | 2017-11-17 18:19 | Emergency Room Report ---
History of Present Illness General Chief Complaint: Nausea Source: Patient, Medical Record Present Illness HPI 56-year-old male, history of end-stage renal disease on dialysis Sunday, last dialysis was , history of recent hospitalization , for 12 days, discharged 2 days ago, presenting with nausea and generalized weakness. Also need for dialysis Patient was hospitalized 12 days for bacteremia, also found to have necrotizing fasciitis of the left hip, underwent wound exploration and was treated with IV antibiotics Daughter states that patient was at home today, for the last 2 days still nauseous not feeling well. Unable to eat. Nurse came to give him medications, noted that his blood pressure was high. Patient did not go to dialysis because he states that "nothing was set up" for him. + Subjective fevers No chest pain shortness of breath diarrhea or vomiting Allergies: Coded Allergies: NO KNOWN ALLERGIES (Unverified Allergy, Unknown, 10/24/15) Patient History Past Medical History: see triage record Past Surgical History: none Pertinent Family History: none Reviewed Nursing Documentation: PMH: Agreed, PSxH: Agreed Nursing Documentation-PMH Past Medical History: No History, Except For Hx Hypertension: Yes Hx Pacemaker: No Hx Asthma: No Hx COPD: No Hx Diabetes: Yes Hx Cancer: No Hx Gastrointestinal Problems: No Hx Neurological Problems: Yes - Neuro surgery (veins clipped) Hx Cerebrovascular Accident: No Hx Seizures: Yes Hx Peripheral Neuropathy: Yes Hx Neurologic Surgery: Yes - brain surgery 10 years ago Review of Systems All Other Systems: negative except mentioned in HPI Physical Exam Vital Signs Date Time Temp Pulse Resp B/P (MAP) Pulse Ox O2 Delivery O2 Flow Rate FiO2 11/17/17 17:46 100.4 82 14 147/67 99 Room Air Sp02 EP Interpretation: reviewed, normal General Appearance: alert, mild distress, thin, Chronically Ill Head: normocephalic, atraumatic Eyes: bilateral eye normal inspection, bilateral eye PERRL, bilateral eye EOMI ENT: normal ENT inspection, normal pharynx, normal voice, moist mucus membranes Neck: normal inspection, full range of motion, supple Respiratory: normal inspection, lungs clear, normal breath sounds, no respiratory distress, no retraction, no wheezing, speaking full sentences, chest symmetrical Cardiovascular #1: normal inspection, regular rate, rhythm, normal capillary refill Cardiovascular #2: 2+ radial (R), 2+ radial (L) Gastrointestinal: normal inspection, non tender, soft, non-distended, no guarding Genitourinary: no CVA tenderness Musculoskeletal: other - L hip with wound and clean dry dressing intact. RLE prosthesis. L sided AV fistula. Neurologic: normal inspection, alert, oriented x3, responsive, motor strength/ tone normal, sensory intact, speech normal Psychiatric: normal inspection, judgement/insight normal, memory normal Skin: normal inspection, normal color, no rash, warm/dry, well hydrated, normal turgor Medical Decision Making Diagnostic Impression: Primary Impression: Nausea Additional Impressions: ESRD (end stage renal disease) on dialysis Hyperkalemia Elevated troponin ER Course 56-year-old male end-stage renal disease presenting with nausea, fever, need for dialysis DDX: Electrolyte disturbance from her renal failure, continuation of sepsis/ bacteremia Plan: Obtain labs, ua, EKG, CXR ER course: Patient has been monitored during ED stay, HD stable given zofran for nausea hyperkalemia cocktail given vanco and cefepime given due to patients L hip wound and hx of bacteremia, spiked fever here. Disposition: Patient is to be admitted to telemetry D/W hospitalist Dr Gaona Please note that this Emergency Department Report was dictated using [employer] epidemiologist technology software, occasionally this can lead to erroneous entry secondary to interpretation by the dictation equipment. EKG Diagnostic Results EP Interpretation: Yes Rate: normal Rhythm: NSR ST Segments: T-wave inversion noted in aVL and 1 ASA given to patient: No Rhythm Strip EP Interpretation: Yes Rate: 79 Rhythm: NSR, no PVCs, no ectopy Chest X-ray CXR: Ordered: Yes 1 view Indication: Fever EP interpretation: Yes Interpretation: cardiomegaly Impression: No acute disease Electronically signed by Jayleen Galarza MD Laboratory Tests Test 11/17/17 18:45 White Blood Count 7.3 K/UL (4.8-10.8) Red Blood Count 3.19 M/UL (4.70-6.10) L Hemoglobin 8.4 G/DL (14.2-18.0) L Hematocrit 28.1 % (42.0-52.0) L Mean Corpuscular Volume 88 FL (80-99) Mean Corpuscular Hemoglobin 26.4 PG (27.0-31.0) L Mean Corpuscular Hemoglobin Concent 29.9 G/DL (32.0-36.0) L Red Cell Distribution Width 14.4 % (11.6-14.8) Platelet Count 442 K/UL (150-450) Mean Platelet Volume 5.8 FL (6.5-10.1) L Neutrophils (%) (Auto) 75.5 % (45.0-75.0) H Lymphocytes (%) (Auto) 11.6 % (20.0-45.0) L Monocytes (%) (Auto) 9.1 % (1.0-10.0) Eosinophils (%) (Auto) 1.1 % (0.0-3.0) Basophils (%) (Auto) 2.7 % (0.0-2.0) H Sodium Level 130 MMOL/L (136-145) L Potassium Level 5.3 MMOL/L (3.5-5.1) H Chloride Level 100 MMOL/L (98-107) Carbon Dioxide Level 19 MMOL/L (21-32) L Anion Gap 11 mmol/L (5-15) Blood Urea Nitrogen 28 mg/dL (7-18) H Creatinine 3.9 MG/DL (0.55-1.30) H Estimate Glomerular Filtration Rate 16.0 mL/min (>60) Glucose Level 192 MG/DL (74-106) H Lactic Acid Level 0.70 mmol/L (0.66-2.22) Calcium Level 8.1 MG/DL (8.5-10.1) L Total Bilirubin 0.4 MG/DL (0.2-1.0) Aspartate Amino Transferase (AST) 42 U/L (15-37) H Alanine Aminotransferase (ALT) 24 U/L (12-78) Alkaline Phosphatase 64 U/L (46-116) Troponin I 0.316 ng/mL (0.000-0.056) Pro-B-Type Natriuretic Peptide > 15230 pg/mL (0-125) H Total Protein 6.5 G/DL (6.4-8.2) Albumin 2.0 G/DL (3.4-5.0) L Globulin 4.5 g/dL Albumin/Globulin Ratio 0.4 (1.0-2.7) L Microbiology Date/Time Source Procedure Growth Status 11/17/17 19:00 Nasal Nares Influenza Types A,B Antigen (EVON) - Final Complete Last Vital Signs Date Time Temp Pulse Resp B/P (MAP) Pulse Ox O2 Delivery O2 Flow Rate FiO2 11/17/17 17:46 100.4 82 14 147/67 99 Room Air Disposition: ADMITTED INPATIENT Condition: Serious Jayleen Galarza M.D. Nov 17, 2017 18:19
[2017-11-17 18:58] VITALS: BP 142/56
[2017-11-17 19:05] LABS: BASOPHILS % (AUTO) 2.7 % (0.0-2.0); EOSINOPHILS % (AUTO) 1.1 % (0.0-3.0); HEMATOCRIT 28.1 % (42.0-52.0); HEMOGLOBIN 8.4 G/DL (14.2-18.0); LYMPHOCYTES % (AUTO) 11.6 % (20.0-45.0); MEAN CORPUSCULAR VOLUME 88 FL (80-99); MONOCYTES % (AUTO) 9.1 % (1.0-10.0); NEUTROPHILS % (AUTO) 75.5 % (45.0-75.0); PLATELET COUNT 442 K/UL (150-450); RED BLOOD COUNT 3.19 M/UL (4.70-6.10); RED CELL DISTRIBUTION WIDTH 14.4 % (11.6-14.8); WHITE BLOOD COUNT 7.3 K/UL (4.8-10.8)
[2017-11-17 19:14] LABS: ANION GAP 11 mmol/L (5-15); BLOOD UREA NITROGEN 28 mg/dL (7-18); CALCIUM 8.1 MG/DL (8.5-10.1); CARBON DIOXIDE 19 MMOL/L (21-32); CHLORIDE 100 MMOL/L (98-107); CREATININE 3.9 MG/DL (0.55-1.30); POTASSIUM 5.3 MMOL/L (3.5-5.1); SODIUM 130 MMOL/L (136-145)
[2017-11-17 19:24] LABS: ALANINE AMINOTRANSFERASE 24 U/L (12-78); ALBUMIN/GLOBULIN RATIO 0.4 (1.0-2.7); ALKALINE PHOSPHATASE 64 U/L (46-116); ASPARTATE AMINO TRANSFERASE 42 U/L (15-37); BILIRUBIN,TOTAL 0.4 MG/DL (0.2-1.0)
[2017-11-17] MEDS ORDERED: Calcium Gluconate 1gm/10ml vial IVP ONE (19:30)
[2017-11-17] MEDS ORDERED: Sodium Bicarbonate 50ml Carp IV ONE (19:30)
[2017-11-17] MEDS ORDERED: Albuterol/Ipratropium 3ml neb HHN PRN (19:45)
[2017-11-17] MEDS ORDERED: Zolpidem 5mg tab ORAL PRN (19:45)
[2017-11-17] MEDS ORDERED: Mylanta II UD 30ml ORAL PRN (19:45)
[2017-11-17] MEDS ORDERED: Miralax 17gm pkt ORAL PRN (19:45)
[2017-11-17] MEDS ORDERED: Vancomycin 1 GM in NS 275 ML IVPB ONE (20:00)
[2017-11-17] MEDS ORDERED: Cefepime HCl 1 GM in NS 55 ML IV ONE (20:00)
[2017-11-17] MEDS ORDERED: Vancomycin 1gm inj IVPB ONE (20:23)
[2017-11-17] MEDS ORDERED: Cefepime 1gm vial ONE (20:23)
[2017-11-17 20:57] LABS: APPEARANCE,URINE CLEAR; BILIRUBIN, URINE NEGATIVE (NEGATIVE); COLOR,URINE PALE YELLOW; GLUCOSE, URINE (UA) 2+ (NEGATIVE); KETONES,URINE NEGATIVE (NEGATIVE); LEUKOCYTE ESTERASE ,URINE NEGATIVE (NEGATIVE); NITRITE,URINE NEGATIVE (NEGATIVE); PH,URINE 7 (4.5-8.0); PROTEIN,URINE 3+ (NEGATIVE); UROBILINOGEN,URINE NORMAL MG/DL (0.0-1.0)
[2017-11-17 21:00] VITALS: BP 158/60
[2017-11-17] MEDS: NovoLOG Insulin Flexpen SUBQ SCH (21:00)
[2017-11-17 23:00] VITALS: BP 151/61
[2017-11-17 23:29] VITALS: BP 144/82
[2017-11-18 00:36] VITALS: BP 156/72
[2017-11-18] MEDS: Morphine Sulfate 2mg/ml Inj IVP PRN ×2 (00:39→06:30)
[2017-11-18 05:30] VITALS: BP 160/70
[2017-11-18] MEDS: NovoLOG Insulin Flexpen SUBQ SCH ×5 (07:28→21:09)
[2017-11-18 07:44] LABS: BASOPHILS % (AUTO) 1.6 % (0.0-2.0); EOSINOPHILS % (AUTO) 1.9 % (0.0-3.0); HEMATOCRIT 27.4 % (42.0-52.0); HEMOGLOBIN 8.6 G/DL (14.2-18.0); MEAN CORPUSCULAR VOLUME 88 FL (80-99); MONOCYTES % (AUTO) 9.5 % (1.0-10.0); NEUTROPHILS % (AUTO) 71.9 % (45.0-75.0); PLATELET COUNT 459 K/UL (150-450); RED CELL DISTRIBUTION WIDTH 14.7 % (11.6-14.8); WHITE BLOOD COUNT 6.6 K/UL (4.8-10.8)
[2017-11-18 08:00] VITALS: BP 158/69
[2017-11-18 08:26] LABS: ALANINE AMINOTRANSFERASE 22 U/L (12-78); ALBUMIN 1.8 G/DL (3.4-5.0); ALBUMIN/GLOBULIN RATIO 0.4 (1.0-2.7); ALKALINE PHOSPHATASE 57 U/L (46-116); ANION GAP 13 mmol/L (5-15); ASPARTATE AMINO TRANSFERASE 31 U/L (15-37); BILIRUBIN,TOTAL 0.4 MG/DL (0.2-1.0); BLOOD UREA NITROGEN 29 mg/dL (7-18); CALCIUM 8.1 MG/DL (8.5-10.1); CARBON DIOXIDE 18 MMOL/L (21-32); CHLORIDE 104 MMOL/L (98-107); CHOLESTEROL 102 MG/DL (< 200); CREATININE 3.7 MG/DL (0.55-1.30); HDL CHOLESTEROL 40 MG/DL (40-60); SODIUM 135 MMOL/L (136-145); TRIGLYCERIDES 59 MG/DL (30-150)
[2017-11-18] MEDS: Allopurinol 100mg Tab ORAL SCH (09:50)
[2017-11-18] MEDS: Aspirin EC 81mg tab ORAL SCH (09:50)
--- NOTE | 2017-11-18 10:30 | Diagnostic Imaging Report ---
Indication: Altered mental status Technique: XRAY Chest 1v Comparison: 11/11/2017 Findings: Stable cardiomegaly. There is chronic blunting of the left costophrenic sulcus. There is patchy left basilar atelectasis/consolidation. There is no pneumothorax. Impression: Chronic blunting of the left costophrenic sulcus with patchy left basilar atelectasis/consolidation. Study was obtained via the emergency department however patient admitted to the Hospital at time dictation of the final report.
[2017-11-18 12:00] VITALS: BP 140/72
--- NOTE | 2017-11-18 13:38 | Consultation ---
History of Present Illness General Date patient seen: Nov 17, 2017 Chief Complaint: Nausea Referring physician: Dr. Gaston Reason for Consultation: Abnormal Chest X ray Present Illness HPI Patient is a 57 yo male with pmhx End-stage renal disease, on dialysis every Sunday, , and Sunday, the patient's last dialysis was , 11/15/2017, DM, Status post renal transplant, hypertension hypercholesterolemia, seizure disorder, diabetic peripheral vascular disease, cellulitis of the left hip presents to [facility] with chief complaint of nausea. An initial chest radiograph revealed patchy infiltrates, and basilar lung collapse and possible fluid accumulation. I was asked to consult, manage and treat the patients apparent respiratory ailments. The patient denies chest pain or shortness of breath. A repeat chest radiograph will be done to re evaluate the patients air [place] after hemodialysis and ultrafiltration. Allergies: Coded Allergies: NO KNOWN ALLERGIES (Unverified Allergy, Unknown, 10/24/15) Medication History Scheduled Allopurinol* (Allopurinol*), 100 MG ORAL DAILY, (Reported) Amlodipine Besylate (Norvasc), 10 MG PO DAILY, (Reported) Aspirin* (Aspir-Low*), 81 MG PO DAILY, (Reported) Atorvastatin Calcium* (Atorvastatin Calcium*), 20 MG ORAL BEDTIME, (Reported) Baclofen (Baclofen), 20 MG ORAL Q8HR, (Reported) Clindamycin Hcl (Cleocin Hcl), 600 MG PO Q8HR, (Reported) DAPTOmycin (DAPTOmycin), 250 MG IV DAILY at 1730, (Reported) Docusate Sodium* (Docusate Sodium*), 100 MG ORAL TWICE A DAY, (Reported) Epoetin Binu (Epogen), 10,000 UNIT SUBQ 3XW -w-, (Reported) Ertapenem (Invanz), 0.5 GM IVPB DAILY, (Reported) Furosemide* (Lasix*), 20 MG ORAL DAILY, (Reported) Heparin Sod (Porcine) (Heparin Sodium*), 5,000 UNITS SUBQ EVERY 12 HOURS, ( Reported) Insulin Aspart* (Novolog*), 5 UNITS SUBQ AC, (Reported) Insulin Detemir (Levemir Flexpen), 10 SUBQ BID, (Reported) Insulin Glargine (Lantus), 10 UNITS SUBQ ACBREAKFAST, (Reported) Labetalol HCl (Labetalol HCl), 300 MG ORAL BID, (Reported) Labetalol HCl (Labetalol HCl), 100 MG ORAL TID, (Reported) Labetalol Hcl* (Normodyne*), 600 MG PO TID, (Reported) Lansoprazole* (Prevacid*), 30 MG PO DAILY, (Reported) Megestrol Acetate (Megestrol Acetate), 800 MG PO DAILY, (Reported) Multivitamin (Daily Vitamin), 1 EACH PO DAILY, (Reported) Mycophenolate Mofetil (Cellcept), 500 MG PO BID, (Reported) Oxybutynin Chloride (Oxybutynin Chloride), 5 MG ORAL EVERY 12 HOURS, (Reported) Pantoprazole Sodium (Protonix), 40 MG ORAL DAILY, (Reported) Sodium Citrate (Anticoagulant Sodium Citrate), 30 ML MC Q6HR, (Reported) Tacrolimus (Tacrolimus), 2 MG PO BID, (Reported) Tramadol Hcl (Tramadol Hcl), 50 MG ORAL DAILY, (Reported) Scheduled PRN Calcium Carbonate (Calcium), 500 MG ORAL THREE TIMES A DAY PRN for HEARTBURN, ( Reported) Chlorpromazine (Chlorpromazine HCl), 25 MG IVP Q8HR PRN for Agitation, (Reported ) Clonidine Hcl (Clonidine Hcl), 0.1 MG PO Q6HR PRN for SBP>160, (Reported) Dextrose 50 % In Water (Dextrose 50%-Water Vial), 50 ML IV for Hypoglycemia, ( Reported) Hydrocodone Bit/Acetaminophen 10-325* ([place] 10-325*), 1 TAB ORAL Q4H PRN for Severe Pain (Pain Scale 7-10), (Reported) Hydrocodone Bit/Acetaminophen 5-325* ([place] 5-325 Tablet*), 1 TAB ORAL Q6H PRN for Moderate Pain (Pain Scale 4-6), (Reported) Loperamide Hcl (Loperamide), 2 MG PO Q4HR PRN for Diarrhea, (Reported) Miscellaneous Medications Calcium Carbonate (Calcium), 500 MG PO, (Reported) Patient History Healthcare decision maker Resuscitation status Full Code Advanced Directive on File Past Medical/Surgical History Past Medical/Surgical History: (1) UTI (urinary tract infection) (2) Metabolic acidosis (3) Fall (4) Blindness (5) Renal failure (6) DM (diabetes mellitus screen) (7) Diabetes mellitus (8) ESRF (end stage renal failure) (9) Hip pain, left (10) Hypokalemia (11) Anemia (12) DKA (diabetic ketoacidoses) (13) Diarrhea (14) Respiratory distress (15) SOB (shortness of breath) (16) Gastroenteritis (17) Proteinuria (18) Renal insufficiency (19) Rib fracture (20) Chronic renal failure (21) Hypertension (22) Head trauma (23) Altered level of consciousness (24) BPH (benign prostatic hyperplasia) (25) Pleural effusion on right (26) Multiple rib fractures (27) Hypoglycemic insulin reaction in type 1 diabetes mellitus (28) Lung nodule, multiple (29) Multiple injuries due to trauma (30) Hypoglycemia associated with type 2 diabetes mellitus (31) Hypoglycemia associated with type 2 diabetes mellitus (32) ESRD (end stage renal disease) on dialysis (33) Hiccups (34) Seizure disorder (35) Peripheral vascular disease (36) Diabetic nephropathy (37) HTN (hypertension) (38) Hypertensive emergency (39) Intractable pain (40) Sepsis (41) Diabetes mellitus, type II (42) Hypercholesteremia (43) Cellulitis of hip, left Review of Systems Constitutional: Reports: malaise, weakness Respiratory: Reports: cough Gastrointestinal: Reports: nausea Physical Exam General Appearance: lethargic, mild distress Lines, tubes and drains: peripheral HEENT: normocephalic, atraumatic, anicteric, PERRL Neck: non-tender, normal alignment, supple Respiratory/Chest: chest wall non-tender, crackles/rales, rhonchi - bilaterally Breasts: no masses Cardiovascular/Chest: normal peripheral pulses, normal rate, regular rhythm, no JVD Abdomen: normal bowel sounds, non tender, soft, no organomegaly, no mass Genitourinary/Rectal: normal genital exam, normal rectal exam Extremities: normal range of motion, non-tender, normal inspection, no calf tenderness Skin Exam: normal pigmentation, warm/dry Neurologic: blending tank tender II-XII grossly normal, no motor/sensory deficits Last 24 Hour Vital Signs Date Time Temp Pulse Resp B/P (MAP) Pulse Ox O2 Delivery O2 Flow Rate FiO2 11/18/17 09:51 84 158/69 11/18/17 09:50 84 158/69 11/18/17 05:30 99.0 82 18 160/70 100 Room Air 11/18/17 00:36 98.2 79 18 156/72 100 Room Air 11/18/17 00:15 100.4 77 18 144/82 100 Room Air 11/17/17 23:29 77 18 144/82 100 Room Air 11/17/17 23:00 78 18 151/61 100 Room Air 11/17/17 21:00 78 22 158/60 100 Room Air 11/17/17 18:58 100.4 81 22 142/56 100 Room Air 11/17/17 17:46 100.4 82 14 147/67 99 Room Air Intake and Output 11/17/17 11/18/17 19:00 07:00 Intake Total 0 ml Output Total 800 ml Balance -800 ml Intake Oral 0 ml Output Urine Total 800 ml # Voids 2 # Bowel Movements 1 Laboratory Tests Test 11/17/17 18:45 11/17/17 20:45 11/18/17 04:55 White Blood Count 7.3 K/UL (4.8-10.8) 6.6 K/UL (4.8-10.8) Red Blood Count 3.19 M/UL (4.70-6.10) L 3.10 M/UL (4.70-6.10) L Hemoglobin 8.4 G/DL (14.2-18.0) L 8.6 G/DL (14.2-18.0) L Hematocrit 28.1 % (42.0-52.0) L 27.4 % (42.0-52.0) L Mean Corpuscular Volume 88 FL (80-99) 88 FL (80-99) Mean Corpuscular Hemoglobin 26.4 PG (27.0-31.0) L 27.8 PG (27.0-31.0) Mean Corpuscular Hemoglobin Concent 29.9 G/DL (32.0-36.0) L 31.5 G/DL (32.0-36.0) L Red Cell Distribution Width 14.4 % (11.6-14.8) 14.7 % (11.6-14.8) Platelet Count 442 K/UL (150-450) 459 K/UL (150-450) H Mean Platelet Volume 5.8 FL (6.5-10.1) L 5.6 FL (6.5-10.1) L Neutrophils (%) (Auto) 75.5 % (45.0-75.0) H 71.9 % (45.0-75.0) Lymphocytes (%) (Auto) 11.6 % (20.0-45.0) L 15.0 % (20.0-45.0) L Monocytes (%) (Auto) 9.1 % (1.0-10.0) 9.5 % (1.0-10.0) Eosinophils (%) (Auto) 1.1 % (0.0-3.0) 1.9 % (0.0-3.0) Basophils (%) (Auto) 2.7 % (0.0-2.0) H 1.6 % (0.0-2.0) Sodium Level 130 MMOL/L (136-145) L 135 MMOL/L (136-145) L Potassium Level 5.3 MMOL/L (3.5-5.1) H 5.0 MMOL/L (3.5-5.1) Chloride Level 100 MMOL/L (98-107) 104 MMOL/L (98-107) Carbon Dioxide Level 19 MMOL/L (21-32) L 18 MMOL/L (21-32) L Anion Gap 11 mmol/L (5-15) 13 mmol/L (5-15) Blood Urea Nitrogen 28 mg/dL (7-18) H 29 mg/dL (7-18) H Creatinine 3.9 MG/DL (0.55-1.30) H 3.7 MG/DL (0.55-1.30) H Estimat Glomerular Filtration Rate 16.0 mL/min (>60) 17.0 mL/min (>60) Glucose Level 192 MG/DL (74-106) H 201 MG/DL (74-106) H Lactic Acid Level 0.70 mmol/L (0.66-2.22) Calcium Level 8.1 MG/DL (8.5-10.1) L 8.1 MG/DL (8.5-10.1) L Total Bilirubin 0.4 MG/DL (0.2-1.0) 0.4 MG/DL (0.2-1.0) Aspartate Amino Transf (AST/SGOT) 42 U/L (15-37) H 31 U/L (15-37) Alanine Aminotransferase (ALT/SGPT) 24 U/L (12-78) 22 U/L (12-78) Alkaline Phosphatase 64 U/L (46-116) 57 U/L (46-116) Troponin I 0.316 ng/mL (0.000-0.056) Pro-B-Type Natriuretic Peptide > 03802 pg/mL (0-125) H Total Protein 6.5 G/DL (6.4-8.2) 6.0 G/DL (6.4-8.2) L Albumin 2.0 G/DL (3.4-5.0) L 1.8 G/DL (3.4-5.0) L Globulin 4.5 g/dL 4.2 g/dL Albumin/Globulin Ratio 0.4 (1.0-2.7) L 0.4 (1.0-2.7) L Urine Color Pale yellow Urine Appearance Clear Urine pH 7 (4.5-8.0) Urine Specific [place] 1.005 (1.005-1.035) Urine Protein 3+ (NEGATIVE) H Urine Glucose (UA) 2+ (NEGATIVE) H Urine Ketones Negative (NEGATIVE) Urine Occult Blood 2+ (NEGATIVE) H Urine Nitrite Negative (NEGATIVE) Urine Bilirubin Negative (NEGATIVE) Urine Urobilinogen Normal MG/DL (0.0-1.0) Urine Leukocyte Esterase Negative (NEGATIVE) Urine RBC 0-2 /HPF (0 - 0) H Urine WBC 0-2 /HPF (0 - 0) Urine Squamous Epithelial Cells Occasional /LPF Urine Bacteria None /HPF (NONE) Hemoglobin A1c 7.0 % (4.3-6.0) H Triglycerides Level 59 MG/DL (30-150) Cholesterol Level 102 MG/DL (< 200) LDL Cholesterol 58 mg/dL (<100) HDL Cholesterol 40 MG/DL (40-60) Cholesterol/HDL Ratio 2.6 (3.3-4.4) L Thyroid Stimulating Hormone (TSH) 4.528 uiU/mL (0.358-3.740) Microbiology Date/Time Source Procedure Growth Status 11/17/17 19:00 Nasal Nares Influenza Types A,B Antigen (EVON) - Final Complete Height (Feet): 5 Height (Inches): 10.00 Weight (Pounds): 135 Medications Current Medications Medications (Trade) Dose Ordered Sig/Vincent Route PRN Reason Start Time Stop Time Status Last Admin Dose Admin Acetaminophen (Tylenol) 650 mg Q4H PRN ORAL fever 11/17/17 19:45 12/17/17 19:44 Al Hydroxide/Mg Hydroxide (Mylanta II) 30 ml Q6H PRN ORAL dyspepsia 11/17/17 19:45 12/17/17 19:44 Albuterol/ Ipratropium (Albuterol/ Ipratropium) 3 ml Q6H PRN HHN dyspnea 11/17/17 19:45 11/22/17 19:44 Allopurinol (Zyloprim) 100 mg DAILY ORAL 11/18/17 09:00 12/18/17 08:59 11/18/17 09:50 Amlodipine Besylate (Norvasc) 10 mg DAILY ORAL 11/18/17 09:00 12/18/17 08:59 11/18/17 09:50 Aspirin (Ecotrin) 81 mg DAILY ORAL 11/18/17 09:00 12/18/17 08:59 11/18/17 09:50 Atorvastatin Calcium (Lipitor) 20 mg BEDTIME ORAL 11/18/17 21:00 12/18/17 20:59 Clonidine HCl (Catapres Tab) 0.1 mg Q4H PRN ORAL SBP > 160 11/17/17 19:45 12/17/17 19:44 Dextrose (Dextrose 50%) STAT PRN IV Hypoglycemia 11/17/17 19:45 12/17/17 19:44 Furosemide (Lasix) 100 mg Q8H PRN IV dyspnea 11/17/17 19:45 12/17/17 19:44 Heparin Sodium (Porcine) (Heparin 5000 units/ml) 5,000 units EVERY 12 HOURS SUBQ 11/18/17 21:00 12/18/17 20:59 Insulin Aspart (NovoLOG) BEFORE MEALS AND HS SUBQ 11/17/17 21:00 12/17/17 20:59 11/18/17 12:16 Labetalol HCl (Normodyne) 100 mg TID ORAL 11/18/17 09:00 12/18/17 08:59 11/18/17 09:51 Morphine Sulfate (Morphine Sulfate) 1 mg Q4H PRN IVP Severe Pain Scale 7-10 11/17/17 19:45 11/24/17 19:44 11/18/17 06:30 Ondansetron HCl (Zofran) 4 mg Q6H PRN IVP Nausea & Vomiting 11/17/17 19:45 12/17/17 19:44 Polyethylene Glycol (Miralax) 17 gm HSPRN PRN ORAL Constipation 11/17/17 19:45 12/17/17 19:44 Zolpidem Tartrate (Ambien) 5 mg HSPRN PRN ORAL Insomnia 11/17/17 19:45 11/24/17 19:44 Assessment/Plan Status: stable, progressing Assessment/Plan (1) Sepsis (2) Intractable pain (3) ESRD (end stage renal disease) on dialysis (4) Peripheral vascular disease (5) Seizure disorder (6) Hiccups (7) Hypertensive emergency (8) HTN (hypertension) PLAN Empiric IV antibiotics Check cultures Infectious disease requested HD by nephrology Symptomatic treatment Repeat CXR after ultrafiltration JOCELYN LAMA Nov 18, 2017 13:38
[2017-11-18 16:00] VITALS: BP 149/65
--- NOTE | 2017-11-18 17:38 | History & Physical ---
History and Physical History & Physicial Dictated for Int Med-Dr Gaona no. [id number]. BISI CONDE Nov 18, 2017 17:38
[2017-11-18 20:00] VITALS: BP 161/70
[2017-11-18] MEDS: Atorvastatin 20mg tab ORAL SCH (21:10)
[2017-11-18] MEDS: Heparin 5000 units/ml inj SUBQ SCH (21:10)
[2017-11-19 04:00] VITALS: BP 160/72
[2017-11-19] MEDS: NovoLOG Insulin Flexpen SUBQ SCH ×4 (06:09→20:25)
[2017-11-19 08:00] VITALS: BP 144/64
--- NOTE | 2017-11-19 08:00 | History and Physical Report ---
DATE OF ADMISSION: 11/17/2017 CHIEF COMPLAINT: The patient is a 56-year-old male, who presents with chief complaint of elevated blood pressure. HISTORY OF PRESENT ILLNESS: The patient was admitted to [facility] from 11/04/2017 to 11/15/2017. The patient was found to have urinary tract infection with Klebsiella and E. coli at that time. The patient was discharged home with intravenous antibiotics. According to the patient, the home health nurse presented yesterday to administer his home antibiotics. The patient was found to have blood pressure of 189/79. The patient was told to go to [place] emergency room for evaluation. The patient is admitted for elevated blood pressure. PAST MEDICAL HISTORY: Significant for: 1. End-stage renal disease, on dialysis every Sunday, , and Sunday. The patient's last dialysis was , 11/15/2017. 2. Type 2 diabetes. 3. Status post renal transplant. 4. Hypertension. 5. Hypercholesterolemia. 6. Seizure disorder. 7. Diabetic peripheral vascular disease. 8. Cellulitis of the left hip from the hospitalization above. PAST SURGICAL HISTORY: Significant for: 1. Renal transplant in 2011. 2. 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 3. Amputation of left great toe. CURRENT MEDICATIONS: 1. Allopurinol 100 mg p.o. daily. 2. Amlodipine 10 mg p.o. daily. 3. Aspirin 81 mg p.o. daily. 4. Atorvastatin 20 mg p.o. at bedtime. 5. Colace 100 mg p.o. twice daily. 6. Lasix 20 mg p.o. daily. 7. NovoLog sliding scale. 8. Lantus 10 units subcutaneously q.a.c. breakfast. 9. Labetalol mg p.o. twice daily. 10. Prevacid 30 mg p.o. daily. 11. Multivitamin p.o. daily. 12. CellCept 500 mg p.o. twice daily. 13. Oxybutynin 5 mg p.o. twice daily. 14. Tacrolimus 1 mg p.o. twice daily. 15. Tramadol 100 mg p.o. q.6 h. p.r.n. 16. Daptomycin day #08/18, 4 mg/kg q.48 h. intravenously. 17. Ertapenem 500 mg IV daily day #09/18. 18. Oral clindamycin 500 mg p.o. twice daily day #08/18. ALLERGIES: No known drug allergies. SOCIAL HISTORY: The patient is . The patient lives with his adult daughter and son. The patient denies tobacco or alcohol use. REVIEW OF SYSTEMS: CONSTITUTIONAL: The patient denies weight loss or weight gain. The patient denies fevers or chills. HEENT: The patient denies ear or throat pain. The patient denies headache. CARDIOVASCULAR: The patient denies palpitations or chest pain. CHEST: The patient denies wheeze or shortness of breath. ABDOMINAL: The patient denies nausea, vomiting, diarrhea, or constipation. GENITOURINARY: The patient denies dysuria or increased frequency of urination. NEUROMUSCULAR: The patient denies seizures or generalized weakness. PHYSICAL EXAMINATION: VITAL SIGNS: Temperature 100.4, respirations 18, pulse 77, and blood pressure 144/82. GENERAL: The patient is a thin-appearing, male, in no apparent distress. HEENT: Eyes, pupils are equal and responsive to light and accommodation. Extraocular movements are intact. NECK: Supple without lymphadenopathy. CHEST: Lungs are clear to auscultation bilaterally without wheezes or rales. CARDIOVASCULAR: Regular rate. S1 and S2 are normal without murmurs, rubs, or gallops. ABDOMEN: Soft, nontender, and nondistended. Positive bowel sounds. No evidence of hepatosplenomegaly. Currently, no rebound or guarding noted. EXTREMITIES: No clubbing, cyanosis, or edema. RECTAL: Refused. GENITAL: Refused. NEUROLOGIC: Cranial nerves II through XII are grossly intact without focal deficits. Motor strength is 5/5 bilaterally. Deep tendon reflexes are 2+ plantar. LABORATORY STUDIES: WBC 7.3, hemoglobin 8.4, hematocrit 28.1, and platelets 142,000. Sodium 138, potassium 5.3, chloride 100, CO2 19, BUN 28, creatinine 3.9, and glucose 192. Urinalysis showed 2+ occult blood, 2+ glucose with 0 to 2 WBCs. ASSESSMENT: This is a 56-year-old male: 1. Elevated hypertension (hypertensive emergency) 2. Diabetes type 2. 3. End-stage renal disease. 4. Renal transplant. 5. Hypertension. 6. Hypercholesterolemia. 7. Seizure disorder. 8. Peripheral vascular disease. 9. History of left hip cellulitis/abscess. TREATMENT: 1. Hypertensive emergency. The patient has been placed empirically on labetalol 100 mg p.o. 3 times daily and Norvasc 10 mg p.o. daily. We will follow blood pressures closely. 2. History of urinary tract infection, status post intravenous antibiotics. 3. History of left hip cellulitis, status post intravenous antibiotics. 4. End-stage renal disease. A Nephrology consultation has been obtained with Dr. Ramon. We will follow recommendations of Dr. Ramon. 5. History of renal transplant. 6. Hypertension. See elevated blood pressure as above. 7. Hypercholesterolemia. 8. Seizure disorder. 9. Peripheral vascular disease. Willie Gaston M.D. DR: LATRICIA JOB#: [id number] CC:
[2017-11-19] MEDS: Aspirin EC 81mg tab ORAL SCH (09:36)
[2017-11-19] MEDS: Allopurinol 100mg Tab ORAL SCH (09:36)
[2017-11-19] MEDS: Heparin 5000 units/ml inj SUBQ SCH ×2 (09:44→20:26)
--- NOTE | 2017-11-19 10:45 | Infectious Diseases Prog Note ---
Assessment/Plan Assessment/Plan # [id number] Assessment/Plan Low grade fever hx of E.coli bacteremia Recent UTI E coli and Kleb Recent hx of L hip/thigh/ pain Bedside surgical exploration showed normal healthy tissues and no gas; -CT L Hip 11/11 :Small amount of gas noted within soft tissues adjacent to greater trochanter deep to tensor fascia elisha decreased from prior study. -CT L hip: No acute fractures. No dislocations. The joint spaces are preserved. Gas within the soft tissues of the left hip and buttock region. This may indicate penetrating trauma, but is worrisome for infection with gas- forming organism. There is equivocal mild thickening of the bladder wall -/ ESR 50, CRP 40> 1/ CRP 55.6; normal CK -CT abd/p wo 11/06: Small left inguinal hernia containing nonobstructive loops of small bowel. Persistent gas within the soft tissues of the left hip and buttock region although the amount of gas decreased compared to exam of 11/04/2017. There is slight asymmetry and engorgement of the musculature in this region possibly related to edema and/or phlegmonous change. No definite well-defined/drainable fluid collection is identified DM2 HTN seizure disorder brain surgery (~10 yrs ago) HLD PVD s/p amputation L great toe, ESRD s/p Renal transplant 2011- not on HD, but now requiring HD- improving Cr L eye prosthesis Plan: start Merrem d # 1 - 11/19 SP Daptomycin d# 11 (abx d #14/ Ertapenem 500mg qd abx d# 14, and PO Clindamycin # 14/14 11/14 SP Zosyn #10 11/09 SP IV Vanco #4 monitor CBC monitor BMP monitor Cx ( blood , Urine ) ESR, CRP Flu screen Subjective Allergies: Coded Allergies: NO KNOWN ALLERGIES (Unverified Allergy, Unknown, 10/24/15) Objective Vital Signs Last 24 Hour Vital Signs Date Time Temp Pulse Resp B/P (MAP) Pulse Ox O2 Delivery O2 Flow Rate FiO2 11/19/17 09:36 84 144/64 11/19/17 09:35 84 144/64 11/19/17 08:00 144/64 Room Air 11/19/17 08:00 97.1 84 19 96 11/19/17 04:00 98.4 83 17 160/72 100 Room Air 11/18/17 21:13 161/70 11/18/17 20:00 98.3 80 17 161/70 100 Room Air 11/18/17 18:26 84 149/65 11/18/17 16:00 99.0 84 18 149/65 99 Room Air 11/18/17 14:24 84 140/72 11/18/17 12:00 98.0 84 20 140/72 97 Room Air Height (Feet): 5 Height (Inches): 10.00 Weight (Pounds): 135 Microbiology Date/Time Source Procedure Growth Status 11/17/17 18:45 Blood Blood Culture - Preliminary NO GROWTH AFTER 24 HOURS Resulted 11/17/17 18:35 Blood Blood Culture - Preliminary NO GROWTH AFTER 24 HOURS Resulted 11/17/17 19:00 Nasal Nares Influenza Types A,B Antigen (EVON) - Final Complete 11/18/17 20:15 Stool Clostridium difficile Toxin Assay - Final Complete Current Medications Medications (Trade) Dose Ordered Sig/Vincent Route PRN Reason Start Time Stop Time Status Last Admin Dose Admin Acetaminophen (Tylenol) 650 mg Q4H PRN ORAL fever 11/17/17 19:45 12/17/17 19:44 Al Hydroxide/Mg Hydroxide (Mylanta II) 30 ml Q6H PRN ORAL dyspepsia 11/17/17 19:45 12/17/17 19:44 Albuterol/ Ipratropium (Albuterol/ Ipratropium) 3 ml Q6H PRN HHN dyspnea 11/17/17 19:45 11/22/17 19:44 Allopurinol (Zyloprim) 100 mg DAILY ORAL 11/18/17 09:00 12/18/17 08:59 11/19/17 09:36 Amlodipine Besylate (Norvasc) 10 mg DAILY ORAL 11/18/17 09:00 12/18/17 08:59 11/19/17 09:35 Aspirin (Ecotrin) 81 mg DAILY ORAL 11/18/17 09:00 12/18/17 08:59 11/19/17 09:36 Atorvastatin Calcium (Lipitor) 20 mg BEDTIME ORAL 11/18/17 21:00 12/18/17 20:59 11/18/17 21:10 Clonidine HCl (Catapres Tab) 0.1 mg Q4H PRN ORAL SBP > 160 11/17/17 19:45 12/17/17 19:44 11/18/17 21:13 Dextrose (Dextrose 50%) STAT PRN IV Hypoglycemia 11/17/17 19:45 12/17/17 19:44 Furosemide (Lasix) 100 mg Q8H PRN IV dyspnea 11/17/17 19:45 12/17/17 19:44 Heparin Sodium (Porcine) (Heparin 5000 units/ml) 5,000 units EVERY 12 HOURS SUBQ 11/18/17 21:00 12/18/17 20:59 11/19/17 09:44 Insulin Aspart (NovoLOG) BEFORE MEALS AND HS SUBQ 11/17/17 21:00 12/17/17 20:59 11/19/17 06:09 Labetalol HCl (Normodyne) 100 mg TID ORAL 11/18/17 09:00 12/18/17 08:59 11/19/17 09:36 Morphine Sulfate (Morphine Sulfate) 1 mg Q4H PRN IVP Severe Pain Scale 7-10 11/17/17 19:45 11/24/17 19:44 11/18/17 06:30 Ondansetron HCl (Zofran) 4 mg Q6H PRN IVP Nausea & Vomiting 11/17/17 19:45 12/17/17 19:44 Polyethylene Glycol (Miralax) 17 gm HSPRN PRN ORAL Constipation 11/17/17 19:45 12/17/17 19:44 Zolpidem Tartrate (Ambien) 5 mg HSPRN PRN ORAL Insomnia 11/17/17 19:45 11/24/17 19:44 NAVIN MARC M.D. Nov 19, 2017 10:45
[2017-11-19 12:00] VITALS: BP 115/74
--- NOTE | 2017-11-19 13:09 | Internal Med Progress Note ---
Subjective Date of Service: Nov 19, 2017 Physician Name Bisi Conde Attending Physician Kristian Gaona MD Current Medications Medications (Trade) Dose Ordered Sig/Vincent Route PRN Reason Start Time Stop Time Status Last Admin Dose Admin Acetaminophen (Tylenol) 650 mg Q4H PRN ORAL fever 11/17/17 19:45 12/17/17 19:44 Al Hydroxide/Mg Hydroxide (Mylanta II) 30 ml Q6H PRN ORAL dyspepsia 11/17/17 19:45 12/17/17 19:44 Albuterol/ Ipratropium (Albuterol/ Ipratropium) 3 ml Q6H PRN HHN dyspnea 11/17/17 19:45 11/22/17 19:44 Allopurinol (Zyloprim) 100 mg DAILY ORAL 11/18/17 09:00 12/18/17 08:59 11/19/17 09:36 Amlodipine Besylate (Norvasc) 10 mg DAILY ORAL 11/18/17 09:00 12/18/17 08:59 11/19/17 09:35 Aspirin (Ecotrin) 81 mg DAILY ORAL 11/18/17 09:00 12/18/17 08:59 11/19/17 09:36 Atorvastatin Calcium (Lipitor) 20 mg BEDTIME ORAL 11/18/17 21:00 12/18/17 20:59 11/18/17 21:10 Clonidine HCl (Catapres Tab) 0.1 mg Q4H PRN ORAL SBP > 160 11/17/17 19:45 12/17/17 19:44 11/18/17 21:13 Dextrose (Dextrose 50%) STAT PRN IV Hypoglycemia 11/17/17 19:45 12/17/17 19:44 Furosemide (Lasix) 100 mg Q8H PRN IV dyspnea 11/17/17 19:45 12/17/17 19:44 Heparin Sodium (Porcine) (Heparin 5000 units/ml) 5,000 units EVERY 12 HOURS SUBQ 11/18/17 21:00 12/18/17 20:59 11/19/17 09:44 Insulin Aspart (NovoLOG) BEFORE MEALS AND HS SUBQ 11/17/17 21:00 12/17/17 20:59 11/19/17 12:01 Labetalol HCl (Normodyne) 100 mg TID ORAL 11/18/17 09:00 12/18/17 08:59 11/19/17 09:36 Meropenem 1 gm/ Sodium Chloride 55 ml @ 110 mls/hr ONCE ONCE IVPB 11/19/17 14:00 11/19/17 14:29 Meropenem 500 mg/ Sodium Chloride 55 ml @ 110 mls/hr Q24H IV 11/20/17 14:00 11/25/17 13:59 Morphine Sulfate (Morphine Sulfate) 1 mg Q4H PRN IVP Severe Pain Scale 7-10 11/17/17 19:45 11/24/17 19:44 11/18/17 06:30 Ondansetron HCl (Zofran) 4 mg Q6H PRN IVP Nausea & Vomiting 11/17/17 19:45 12/17/17 19:44 Polyethylene Glycol (Miralax) 17 gm HSPRN PRN ORAL Constipation 11/17/17 19:45 12/17/17 19:44 Zolpidem Tartrate (Ambien) 5 mg HSPRN PRN ORAL Insomnia 11/17/17 19:45 11/24/17 19:44 Allergies: Coded Allergies: NO KNOWN ALLERGIES (Unverified Allergy, Unknown, 10/24/15) ROS Limited/Unobtainable: No Constitutional: Reports: no symptoms HEENT: Reports: no symptoms Cardiovascular: Reports: no symptoms Respiratory: Reports: no symptoms Gastrointestinal/Abdominal: Reports: no symptoms Genitourinary: Reports: no symptoms Neurologic/Psychiatric: Reports: no symptoms Subjective 56 YO M admitted with Left hip cellulitis and hypertension emergency. Cover for Int Malika Gaona Objective Last Vital Signs Date Time Temp Pulse Resp B/P (MAP) Pulse Ox O2 Delivery O2 Flow Rate FiO2 11/19/17 09:36 84 144/64 11/19/17 08:00 Room Air 11/19/17 08:00 97.1 19 96 General Appearance: mild distress, cachetic, thin EENT: PERRL/EOMI, normal ENT inspection, TMs normal Neck: non-tender, normal alignment, supple, normal inspection Cardiovascular: normal peripheral pulses, normal rate, regular rhythm, no gallop/murmur, no JVD Respiratory/Chest: chest wall non-tender, lungs clear, normal breath sounds, no respiratory distress, no accessory muscle use Abdomen: normal bowel sounds, non tender, soft, no organomegaly, no mass Extremities: normal range of motion 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, no motor/sensory deficits Skin: normal pigmentation, warm/dry Microbiology Date/Time Source Procedure Growth Status 11/17/17 18:45 Blood Blood Culture - Preliminary NO GROWTH AFTER 24 HOURS Resulted 11/17/17 18:35 Blood Blood Culture - Preliminary NO GROWTH AFTER 24 HOURS Resulted 11/17/17 19:00 Nasal Nares Influenza Types A,B Antigen (EVON) - Final Complete 11/18/17 20:15 Stool Clostridium difficile Toxin Assay - Final Complete Intake and Output 11/18/17 11/19/17 19:00 07:00 Intake Total 500 ml 460 ml Output Total 700 ml 750 ml Balance -200 ml -290 ml Intake Oral 500 ml 460 ml Output Urine Total 700 ml 750 ml # Voids 3 3 # Bowel Movements 1 Assessment/Plan Problem List: (1) Intractable pain (2) Hypertensive emergency Assessment & Plan: Continue labetolol, norvasc and clonidine (3) Cellulitis of hip, left Assessment & Plan: See ID note. D/C daptomycin; start meropenem (4) Diabetes mellitus, type II Assessment & Plan: Continue novolog sliding scale. (5) ESRD (end stage renal disease) on dialysis Assessment & Plan: await nephrology consult for dialysis orders (6) Hypercholesteremia (7) Seizure disorder (8) Peripheral vascular disease Status: not improved BISI CONDE Nov 19, 2017 13:09
--- NOTE | 2017-11-19 13:13 | Pulmonology Progress Note ---
Assessment/Plan Problems: (1) Sepsis (2) Intractable pain (3) ESRD (end stage renal disease) on dialysis (4) Peripheral vascular disease (5) Seizure disorder (6) Hiccups (7) Hypertensive emergency (8) HTN (hypertension) Assessment/Plan abx check cultures ID note appreciated HD by nephrology symptomatic treatment Subjective Constitutional: Reports: no symptoms HEENT: Repors: no symptoms Respiratory: Reports: no symptoms Allergies: Coded Allergies: NO KNOWN ALLERGIES (Unverified Allergy, Unknown, 10/24/15) Objective Last 24 Hour Vital Signs Date Time Temp Pulse Resp B/P (MAP) Pulse Ox O2 Delivery O2 Flow Rate FiO2 11/19/17 09:36 84 144/64 11/19/17 09:35 84 144/64 11/19/17 08:00 144/64 Room Air 11/19/17 08:00 97.1 84 19 96 11/19/17 04:00 98.4 83 17 160/72 100 Room Air 11/18/17 21:13 161/70 11/18/17 20:00 98.3 80 17 161/70 100 Room Air 11/18/17 18:26 84 149/65 11/18/17 16:00 99.0 84 18 149/65 99 Room Air 11/18/17 14:24 84 140/72 Intake and Output 11/18/17 11/19/17 19:00 07:00 Intake Total 500 ml 460 ml Output Total 700 ml 750 ml Balance -200 ml -290 ml Intake Oral 500 ml 460 ml Output Urine Total 700 ml 750 ml # Voids 3 3 # Bowel Movements 1 General Appearance: cachetic HEENT: normocephalic Respiratory/Chest: chest wall non-tender, lungs clear Cardiovascular: normal peripheral pulses, normal rate Abdomen: normal bowel sounds, soft, non tender Genitourinary: normal external genitalia Extremities: no cyanosis Skin: no lesions 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 Microbiology Date/Time Source Procedure Growth Status 11/17/17 18:45 Blood Blood Culture - Preliminary NO GROWTH AFTER 24 HOURS Resulted 11/17/17 18:35 Blood Blood Culture - Preliminary NO GROWTH AFTER 24 HOURS Resulted 11/17/17 19:00 Nasal Nares Influenza Types A,B Antigen (EVON) - Final Complete 11/18/17 20:15 Stool Clostridium difficile Toxin Assay - Final Complete Current Medications Medications (Trade) Dose Ordered Sig/Vincent Route PRN Reason Start Time Stop Time Status Last Admin Dose Admin Acetaminophen (Tylenol) 650 mg Q4H PRN ORAL fever 11/17/17 19:45 12/17/17 19:44 Al Hydroxide/Mg Hydroxide (Mylanta II) 30 ml Q6H PRN ORAL dyspepsia 11/17/17 19:45 12/17/17 19:44 Albuterol/ Ipratropium (Albuterol/ Ipratropium) 3 ml Q6H PRN HHN dyspnea 11/17/17 19:45 11/22/17 19:44 Allopurinol (Zyloprim) 100 mg DAILY ORAL 11/18/17 09:00 12/18/17 08:59 11/19/17 09:36 Amlodipine Besylate (Norvasc) 10 mg DAILY ORAL 11/18/17 09:00 12/18/17 08:59 11/19/17 09:35 Aspirin (Ecotrin) 81 mg DAILY ORAL 11/18/17 09:00 12/18/17 08:59 11/19/17 09:36 Atorvastatin Calcium (Lipitor) 20 mg BEDTIME ORAL 11/18/17 21:00 12/18/17 20:59 11/18/17 21:10 Clonidine HCl (Catapres Tab) 0.1 mg Q4H PRN ORAL SBP > 160 11/17/17 19:45 12/17/17 19:44 11/18/17 21:13 Dextrose (Dextrose 50%) STAT PRN IV Hypoglycemia 11/17/17 19:45 12/17/17 19:44 Furosemide (Lasix) 100 mg Q8H PRN IV dyspnea 11/17/17 19:45 12/17/17 19:44 Heparin Sodium (Porcine) (Heparin 5000 units/ml) 5,000 units EVERY 12 HOURS SUBQ 11/18/17 21:00 12/18/17 20:59 11/19/17 09:44 Insulin Aspart (NovoLOG) BEFORE MEALS AND HS SUBQ 11/17/17 21:00 12/17/17 20:59 11/19/17 12:01 Labetalol HCl (Normodyne) 100 mg TID ORAL 11/18/17 09:00 12/18/17 08:59 11/19/17 09:36 Meropenem 1 gm/ Sodium Chloride 55 ml @ 110 mls/hr ONCE ONCE IVPB 11/19/17 14:00 11/19/17 14:29 Meropenem 500 mg/ Sodium Chloride 55 ml @ 110 mls/hr Q24H IV 11/20/17 14:00 11/25/17 13:59 Morphine Sulfate (Morphine Sulfate) 1 mg Q4H PRN IVP Severe Pain Scale 7-10 11/17/17 19:45 11/24/17 19:44 11/18/17 06:30 Ondansetron HCl (Zofran) 4 mg Q6H PRN IVP Nausea & Vomiting 11/17/17 19:45 12/17/17 19:44 Polyethylene Glycol (Miralax) 17 gm HSPRN PRN ORAL Constipation 11/17/17 19:45 12/17/17 19:44 Zolpidem Tartrate (Ambien) 5 mg HSPRN PRN ORAL Insomnia 11/17/17 19:45 11/24/17 19:44 JOCELYN LAMA Nov 19, 2017 13:13
--- NOTE | 2017-11-19 13:50 | General Progress Note ---
Progress Note Progress Note [id number] full note dictated ASTER NEFF Nov 19, 2017 13:49
[2017-11-19] MEDS ORDERED: Meropenem 1 GM in NS 55 ML IVPB ONE (14:00)
[2017-11-19 14:13] LABS: BASOPHILS % (AUTO) 1.9 % (0.0-2.0); EOSINOPHILS % (AUTO) 1.9 % (0.0-3.0); HEMATOCRIT 28.4 % (42.0-52.0); HEMOGLOBIN 8.6 G/DL (14.2-18.0); MEAN CORPUSCULAR VOLUME 89 FL (80-99); MONOCYTES % (AUTO) 8.2 % (1.0-10.0); NEUTROPHILS % (AUTO) 75.1 % (45.0-75.0); PLATELET COUNT 509 K/UL (150-450); RED BLOOD COUNT 3.18 M/UL (4.70-6.10); RED CELL DISTRIBUTION WIDTH 15.2 % (11.6-14.8); WHITE BLOOD COUNT 8.5 K/UL (4.8-10.8)
[2017-11-19 16:00] VITALS: BP 145/62
--- NOTE | 2017-11-19 18:45 | Consultation ---
DATE OF CONSULTATION: 11/19/2017 INFECTIOUS DISEASES CONSULTATION CONSULTING PHYSICIAN: Ray Hernandez M.D. REQUESTING PHYSICIAN: Delmis Zambrano M.D. REASON FOR CONSULTATION: Evaluation of the patient for recent wound infection and antibiotic management. HISTORY OF PRESENT ILLNESS: The patient is a 56-year-old male with multiple medical problems who was admitted to this medical center for E. coli bacteremia urinary tract infection. Also, the patient was found to have left hip pain. CT scan showed evidence of myonecrosis and I and D was done. However, the surgical site was clean. No evidence of purulent discharge. The patient was started on IV antibiotics. An Infectious Disease consultation has been requested for further evaluation of the patient and antibiotic management. The patient was discharged to care home and now comes back due to hypertension. PAST MEDICAL HISTORY: 1. History of urinary tract infection due to E. coli. 2. History of gas in the left hip. 3. History of I and D. 4. History of diabetes. 5. Hypertension. 6. Seizure disorder. 7. Hyperlipidemia. 8. Peripheral vascular disease. 9. End-stage renal disease status post renal transplant. ALLERGIES: No known drug allergies. SOCIAL HISTORY: The patient lives at home. FAMILY HISTORY: Not contributing. REVIEW OF SYSTEMS: A 10-point review was done and except what is mentioned above has been negative. PHYSICAL EXAMINATION: VITAL SIGNS: Temperature 97, blood pressure 144/64, pulse 86, respiratory rate 18, and T-max 100.4. HEENT: Mild pale conjunctivae. No icterus. NECK: No lymphadenopathy. CHEST: Clear. HEART: S1 and S2. ABDOMEN: Soft. Surgical site has no significant drainage. Mildly tender. As mentioned the pain overall has improved. NEUROLOGIC: The patient is awake and alert. LABORATORY AND DIAGNOSTIC DATA: WBC 6, hemoglobin 8.6, and platelet 459. UA unremarkable. BUN 29 and creatinine 3.7. ALT, AST, and alkaline phosphatase unremarkable. Troponin 0.3. Chest x-ray shows left costophrenic sulcus with patchy basilar infiltrate versus atelectasis. ASSESSMENT: The patient is a 56-year-old male with multiple medical problems as listed above, who was admitted to this medical center for hypertension. The patient was found to have low-grade fever. PLAN: 1. Continue the patient on Invanz. 2. Monitor CBC. 3. Monitor BMP. 4. Monitor cultures (blood and urine). 5. Rapid influenza test. 6. Based on the patient's clinical course and laboratories, we will do further recommendation. Thank you, Dr. Zambrano, for allowing me to participate in the care of this patient. I will follow the patient with you during this hospitalization. Ray Hernandez M.D. DR: RULA JOB#: [id number] CC:
[2017-11-19 20:00] VITALS: BP 160/66
[2017-11-19] MEDS: Atorvastatin 20mg tab ORAL SCH (20:24)
[2017-11-19] MEDS ORDERED: Epogen (for ESRD on dialysis) SUBQ SCH (21:00)
--- NOTE | 2017-11-19 22:15 | Consultation ---
DATE OF CONSULTATION: 11/19/2017 NEPHROLOGY CONSULTATION REFERRING PHYSICIAN: Willie Gaston M.D. REASON FOR CONSULTATION: Acute on chronic renal failure. HISTORY OF PRESENT ILLNESS: The patient is a 56-year-old male with past medical history significant for history of chronic kidney disease stage 4, history of cadaveric renal transplant, history of hypertension, history of hypercholesterolemia, and seizure disorder not too long ago, about a week ago was admitted in the hospital with right hip pain. CT of the abdomen revealed gas in the soft tissue. He had an incision and drainage of the ulceration. He also found to have Klebsiella infection. He was started on IV antibiotics. He was sent home. Apparently, per the home health nurse, the patient found to have blood pressure of 189/79. He was referred to emergency room. In the ER, the patient had complete evaluation. I was called for management of renal disease and electrolyte imbalance. PAST MEDICAL HISTORY: Includin. History of hypertension. 2. History of chronic kidney disease stage 5. 3. History of anemia of chronic kidney disease. 4. Renal osteodystrophy. 5. History of hypertension. 6. History of renal transplant. 7. History of anemia. MEDICATIONS: Reviewed. SOCIAL HISTORY: He lives at home. There is no history of tobacco, alcohol, or drug use. FAMILY HISTORY: Noncontributory. PHYSICAL EXAMINATION: VITAL SIGNS: The patient had temperature of 98 degrees, blood pressure of 160/72, pulse rate of 83, and respiratory rate of 18. HEAD AND NECK: No JVP. No LAD. No thyromegaly. Extraocular movement intact. Pupils are reactive to light and accommodation. LUNGS: Clear to auscultation. CARDIAC: Regular rate and rhythm. S1 and S2. No murmur. No rub. ABDOMEN: Soft, nontender, and nondistended. EXTREMITIES: No edema. No clubbing. No cyanosis. LABORATORY AND DIAGNOSTIC DATA: Laboratory values, the patient had WBC count of 6.6, hemoglobin of 8.6, hematocrit of 27, and platelet count of 495. Chemistry reveals sodium 133, potassium of 5, chloride 108, bicarbonate 18 , BUN of 29, creatinine of 3.7, glucose of 201, and calcium of 8.1. AST and ALT within normal limits. Total protein of 6.1 and albumin of 1.8. TSH of 4.58. ASSESSMENT: 1. Hyponatremia, which is resolved at this time. 2. Hyperkalemia. 3. Acute renal failure. 4. Chronic kidney disease. 5. History of renal transplant. 6. History of dialysis. 7. Malnutrition. 8. Low-grade fever. PLAN: 1. Plan for the patient to continue IV fluids. Hold Lasix. 2. Mix all IV piggyback with normal saline. 3. Monitor renal function and electrolytes closely. 4. Start the patient on Bicitra. 5. Start the patient on Epogen for anemia of chronic kidney disease. At the end, I would like to thank, Dr. Willie Gaston for allowing me to participate in the care of this patient. Marcella Ramon M.D. DR: Gustavo JOB#: [id number] CC:
[2017-11-20] VITALS (7 sets, daily range): BP systolic 144–177; BP diastolic 64–79
[2017-11-20] MEDS: NovoLOG Insulin Flexpen SUBQ SCH ×3 (06:14→16:59)
[2017-11-20 07:33] LABS: BASOPHILS % (AUTO) 1.3 % (0.0-2.0); EOSINOPHILS % (AUTO) 2.2 % (0.0-3.0); HEMATOCRIT 27.1 % (42.0-52.0); HEMOGLOBIN 8.1 G/DL (14.2-18.0); LYMPHOCYTES % (AUTO) 15.4 % (20.0-45.0); MEAN CORPUSCULAR VOLUME 88 FL (80-99); MONOCYTES % (AUTO) 7.7 % (1.0-10.0); NEUTROPHILS % (AUTO) 73.5 % (45.0-75.0); PLATELET COUNT 466 K/UL (150-450); RED BLOOD COUNT 3.06 M/UL (4.70-6.10); RED CELL DISTRIBUTION WIDTH 14.6 % (11.6-14.8); WHITE BLOOD COUNT 7.4 K/UL (4.8-10.8)
[2017-11-20 07:34] LABS: ANION GAP 10 mmol/L (5-15); BLOOD UREA NITROGEN 28 mg/dL (7-18); CARBON DIOXIDE 18 MMOL/L (21-32); CHLORIDE 106 MMOL/L (98-107); CREATININE 3.5 MG/DL (0.55-1.30); POTASSIUM 5.6 MMOL/L (3.5-5.1); SODIUM 134 MMOL/L (136-145)
[2017-11-20 08:13] LABS: CALCIUM 8.3 MG/DL (8.5-10.1)
[2017-11-20] MEDS: Sodium Citrate 30ml ORAL SCH ×2 (09:22→18:50)
[2017-11-20] MEDS: Mycophenolate 250mg cap ORAL SCH ×2 (09:23→18:51)
[2017-11-20] MEDS: Allopurinol 100mg Tab ORAL SCH (09:23)
[2017-11-20] MEDS: Aspirin EC 81mg tab ORAL SCH (09:23)
[2017-11-20] MEDS: Heparin 5000 units/ml inj SUBQ SCH (09:25)
[2017-11-20] MEDS: Morphine Sulfate 2mg/ml Inj IVP PRN (09:32)
--- NOTE | 2017-11-20 09:50 | Nephrology Progress Note ---
Assessment/Plan Assessment 1. Hyponatremia, which is resolved at this time. 2. Hyperkalemia. 3. Acute renal failure. 4. Chronic kidney disease. 5. History of renal transplant. 6. History of dialysis. 7. Malnutrition. Plan plan to restart transplant meds monitoring renal function start bicitra renal diet give kayexlate 30 gr po d/c planing Subjective Constitutional: Reports: no symptoms HEENT: Reports: no symptoms Genitourinary: Reports: no symptoms Neurologic/Psychiatric: Reports: no symptoms Subjective alert and awake no complaints Objective Objective Last 24 Hour Vital Signs Date Time Temp Pulse Resp B/P (MAP) Pulse Ox O2 Delivery O2 Flow Rate FiO2 11/20/17 09:23 84 153/68 11/20/17 09:23 84 153/68 11/20/17 08:00 97.0 84 20 153/68 96 11/20/17 06:19 160/67 11/20/17 04:00 99.0 82 18 177/71 98 11/20/17 02:29 163/66 11/20/17 00:00 98.7 78 20 163/66 99 11/20/17 00:00 Room Air 11/19/17 20:00 99.0 81 20 160/66 100 11/19/17 20:00 Room Air 11/19/17 18:27 80 145/62 11/19/17 16:00 98.7 80 19 145/62 99 11/19/17 14:25 84 115/74 11/19/17 12:00 99.1 84 20 115/74 97 Room Air Intake and Output 11/19/17 11/20/17 19:00 07:00 Intake Total 500 ml 360 ml Output Total 600 ml 525 ml Balance -100 ml -165 ml Intake Oral 500 ml 360 ml Output Urine Total 600 ml 525 ml # Voids 3 # Bowel Movements 2 Laboratory Tests 11/19/17 13:30: White Blood Count 8.5, Red Blood Count 3.18L, Hemoglobin 8.6L, Hematocrit 28.4L , Mean Corpuscular Volume 89, Mean Corpuscular Hemoglobin 27.1, Mean Corpuscular Hemoglobin Concent 30.4L, Red Cell Distribution Width 15.2H, Platelet Count 509H, Mean Platelet Volume 5.5L, Neutrophils (%) (Auto) 75.1H, Lymphocytes (%) (Auto) 13.0L, Monocytes (%) (Auto) 8.2, Eosinophils (%) (Auto) 1.9, Basophils (%) (Auto) 1.9, Erythrocyte Sedimentation Rate 112H, Phosphorus Level 4.3, C-Reactive Protein, Quantitative 7.0H 11/19/17 17:00: Urine Eosinophils None seen, Urine Random Creatinine [Pending], Urine Random Microalbumin [Pending], Urine Random Total Protein 112H, Urine Random Sodium 101 , Urine Microalbumin/Creatinine Ratio [Pending] 11/20/17 06:30: White Blood Count 7.4, Red Blood Count 3.06L, Hemoglobin 8.1L, Hematocrit 27.1L , Mean Corpuscular Volume 88, Mean Corpuscular Hemoglobin 26.6L, Mean Corpuscular Hemoglobin Concent 30.1L, Red Cell Distribution Width 14.6, Platelet Count 466H, Mean Platelet Volume 5.5L, Neutrophils (%) (Auto) 73.5, Lymphocytes (%) (Auto) 15.4L, Monocytes (%) (Auto) 7.7, Eosinophils (%) (Auto) 2.2, Basophils (%) (Auto) 1.3, Sodium Level 134L, Potassium Level 5.6H, Chloride Level 106, Carbon Dioxide Level 18L, Anion Gap 10, Blood Urea Nitrogen 28H, Creatinine 3.5H, Estimat Glomerular Filtration Rate 18.1, Glucose Level 131H, Calcium Level 8.3L Height (Feet): 5 Height (Inches): 10.00 Weight (Pounds): 135 Objective HEAD AND NECK: No JVP. No LAD. No thyromegaly. Extraocular movement intact. Pupils are reactive to light and accommodation. LUNGS: Clear to auscultation. CARDIAC: Regular rate and rhythm. S1 and S2. No murmur. No rub. ABDOMEN: Soft, nontender, and nondistended. EXTREMITIES: No edema. No clubbing. No cyanosis. ASTER NEFF Nov 20, 2017 09:50
--- NOTE | 2017-11-20 11:33 | Infectious Diseases Prog Note ---
Assessment/Plan Assessment/Plan Assessment/Plan Low grade fever, SP hx of E.coli bacteremia Recent UTI E coli and Kleb Recent hx of L hip/thigh/ pain Bedside surgical exploration showed normal healthy tissues and no gas; -CT L Hip 11/11 :Small amount of gas noted within soft tissues adjacent to greater trochanter deep to tensor fascia elisha decreased from prior study. -CT L hip: No acute fractures. No dislocations. The joint spaces are preserved. Gas within the soft tissues of the left hip and buttock region. This may indicate penetrating trauma, but is worrisome for infection with gas- forming organism. There is equivocal mild thickening of the bladder wall 11/20 ESR 112 CRP 7 -11/06 ESR 50, CRP 40> 1/4 CRP 55.6; normal CK -CT abd/p wo 11/06: Small left inguinal hernia containing nonobstructive loops of small bowel. Persistent gas within the soft tissues of the left hip and buttock region although the amount of gas decreased compared to exam of 11/04/2017. There is slight asymmetry and engorgement of the musculature in this region possibly related to edema and/or phlegmonous change. No definite well-defined/drainable fluid collection is identified DM2 HTN seizure disorder brain surgery (~10 yrs ago) HLD PVD s/p amputation L great toe, ESRD s/p Renal transplant 2011- not on HD, but now requiring HD- improving Cr L eye prosthesis Plan: cont Merrem d # 2 for now - 11/19 SP Daptomycin d# 11 (abx d #14/ Ertapenem 500mg qd abx d# 14, and PO Clindamycin # 14/14 11/14 SP Zosyn #10 11/09 SP IV Vanco #4 monitor CBC monitor BMP monitor Cx ( blood , Urine ) Flu screen Subjective Allergies: Coded Allergies: NO KNOWN ALLERGIES (Unverified Allergy, Unknown, 10/24/15) Subjective comfortable Objective Vital Signs Last 24 Hour Vital Signs Date Time Temp Pulse Resp B/P (MAP) Pulse Ox O2 Delivery O2 Flow Rate FiO2 11/20/17 10:02 97.0 11/20/17 09:23 84 153/68 11/20/17 09:23 84 153/68 11/20/17 08:00 97.0 84 20 153/68 96 11/20/17 06:19 160/67 11/20/17 04:00 99.0 82 18 177/71 98 11/20/17 02:29 163/66 11/20/17 00:00 98.7 78 20 163/66 99 11/20/17 00:00 Room Air 11/19/17 20:00 99.0 81 20 160/66 100 11/19/17 20:00 Room Air 11/19/17 18:27 80 145/62 11/19/17 16:00 98.7 80 19 145/62 99 11/19/17 14:25 84 115/74 11/19/17 12:00 99.1 84 20 115/74 97 Room Air Height (Feet): 5 Height (Inches): 10.00 Weight (Pounds): 135 HEENT: anicteric Respiratory/Chest: lungs clear Cardiovascular: regular rhythm Abdomen: no organomegaly Microbiology Date/Time Source Procedure Growth Status 11/17/17 18:45 Blood Blood Culture - Preliminary NO GROWTH AFTER 48 HOURS Resulted 11/17/17 18:35 Blood Blood Culture - Preliminary NO GROWTH AFTER 48 HOURS Resulted 11/18/17 01:00 Nasal Nares MRSA Culture - Final NO METHICILLIN RESISTANT STAPH AUREUS... Complete 11/17/17 19:00 Nasal Nares Influenza Types A,B Antigen (EVON) - Final Complete 11/18/17 20:15 Stool Clostridium difficile Toxin Assay - Final Complete 11/18/17 01:00 Rectum VRE Culture - Final Enterococcus Faecium - Vre Complete Laboratory Tests Test 11/19/17 13:30 11/19/17 17:00 11/20/17 06:30 White Blood Count 8.5 K/UL (4.8-10.8) 7.4 K/UL (4.8-10.8) Red Blood Count 3.18 M/UL (4.70-6.10) L 3.06 M/UL (4.70-6.10) L Hemoglobin 8.6 G/DL (14.2-18.0) L 8.1 G/DL (14.2-18.0) L Hematocrit 28.4 % (42.0-52.0) L 27.1 % (42.0-52.0) L Mean Corpuscular Volume 89 FL (80-99) 88 FL (80-99) Mean Corpuscular Hemoglobin 27.1 PG (27.0-31.0) 26.6 PG (27.0-31.0) L Mean Corpuscular Hemoglobin Concent 30.4 G/DL (32.0-36.0) L 30.1 G/DL (32.0-36.0) L Red Cell Distribution Width 15.2 % (11.6-14.8) H 14.6 % (11.6-14.8) Platelet Count 509 K/UL (150-450) H 466 K/UL (150-450) H Mean Platelet Volume 5.5 FL (6.5-10.1) L 5.5 FL (6.5-10.1) L Neutrophils (%) (Auto) 75.1 % (45.0-75.0) H 73.5 % (45.0-75.0) Lymphocytes (%) (Auto) 13.0 % (20.0-45.0) L 15.4 % (20.0-45.0) L Monocytes (%) (Auto) 8.2 % (1.0-10.0) 7.7 % (1.0-10.0) Eosinophils (%) (Auto) 1.9 % (0.0-3.0) 2.2 % (0.0-3.0) Basophils (%) (Auto) 1.9 % (0.0-2.0) 1.3 % (0.0-2.0) Erythrocyte Sedimentation Rate 112 MM/HR (0-20) H Phosphorus Level 4.3 MG/DL (2.5-4.9) C-Reactive Protein, Quantitative 7.0 mg/dL (0.00-0.90) H Urine Eosinophils None seen Urine Random Creatinine Pending Urine Random Microalbumin Pending Urine Random Total Protein 112 MG/DL (< 11.9) H Urine Random Sodium 101 MEQ/L (20-110) Urine Microalbumin/Creatinine Ratio Pending Sodium Level 134 MMOL/L (136-145) L Potassium Level 5.6 MMOL/L (3.5-5.1) H Chloride Level 106 MMOL/L (98-107) Carbon Dioxide Level 18 MMOL/L (21-32) L Anion Gap 10 mmol/L (5-15) Blood Urea Nitrogen 28 mg/dL (7-18) H Creatinine 3.5 MG/DL (0.55-1.30) H Estimat Glomerular Filtration Rate 18.1 mL/min (>60) Glucose Level 131 MG/DL (74-106) H Calcium Level 8.3 MG/DL (8.5-10.1) L Current Medications Medications (Trade) Dose Ordered Sig/Vincent Route PRN Reason Start Time Stop Time Status Last Admin Dose Admin Acetaminophen (Tylenol) 650 mg Q4H PRN ORAL fever 11/17/17 19:45 12/17/17 19:44 Al Hydroxide/Mg Hydroxide (Mylanta II) 30 ml Q6H PRN ORAL dyspepsia 11/17/17 19:45 12/17/17 19:44 Albuterol/ Ipratropium (Albuterol/ Ipratropium) 3 ml Q6H PRN HHN dyspnea 11/17/17 19:45 11/22/17 19:44 Allopurinol (Zyloprim) 100 mg DAILY ORAL 11/18/17 09:00 12/18/17 08:59 11/20/17 09:23 Amlodipine Besylate (Norvasc) 10 mg DAILY ORAL 11/18/17 09:00 12/18/17 08:59 11/20/17 09:23 Aspirin (Ecotrin) 81 mg DAILY ORAL 11/18/17 09:00 12/18/17 08:59 11/20/17 09:23 Atorvastatin Calcium (Lipitor) 20 mg BEDTIME ORAL 11/18/17 21:00 12/18/17 20:59 11/19/17 20:24 Clonidine HCl (Catapres Tab) 0.1 mg Q4H PRN ORAL SBP > 160 11/17/17 19:45 12/17/17 19:44 11/20/17 02:29 Dextrose (Dextrose 50%) STAT PRN IV Hypoglycemia 11/17/17 19:45 12/17/17 19:44 Epoetin Binu (Procrit (for ESRD on dialysis)) 7,000 units MON-WED-SUN SUBQ 11/19/17 21:00 12/19/17 20:59 11/19/17 20:24 Furosemide (Lasix) 100 mg Q8H PRN IV dyspnea 11/17/17 19:45 12/17/17 19:44 Heparin Sodium (Porcine) (Heparin 5000 units/ml) 5,000 units EVERY 12 HOURS SUBQ 11/18/17 21:00 12/18/17 20:59 11/20/17 09:25 Insulin Aspart (NovoLOG) BEFORE MEALS AND HS SUBQ 11/17/17 21:00 12/17/17 20:59 11/20/17 06:14 Labetalol HCl (Normodyne) 100 mg TID ORAL 11/18/17 09:00 12/18/17 08:59 11/20/17 09:23 Meropenem 500 mg/ Sodium Chloride 55 ml @ 110 mls/hr Q24H IV 11/20/17 14:00 11/25/17 13:59 Morphine Sulfate (Morphine Sulfate) 1 mg Q4H PRN IVP Severe Pain Scale 7-10 11/17/17 19:45 11/24/17 19:44 11/20/17 09:32 Mycophenolate Mofetil (Cellcept) 500 mg BID ORAL 11/20/17 09:00 12/20/17 08:59 11/20/17 09:23 Ondansetron HCl (Zofran) 4 mg Q6H PRN IVP Nausea & Vomiting 11/17/17 19:45 12/17/17 19:44 Polyethylene Glycol (Miralax) 17 gm HSPRN PRN ORAL Constipation 11/17/17 19:45 12/17/17 19:44 Sodium Citrate (Bicitra) 30 ml BID ORAL 11/20/17 09:00 12/20/17 08:59 11/20/17 09:22 Tacrolimus (Prograf) 2 mg BID ORAL 11/20/17 09:00 12/20/17 08:59 11/20/17 10:49 Zolpidem Tartrate (Ambien) 5 mg HSPRN PRN ORAL Insomnia 11/17/17 19:45 11/24/17 19:44 NAVIN MARC M.D. Nov 20, 2017 11:33
[2017-11-20] MEDS ORDERED: Meropenem 500 MG in NS 55 ML IV SCH (14:00)
--- NOTE | 2017-11-20 17:53 | Internal Med Progress Note ---
Subjective Date of Service: Nov 20, 2017 Physician Name Bisi Conde Attending Physician Kristian Gaona MD Current Medications Medications (Trade) Dose Ordered Sig/Vincent Route PRN Reason Start Time Stop Time Status Last Admin Dose Admin Acetaminophen (Tylenol) 650 mg Q4H PRN ORAL fever 11/17/17 19:45 12/17/17 19:44 Al Hydroxide/Mg Hydroxide (Mylanta II) 30 ml Q6H PRN ORAL dyspepsia 11/17/17 19:45 12/17/17 19:44 Albuterol/ Ipratropium (Albuterol/ Ipratropium) 3 ml Q6H PRN HHN dyspnea 11/17/17 19:45 11/22/17 19:44 Allopurinol (Zyloprim) 100 mg DAILY ORAL 11/18/17 09:00 12/18/17 08:59 11/20/17 09:23 Amlodipine Besylate (Norvasc) 10 mg DAILY ORAL 11/18/17 09:00 12/18/17 08:59 11/20/17 09:23 Aspirin (Ecotrin) 81 mg DAILY ORAL 11/18/17 09:00 12/18/17 08:59 11/20/17 09:23 Atorvastatin Calcium (Lipitor) 20 mg BEDTIME ORAL 11/18/17 21:00 12/18/17 20:59 11/19/17 20:24 Clonidine HCl (Catapres Tab) 0.1 mg Q4H PRN ORAL SBP > 160 11/17/17 19:45 12/17/17 19:44 11/20/17 02:29 Dextrose (Dextrose 50%) STAT PRN IV Hypoglycemia 11/17/17 19:45 12/17/17 19:44 Epoetin Binu (Procrit (for ESRD on dialysis)) 7,000 units MON-WED-FRI SUBQ 11/19/17 21:00 12/19/17 20:59 11/19/17 20:24 Furosemide (Lasix) 100 mg Q8H PRN IV dyspnea 11/17/17 19:45 12/17/17 19:44 Heparin Sodium (Porcine) (Heparin 5000 units/ml) 5,000 units EVERY 12 HOURS SUBQ 11/18/17 21:00 12/18/17 20:59 11/20/17 09:25 Insulin Aspart (NovoLOG) BEFORE MEALS AND HS SUBQ 11/17/17 21:00 12/17/17 20:59 11/20/17 16:59 Labetalol HCl (Normodyne) 100 mg TID ORAL 11/18/17 09:00 12/18/17 08:59 11/20/17 15:11 Meropenem 500 mg/ Sodium Chloride 55 ml @ 110 mls/hr Q24H IV 11/20/17 14:00 11/25/17 13:59 11/20/17 15:12 Morphine Sulfate (Morphine Sulfate) 1 mg Q4H PRN IVP Severe Pain Scale 7-10 11/17/17 19:45 11/24/17 19:44 11/20/17 09:32 Mycophenolate Mofetil (Cellcept) 500 mg BID ORAL 11/20/17 09:00 12/20/17 08:59 11/20/17 09:23 Ondansetron HCl (Zofran) 4 mg Q6H PRN IVP Nausea & Vomiting 11/17/17 19:45 12/17/17 19:44 Polyethylene Glycol (Miralax) 17 gm HSPRN PRN ORAL Constipation 11/17/17 19:45 12/17/17 19:44 Sodium Citrate (Bicitra) 30 ml BID ORAL 11/20/17 09:00 12/20/17 08:59 11/20/17 09:22 Tacrolimus (Prograf) 2 mg BID ORAL 11/20/17 09:00 12/20/17 08:59 11/20/17 10:49 Zolpidem Tartrate (Ambien) 5 mg HSPRN PRN ORAL Insomnia 11/17/17 19:45 11/24/17 19:44 Allergies: Coded Allergies: NO KNOWN ALLERGIES (Unverified Allergy, Unknown, 10/24/15) ROS Limited/Unobtainable: No Constitutional: Reports: no symptoms HEENT: Reports: no symptoms Cardiovascular: Reports: no symptoms Respiratory: Reports: no symptoms Gastrointestinal/Abdominal: Reports: no symptoms Genitourinary: Reports: no symptoms Neurologic/Psychiatric: Reports: no symptoms Subjective 56 YO M admitted with Left hip cellulitis and hypertension emergency. Cover for Maryann Keating-Dr Gaona. Discharge held pending acceptance at assisted fac. Objective Last Vital Signs Date Time Temp Pulse Resp B/P (MAP) Pulse Ox O2 Delivery O2 Flow Rate FiO2 11/20/17 16:00 98.4 83 17 151/64 96 11/20/17 12:00 Room Air Laboratory Tests Test 11/20/17 06:30 White Blood Count 7.4 K/UL (4.8-10.8) Red Blood Count 3.06 M/UL (4.70-6.10) L Hemoglobin 8.1 G/DL (14.2-18.0) L Hematocrit 27.1 % (42.0-52.0) L Mean Corpuscular Volume 88 FL (80-99) Mean Corpuscular Hemoglobin 26.6 PG (27.0-31.0) L Mean Corpuscular Hemoglobin Concent 30.1 G/DL (32.0-36.0) L Red Cell Distribution Width 14.6 % (11.6-14.8) Platelet Count 466 K/UL (150-450) H Mean Platelet Volume 5.5 FL (6.5-10.1) L Neutrophils (%) (Auto) 73.5 % (45.0-75.0) Lymphocytes (%) (Auto) 15.4 % (20.0-45.0) L Monocytes (%) (Auto) 7.7 % (1.0-10.0) Eosinophils (%) (Auto) 2.2 % (0.0-3.0) Basophils (%) (Auto) 1.3 % (0.0-2.0) Sodium Level 134 MMOL/L (136-145) L Potassium Level 5.6 MMOL/L (3.5-5.1) H Chloride Level 106 MMOL/L (98-107) Carbon Dioxide Level 18 MMOL/L (21-32) L Anion Gap 10 mmol/L (5-15) Blood Urea Nitrogen 28 mg/dL (7-18) H Creatinine 3.5 MG/DL (0.55-1.30) H Estimat Glomerular Filtration Rate 18.1 mL/min (>60) Glucose Level 131 MG/DL (74-106) H Calcium Level 8.3 MG/DL (8.5-10.1) L Microbiology Date/Time Source Procedure Growth Status 11/17/17 18:45 Blood Blood Culture - Preliminary NO GROWTH AFTER 48 HOURS Resulted 11/17/17 18:35 Blood Blood Culture - Preliminary NO GROWTH AFTER 48 HOURS Resulted 11/18/17 01:00 Nasal Nares MRSA Culture - Final NO METHICILLIN RESISTANT STAPH AUREUS... Complete 11/17/17 19:00 Nasal Nares Influenza Types A,B Antigen (EVON) - Final Complete 11/18/17 20:15 Stool Clostridium difficile Toxin Assay - Final Complete 11/18/17 01:00 Rectum VRE Culture - Final Enterococcus Faecium - Vre Complete Intake and Output 11/19/17 11/20/17 19:00 07:00 Intake Total 500 ml 360 ml Output Total 600 ml 525 ml Balance -100 ml -165 ml Intake Oral 500 ml 360 ml Output Urine Total 600 ml 525 ml # Voids 3 # Bowel Movements 2 Objective General Appearance: mild distress, cachetic, thin EENT: PERRL/EOMI, normal ENT inspection, TMs normal Neck: non-tender, normal alignment, supple, normal inspection Cardiovascular: normal peripheral pulses, normal rate, regular rhythm, no gallop/murmur, no JVD Respiratory/Chest: chest wall non-tender, lungs clear, normal breath sounds, no respiratory distress, no accessory muscle use Abdomen: normal bowel sounds, non tender, soft, no organomegaly, no mass Extremities: normal range of motion 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 D/C daptomycin; start meropenem (4) Diabetes mellitus, type II Assessment & Plan: Continue novolog sliding scale. (5) ESRD (end stage renal disease) on dialysis Assessment & Plan: await nephrology consult for dialysis orders (6) Hypercholesteremia (7) Seizure disorder (8) Peripheral vascular disease Status: stable Assessment/Plan Discharge planning: assisted fac when bed avail. BISI CONDE Nov 20, 2017 17:53
--- NOTE | 2017-11-20 18:55 | Pulmonology Progress Note ---
Assessment/Plan Problems: (1) Sepsis (2) Intractable pain (3) ESRD (end stage renal disease) on dialysis (4) Peripheral vascular disease (5) Seizure disorder (6) Hiccups (7) Hypertensive emergency (8) HTN (hypertension) Assessment/Plan abx check cultures ID note appreciated HD by nephrology symptomatic treatment dvt prophylaxis check labs, meds f/u clinically Subjective ROS Limited/Unobtainable: No Interval Events: no new complains Allergies: Coded Allergies: NO KNOWN ALLERGIES (Unverified Allergy, Unknown, 10/24/15) Objective Last 24 Hour Vital Signs Date Time Temp Pulse Resp B/P (MAP) Pulse Ox O2 Delivery O2 Flow Rate FiO2 11/20/17 18:51 83 151/64 11/20/17 16:00 98.4 83 17 151/64 96 11/20/17 15:11 80 153/79 11/20/17 12:05 97.3 80 20 153/79 95 11/20/17 12:00 Room Air 11/20/17 10:02 97.0 11/20/17 09:23 84 153/68 11/20/17 09:23 84 153/68 11/20/17 08:00 Room Air 11/20/17 08:00 97.0 84 20 153/68 96 11/20/17 06:19 160/67 11/20/17 04:00 99.0 82 18 177/71 98 11/20/17 02:29 163/66 11/20/17 00:00 98.7 78 20 163/66 99 11/20/17 00:00 Room Air 11/19/17 20:00 99.0 81 20 160/66 100 11/19/17 20:00 Room Air Intake and Output 11/19/17 11/20/17 19:00 07:00 Intake Total 500 ml 360 ml Output Total 600 ml 525 ml Balance -100 ml -165 ml Intake Oral 500 ml 360 ml Output Urine Total 600 ml 525 ml # Voids 3 # Bowel Movements 2 General Appearance: WD/WN HEENT: normocephalic, atraumatic, PERRL Respiratory/Chest: lungs clear Cardiovascular: normal peripheral pulses, normal rate Abdomen: normal bowel sounds, soft, non tender Genitourinary: normal external genitalia Extremities: no clubbing Skin: no ulcers 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 Complete 11/17/17 19:00 Nasal Nares Influenza Types A,B Antigen (EVON) - Final Complete 11/18/17 20:15 Stool Clostridium difficile Toxin Assay - Final Complete 11/18/17 01:00 Rectum VRE Culture - Final Enterococcus Faecium - Vre Complete Laboratory Tests 11/20/17 06:30: White Blood Count 7.4, Red Blood Count 3.06L, Hemoglobin 8.1L, Hematocrit 27.1L , Mean Corpuscular Volume 88, Mean Corpuscular Hemoglobin 26.6L, Mean Corpuscular Hemoglobin Concent 30.1L, Red Cell Distribution Width 14.6, Platelet Count 466H, Mean Platelet Volume 5.5L, Neutrophils (%) (Auto) 73.5, Lymphocytes (%) (Auto) 15.4L, Monocytes (%) (Auto) 7.7, Eosinophils (%) (Auto) 2.2, Basophils (%) (Auto) 1.3, Sodium Level 134L, Potassium Level 5.6H, Chloride Level 106, Carbon Dioxide Level 18L, Anion Gap 10, Blood Urea Nitrogen 28H, Creatinine 3.5H, Estimat Glomerular Filtration Rate 18.1, Glucose Level 131H, Calcium Level 8.3L Current Medications Medications (Trade) Dose Ordered Sig/Vincent Route PRN Reason Start Time Stop Time Status Last Admin Dose Admin Acetaminophen (Tylenol) 650 mg Q4H PRN ORAL fever 11/17/17 19:45 12/17/17 19:44 Al Hydroxide/Mg Hydroxide (Mylanta II) 30 ml Q6H PRN ORAL dyspepsia 11/17/17 19:45 12/17/17 19:44 Albuterol/ Ipratropium (Albuterol/ Ipratropium) 3 ml Q6H PRN HHN dyspnea 11/17/17 19:45 11/22/17 19:44 Allopurinol (Zyloprim) 100 mg DAILY ORAL 11/18/17 09:00 12/18/17 08:59 11/20/17 09:23 Amlodipine Besylate (Norvasc) 10 mg DAILY ORAL 11/18/17 09:00 12/18/17 08:59 11/20/17 09:23 Aspirin (Ecotrin) 81 mg DAILY ORAL 11/18/17 09:00 12/18/17 08:59 11/20/17 09:23 Atorvastatin Calcium (Lipitor) 20 mg BEDTIME ORAL 11/18/17 21:00 12/18/17 20:59 11/19/17 20:24 Clonidine HCl (Catapres Tab) 0.1 mg Q4H PRN ORAL SBP > 160 11/17/17 19:45 12/17/17 19:44 11/20/17 02:29 Dextrose (Dextrose 50%) STAT PRN IV Hypoglycemia 11/17/17 19:45 12/17/17 19:44 Epoetin Binu (Procrit (for ESRD on dialysis)) 7,000 units SUN-SUN-SUN SUBQ 11/19/17 21:00 12/19/17 20:59 11/19/17 20:24 Furosemide (Lasix) 100 mg Q8H PRN IV dyspnea 11/17/17 19:45 12/17/17 19:44 Heparin Sodium (Porcine) (Heparin 5000 units/ml) 5,000 units EVERY 12 HOURS SUBQ 11/18/17 21:00 12/18/17 20:59 11/20/17 09:25 Insulin Aspart (NovoLOG) BEFORE MEALS AND HS SUBQ 11/17/17 21:00 12/17/17 20:59 11/20/17 16:59 Labetalol HCl (Normodyne) 100 mg TID ORAL 11/18/17 09:00 12/18/17 08:59 11/20/17 18:51 Meropenem 500 mg/ Sodium Chloride 55 ml @ 110 mls/hr Q24H IV 11/20/17 14:00 11/25/17 13:59 11/20/17 15:12 Morphine Sulfate (Morphine Sulfate) 1 mg Q4H PRN IVP Severe Pain Scale 7-10 11/17/17 19:45 11/24/17 19:44 11/20/17 09:32 Mycophenolate Mofetil (Cellcept) 500 mg BID ORAL 11/20/17 09:00 12/20/17 08:59 11/20/17 18:51 Ondansetron HCl (Zofran) 4 mg Q6H PRN IVP Nausea & Vomiting 11/17/17 19:45 12/17/17 19:44 Polyethylene Glycol (Miralax) 17 gm HSPRN PRN ORAL Constipation 11/17/17 19:45 12/17/17 19:44 Sodium Citrate (Bicitra) 30 ml BID ORAL 11/20/17 09:00 12/20/17 08:59 11/20/17 18:50 Tacrolimus (Prograf) 2 mg BID ORAL 11/20/17 09:00 12/20/17 08:59 11/20/17 18:50 Zolpidem Tartrate (Ambien) 5 mg HSPRN PRN ORAL Insomnia 11/17/17 19:45 11/24/17 19:44 JOCELYN LAMA Nov 20, 2017 18:55
--- NOTE | 2017-11-22 11:16 | Discharge Summary ---
Discharge Summary Hospital Course Date of Admission Nov 17, 2017 at 22:10 Date of Discharge Nov 20, 2017 at 22:00 Admitting Diagnosis nausea/dialysis HPI Vik Brunson is a 56 year old male who was admitted on Nov 17, 2017 at 22:10 for Nausea/Dialysis Hospital Course [id number] Discharge Discharge Disposition Patient was discharged to Home with Home Health(06) Discharge Diagnoses: Lauren Lemons NP Nov 22, 2017 11:16
--- NOTE | 2017-11-22 14:43 | Cardiology Report ---
APPROVED REPORT EKG Measurement Heart [id number] Normal sinus rhythm Left axis deviation Incomplete right bundle branch block Septal infarct, age undetermined Abnormal ECG
--- NOTE | 2017-11-22 20:00 | Discharge Summary 2 SIG ---
DATE OF ADMISSION: 11/17/2017 DATE OF DISCHARGE: 11/20/2017 ATTENDING PHYSICIAN: Kristian Gaona M.D. CONSULTANTS: 1. Delmis Zambrano M.D. 2. Marcella Ramon M.D. 3. Ray Hernandez M.D. BRIEF HOSPITAL COURSE: The patient is a 56-year-old, male who presented to ED with a chief complaint of elevated blood pressure. The patient was recently admitted to [facility] for urinary tract infection with Klebsiella and E. coli and was recently discharged home to continue IV antibiotics. According to the patient, home health nurse came to his house and was found to have elevated blood pressure of 189/79, he then presented to the ER. He has a past medical history significant for end-stage renal disease, on hemodialysis every Sunday, , and Sunday, diabetes mellitus type 2, status post renal transplant, hypertension, hypercholesterolemia, seizure disorder, diabetic peripheral vascular disease and cellulitis of the left hip. On evaluation at ED, he was afebrile. Influenza screen was negative. He had a chest x-ray done that showed no acute disease and EKG was in normal sinus rhythm. He continued to have nausea. He was given Kayexalate and calcium gluconate insulin and dextrose for hyperkalemia. He was given IV antibiotics. He was then admitted for hypertensive emergency. He was placed on labetalol 100 mg b.i.d. and Norvasc 10 mg daily. He was continued on Invanz. Hyponatremia resolved. Lasix was placed on hold. He was given Bicitra and Epogen. He was given inpatient hemodialysis. Blood cultures did not isolate any growth. Urine culture no growth. C. difficile was negative. Blood pressure had better control. He was eventually discharged home with home health. FINAL DIAGNOSES: 1. Hypertensive emergency. 2. Diabetes mellitus type 2. 3. Recent cellulitis of the left hip. 4. End-stage renal disease, on hemodialysis. 5. Hypercholesterolemia. 6. Seizure disorder. 7. Diabetic peripheral vascular disease. 8. Possible sepsis. 9. Intractable back pain. 10. Anemia of chronic kidney disease. 11. Acute renal failure. 12. Hyponatremia, resolved. 13. Hyperkalemia. 14. Malnutrition. 15. History of renal transplant. DISPOSITION: The patient was discharged home with home health. DISCHARGE MEDICATIONS: Refer to medication list. DISCHARGE INSTRUCTIONS: Follow up with PMD in a week. Delmis Zambrano M.D. I have been assigned to dictate discharge summary on this account and I was not involved in the patient's management. Lauren Lemons N.P. DR: SHONA JOB#: [id number] CC:
== END 2017-11-20 22:00 | disposition home health service (06) | DRG 304 ==
LOC: EDBD 17:46 → EMR 18:15 → ENRESERV 20:53 → EDBEDREQ 21:43 → 3E 22:10 → EDBEDREQSVC 22:40 → EDBEDREQ 22:40 → 3E 11-18 01:18
DX: I16.1 Hypertensive emergency (principal); N18.6 End stage renal disease; A41.9 Sepsis, unspecified organism; N17.9 Acute kidney failure, unspecified; E46 Unspecified protein-calorie malnutrition; E11.22 Type 2 diabetes mellitus with diabetic chronic kidney disease; L03.116 Cellulitis of left lower limb; Z94.0 Kidney transplant status; E87.1 Hypo-osmolality and hyponatremia; E11.9 Type 2 diabetes mellitus without complications; D63.1 Anemia in chronic kidney disease; E11.51 Type 2 diabetes mellitus with diabetic peripheral angiopathy without gangrene; E87.5 Hyperkalemia; I12.0 Hypertensive chronic kidney disease with stage 5 chronic kidney disease or end stage renal disease; Z99.2 Dependence on renal dialysis; Z79.4 Long term (current) use of insulin; G40.909 Epilepsy, unspecified, not intractable, without status epilepticus; E78.00 Pure hypercholesterolemia, unspecified
CPT/HCPCS: 36415; 71045; 80048; 80053; 80061; 81003; 82043; 82044; 82962; 83036; 83605; 83880; 84100; 84300; 84443; 84484; 85025; 85651; 86140; 86710; 87040; 87081; 87086; 87324; 89050; 93005; 99285; J1815; J2405